=== PATIENT | female | born 2000 | race Caucasian/White ===

== ENCOUNTER 2022-08-25 11:21 | Outpatient (OUT) | payer BC, OTHER, SELFPAY ==
--- NOTE | 2022-08-25 11:28 | US_ITS ---
The [address] [address] Patient Name: MARVEL MICHELLE MRN: [id number] date: 2000 Sex: F Assigned Patient Location: US Current Patient Location: US Accession/Order Number: [id number] Exam Date: 08/25/2022 11:50 Report Date: 08/25/2022 15:31 At the request of: RICHARD TATUM Procedure: US OB incomplete anatomy EXAMINATION: US OB incomplete anatomy HISTORY: Screening, for anatomic survey Z36.89 COMPARISON: Ultrasound anatomy 07/17/2022 FINDINGS: Presentation: Breech Placenta: Anterior without previa Heart rate: 135 bpm Anatomy: Four-chamber heart, RVOT, LVOT, hard palate, kidneys. No appreciable abnormality. GA: 25 weeks 5 days YANICK: 12/03/2022 IMPRESSION: 1. Single live intrauterine . 2. No appreciable abnormality of the heart and outflow tracts, and kidneys. 3. Slightly limited evaluation of the hard palate due to adjacent structures, but no appreciable abnormality. Electronically authenticated by: EMA SAMUEL Date: 08/25/2022 15:31
== END 2022-08-25 11:22 ==
PROVIDERS: PCP Family Medicine; Visit Provider Obstetrics & Gynecology
DX: Z36.2 Encounter for other antenatal screening follow-up (principal)
CPT/HCPCS: 76815

== ENCOUNTER 2022-09-05 10:29 | Outpatient (OUT) | payer BC, OTHER, SELFPAY ==
[2022-09-05 11:51] LABS: Basophils Absolute Auto 0.1 10^3/uL (0.0-0.1); Basophils Percent Auto 0.5 % (0.2-2.0); Eosinophils Absolute Auto 0.1 10^3/uL (0.0-0.7); Eosinophils Percent Auto 0.6 % (0.9-7.0); Hematocrit 33.8 % (36.0-48.0); Hemoglobin 11.5 g/dL (12.0-16.0); Immature Granulocytes Abs Auto 0.06 10^3/uL (0.00-0.03); Immature Granulocytes Pct Auto 0.5 % (0.0-0.5); Lymphocytes Absolute Auto 1.8 10^3/uL (1.2-3.8); Lymphocytes Percent Auto 15.2 % (20.5-60.0); Mean Corpuscular Hemoglobin 29.4 pg (26.7-34.0); Mean Corpuscular Volume 86.4 fL (81.0-99.0); Mean Platelet Volume 10.3 fL (9.5-13.5); Monocytes Absolute Auto 0.7 10^3/uL (0.3-0.8); Monocytes Percent Auto 5.5 % (1.7-12.0); Neutrophils Absolute Auto 9.3 10^3/uL (1.4-6.5); Neutrophils Percent Auto 77.7 % (43.0-75.0); Platelet Count 283 10^3/uL (150-450); Red Blood Count 3.91 10^6/uL (4.20-5.40); Red Cell Distribution Width 12.6 % (11.0-15.0); White Blood Count 11.9 10^3/uL (4.0-11.0)
[2022-09-05 12:29] LABS: Estimated Average Glucose 88 mg/dL; Glycohemoglobin A1C 4.7 % (4.5-6.2)
[2022-09-05 13:20] LABS: Glucose 1 Hour 96 mg/dL
[2022-09-06 06:09] LABS: HBsAg Screen Negative (Negative); HCV Ab Non Reactive (Non Reactive); HIV Ab/p24 Ag Screen Non Reactive (Non Reactive); Rubella Antibodies, IgG <0.90 index (Immune >0.99)
[2022-09-06 10:08] LABS: Rapid Plasma Reagin, Quant Non Reactive (NonRea<1:1)
== END 2022-09-05 10:30 | disposition home or self-care (01) ==
PROVIDERS: PCP Family Medicine; Visit Provider Obstetrics & Gynecology
DX: Z34.92 Encounter for supervision of normal pregnancy, unspecified, second trimester (principal); N92.6 Irregular menstruation, unspecified
CPT/HCPCS: 36415; 82950; 83036; 84443; 85025; 86592; 86762; 86803; 86850; 86900; 86901; 87086; 87340; 87389

== ENCOUNTER 2022-09-23 09:33 | Outpatient (OUT) | payer BC, OTHER, SELFPAY | END 2022-09-23 09:34 | disposition home or self-care (01) | LOC: LAB 09:33 | PROVIDERS: PCP Family Medicine; Visit Provider Obstetrics & Gynecology | DX: O26.893 Other specified pregnancy related conditions, third trimester (principal); Z3A.28 28 weeks gestation of pregnancy | CPT/HCPCS: 36415; 86850; 86900; 86901 ==

== ENCOUNTER 2022-09-24 07:36 | Outpatient (OUT) | payer BC, OTHER, SELFPAY ==
[2022-09-24 09:39] VITALS: BP 124/76; PULSE 102; TEMP 36.5; O2SAT 98
--- NOTE | 2022-09-24 09:40 | PC.NURSE ---
0933: Pt. to [facility] amb. accompanied by significant other and child. Seated in recliner. Blood type confirmed. Pt. educated on purpose of Rhogam. Denies questions. VSS.
[2022-09-24] MEDS: RHO(D) IMMUNE GLOBULIN 1,500 UNIT SYRINGE 1500 UNIT IM (09:46)
--- NOTE | 2022-09-24 09:58 | PC.NURSE ---
0946: Medicated with Rhophylac 300mg IM to right dorsal gluteal. No bleeding from site. Bandaid placed prophylactically. Pt. tolerated with minimal c/o. Seated on recliner for brief observation. 1001: Pt. without s&s of adverse reaction. D/c'd amb. to home with family.
== END 2022-09-24 07:37 | disposition home or self-care (01) ==
LOC: INF 07:36
PROVIDERS: PCP Family Medicine; Visit Provider Obstetrics & Gynecology
DX: O36.0930 Maternal care for other rhesus isoimmunization, third trimester, not applicable or unspecified (principal); Z3A.00 Weeks of gestation of pregnancy not specified
CPT/HCPCS: 96372; J2790

== ENCOUNTER 2022-10-16 10:07 | Outpatient (OUT) | payer BC, OTHER, SELFPAY ==
--- NOTE | 2022-10-16 | US_ITS ---
The [address] [address] Patient Name: MARVEL MICHELLE MRN: [id number] date: 2000 Sex: F Assigned Patient Location: US Current Patient Location: US Accession/Order Number: [id number] Exam Date: 10/16/2022 10:10 Report Date: 10/16/2022 19:06 At the request of: FRANSISCO BARNEY Procedure: US OB incomplete anatomy EXAMINATION: US OB incomplete anatomy HISTORY: Follow-up ultrasound of anatomy Z36.2 COMPARISON: Ultrasound anatomy 07/17/2022, ultrasound OB incomplete anatomy 08/25/2022 FINDINGS: Presentation: Cephalic Heart rate: 153 bpm Anatomy: Hard palate, four-chamber heart, and outflow tracts seen without appreciable abnormality. GA: 23 weeks 1 day YANICK: 12/03/2022 US/US OB incomplete anatomy IMPRESSION: 1. Single live intrauterine . 2. Slightly limited evaluation due to position. No appreciable abnormality of the hard palate, four-chamber heart, and outflow tracts. Electronically authenticated by: EMA SAMUEL Date: 10/16/2022 19:06
== END 2022-10-16 10:08 | disposition home or self-care (01) ==
LOC: US 10:07
PROVIDERS: Visit Provider Obstetrics & Gynecology
DX: Z36.2 Encounter for other antenatal screening follow-up (principal)
CPT/HCPCS: 76815

== ENCOUNTER 2022-10-30 08:41 | Outpatient (OUT) | payer BC, OTHER, SELFPAY ==
--- NOTE | 2022-10-30 08:44 | US_ITS ---
[address] [address] Patient Name: MARVEL MICHELLE MRN: [id number] date: 2000 Sex: F Assigned Patient Location: US Current Patient Location: US Accession/Order Number: [id number] Exam Date: 10/30/2022 08:45 Report Date: 10/30/2022 15:07 At the request of: FRANSISCO BARNEY Procedure: US OB growth EXAMINATION: US OB growth HISTORY: SIZE INCONSISTENT WITH DATES COMPARISON: Ultrasound OB anatomy 07/17/2022 FINDINGS: Heart Rate: 134.0 bpm Number: 1.0 Position: Blank Amniotic Fluid Volume: 10.4 cm Maximum Vertical Pocket: 5.0 cm BIOMETRY: BPD: 9.2 cm cm; 37 weeks 1 days; 95% HC: 32.9 cmcm; 37 weeks 3 days; 74% AC: 31.4 cm cm; 35 weeks 2 days; 63% FL: 7.3 cm cm; 37 weeks 1 days; 89% EFW: 2886.2 grams; 78% FL/AC: 23.1 FL/BPD: 79.3 HC/AC: 1.1 GESTATIONAL AGE: Age by EDC: 35 weeks 1 days YANICK by EDC: 12/03/2022 Age by US: 36 weeks 5 days YANICK by US: 11/22/2022 US/US OB growth IMPRESSION: 1. Single live intrauterine with growth detailed above. Electronically authenticated by: EMA SAMUEL Date: 10/30/2022 15:07
== END 2022-10-30 08:42 | disposition home or self-care (01) ==
LOC: US 08:42
PROVIDERS: Visit Provider Obstetrics & Gynecology
DX: O26.843 Uterine size-date discrepancy, third trimester (principal); Z3A.35 35 weeks gestation of pregnancy
CPT/HCPCS: 76816

== ENCOUNTER 2022-11-07 09:06 | Outpatient (REF) | payer BC, SELFPAY | END 2022-11-07 09:07 | disposition home or self-care (01) | LOC: LAB 09:06 | PROVIDERS: Visit Provider Obstetrics & Gynecology | DX: Z34.93 Encounter for supervision of normal pregnancy, unspecified, third trimester (principal) | CPT/HCPCS: 87081 ==

== ENCOUNTER 2022-11-20 22:36 | Inpatient (IN) | payer BC, SELFPAY ==
[2022-11-20 22:00] VITALS: BP 120/68; PULSE 91; TEMP 35.4
[2022-11-20 22:18] LABS: Bilirubin Urine NEGATIVE (NEGATIVE); Blood Urine TRACE-I (NEGATIVE); Clarity Urine CLEAR (CLEAR); Color Urine YELLOW (YELLOW); Glucose Urine UA NEGATIVE (NEGATIVE); Ketones Urine NEGATIVE (NEGATIVE); Leukocyte Esterase Urine NEGATIVE (NEGATIVE); Nitrite Urine NEGATIVE (NEGATIVE); Protein Urine 30 mg/dL (NEG/TRACE); Specific Gravity Urine >=1.030 (1.005-1.025); Urobilinogen Urine 0.2 EU/dL (0.2-1.0)
[2022-11-20 22:22] LABS: Amnisure POSITIVE (NEGATIVE)
[2022-11-20 22:25] LABS: Urine Microscopic Indicated YES
[2022-11-20 22:27] LABS: Bacteria Urine SMALL #/HPF (NONE SEEN); Mucus Urine MODERATE (NONE SEEN); Squamous Epithelial Cell Urine FEW #/LPF (NONE/RARE)
[2022-11-20 22:28] LABS: Cast Seen? NONE SEEN #/LPF (NONE SEEN); Crystals Seen? None Seen #/HPF (None Seen); Urine Culture Indicated YES
[2022-11-20 23:18] VITALS: BP 122/76; PULSE 78
[2022-11-20 23:31] VITALS: RESP 18; TEMP 36.5
[2022-11-20 23:42] LABS: Hematocrit 31.9 % (36.0-48.0); Hemoglobin 10.9 g/dL (12.0-16.0); Mean Corpuscular HGB Conc 34.2 g/dL (29.9-35.2); Mean Corpuscular Hemoglobin 28.1 pg (26.7-34.0); Mean Corpuscular Volume 82.2 fL (81.0-99.0); Mean Platelet Volume 11.6 fL (9.5-13.5); Platelet Count 236 10^3/uL (150-450); Red Blood Count 3.88 10^6/uL (4.20-5.40); White Blood Count 14.8 10^3/uL (4.0-11.0)
[2022-11-20 23:48] VITALS: BP 127/92; PULSE 81
[2022-11-20 23:54] LABS: Amphetamine Screen Urine NEGATIVE (NEGATIVE); Barbiturates Screen Urine NEGATIVE (NEGATIVE); Benzodiazepines Screen Urine NEGATIVE (NEGATIVE); Buprenorphine Screen Urine NEGATIVE (NEGATIVE); Cannabinoid Screen Urine POSITIVE (NEGATIVE); Cocaine Screen Urine NEGATIVE (NEGATIVE); Methadone Screen Urine NEGATIVE (NEGATIVE); Methamphetamines Screen Urine NEGATIVE (NEGATIVE); Opiate Screen Urine NEGATIVE (NEGATIVE); Oxycodone Screen Urine NEGATIVE (NEGATIVE); Phencyclidine Screen Urine NEGATIVE (NEGATIVE); Tricyclic Antidepressant Urine NEGATIVE (NEGATIVE)
[2022-11-21] VITALS (58 sets, daily range): BP systolic 102–177; BP diastolic 56–127; PULSE 75–126; RESP 16–18; TEMP 36.7–37.2
[2022-11-21] MEDS: 0.9 % SODIUM CHLORIDE 1,000 ML 125 ML IV (00:17)
[2022-11-21] MEDS: ROPIVACAINE HCL/PF 400 MG/200 ML PREMIX 6 MG EPIDURAL (01:05)
[2022-11-21] MEDS: FENTANYL CITRATE/PF 100 MCG/2 ML VIAL EPIDURAL (01:05)
[2022-11-21] MEDS: OXYTOCIN 10 UNIT in 0.9 % SODIUM CHLORIDE 500 ML 6.012 UNIT IV (01:53)
[2022-11-21] MEDS: ONDANSETRON PF 4 MG/2 ML VIAL IV (01:54)
[2022-11-21] MEDS: 0.9 % SODIUM CHLORIDE 1,000 ML 1000 ML IV (03:17)
--- NOTE | 2022-11-21 05:32 | P.OBHP_ITS ---
OB - H&P: HPI History of Present Illness Chief complaint: water broke 38 weeks : 1 Para: 0 Gestational age based on last menstrual period: 38 2/7wks History of Present Dating criteria: LMP confirmed by 1st trimester US care: good care Ultrasounds: normal 1st trimester US Medical complications OB: none Labs Blood type: B (-) negative Rubella: nonimmune RPR/VDLR: nonreactive GBS status: negative HBsAG: negative Review of Systems ROS Status of ROS 10 or more systems reviewed and unremarkable except as noted in history and below Meds Home Medications and Allergies Home Medications Medication Instructions Recorded Confirmed Type ondansetron 4 mg disintegrating mg 11/20/22 History tablet Allergies Allergy/AdvReac Type Severity Reaction Status Date / Time No Known Drug Allergies Allergy Verified 11/20/22 22:02 Exam Constitutional Vital Signs, click to edit/add: Last Vital Signs Temp 98.3 F 11/21/22 04:16 Pulse 98 H 11/21/22 05:31 Resp 18 11/21/22 04:16 BP 169/99 H 11/21/22 05:31 Documenting provider has reviewed patient's vital signs: yes Common normals: no apparent distress Respiratory Common normals: normal respiratory effort and clear to auscultation bilaterally Cardio Common normals: regular rate and regular rhythm GI Common normals: Normal to inspection, nondistended, normoactive bowel sounds present Extremity Common normals: no clubbing, cyanosis or edema and no calf tenderness Results Labs Labs: Short CBC 11/20/22 Range/Units 23:00 WBC 14.8 H (4.0-11.0) 10^3/uL Hgb 10.9 L (12.0-16.0) g/dL Hct 31.9 L (36.0-48.0) % Plt Count 236 (150-450) 10^3/uL Urine 11/20/22 Range/Units 21:56 Urine Color Yellow (YELLOW) Urine Clarity Clear (CLEAR) Urine pH 6.0 (5.0-9.0) Ur Specific [place] >=1.030 A (1.005-1.025) Urine Protein 30 A (NEG/TRACE) mg/dL Urine Glucose (UA) Negative (NEGATIVE) mg/dL OB - A/P Assessment and Plan (1) SROM (spontaneous rupture of membranes): Plan iup at 38 2/7wks, srom-iv, routine labs, pit augmentation, cont efm
--- NOTE | 2022-11-21 06:07 | PM.OBPRCVD ---
Procedure Procedure: , srom Intrapartal events: None Induction method: none Delivery augmentation: pitocin Delivery monitor: external FHT and external uterine Route of delivery: Episiotomy Description: none Laceration description: perineal - 2nd degree Delivery repair: Vicryl Estimated blood loss (mL): 250 Anesthesia type: Epidural Disposition: floor Infant presentation: vertex
--- NOTE | 2022-11-21 07:17 | PC.NURSE ---
epidural catheter removed with tip intact.
[2022-11-21] MEDS: BENZOCAINE/MENTHOL 85 GRAM SPRAY BOTTLE 1 APPLIC TOPICAL (07:23)
[2022-11-21] MEDS: IBUPROFEN 600 MG TABLET PO ×3 (07:24→18:36)
[2022-11-21] MEDS: GLYCERIN/WITCH HAZEL PADS 1 PAD TOPICAL (07:24)
--- NOTE | 2022-11-21 07:49 | PC.NURSE ---
0710- Report given to Belem Zaman RN
--- NOTE | 2022-11-21 14:11 | SWNOTE1 ---
SW consulted due to positive drug screen for marijuana. SW spoke with nursing and no other concerns besides marijuana. SW met with pt, father of baby, and pt's sister in law in the room. This is pt's first baby. Father of baby does have a 5 year old daughter that he shares parenting with the mother. Pt and father of baby do have everything they need at home for baby. She is attempting to breast feed. Pt and father of baby have good support at home from both families. SW and pt did talk to pt about being positive for marijuana on admission. Pt does admit to smoking marijuana during . At the beginning she voiced she was nauseous and could not keep anything down, and she lost 20 pounds. Smoking marijuana helped. She then was able to gain weight and eat. She did attempt other meds for her nausuea. She voiced she also smoked marijuana due to her pain. SW did ask her if she was going to continue once home, and she stated if she needed to. SW did let pt and family know SW is mandated reported and a report will be called to CPS. They voiced understanding. ESTEBAN did go over post- depression with pt and father of baby and they voiced they have already spoke about this. ESTEBAN called report to [facility] CPS. HIPPA form filled out and sent to
--- NOTE | 2022-11-22 06:44 | PC.NURSE ---
[place]30[place] [place]
[2022-11-22 06:50] LABS: Basophils Absolute Auto 0.1 10^3/uL (0.0-0.1); Basophils Percent Auto 0.5 % (0.2-2.0); Eosinophils Absolute Auto 0.1 10^3/uL (0.0-0.7); Eosinophils Percent Auto 0.8 % (0.9-7.0); Hemoglobin 9.9 g/dL (12.0-16.0); Immature Granulocytes Pct Auto 0.7 % (0.0-0.5); Lymphocytes Absolute Auto 3.3 10^3/uL (1.2-3.8); Mean Corpuscular Volume 84.7 fL (81.0-99.0); Mean Platelet Volume 10.6 fL (9.5-13.5); Monocytes Absolute Auto 0.8 10^3/uL (0.3-0.8); Monocytes Percent Auto 5.8 % (1.7-12.0); Neutrophils Percent Auto 69.2 % (43.0-75.0); Platelet Count 229 10^3/uL (150-450); Red Blood Count 3.54 10^6/uL (4.20-5.40); Red Cell Distribution Width 14.4 % (11.0-15.0); White Blood Count 14.5 10^3/uL (4.0-11.0)
--- NOTE | 2022-11-22 07:09 | PC.NURSE ---
Report given to Eduardo Mauricio RN
[2022-11-22 08:05] VITALS: BP 124/72; PULSE 80; RESP 16
[2022-11-22] MEDS: DOCUSATE SODIUM 100 MG CAPSULE PO (08:51)
[2022-11-22] MEDS: IBUPROFEN 600 MG TABLET PO ×3 (08:51→23:21)
--- NOTE | 2022-11-22 09:12 | PM.OBPN ---
OB - PN: Subj Subjective Patient comments: no complaints, pain well controlled, tolerating diet and flatus present infant status: doing well feeding status: exclusively Exam Constitutional Vital Signs, click to edit/add: Last Vital Signs Temp 98.2 F 11/21/22 23:41 Pulse 80 11/22/22 08:05 Resp 16 11/22/22 08:05 BP 124/72 11/22/22 08:05 Documenting provider has reviewed patient's vital signs: yes Common normals: no apparent distress, oriented x3 and no limitations General appearance: cooperative and comfortable Orientation/consciousness: Yes awake, Yes oriented to person, Yes oriented to place and Yes oriented to time HENMT Common normals: normocephalic Lymph Lymphatic: no lymphadenopathy noted Chest Common normals: inspection of chest normal Respiratory Common normals: normal respiratory effort and clear to auscultation bilaterally Cardio Common normals: regular rate, regular rhythm and no murmurs Rate: regular rate Rhythm: regular rhythm GI Common normals: Normal to inspection, nondistended, normoactive bowel sounds present Auscultation: normoactive bowel sounds Palpation: soft Common normals: no CVA tenderness Back & Pelvis Common normals: no CVA tenderness Extremity Common normals: normal to inspection and full ROM General: normal exam except as noted Neuro Common normals: oriented x3 Sensorium/orientation: awake, alert, oriented to person, oriented to place and oriented to time Psych Psychiatry clinicians, please identify where your Mental Status Exam is documented: Mental Status Exam documented in the separate MSE Attitude: calm Activity/motor behavior: appropriate eye contact Thought process: normal thought process Results Labs Labs: Short CBC 11/22/22 Range/Units 06:38 WBC 14.5 H (4.0-11.0) 10^3/uL Hgb 9.9 L (12.0-16.0) g/dL Hct 30.0 L (36.0-48.0) % Plt Count 229 (150-450) 10^3/uL OB - PN: A/P Assessment and Plan (1) SROM (spontaneous rupture of membranes): Plan - Vaginal Delivery day: 1 Plan: routine care Time Spent with Patient Time: Total time spent is greater than 50% in coordination of care (as documented) at patient's floor/unit and/or counseling patient: Total time spent with greater than 50% in coordination of care (as documented) at patient's floor/unit and/or counseling patient: less than 15 minutes
[2022-11-22 17:20] VITALS: RESP 16
[2022-11-22 17:23] VITALS: BP 117/83; PULSE 88
--- NOTE | 2022-11-22 19:29 | W.PC.ACHO ---
Registration Status: ADM IN Primary Language: Grenadian Preferred Language: Grenadian Report given to Camron De La Rosa RN. Care relinquished. Active Medications Generic Name Dose Route Start Last Admin Trade Name Eze PRN Reason Stop Dose Admin Acetaminophen 650 mg 11/21/22 06:08 Acetaminophen 325 Mg Tablet PO Q6H PRN Mild Pain Al Hydroxide/Mg Hydroxide 2,400 mg 11/21/22 06:08 Magnesium Hydroxide 2,400 Mg/10 Ml Oral.Susp PO Q6H PRN Dyspepsia Benzocaine/Menthol 1 applic 11/21/22 06:08 11/21/22 07:23 Benzocaine/Menthol 85 Gram [place] Bottle TOPICAL 1 applic Q2H PRN Administration Pain Carboprost Tromethamine 250 mcg 11/21/22 01:49 Carboprost Tromethamine 250 Mcg/Ml 1 Ml Vial IM 11/23/22 01:49 Q15M PRN Bleeding Diphtheria/Pertussis/Tetanus Vacc 0.5 ml 11/23/22 09:00 Adacel Diph,Pertuss(Acell),Tet Vac/Pf 0.5 Ml Adult Syringe IM 11/23/22 09:01 .ONCE ONE Docusate Sodium 100 mg 11/22/22 09:00 11/22/22 08:51 Docusate Sodium 100 Mg Capsule PO 100 mg BID SLIME Administration Sodium Chloride 1,000 mls @ 125 mls/hr 11/20/22 22:45 11/21/22 00:17 Sodium Chloride 0.9% 1,000 Ml IV 125 mls/hr .Q8H SLIME Administration Ibuprofen 600 mg 11/21/22 06:08 11/22/22 16:15 Ibuprofen 600 Mg Tablet PO 600 mg Q6H PRN Administration Moderate Pain Measles/Mumps/Rubella Vaccine Live 0.5 ml 11/23/22 09:00 Measles,Mumps,Rubella Vacc/Pf 0.5 Ml Vial SQ 11/23/22 09:01 .ONCE ONE Methylergonovine Maleate 0.2 mg 11/20/22 22:38 Methylergonovine Maleate 0.2 Mg/Ml Ampule IM 11/22/22 22:38 ONCE PRN Uterine Contractility/Contract Methylergonovine Maleate 0.2 mg 11/20/22 22:38 Methylergonovine Maleate 0.2 Mg Tablet PO 11/22/22 22:38 Q4H PRN Uterine Contractility/Contract Misoprostol 600 mcg 11/20/22 22:38 Misoprostol 100 Mcg Tablet PO 11/22/22 22:38 ONCE PRN Uterine Bleeding Misoprostol 800 mcg 11/20/22 22:38 Misoprostol 100 Mcg Tablet SL 11/22/22 22:38 ONCE PRN Uterine Bleeding Misoprostol 1,000 mcg 11/20/22 22:38 Misoprostol 100 Mcg Tablet AR 11/22/22 22:38 ONCE PRN Uterine Bleeding Ondansetron HCl 4 mg 11/20/22 22:38 11/21/22 01:54 Ondansetron Pf 4 Mg/2 Ml Vial IV 4 mg Q6H PRN Administration Nausea And Vomiting Ondansetron HCl 4 mg 11/20/22 22:38 Ondansetron 4 Mg Rapdis Tablet SL Q6H PRN Nausea And Vomiting Senna 17.2 mg 11/21/22 20:00 Sennosides 8.6 Mg Tablet PO QHS PRN Constipation Simethicone 80 mg 11/21/22 06:08 Simethicone 80 Mg Tab.Chew PO QID PRN Abdominal Distention Temazepam 15 mg 11/21/22 06:08 Temazepam 15 Mg Capsule PO QHS PRN Sleep Witch Loyda/Glycerin 1 pad 11/21/22 06:08 11/21/22 07:24 Glycerin/Witch Loyda Pads TOPICAL 1 pad Q2H PRN Administration Pain Renal Bladder Pattern Continent Bladder Pattern Continent Bladder Pattern Continent Bladder Pattern Continent
[2022-11-22 23:20] VITALS: BP 119/75; PULSE 77; RESP 16; TEMP 36.6
[2022-11-23] MEDS: IBUPROFEN 600 MG TABLET PO (06:15)
--- NOTE | 2022-11-23 07:11 | W.PC.ACHO ---
Registration Status: ADM IN Primary Language: Polish Preferred Language: Polish Active Medications Generic Name Dose Route Start Last Admin Trade Name Freq PRN Reason Stop Dose Admin Acetaminophen 650 mg 11/21/22 06:08 Acetaminophen 325 Mg Tablet PO Q6H PRN Mild Pain Al Hydroxide/Mg Hydroxide 2,400 mg 11/21/22 06:08 Magnesium Hydroxide 2,400 Mg/10 Ml Oral.Susp PO Q6H PRN Dyspepsia Benzocaine/Menthol 1 applic 11/21/22 06:08 11/21/22 07:23 Benzocaine/Menthol 85 Gram [place] Bottle TOPICAL 1 applic Q2H PRN Administration Pain Diphtheria/Pertussis/Tetanus Vacc 0.5 ml 11/23/22 09:00 Adacel Diph,Pertuss(Acell),Tet Vac/Pf 0.5 Ml Adult Syringe IM 11/23/22 09:01 .ONCE ONE Docusate Sodium 100 mg 11/22/22 09:00 11/23/22 00:52 Docusate Sodium 100 Mg Capsule PO Not Given BID SLIME Sodium Chloride 1,000 mls @ 125 mls/hr 11/20/22 22:45 11/21/22 00:17 Sodium Chloride 0.9% 1,000 Ml IV 125 mls/hr .Q8H SLIME Administration Ibuprofen 600 mg 11/21/22 06:08 11/23/22 06:15 Ibuprofen 600 Mg Tablet PO 600 mg Q6H PRN Administration Moderate Pain Measles/Mumps/Rubella Vaccine Live 0.5 ml 11/23/22 09:00 Measles,Mumps,Rubella Vacc/Pf 0.5 Ml Vial SQ 11/23/22 09:01 .ONCE ONE Ondansetron HCl 4 mg 11/20/22 22:38 11/21/22 01:54 Ondansetron Pf 4 Mg/2 Ml Vial IV 4 mg Q6H PRN Administration Nausea And Vomiting Ondansetron HCl 4 mg 11/20/22 22:38 Ondansetron 4 Mg Rapdis Tablet SL Q6H PRN Nausea And Vomiting Senna 17.2 mg 11/21/22 20:00 Sennosides 8.6 Mg Tablet PO QHS PRN Constipation Simethicone 80 mg 11/21/22 06:08 Simethicone 80 Mg Tab.Chew PO QID PRN Abdominal Distention Temazepam 15 mg 11/21/22 06:08 Temazepam 15 Mg Capsule PO QHS PRN Sleep Witch Loyda/Glycerin 1 pad 11/21/22 06:08 11/21/22 07:24 Glycerin/Witch Loyda Pads TOPICAL 1 pad Q2H PRN Administration Pain Respiratory Oxygen Delivery Method Room Air Cardiology Heart Sounds Regular Bowels Date of Last Bowel Movement 11/22/22 Renal Bladder Pattern Continent Bladder Pattern Continent Bladder Pattern Continent
[2022-11-23 08:40] VITALS: BP 121/62; PULSE 75; RESP 16; TEMP 36.8
[2022-11-23] MEDS: DOCUSATE SODIUM 100 MG CAPSULE PO (08:44)
--- NOTE | 2022-11-23 12:09 | PM.OBPN ---
OB - PN: Subj Subjective Patient comments: no complaints and pain well controlled [place] status: doing well Exam Constitutional Vital Signs, click to edit/add: Last Vital Signs Temp 98.3 F 11/23/22 08:40 Pulse 75 11/23/22 08:40 Resp 16 11/23/22 08:40 BP 121/62 11/23/22 08:40 O2 Del Method Room Air 11/23/22 08:40 Documenting provider has reviewed patient's vital signs: yes Common normals: no apparent distress Respiratory Common normals: normal respiratory effort and clear to auscultation bilaterally Cardio Common normals: regular rate and regular rhythm GI Common normals: Normal to inspection, nondistended, normoactive bowel sounds present Extremity Common normals: no clubbing, cyanosis or edema and no calf tenderness OB - PN: A/P Assessment and Plan (1) SROM (spontaneous rupture of membranes): Plan - Vaginal Delivery day: 2 Plan: routine care, discharge home and follow up 6 weeks Time Spent with Patient Time: Total time spent is greater than 50% in coordination of care (as documented) at patient's floor/unit and/or counseling patient: Total time spent with greater than 50% in coordination of care (as documented) at patient's floor/unit and/or counseling patient: less than 15 minutes
[2022-11-23] MEDS: MEASLES,MUMPS,RUBELLA VACC/PF 0.5 ML VIAL SQ (14:31)
[2022-11-29 04:07] LABS: Cannabinoid Positive (.); Carboxy THC Conf, MS, UR 11 ng/mL (Cutoff=10)
== END 2022-11-23 14:50 | disposition home or self-care (01) | DRG 806 ==
PROVIDERS: Admitting Provider Obstetrics & Gynecology; Visit Provider Obstetrics & Gynecology
DX: O42.92 Full-term premature rupture of membranes, unspecified as to length of time between rupture and onset of labor (principal); O99.324 Drug use complicating childbirth; Z37.0 Single live birth; Z3A.38 38 weeks gestation of pregnancy; O70.1 Second degree perineal laceration during delivery; F12.90 Cannabis use, unspecified, uncomplicated
CPT/HCPCS: 36415; 51702; 59050; 59410; 80307; 80349; 81001; 84112; 85025; 85027; 86850; 86900; 86901; 87086; 90471; 90707; 96374; 96375; 96376

== ENCOUNTER 2022-11-26 08:38 | Outpatient (OUT) | payer BC, SELFPAY | END 2022-11-26 08:39 | disposition home or self-care (01) | LOC: FBCO 08:39 | PROVIDERS: Visit Provider Obstetrics & Gynecology | DX: Z39.2 Encounter for routine postpartum follow-up (principal) ==

== ENCOUNTER 2024-05-13 20:53 | Emergency (ER) | payer BC, SELFPAY ==
[2024-05-13 21:13] VITALS: BP 120/81; PULSE 104; TEMP 36.9; O2SAT 100; BMI 27.2
[2024-05-13 22:18] LABS: Basophils Absolute Auto 0.1 10^3/uL (0.0-0.1); Basophils Percent Auto 0.7 % (0.2-2.0); Eosinophils Absolute Auto 0.3 10^3/uL (0.0-0.7); Eosinophils Percent Auto 2.3 % (0.9-7.0); Hematocrit 41.3 % (36.0-48.0); Hemoglobin 13.9 g/dL (12.0-16.0); Immature Granulocytes Abs Auto 0.03 10^3/uL (0.00-0.03); Immature Granulocytes Pct Auto 0.2 % (0.0-0.5); Lymphocytes Absolute Auto 2.9 10^3/uL (1.2-3.8); Lymphocytes Percent Auto 23.4 % (20.5-60.0); Mean Corpuscular HGB Conc 33.7 g/dL (29.9-35.2); Mean Corpuscular Hemoglobin 28.8 pg (26.7-34.0); Mean Corpuscular Volume 85.5 fL (81.0-99.0); Mean Platelet Volume 10.9 fL (9.5-13.5); Monocytes Absolute Auto 0.9 10^3/uL (0.3-0.8); Monocytes Percent Auto 7.4 % (1.7-12.0); Neutrophils Absolute Auto 8.2 10^3/uL (1.4-6.5); Platelet Count 289 10^3/uL (150-450); Red Blood Count 4.83 10^6/uL (4.20-5.40); Red Cell Distribution Width 13.2 % (11.0-15.0); White Blood Count 12.5 10^3/uL (4.0-11.0)
[2024-05-13] MEDS: ONDANSETRON 4 MG RAPDIS TABLET SL (22:53)
[2024-05-13 23:00] LABS: HCG Quantitative 33925 mIU/mL
[2024-05-13 23:37] LABS: Alanine Aminotransferase 17 U/L (14-59); Albumin Globulin Ratio 1.1; Albumin Level 4.2 g/dL (3.4-5.0); Alkaline Phosphatase 67 U/L (46-116); Anion Gap 16.3; Aspartate Amino Transferase 9 U/L (15-37); BUN Creatinine Ratio 12.8; Bilirubin Total 0.3 mg/dL (0.2-1.0); Calcium 9.4 mg/dL (8.5-10.1); Carbon Dioxide 23.5 mmol/L (21.0-32.0); Chloride 102 mmol/L (98-107); Estimated GFR (African America >60 (>=60 mL/min/1.73m^2); Estimated GFR (Non-African Ame >60 (>=60 mL/min/1.73m^2); Globulin 3.7 g/dL; Glucose 107 mg/dL (74-106); Potassium 3.8 mmol/L (3.5-5.1); Sodium 138 mmol/L (136-145); Total Protein 7.9 g/dL (6.4-8.2)
--- NOTE | 2024-05-14 00:55 | ED_ITS ---
HPI - General Chief complaint: Vaginal Bleeding Stated complaint: , VAGINAL BLEEDING Time Seen by Provider: 05/13/24 21:15 Source: patient Mode of arrival: walk-in Limitations: no limitations History of Present Illness HPI Narrative: The patient think that she is 6 weeks presenting to the ER complaining of vaginal bleeding after she has been feeling nausea for the last few days, the patient mentioned that she had no follow-up with any OB doctor yet, this is the second time that she is 2 para 1 The patient denies any other complaint other than the nausea, and she saw some bright blood when she was wiping 3 hours ago Related Data Home Medications ?Medication ?Instructions ?Recorded ?Confirmed ondansetron 4 mg disintegrating 4 mg PO Q6H PRN nausea and vomiting 05/13/24 05/13/24 tablet Allergies Allergy/AdvReac Type Severity Reaction Status Date / Time No Known Drug Allergies Allergy Verified 05/13/24 21:12 Review of Systems ROS Status of ROS 10 or more systems reviewed and unremark able except as noted in history and below PFSH PFSH Social History Little interest or pleasure in doing things: not at all Feeling down, depressed, or hopeless: not at all Exam Narrative Exam Narrative: Nurses notes and vital signs reviewed and patient is not hypoxic. General: Well-appearing and in no apparent distress. Skin: Warm, dry, no pallor noted. No rash. Head: Normocephalic, atraumatic. Neck: Supple, non-tender. Cardiovascular: Regular Rate and Rhythm without murmur, gallop or rub. Respiratory: No accessory muscle use or respiratory distress. Lungs are clear to auscultation, no wheezing, rales or rhonchi Chest Wall: no tenderness Back: No midline thoracic or lumbar vertebral tenderness. No CVA tenderness Musculoskeletal: normal ROM, no calf or popliteal tenderness, no lower extremity edema/swelling GI: Abdomen is soft, non-distended. Normal bowel sounds. No masses appreciated. No tenderness to palpation. No rebound, guarding, or rigidity noted. Constitutional Vital Signs, click to edit/add: Last Vital Signs Temp 98.5 F 05/13/24 21:13 Pulse 104 H 05/13/24 21:13 Resp 14 05/13/24 21:13 BP 120/81 05/13/24 21:13 Pulse Ox 100 05/13/24 21:13 O2 Del Method Room Air 05/13/24 21:13 Course Vital Signs Vital signs: Vital Signs Temperature 98.5 F 05/13/24 21:13 Pulse Rate 104 H 05/13/24 21:13 Respiratory Rate 14 05/13/24 21:13 Blood Pressure 120/81 05/13/24 21:13 Pulse Oximetry 100 05/13/24 21:13 Oxygen Delivery Method Room Air 05/13/24 21:13 Temperature 98.5 F 05/13/24 21:13 Pulse Rate 104 H 05/13/24 21:13 Respiratory Rate 14 05/13/24 21:13 Blood Pressure 120/81 05/13/24 21:13 Pulse Oximetry 100 05/13/24 21:13 Oxygen Delivery Method Room Air 05/13/24 21:13 MDM - OB/Uterine Contractions MDM Narrative Medical decision making narrative: The patient CBC and chemistry showed no acute significant pathology The patient blood type and screen is B negative The patient was provided with a RhoGAM shot here in the ER The patient also had ultrasound that showed that she have a 6-week that is early to show any cardiac activity Patient to follow-up with her OB doctor as outpatient for further evaluation She is also to come back to us in case of any worsening of her symptoms or any new concerning The patient is to follow up with primary care physician in next 2-3 days or to return to the emergency department should any of the signs or symptoms worsen or new symptoms develop. The patient agrees with the following Diagnosis and Treatment plan and the patient will be discharged home. Lab Data Labs: Lab Results 05/13/24 Range/Units 22:06 WBC 12.5 H (4.0-11.0) 10^3/uL RBC 4.83 (4.20-5.40) 10^6/uL Hgb 13.9 (12.0-16.0) g/dL Hct 41.3 (36.0-48.0) % MCV 85.5 (81.0-99.0) fL MCH 28.8 (26.7-34.0) pg MCHC 33.7 (29.9-35.2) g/dL RDW 13.2 (11.0-15.0) % Plt Count 289 (150-450) 10^3/uL MPV 10.9 (9.5-13.5) fL Neut % (Auto) 66.0 (43.0-75.0) % Lymph % (Auto) 23.4 (20.5-60.0) % [place] % (Auto) 7.4 (1.7-12.0) % Eos % (Auto) 2.3 (0.9-7.0) % Baso % (Auto) 0.7 (0.2-2.0) % Neut # (Auto) 8.2 H (1.4-6.5) 10^3/uL Lymph # (Auto) 2.9 (1.2-3.8) 10^3/uL [place] # (Auto) 0.9 H (0.3-0.8) 10^3/uL Eos # (Auto) 0.3 (0.0-0.7) 10^3/uL Baso # (Auto) 0.1 (0.0-0.1) 10^3/uL Abs Immat Gran (auto) 0.03 (0.00-0.03) 10^3/uL Imm/Tot Granulo (auto) 0.2 (0.0-0.5) % Sodium 138 (136-145) mmol/L Potassium 3.8 (3.5-5.1) mmol/L Chloride 102 (98-107) mmol/L Carbon Dioxide 23.5 (21.0-32.0) mmol/L Anion Gap 16.3 BUN 11.0 (7.0-18.0) mg/dL Creatinine 0.86 (0.55-1.02) mg/dL Est GFR ( Amer) >60 (>=60 mL/min/1.73m^2) Est GFR (Non-Af Amer) >60 (>=60 mL/min/1.73m^2) BUN/Creatinine Ratio 12.8 Glucose 107 H (74-106) mg/dL Calcium 9.4 (8.5-10.1) mg/dL Total Bilirubin 0.3 (0.2-1.0) mg/dL AST 9 L (15-37) U/L ALT 17 (14-59) U/L Alkaline Phosphatase 67 (46-116) U/L Total Protein 7.9 (6.4-8.2) g/dL Albumin 4.2 (3.4-5.0) g/dL Globulin 3.7 g/dL Albumin/Globulin Ratio 1.1 HCG, Quant 96872 mIU/mL Blood Type B Negative Discharge Plan Discharge Chief Complaint: Vaginal Bleeding Clinical Impression: Threatened Patient Disposition: Home, Self-Care Time of Disposition Decision: 00:55 Condition: Good Mode of Transportation: Private Vehicle Prescriptions / Home Meds: No Action ondansetron 4 mg tablet,disintegrating 4 mg PO Q6H PRN (Reason: nausea and vomiting) Print Language: Vietnamese Instructions: Threatened Miscarriage (ED) Referrals: Stone Espinoza DO [Physician] - 1 week Physician,Non-Staff, [Primary Care Provider] - 1 week Discharge Date/Time: 05/14/24 01:20
[2024-05-14] MEDS: RHO(D) IMMUNE GLOBULIN 1,500 UNIT SYRINGE 1500 UNIT IM (01:15)
== END 2024-05-14 01:20 | disposition home or self-care (01) ==
PROVIDERS: Physician Assistant; Emergency Provider Emergency Medicine
DX: O20.0 Threatened abortion (principal); Z3A.01 Less than 8 weeks gestation of pregnancy; O26.891 Other specified pregnancy related conditions, first trimester; Z67.21 Type B blood, Rh negative
CPT/HCPCS: 36415; 76817; 80053; 84702; 84703; 85025; 86850; 86900; 86901; 96372; 99284; J2791; Q0162

== ENCOUNTER 2024-05-18 10:57 | Emergency (ER) | payer BC, SELFPAY ==
[2024-05-18 11:01] VITALS: BP 113/73; PULSE 87; TEMP 36.9; O2SAT 99; BMI 25.4
--- NOTE | 2024-05-18 11:16 | ED_ITS ---
HPI HPI - General Adult General Chief complaint: Nausea/Vomiting/Diarrhea Stated complaint: VOMITTING SENT BY RICHARD TATUM Time Seen by Provider: 05/18/24 11:00 History of Present Illness HPI narrative: Patient presents to ED complaining of nausea vomiting. Patient states she is 6 weeks and this is her second . She said her first she had same issues. She had some vaginal bleeding over the weekend, she was seen by OB today and then sent over to the office due to dehydration. Patient said her vaginal bleeding had stopped. They did give her RhoGAM over the weekend. She had an ultrasound that was normal at that time. Patient states that her previous she was better in the second trimester but the first trimester was similar to this. The OB office called and said they were sending her over they wanted fluids Zofran and a beta quant. They said they are working on getting her set up for Zofran pump at home. Patient said she had multiple hospital admissions last as well. Patient states she does have Zofran at home but it has not been working because she has not been able to keep it down. No acute abdominal pain or any other symptoms. No fevers. Related Data Home Medications ?Medication ?Instructions ?Recorded ?Confirmed ondansetron 4 mg disintegrating 4 mg PO Q6H PRN nausea and vomiting 05/13/24 05/13/24 tablet Allergies Allergy/AdvReac Type Severity Reaction Status Date / Time No Known Drug Allergies Allergy Verified 05/13/24 21:12 Opioid HPI Opioid Management Most Recent Opioid Data: Last Pain Scale 2 11/23/22 06:15 11/23/22 Urine Cannabinoids Positive (.) A 11/21/22 01:26 11/21/22 Ur Phencyclidine Scrn Negative (NEGATIVE) 11/20/22 23:00 0910/05 Review of Systems ROS Status of ROS 10 or more systems reviewed and unremark able except as noted in history and below PFSH PFSH Social History Little interest or pleasure in doing things: not at all Feeling down, depressed, or hopeless: not at all Exam Narrative Exam Narrative: General: alert, no acute distress Cardiovascular: regular rate and rhythm, normal peripheral perfusion. Respiratory: Lungs CTA, respirations non labored. Extremities: no deformity, no trauma. Neurological: oriented x 4, LOC appropriate for age. Abdomen soft nontender nondistended Constitutional Vital Signs, click to edit/add: Last Vital Signs Temp 98.5 F 05/18/24 11:01 Pulse 87 05/18/24 11:01 Resp 20 05/18/24 11:01 BP 125/72 05/18/24 12:41 Pulse Ox 99 05/18/24 11:01 O2 Del Method Room Air 05/18/24 11:01 Course Vital Signs Vital signs: Vital Signs Temperature 98.5 F 05/18/24 11:01 Pulse Rate 87 05/18/24 11:01 Respiratory Rate 20 05/18/24 11:01 Blood Pressure 113/73 05/18/24 11:01 Pulse Oximetry 99 05/18/24 11:01 Oxygen Delivery Method Room Air 05/18/24 11:01 Temperature 98.5 F 05/18/24 11:01 Pulse Rate 87 05/18/24 11:01 Respiratory Rate 20 05/18/24 11:01 Blood Pressure 125/72 05/18/24 12:41 Pulse Oximetry 99 05/18/24 11:01 Oxygen Delivery Method Room Air 05/18/24 11:01 Medical Decision Making MDM Narrative Medical decision making narrative: Patient's labs are negative for any acute findings. Beta quant is still increasing. Potassium normal. Patient was feeling better after IV fluids and Zofran. She was able to keep down apple juice and crackers and that made her feel even better. They are working on setting her up for a Zofran pump outpatient. Continue to follow with Dr. Espinoza's office. Return to ED if worsening symptoms. Patient comfortable with care plan for home Differential Diagnosis Differential Diagnosis: Vomiting dehydration electrolyte abnormality Medical Records Medical records reviewed: Yes I reviewed the patient's medical records Lab Data Lab results reviewed: Yes I reviewed the patient's lab results Labs: Lab Results 05/18/24 Range/Units 11:11 WBC 11.0 (4.0-11.0) 10^3/uL RBC 4.81 (4.20-5.40) 10^6/uL Hgb 13.9 (12.0-16.0) g/dL Hct 39.9 (36.0-48.0) % MCV 83.0 (81.0-99.0) fL MCH 28.9 (26.7-34.0) pg MCHC 34.8 (29.9-35.2) g/dL RDW 13.0 (11.0-15.0) % Plt Count 278 (150-450) 10^3/uL MPV 10.7 (9.5-13.5) fL Neut % (Auto) 77.5 H (43.0-75.0) % Lymph % (Auto) 15.4 L (20.5-60.0) % [place]more % (Auto) 6.1 (1.7-12.0) % Eos % (Auto) 0.1 L (0.9-7.0) % Baso % (Auto) 0.7 (0.2-2.0) % Neut # (Auto) 8.5 H (1.4-6.5) 10^3/uL Lymph # (Auto) 1.7 (1.2-3.8) 10^3/uL [place] # (Auto) 0.7 (0.3-0.8) 10^3/uL Eos # (Auto) 0.0 (0.0-0.7) 10^3/uL Baso # (Auto) 0.1 (0.0-0.1) 10^3/uL Abs Immat Gran (auto) 0.02 (0.00-0.03) 10^3/uL Imm/Tot Granulo (auto) 0.2 (0.0-0.5) % Sodium 138 (136-145) mmol/L Potassium 3.5 (3.5-5.1) mmol/L Chloride 102 (98-107) mmol/L Carbon Dioxide 20.7 L (21.0-32.0) mmol/L Anion Gap 18.8 BUN 10.0 (7.0-18.0) mg/dL Creatinine 0.75 (0.55-1.02) mg/dL Est GFR ( Amer) >60 (>=60 mL/min/1.73m^2) Est GFR (Non-Af Amer) >60 (>=60 mL/min/1.73m^2) BUN/Creatinine Ratio 13.3 Glucose 87 (74-106) mg/dL Calcium 9.6 (8.5-10.1) mg/dL Total Bilirubin 0.7 (0.2-1.0) mg/dL AST 13 L (15-37) U/L ALT 12 L (14-59) U/L Alkaline Phosphatase 67 (46-116) U/L Total Protein 7.7 (6.4-8.2) g/dL Albumin 4.3 (3.4-5.0) g/dL Globulin 3.4 g/dL Albumin/Globulin Ratio 1.3 HCG, Quant 32998 mIU/mL Discharge Plan Discharge Chief Complaint: Nausea/Vomiting/Diarrhea Clinical Impression: Vomiting during Patient Disposition: Home, Self-Care Time of Disposition Decision: 12:21 Condition: Good Mode of Transportation: Private Vehicle Prescriptions / Home Meds: No Action ondansetron 4 mg tablet,disintegrating 4 mg PO Q6H PRN (Reason: nausea and vomiting) Print Language: Citizen Of [place] Instructions: Hyperemesis Gravidarum (ED) Referrals: Stone Espinoza DO [Physician] - 1 week Franklin Yanez MD [Primary Care Provider] - 1 week Discharge Date/Time: 05/18/24 12:43
[2024-05-18 11:18] LABS: Basophils Absolute Auto 0.1 10^3/uL (0.0-0.1); Basophils Percent Auto 0.7 % (0.2-2.0); Eosinophils Percent Auto 0.1 % (0.9-7.0); Hematocrit 39.9 % (36.0-48.0); Hemoglobin 13.9 g/dL (12.0-16.0); Immature Granulocytes Abs Auto 0.02 10^3/uL (0.00-0.03); Immature Granulocytes Pct Auto 0.2 % (0.0-0.5); Lymphocytes Absolute Auto 1.7 10^3/uL (1.2-3.8); Lymphocytes Percent Auto 15.4 % (20.5-60.0); Mean Corpuscular HGB Conc 34.8 g/dL (29.9-35.2); Mean Corpuscular Hemoglobin 28.9 pg (26.7-34.0); Mean Platelet Volume 10.7 fL (9.5-13.5); Monocytes Absolute Auto 0.7 10^3/uL (0.3-0.8); Monocytes Percent Auto 6.1 % (1.7-12.0); Neutrophils Absolute Auto 8.5 10^3/uL (1.4-6.5); Neutrophils Percent Auto 77.5 % (43.0-75.0); Platelet Count 278 10^3/uL (150-450); Red Blood Count 4.81 10^6/uL (4.20-5.40)
[2024-05-18] MEDS: ONDANSETRON PF 4 MG/2 ML VIAL IV (11:20)
[2024-05-18] MEDS: 0.9 % SODIUM CHLORIDE 1,000 ML 1000 ML IV (11:20)
[2024-05-18 11:33] LABS: Alanine Aminotransferase 12 U/L (14-59); Albumin Globulin Ratio 1.3; Albumin Level 4.3 g/dL (3.4-5.0); Alkaline Phosphatase 67 U/L (46-116); Anion Gap 18.8; Aspartate Amino Transferase 13 U/L (15-37); BUN Creatinine Ratio 13.3; Bilirubin Total 0.7 mg/dL (0.2-1.0); Calcium 9.6 mg/dL (8.5-10.1); Carbon Dioxide 20.7 mmol/L (21.0-32.0); Chloride 102 mmol/L (98-107); Estimated GFR (African America >60 (>=60 mL/min/1.73m^2); Estimated GFR (Non-African Ame >60 (>=60 mL/min/1.73m^2); Globulin 3.4 g/dL; Glucose 87 mg/dL (74-106); Potassium 3.5 mmol/L (3.5-5.1); Sodium 138 mmol/L (136-145); Total Protein 7.7 g/dL (6.4-8.2)
[2024-05-18 11:57] LABS: HCG Quantitative 79403 mIU/mL
[2024-05-18 12:41] VITALS: BP 125/72
== END 2024-05-18 12:43 | disposition home or self-care (01) ==
PROVIDERS: Emergency Provider Emergency Medicine; PCP Family Medicine
DX: O21.9 Vomiting of pregnancy, unspecified (principal); Z3A.01 Less than 8 weeks gestation of pregnancy
CPT/HCPCS: 36415; 80053; 84702; 85025; 96361; 96374; 99284; J2405

== ENCOUNTER 2024-05-22 10:37 | Emergency (ER) | payer BC, SELFPAY ==
--- OUTSIDE RECORDS SUMMARY | 2024-05-22 10:43 | XMS_ITS | CCD ---
Author Organization [facility] Care Team Providers Care Cloud Operations Engineer Name Role Phone CLEMENTE ., DR YING Primary Care Unavailable DIAB ., GREGORIO Admitting Unavailable NATHALIE ., SHENG Consulting Unavailable DIAB ., GREGORIO Attending Unavailable DIAB ., GREGORIO Consulting Unavailable HOY ., DR YING Primary Care Unavailable DEEPTI ., MERA Attending Unavailable DEEPTI ., MERA Consulting Unavailable DEEPTI ., MERA Admitting Unavailable ECTOR ., DR MOODY Admitting Unavailable HOY ., DR YING Consulting Unavailable HOY ., DR YING Primary Care Unavailable ECTOR ., DR MOODY Attending Unavailable DEER PARK, DR ROXY Murphy Consulting Unavailable ECTOR ., DR MOODY Admitting Unavailable HOY ., DR YING Primary Care Unavailable ECTOR ., DR MOODY Attending Unavailable ECTOR ., DR MOODY Consulting Unavailable ZIEBER, DR EMA Yoon Consulting Unavailable HOY ., DR YING Primary Care Unavailable DEER PARK, DR ROXY Murphy Consulting Unavailable ECTOR ., DR MOODY Admitting Unavailable ECTOR ., DR MOODY Attending Unavailable ECTOR ., DR MOODY Consulting Unavailable REQUEST, DR LIZBET LISTED Consulting Unavaila cynthia YANEZ ., DR YING Primary Care Unavailable PAY ., DR BOLTON Attending Unavailable PAY ., DR BOLTON Consulting Unavailable PAY ., DR BOLTON Admitting Unavailable DEEPTI .MERA Consulting Unavailable Stepan Yanez MD Primary Care Provider [phone] MERA TATUM Attending Unavailable MERA TATUM Attending Unavailable MERA TATUM Attending Unavailable MERA TATUM Attending Unavailable Medications Current Medications Medication Drug Class(es) Dates Sig (Normalized) Sig (Original) meclizine hydrochloride 25 mg oral tablet (2 sources) Antiemetic Start: 05-19-19 25 End: 05-29-19 25 take 1 tablet by mouth three times daily as needed for dizziness meclizine (Antivert) 25 MG tablet Indications: Nausea and vomiting during Take 1 tablet (25 mg) by mouth 3 (three) times a day as needed for dizziness for up to 10 days 30 tablet 05/18/2024 05/28/2024 Active 1 ml medroxyPROGESTERone acetate 150 mg/ml prefilled syringe (3 sources) Progestin Start: 07-24-19 End: 05-19-19 medroxyPROGESTERone (Depo-Provera) 150 MG/ML suspension prefilled syringe injection syringe Indications: Encounter for management and injection of depo-Provera Inject 1 mL (150 mg) into the shoulder, thigh, or buttocks 1 (one) time for 1 dose 1 mL 07/24/2023 05/18/2024 Discontinued ondansetron 4 mg disintegrating oral tablet (3 sources) Serotonin-3 Receptor Antagonist Start: 05-12-19 End: 06-12-19 take 1 tablet by mouth every six hours for nausea ondansetron ODT (Zofran-ODT) 4 MG disintegrating tablet Indications: Nausea and vomiting in Take 1 tablet (4 mg) by mouth every 6 (six) hours if needed for nausea or vomiting 30 tablet 2 05/12/2024 06/11/2024 Active phentermine hydrochloride 37.5 mg oral tablet (6 sources) Sympathomimetic Amine Anorectic Start: 06-30-19 End: 05-19-19 take 1 tablet by mouth before mealtime phentermine (Adipex-P) 37.5 MG tablet Indications: Encounter for weight management Take 1 tablet (37.5 mg) by mouth in the morning. Take before meals. 90 tablet 07/28/2023 05/18/2024 Discontinued promethazine hydrochloride 25 mg rectal suppository (2 sources) Phenothiazine Start: 05-19-19 End: 08-17-19 promethazine (Phenergan) 25 MG suppository Indications: Nausea and vomiting during Insert 1 suppository (25 mg) into the rectum every 8 (eight) hours 90 suppository 1 05/18/2024 08/16/2024 Active Problems Active Problems Problem Classification Problem Date Documented Da te Episodic/Chronic Menstrual disorders (3 sources) Irregular menstruation, unspecified; Translations: [IRREGULAR MENSTRUATION UNSPECIFIED] Onset: 04-25-2022 Chronic Other complications of (2 sources) Vomiting of , unspecified; Translations: [Unspecified vomiting of , unspecified as to episode of care or not applicable] 05-18-2024 Episodic Other and delivery including normal (5 sources) Encounter for supervision of normal , unspecified, second trimester; Translations: [Encounter for supervision of normal , unspecified, first trimester] Onset: 05-07-2022 Episodic Other screening for suspected conditions (not mental disorders or infectious disease) (4 sources) Encounter for other specified screening; Translations: [ENC OT SPEC SCREENING] Onset: 07-17-2022 Episodic Past or Other Problems Problem Classification Problem Date Documented Da te Episodic/Chronic Fluid and electrolyte disorders (1 source) Dehydration; Translations: [DEHYDRATION] Onset: 05-01-2022 Episodic Nausea and vomiting (4 sources) Nausea with vomiting, unspecified; Translations: [NAUSEA WITH VOMITING UNSPECIFIED] Onset: 04-26-2022 Episodic Other complications of (4 sources) Mild hyperemesis gravidarum; Translations: [MILD HYPEREMESIS GRAVIDARUM] Onset: 05-16-2022 Episodic Other complications of (1 source) Other specified related conditions, first trimester; Translations: [OTH SPEC PREG RELATED COND 1ST TRI] Onset: 05-01-2022 Episodic Ovarian cyst (4 sources) Other ovarian cyst, unspecified side; Translations: [OTHER OVARIAN CYST UNSPECIFIED SIDE] Onset: 11-14-2021 Episodic Residual codes; unclassified (1 source) 12 weeks gestation of ; Translations: [12 WEEKS GESTATION OF ] Onset: 05-20-2022 Episodic Residual codes; unclassified (1 source) 8 weeks gestation of ; Translations: [8 WEEKS GESTATION OF ] Onset: 05-01-2022 Episodic Results Test Name Value Interpretation Reference Range Facil ity US PREG ANATOMY SINGLEon US PREG ANATOMY SINGLE EXAMINATION: US PREG ANATOMY SINGLE, US PREG CERVICAL LENGTH HISTORY: anatomy study COMPARISON: No relevant comparison available. TECHNIQUE: Transabdominal sonographic examination was performed for obstetrical and evaluation. FINDINGS: Number: 1 Heart Rate: 160.0 bpm H.B. /min Amniotic Fluid Volume: Subjectively normal position: Cephalic presentation Placental Location: ANTERIOR, grade 0. Placental edge 4.8 cm from the internal os Cervix Length: 4.4 cm, closed Normally visualized anatomy: Cerebellum, choroid plexus, cisterna magna, lateral cerebral ventricles, orbits, midline falx, four-chamber heart, stomach, bladder, umbilical cord insertion into the abdomen, three-vessel cord, cervical spine, thoracic spine, lumbar spine, sacral spine, right upper extremity, left upper extremity, right lower extremity, left lower extremity Suboptimally visualized anatomy: rvot, lvot, kidneys, nose lips BIOMETRY: BPD: 5.0 cm 21 weeks 1 days , 86% HC: 18.7 cm 21 weeks 0 days, 79% AC: 15.7 cm 20 weeks 6 days, 68% FL: 3.7 cm 21 weeks 4 days , 88% EFW:405.8 grams; 14 oz, 94% FL/AC: 23.3 FL/BPD: 73.1 HC/AC: 1.2 GESTATIONAL AGE: Age by EDC: 20 weeks 1 days YANICK by EDC: 12/03/22 Age by current US: 21 weeks 1 days YANICK by current US: 11/26/22 IMPRESSION: Suboptimal anatomy as described. Otherwise normal anatomy scan *Reference: [facility] Practice Guideline for the performance of Obstetric Ultrasound Examinations, December 14, 2006. Electronically authenticated by: ROXY CARRILLO Date: 2022-07-17 16:59 Normal [facility] CBC AUTO DIFFon 05-16-2022 BASO # 0.1 103/ul Normal 0.0-0.1 [facility] Comment on above: Performed By: #### C BC #### [facility] [address] [place] [address] Dr. Gabino Motta Basophils/100 WBC (Bld) 0.3 % Normal 0.2-2.0 [facility] Comment on above: Performed By: #### C BC #### [facility] [address] [address] [address] Gabino Motta EO # 0.0 103/ul Normal 0.0-0.7 [facility] Comment on above: Performed By: #### C BC #### [facility] [address] [address] [address] Gabino Motta Eosinophils/100 WBC (Bld) 0.0 % Critically low 0.9-7.0 [facility] Comment on above: Performed By: #### C BC #### [facility] [address] [place] [address] Dr. Gabino Motta Erythrocyte distribution width (RBC) [Ratio] 12.7 % Normal 11.0-15.0 [facility] Comment on above: Performed By: #### C BC #### [facility] [address] [place] [address] Dr. Gabino Motta Hematocrit (Bld) [Volume fraction] 39.1 % Normal 36.0-48.0 [facility] Comment on above: Performed By: #### C BC #### [facility] [address] [place] [address] Dr. Gabino Motta Hemoglobin (Bld) [Mass/Vol] 13.7 g/dL Normal 12.0-16.0 [facility] Comment on above: Performed By: #### C BC #### [facility] [address] [place] [address] Dr. Gabino Motta IG # 0.05 10e3/ul Critically high 0.00-0.03 [facility] Comment on above: Performed By: #### C BC #### [facility] [address] [place] [address] Dr. Gabino Motta IG % 0.3 % Normal 0.0-0.5 [facility] Comment on above: Performed By: #### C BC #### [facility] [address] [place] [address] Dr. Gabino Motta LYMPH # 1.1 103/ul Critically low 1.2-3.8 [facility] Comment on above: Performed By: #### C BC #### [facility] [address] [place] [address] Dr. Gabino Motta Lymphocytes/100 WBC (Bld) 7.0 % Critically low 20.5-60.0 [facility] Comment on above: Performed By: #### C BC #### [facility] [address] [place] [address] Dr. Gabino Motta MANUAL DIFF REQ NO Normal [facility] Comment on above: Performed By: #### C BC #### [facility] [address] [place] [address] Dr. Gabino Motta MCH (RBC) [Entitic mass] 28.5 pg Normal 26.7-34.0 [facility] Comment on above: Performed By: #### C BC #### [facility] [address] [place] [address] Dr. Gabino Motta MCHC (RBC) [Mass/Vol] 35.0 g/dL Normal 29.9-35.2 [facility] Comment on above: Performed By: #### C BC #### [facility] [address] [place] [address] Dr. Gabino Motta MCV (RBC) [Entitic vol] 81.3 fL Normal 81.0-99.0 [facility] Comment on above: Performed By: #### C BC #### [facility] [address] [place] [address] Dr. Gabino Motta MONO # 0.3 103/ul Normal 0.3-0.8 [facility] Comment on above: Performed By: #### C BC #### [facility] [address] [place] [address] Dr. Gabino Motta Monocytes/100 WBC (Bld) 2.1 % Normal 1.7-12.0 [facility] Comment on above: Performed By: #### C BC #### [facility] [address] [place] [address] Dr. Gabino Motta NEUT # 13.5 103/ul Critically high 1.4-6.5 [facility] Comment on above: Performed By: #### C BC #### [facility] [address] [place] [address] Dr. Gabino Motta Neutrophils/100 WBC (Bld) 90.3 % Critically high 43.0-75.0 [facility] Comment on above: Performed By: #### C BC #### [facility] [address] [place] [address] Dr. Gabino Motta Platelet mean volume (Bld) [Entitic vol] 11.1 fL Normal 9.5-13.5 [facility] Comment on above: Performed By: #### C BC #### [facility] [address] [address] [address] Gabino Motta PLT 282 103/ul Normal 150-450 [facility] Comment on above: Performed By: #### C BC #### [facility] [address] [address] [address] Gabino Motta RBC 4.81 106/ul Normal 4.20-5.40 [facility] Comment on above: Performed By: #### C BC #### [facility] [address] [place] [address] Dr. Gabino Motta WBC 14.9 103/ul Critically high 4.0-11.0 [facility] Comment on above: Performed By: #### C BC #### [facility] [address] [place] [address] Dr. Gabino Motta PROF 14(COMP METB)on 023 Albumin [Mass/Vol] 4.1 g/dL Normal 3.4-5.0 [facility] Comment on above: Performed By: #### C BC #### [facility] [address] [place] [address] Dr. Gabino Motta Albumin/Globulin [Mass ratio] 1.1 {ratio} Normal [facility] Comment on above: Performed By: #### C BC #### [facility] [address] [place] [address] Dr. Gabino Motta ALP [Catalytic activity/Vol] 72 U/L Normal 46-116 [facility] Comment on above: Performed By: #### C BC #### [facility] [address] [place] [address] Dr. Gabino Motta ALT [Catalytic activity/Vol] 42 U/L Normal 14-59 [facility] Comment on above: Performed By: #### C BC #### [facility] [address] [place] [address] Dr. Gabino Motta Anion gap [Moles/Vol] 18.4 mmol/L Normal [facility] Comment on above: Performed By: #### C BC #### [facility] [address] [address] [address] Gabino Motta AST [Catalytic activity/Vol] 18 U/L Normal 15-37 [facility] Comment on above: Performed By: #### C BC #### [facility] [address] [place] [address] Dr. Gabino Motta Bilirubin [Mass/Vol] 0.5 mg/dL Normal 0.2-1.0 [facility] Comment on above: Performed By: #### C BC #### [facility] [address] [place] [address] Dr. Gabino Motta Calcium [Mass/Vol] 9.6 mg/dL Normal 8.5-10.1 [facility] Comment on above: Performed By: #### C BC #### [facility] [address] [place] [address] Dr. Gabino Motta Chloride [Moles/Vol] 103 mmol/L Normal 98-107 [facility] Comment on above: Performed By: #### C BC #### [facility] [address] [place] [address] Dr. Gabino Motta CO2 [Moles/Vol] 20.1 mmol/L Critically low 21.0-32.0 [facility] Comment on above: Performed By: #### C BC #### [facility] [address] [place] [address] Dr. Gabino Motta Creatinine [Mass/Vol] 0.54 mg/dL Critically low 0.55-1.02 [facility] Comment on above: Performed By: #### C BC #### [facility] [address] [place] [address] Dr. Gabino Motta EGFR-AF KAZAKH >60 Normal >=60 [facility] Comment on above: Performed By: #### C BC #### [facility] [address] [place] [address] Dr. Gabino Motta EGFR-NON AF KAZAKH >60 Normal >=60 [facility] Comment on above: Performed By: #### C BC #### [facility] [address] [place] [address] Dr. Gabino Motta Globulin (S) [Mass/Vol] 3.8 g/dL Normal [facility] Comment on above: Performed By: #### C BC #### [facility] [address] [place] [address] Dr. Gabino Motta Glucose [Mass/Vol] 102 mg/dL Normal 74-106 [facility] Comment on above: Performed By: #### C BC #### [facility] [address] [place] [address] Dr. Gabino Motta Potassium [Moles/Vol] 3.5 mmol/L Normal 3.5-5.1 [facility] Comment on above: Performed By: #### C BC #### [facility] [address] [place] [address] Dr. Gabino Motta Protein [Mass/Vol] 7.9 g/dL Normal 6.4-8.2 [facility] Comment on above: Performed By: #### C BC #### [facility] [address] [place] [address] Dr. Gabino Motta Sodium [Moles/Vol] 138 mmol/L Normal 136-145 [facility] Comment on above: Performed By: #### C BC #### [facility] [address] [place] [address] Dr. Gabino Motta Urea nitrogen [Mass/Vol] 6.0 mg/dL Critically low 7.0-18.0 [facility] Comment on above: Performed By: #### C BC #### [facility] [address] [place] [address] Dr. Gabino Motta Urea nitrogen/Creatinine [Mass ratio] 11.1 mg/mg Normal [facility] Comment on above: Performed By: #### C BC #### [facility] [address] [place] [address] Dr. Gabino Motta CULTURE URINEon 04-29-2022 CULTURE URINE Isolate 1 Escherichia coli >100,000 cfu/mL of ORGANISM 1 Escherichia coli ANTIBIOTIC M.I.C RX STATUS Ampicillin 4 S F Ampicillin/Sulbactam <=2 S F Piperacillin/Tazobact am <=4 S F Cefazolin <=4 S F Ceftazidime <=1 S F Ceftriaxone <=1 S F Ertapenem <=0.5 S F Imipenem <=0.25 S F Amikacin <=2 S F Gentamicin <=1 S F Tobramycin <=1 S F Ciprofloxacin <=0.25 S F Levofloxacin <=0.12 S F Nitrofurantoin <=16 S F Trimethoprim/Sulfamet hoxazole <=20 S F Normal [facility] Comment on above: Performed By: #### U RCX #### [facility] [address] [place] [address] Dr. Gabino Motta CBC AUTO DIFFon 04-26-2022 BASO # 0.0 103/ul Normal 0.0-0.1 [facility] Comment on above: Performed By: #### C BC #### [facility] [address] [place] [address] Dr. Gabino Motta Basophils/100 WBC (Bld) 0.3 % Normal 0.2-2.0 [facility] Comment on above: Performed By: #### C BC #### [facility] [address] [place] [address] Dr. Gabino Motta EO # 0.0 103/ul Normal 0.0-0.7 [facility] Comment on above: Performed By: #### C BC #### [facility] [address] [place] [address] Dr. Gabino Motta Eosinophils/100 WBC (Bld) 0.2 % Critically low 0.9-7.0 [facility] Comment on above: Performed By: #### C BC #### [facility] [address] [place] [address] Dr. Gabino Motta Erythrocyte distribution width (RBC) [Ratio] 12.7 % Normal 11.0-15.0 [facility] Comment on above: Performed By: #### C BC #### [facility] [address] [place] [address] Dr. Gabino Motta Hematocrit (Bld) [Volume fraction] 39.7 % Normal 36.0-48.0 [facility] Comment on above: Performed By: #### C BC #### [facility] [address] [place] [address] Dr. Gabino Motta Hemoglobin (Bld) [Mass/Vol] 13.8 g/dL Normal 12.0-16.0 [facility] Comment on above: Performed By: #### C BC #### [facility] [address] [place] [address] Dr. Gabino Motta IG # 0.03 10e3/ul Normal 0.00-0.03 [facility] Comment on above: Performed By: #### C BC #### [facility] [address] [place] [address] Dr. Gabino Motta IG % 0.2 % Normal 0.0-0.5 [facility] Comment on above: Performed By: #### C BC #### [facility] [address] [place] [address] Dr. Gabino Motta LYMPH # 1.4 103/ul Normal 1.2-3.8 [facility] Comment on above: Performed By: #### C BC #### [facility] [address] [place] [address] Dr. Gabino Motta Lymphocytes/100 WBC (Bld) 11.4 % Critically low 20.5-60.0 [facility] Comment on above: Performed By: #### C BC #### [facility] [address] [place] [address] Dr. Gabino Motta MANUAL DIFF REQ NO Normal [facility] Comment on above: Performed By: #### C BC #### [facility] [address] [place] [address] Dr. Gabino Motta MCH (RBC) [Entitic mass] 28.4 pg Normal 26.7-34.0 [facility] Comment on above: Performed By: #### C BC #### [facility] [address] [place] [address] Dr. Gabino Motta MCHC (RBC) [Mass/Vol] 34.8 g/dL Normal 29.9-35.2 [facility] Comment on above: Performed By: #### C BC #### [facility] [address] [place] [address] Dr. Gabino Motta MCV (RBC) [Entitic vol] 81.7 fL Normal 81.0-99.0 [facility] Comment on above: Performed By: #### C BC #### [facility] [address] [place] [address] Dr. Gabino Motta MONO # 0.7 103/ul Normal 0.3-0.8 [facility] Comment on above: Performed By: #### C BC #### [facility] [address] [place] [address] Dr. Gabino Motta Monocytes/100 WBC (Bld) 5.6 % Normal 1.7-12.0 [facility] Comment on above: Performed By: #### C BC #### [facility] [address] [place] [address] Dr. Gabino Motta NEUT # 10.1 103/ul Critically high 1.4-6.5 [facility] Comment on above: Performed By: #### C BC #### [facility] [address] [place] [address] Dr. Gabino Motta Neutrophils/100 WBC (Bld) 82.3 % Critically high 43.0-75.0 [facility] Comment on above: Performed By: #### C BC #### [facility] [address] [place] [address] Dr. Gabino Motta Platelet mean volume (Bld) [Entitic vol] 10.8 fL Normal 9.5-13.5 [facility] Comment on above: Performed By: #### C BC #### [facility] [address] [place] [address] Dr. Gabino Motta PLT 274 103/ul Normal 150-450 [facility] Comment on above: Performed By: #### C BC #### [facility] [address] [place] [address] Dr. Gabino Motta RBC 4.86 106/ul Normal 4.20-5.40 [facility] Comment on above: Performed By: #### C BC #### [facility] [address] [place] [address] Dr. Gabino Motta WBC 12.3 103/ul Critically high 4.0-11.0 [facility] Comment on above: Performed By: #### C BC #### [facility] [address] [address] [address] Gabino Motta ER URINE PROFILEon 3 Bilirubin Ql (U) Negative Normal NEGATIVE [facility] Comment on above: Performed By: #### U MICRO, ERUR #### [facility] [address] [address] [address] Gabino Motta Clarity (U) SL CLOUDY Abnormal CLEAR [facility] Comment on above: Performed By: #### U MICRO, ERUR #### [facility] [address] [address] [address] Gabino Motta Color (U) YELLOW Normal YELLOW [facility] Comment on above: Performed By: #### U MICRO, ERUR #### [facility] [address] [place] [address] Dr. Gabino DOZIERAHD A micrscopic examination will be performed if indicated. Normal The [facility] Comment on above: Performed By: #### U MICRO, ERUR #### [facility] [address] [place] [address] Dr. Gabino Motta Glucose Ql (U) Negative Normal NEGATIVE The [facility] Comment on above: Performed By: #### U MICRO, ERUR #### [facility] [address] [place] [address] Dr. Gabino Motta Hemoglobin Ql (U) Negative Normal NEGATIVE The [facility] Comment on above: Performed By: #### U MICRO, ERUR #### [facility] [address] [address] [address] Gabino Motta Ketones Ql (U) >=80 Abnormal NEGATIVE The [facility] Comment on above: Performed By: #### U MICRO, ERUR #### [facility] [address] [address] [address] Gabino Motta LEUKOCYTES Negative Normal NEGATIVE [facility] Comment on above: Performed By: #### U MICRO, ERUR #### [facility] [address] [address] [address] Gabino Motta Nitrite Ql (U) Positive Abnormal NEGATIVE [facility] Comment on above: Performed By: #### U MICRO, ERUR #### [facility] [address] [place] [address] Dr. Gabino Motta pH (U) 6.0 [pH] Normal 5-9 [facility] Comment on above: Performed By: #### U MICRO, ERUR #### [facility] [address] [place] [address] Dr. Gabino Motta SPEC GRAVITY 1.030 Abnormal 1.005-<=1.025 [facility] Comment on above: Performed By: #### U MICRO, ERUR #### [facility] [address] [place] [address] Dr. Gabino Motta UA PROTEIN Negative Normal NEGATIVE/ TRACE [facility] Comment on above: Performed By: #### U MICRO, ERUR #### [facility] [address] [place] [address] Dr. Gabino Motta UR MICRO IND INDICATED Normal [facility] Comment on above: Performed By: #### U MICRO, ERUR #### [facility] [address] [place] [address] Dr. Gabino Motta Urobilinogen Qn (U) 0.2 {Landy'U}/dL Normal 0.2 - 1. 0 [facility] Comment on above: Performed By: #### U MICRO, ERUR #### [facility] [address] [place] [address] Dr. Gabino Motta PROF 14(COMP METB)on 023 Albumin [Mass/Vol] 3.9 g/dL Normal 3.4-5.0 [facility] Comment on above: Performed By: #### C MP #### [facility] [address] [place] [address] Dr. Gabino Motta Albumin/Globulin [Mass ratio] 1.1 {ratio} Normal [facility] Comment on above: Performed By: #### C MP #### [facility] [address] [place] [address] Dr. Gabino Motta ALP [Catalytic activity/Vol] 75 U/L Normal 46-116 [facility] Comment on above: Performed By: #### C MP #### [facility] [address] [address] [address] Gabino Motta ALT [Catalytic activity/Vol] 36 U/L Normal 14-59 [facility] Comment on above: Performed By: #### C MP #### [facility] [address] [address] [address] Gabino Motta Anion gap [Moles/Vol] 18.0 mmol/L Normal [facility] Comment on above: Performed By: #### C MP #### [facility] [address] [address] [address] Gabino Motta AST [Catalytic activity/Vol] 16 U/L Normal 15-37 [facility] Comment on above: Performed By: #### C MP #### [facility] [address] [address] [address] Gabino Motta Bilirubin [Mass/Vol] 0.4 mg/dL Normal 0.2-1.0 [facility] Comment on above: Performed By: #### C MP #### [facility] [address] [address] [address] Gabino Motta Calcium [Mass/Vol] 9.3 mg/dL Normal 8.5-10.1 [facility] Comment on above: Performed By: #### C MP #### [facility] [address] [address] [address] Gabino Motta Chloride [Moles/Vol] 101 mmol/L Normal 98-107 [facility] Comment on above: Performed By: #### C MP #### [facility] [address] [address] [address] Gabino Motta CO2 [Moles/Vol] 22.7 mmol/L Normal 21.0-32.0 [facility] Comment on above: Performed By: #### C MP #### [facility] [address] [address] [address] Gabino Motta Creatinine [Mass/Vol] 0.57 mg/dL Normal 0.55-1.02 [facility] Comment on above: Performed By: #### C MP #### [facility] [address] [address] [address] Gabino Motta EGFR-AF KAZAKH >60 Normal >=60 [facility] Comment on above: Performed By: #### C MP #### [facility] [address] [address] [address] Gabino Motta EGFR-NON AF KAZAKH >60 Normal >=60 [facility] Comment on above: Performed By: #### C MP #### [facility] [address] [address] [address] Gabino Motta Globulin (S) [Mass/Vol] 3.7 g/dL Normal [facility] Comment on above: Performed By: #### C MP #### [facility] [address] [place] [address] Dr. Gabino Motta Glucose [Mass/Vol] 94 mg/dL Normal 74-106 [facility] Comment on above: Performed By: #### C MP #### [facility] [address] [address] [address] Gabino Motta Potassium [Moles/Vol] 3.7 mmol/L Normal 3.5-5.1 [facility] Comment on above: Performed By: #### C MP #### [facility] [address] [place] [address] Dr. Gabino Motta Protein [Mass/Vol] 7.6 g/dL Normal 6.4-8.2 [facility] Comment on above: Performed By: #### C MP #### [facility] [address] [place] [address] Dr. Gabino Motta Sodium [Moles/Vol] 138 mmol/L Normal 136-145 [facility] Comment on above: Performed By: #### C MP #### [facility] [address] [address] [address] Gabino Motta Urea nitrogen [Mass/Vol] 8.0 mg/dL Normal 7.0-18.0 [facility] Comment on above: Performed By: #### C MP #### [facility] [address] [address] [address] Gabino Motta Urea nitrogen/Creatinine [Mass ratio] 14.0 mg/mg Normal [facility] Comment on above: Performed By: #### C MP #### [facility] [address] [address] [address] Gabino Motta URINE MICROSCOPIC ONLYon BACTERIA SMALL Abnormal NONE SEEN The [facility] Comment on above: Performed By: #### U MICRO, ERUR #### [facility] [address] [address] [address] Gabino Motta Bacteria identified Cx Nom (U) INDICATED Normal [facility] Comment on above: Performed By: #### U MICRO, ERUR #### [facility] [address] [place] [address] Dr. Gabino Motta CAST NONE SEEN Normal NONE SEEN [facility] Comment on above: Performed By: #### U MICRO, ERUR #### [facility] [address] [place] [address] Dr. Gabino Motta Crystals LM Nom (Urine sed) NONE SEEN Normal NONE SEEN [facility] Comment on above: Performed By: #### U MICRO, ERUR #### [facility] [address] [place] [address] Dr. Gabino Motta Epithelial cells LM Ql (Urine sed) FEW Abnormal NONE SEEN /RARE [facility] Comment on above: Performed By: #### U MICRO, ERUR #### [facility] [address] [place] [address] Dr. Gabino Motta MUCOUS SMALL Abnormal NONE SEEN The [facility] Comment on above: Performed By: #### U MICRO, ERUR #### [facility] [address] [place] [address] Dr. Gabino Motta RBC NONE SEEN Abnormal 0-2 [facility] Comment on above: Performed By: #### U MICRO, ERUR #### [facility] [address] [place] [address] Dr. Gabino Motta WBC 2-5 Abnormal NONE SEEN The [facility] Comment on above: Performed By: #### U MICRO, ERUR #### [facility] [address] [place] [address] Dr. Gabino Motta US PREG TVon 04-25-2022 US PREG TV EXAMINATION: US PREG TV HISTORY: Missed period COMPARISON: No relevant comparison available. FINDINGS: GESTATIONAL SAC: Present and normal appearing. YOLK SAC: Present and normal appearing. POLE: Present and normal appearing. CARDIAC: Present. UTERUS: Normal size and appearance. OVARIES: Right: Normal. Left: Normal. CERVIX: 3.4 cm cm in length and closed. CUL-DE-SAC: Normal. OTHER: None. AGE BY LMP: Unknown LMP YANICK BY LMP: AGE BY US CRL: 8 weeks 2 days YANICK BY US CRL: 12/03/2022 IMPRESSION: 1. Single live intrauterine 8 weeks 2 days by today's ultrasound. Electronically authenticated by: EMA SAMUEL Date: 2022-04-25 10:29 Normal [facility] US PELVISon 11-15-2021 US PELVIS EXAMINATION: US PELVIS HISTORY: Cyst of ovary COMPARISON: 03/20/2020 FINDINGS: Transabdominal only images The uterus is normal in size, contour and myometrial echotexture measuring 6.5 x 4.4 x 3.3 cm, anteverted. Endometrium measures 4 mm, normal. The right ovary is normal in appearance measuring 2.6 x 2.7 x 1.3 cm. Normal resistive index of 0.47. The left ovary is normal in appearance measuring 2.1 x 2.2 x 1.7 cm. Normal resistive index of 0.49 No free fluid IMPRESSION: Normal exam Electronically authenticated by: ROXY CARRILLO Date: 2021-11-15 17:11 Normal [facility] Encounters Encounter Date Encounter Type Care Provider Facility Start: 05-18-2024 End: 05-18-2024 Bamboo flowsheet Mera SEYMOUR Work Phone: [facility] Start: 05-18-2024 End: 05-18-2024 Bamboo flowsheet Mera SEYMOUR Work Phone: [facility] Start: 05-18-2024 End: 05-18-2024 ambulatory MERA TATUM Not Available Start: 05-18-2024 End: 05-18-2024 Office outpatient visit 15 minutes Mera SEYMOUR Work Phone: [facility] Comment on above: Nausea and vomiting during Start: 07-28-2023 End: 07-28-2023 ambulatory MERA TATUM Not Available Start: 07-24-2023 End: 07-24-2023 ambulatory MERA GARCÍAEY Not Available Start: 06-30-2023 End: 06-30-2023 ambulatory MERA TATUM Not Available Start: 06-02-2023 End: 06-02-2023 ambulatory MERA TATUM Not Available Start: 08-12-2022 End: 08-13-[address] STEPAN YANEZ . Facility:[facility] Start: 07-17-2022 End: 07-18-[address] STEPAN YANEZ . Facility:[facility] Start: 05-16-2022 End: 05-16-[address] STEPAN YANEZ . Facility:[facility] Start: 04-26-2022 End: 04-27-[address] STEPAN YANEZ . Facility:[facility] Start: 04-25-2022 End: 04-26-[address] FRANSISCO BARNEY . Facility:[facility] Start: 11-14-2021 End: 11-15-[address] FRANSISCO BARNEY . Facility: Plan of Treatment Date Care Activity Detail Author Start: 05-26-2024 End: 05-26-2024 ambulatory 05/26/2024 1:30 PM EDT Initial [facility] [address] [place] [address] [facility] Start: 05-26-2024 End: 05-26-2024 Professional / ancillary services management 05/26/2024 1:00 PM EDT Ancillary Procedure [facility] [address] [place] [address] [facility] Payers Date Payer Category Payer [facility] [id number] 2023 Unknown [id number] 2002 Unknown [id number] 2002 Unknown [id number] .593 2002 Unknown [id number] .593 2002 Unknown [id number] .593 2002 Unknown [id number] [id number] .593 2002 Unknown [id number] .593 2002 Unknown [id number] [id number] .1259 2002 Unknown [id number] [id number] .1259 2002 Unknown [id number] .1259 2002 Unknown [id number] .1259 2002 Unknown [id number] .1259 1959 Self-pay [id number] 1957 Unknown [id number] Social History Date Type Detail Facility [facility]: [facility] Start: 07-28-2023 Alcoholic beverage intake Life time non-drinker (finding) [facility] Start: 06-02-2023 History of Social function [facility] Start: 06-02-2023 Tobacco use panel [facility] Start: 2000 Sex assigned at Female [facility] Start: 09-08-2022 Gender identity Identifies as female gender (finding) [facility] Start: 09-08-2022 Sexual orientation Heterosexual (fin jasmina) [facility] History of Present illness Narrative 05-18-2024 DAWN Kirk - 05/18/2024 9:40 AM EST Note Date & Type Note Facility 05-18-2024 History of Presen t illness Narrative Reason for Appointment: Patient ID: Mei Puentes is a 24 y.o. female who presents for [facility] Follow Up Patient presents today for Acute Visit. MEDICATIONS Current Outpatient Medications Medication Instructions ondansetron ODT (ZOFRAN-ODT) 4 mg, Oral, Every 6 hours PRN ALLERGIES No Known Allergies PROBLEMS Active Ambulatory Problems Diagnosis Date Noted No Active Ambulatory Problems Resolved Ambulatory Problems Diagnosis Date Noted No Resolved Ambulatory Problems No Additional Past Medical History HISTORY PAST MEDICAL HISTORY SOCIAL HISTORY No past medical history on file. Social History Tobacco Use Smoking status: Never Smokeless tobacco: Not on file Substance Use Topics Alcohol use: Never Drug use: Never FAMILY HISTORY Family History Problem Relation Name Age of Onset Heart disease Father No Known Problems Brother SURGICAL HISTORY No past surgical history on file. REVIEW OF SYSTEMS Review of Systems: Review of Systems Constitutional: Positive for activity change, appetite change and fatigue. Gastrointestinal: Positive for nausea and vomiting. Neurological: Positive for dizziness and weakness. OBJECTIVE Objective: Physical Exam Constitutional: Appearance: Normal appearance. She is well-developed. Cardiovascular: Rate and Rhythm: Normal rate and regular rhythm. Pulmonary: Effort: Pulmonary effort is normal. Breath sounds: Normal breath sounds. Abdominal: General: Bowel sounds are normal. There is no distension. Palpations: Abdomen is soft. Tenderness: There is no abdominal tenderness. There is no guarding or rebound. Musculoskeletal: General: No swelling. Normal range of motion. Right lower leg: No edema. Left lower leg: No edema. Neurological: Mental Status: She is alert and oriented to person, place, and time. Skin: General: Skin is warm and dry. Psychiatric: Mood and Affect: Mood normal. Behavior: Behavior normal. Vitals and nursing note reviewed. Exam conducted with a neuropsychology division chief present. Vitals: Estimated body mass index is 30.03 kg/m as calculated from the following: Height as of 07/28/23: 5' 11 . Weight as of 07/28/23: 215 lb 4.8 oz. BP: No LMP recorded. ASSESSMENT & PLAN ICD-10-CM 1. Nausea and vomiting during O21.9 Approximately 6 weeks gestation with nausea and vomiting. Unable to keep any fluid or foods reports weight loss from 188 lbs to 182. She denies syncope was evaluated in Emergency Department and given zofran, but reports that this has not helped. Upon walking out of office, patient became dizzy and was assisted to chair to sit down. I again asked patient if she could have someone pick her up and take her to ER for IV fluids and rehadration. We will start process to get zofran pump ordered and started. Patient states she had hyperemesis with previous and states only thing that helped with nausea was marijuanna. She states she is not able to tolerate the smell of it at this time. is picking pt up and taking to ER. I spoke with DR Smith at er to notify her she was coming for iv hydration and check labs and quant. Patient has not had further vaginal bleeding, she is scheduled next week for intact. Documented by DAWN Kirk on behalf of: DAWN Kirk documented in this encounter [facility] Evaluation note Note Date & Type Note Facility Evaluation note Diagnosis Nausea and vomiting during documented in this encounter [facility] Summary Purpose Family History No Family History Records FoundNo Family History Records Found Advance Directives No Advanced Directives Records FoundNo Advanced Directives Records Found Additional Source Comments INFORMATION SOURCE (unrecogn ized section and content) DATE CREATED AUTHOR 08/22/2022 [facility] DATE CREATED AUTHOR AUTHOR'S ORGANIZ ATION 05/20/2024 [facility] [employer] Care Teams (unrecognized sec tion and content) Cloud Operations Engineer Relationship Specialty Start Date End Date Stepan Yanez MD [address] [place] [id number] PCP - General Family Medicine 08/12/22 [employer] Engineer Relationship Specialty Start Date End Date Stepan Yanez MD [address] [place] [id number] PCP - General Family Medicine 08/12/22 Reason for Visit (unrecogniz ed section and content) Reason Comments [facility] Follow Up FOR RECORDS PERTAINING TO PATIENTS WHO ARE OR HAVE BEEN ENROLLED IN A CHEMICAL DEPENDENCY/SUBSTANCEABUSE PROGRAM, SOME INFORMATION MAY BE OMITTED. This clinical summary was aggregated from multiple sources. Caution should be exercised in using it in the provision of clinical care. This summary normalizes information from multiple sources, and as a consequence, information in this document may materially change the coding, format and clinical context of patient data. In addition, data may be omitted in some cases. CLINICAL DECISIONS SHOULD BE BASED ON THE PRIMARY CLINICAL RECORDS. [facility] [employer]. provides no warranty or guarantee of the accuracy or completeness of information in this document.
[2024-05-22 10:53] VITALS: BP 119/80; PULSE 90; TEMP 36.7; O2SAT 99; BMI 24.4
--- NOTE | 2024-05-22 10:55 | ED_ITS ---
HPI HPI - General Adult General Chief complaint: Nausea/Vomiting/Diarrhea Stated complaint: NAUSEA Time Seen by Provider: 05/22/24 10:41 History of Present Illness HPI narrative: 24-year-old female presents to the emergency department for nausea and vomiting. She states she is 7 weeks and has been sick for 3 weeks. No vaginal bleeding. She has been using Zofran and Phenergan suppositories at home. She states I cannot do this anymore. No fever or diarrhea. She had some morning sickness with her first but not to this degree. Related Data Home Medications ?Medication ?Instructions ?Recorded ?Confirmed ondansetron 4 mg disintegrating 4 mg PO Q6H PRN nausea and vomiting 05/13/24 05/13/24 tablet meclizine 25 mg tablet 25 mg PO PRN 05/22/24 05/22/24 promethazine 25 mg rectal 25 mg [place] Q6H PRN nausea and 05/22/24 05/22/24 suppository vomiting Previous Rx's ?Medication ?Instructions ?Recorded ondansetron 4 mg disintegrating 4 mg PO Q6H PRN nausea and 05/22/24 tablet vomiting #30 tabs Allergies Allergy/AdvReac Type Severity Reaction Status Date / Time No Known Drug Allergies Allergy Verified 05/22/24 10:52 Opioid HPI Opioid Management Most Recent Opioid Data: Last Pain Scale 4 05/22/24 12:23 05/22/24 Last ED Pain Assessment 05/22/24 12:23 Urine Cannabinoids Positive (.) A 11/21/22 01:26 11/21/22 Ur Phencyclidine Scrn Negative (NEGATIVE) 11/20/22 23:00 0910/05 Review of Systems ROS Narrative A ten point review of systems is negative except as noted above. PFSH PFSH Social History Little interest or pleasure in doing things: not at all Feeling down, depressed, or hopeless: not at all Exam Narrative Exam Narrative: Nurses note and vital signs reviewed and patient is not hypoxic. General: The patient appears uncomfortable and somewhat pale. She is tearful Skin: Warm, dry, mild pallor noted. There is no rash noted. Head: Normocephalic, atraumatic Eye: Normal conjunctiva, no drainage Ears, Nose, Mouth, and Throat: oral mucosa is slightly dry. Nares patent. Cardiovascular: Regular Rate and Rhythm Respiratory: Patient is in no distress, no accessory muscle use, lungs are clear to auscultation, no wheezing, rales or rhonchi Back: non-tender GI: Soft and nondistended. Musculoskeletal: The patient has no evidence of calf tenderness, no pitting edema, symmetrical pulses noted bilaterally Neurological: A&O, normal speech Psychiatric: Cooperative Constitutional Vital Signs, click to edit/add: Last Vital Signs Temp 98.1 F 05/22/24 10:53 Pulse 78 05/22/24 12:20 Resp 16 05/22/24 12:20 BP 103/51 05/22/24 12:20 Pulse Ox 100 05/22/24 12:20 O2 Del Method Room Air 05/22/24 10:53 Course Vital Signs Vital signs: Vital Signs Temperature 98.1 F 05/22/24 10:53 Pulse Rate 90 05/22/24 10:53 Respiratory Rate 20 05/22/24 10:53 Blood Pressure 119/80 05/22/24 10:53 Pulse Oximetry 99 05/22/24 10:53 Oxygen Delivery Method Room Air 05/22/24 10:53 Temperature 98.1 F 05/22/24 10:53 Pulse Rate 78 05/22/24 12:20 Respiratory Rate 16 05/22/24 12:20 Blood Pressure 103/51 05/22/24 12:20 Pulse Oximetry 100 05/22/24 12:20 Oxygen Delivery Method Room Air 05/22/24 10:53 Medical Decision Making MDM Narrative Medical decision making narrative: Blood work is nonspecific. She is feeling improved after 2 L of IV fluids and 4 mg of Zofran IV. She is discharged home with a prescription for Zofran and is feeling improved and is tolerating p.o. liquids. Treatment diagnosis and follow-up were discussed with the patient. Differential Diagnosis Differential Diagnosis: Hyperemesis gravidarum, dehydration Lab Data Lab results reviewed: Yes I reviewed the patient's lab results Labs: Lab Results 05/22/24 Range/Units 11:04 WBC 11.0 (4.0-11.0) 10^3/uL RBC 5.07 (4.20-5.40) 10^6/uL Hgb 14.4 (12.0-16.0) g/dL Hct 41.8 (36.0-48.0) % MCV 82.4 (81.0-99.0) fL MCH 28.4 (26.7-34.0) pg MCHC 34.4 (29.9-35.2) g/dL RDW 13.0 (11.0-15.0) % Plt Count 270 (150-450) 10^3/uL MPV 11.2 (9.5-13.5) fL Neut % (Auto) 80.4 H (43.0-75.0) % Lymph % (Auto) 11.8 L (20.5-60.0) % [place] % (Auto) 6.8 (1.7-12.0) % Eos % (Auto) 0.1 L (0.9-7.0) % Baso % (Auto) 0.5 (0.2-2.0) % Neut # (Auto) 8.8 H (1.4-6.5) 10^3/uL Lymph # (Auto) 1.3 (1.2-3.8) 10^3/uL [place] # (Auto) 0.7 (0.3-0.8) 10^3/uL Eos # (Auto) 0.0 (0.0-0.7) 10^3/uL Baso # (Auto) 0.1 (0.0-0.1) 10^3/uL Abs Immat Gran (auto) 0.04 H (0.00-0.03) 10^3/uL Imm/Tot Granulo (auto) 0.4 (0.0-0.5) % Sodium 138 (136-145) mmol/L Potassium 3.3 L (3.5-5.1) mmol/L Chloride 101 (98-107) mmol/L Carbon Dioxide 19.4 L (21.0-32.0) mmol/L Anion Gap 20.9 BUN 12.0 (7.0-18.0) mg/dL Creatinine 0.65 (0.55-1.02) mg/dL Est GFR ( Amer) >60 (>=60 mL/min/1.73m^2) Est GFR (Non-Af Amer) >60 (>=60 mL/min/1.73m^2) BUN/Creatinine Ratio 18.5 Glucose 88 (74-106) mg/dL Calcium 9.8 (8.5-10.1) mg/dL Discharge Plan Discharge Chief Complaint: Nausea/Vomiting/Diarrhea Clinical Impression: Nausea and vomiting during Patient Disposition: Home, Self-Care Time of Disposition Decision: 12:54 Condition: Good Mode of Transportation: Private Vehicle Prescriptions / Home Meds: New ondansetron 4 mg tablet,disintegrating 4 mg PO Q6H PRN (Reason: nausea and vomiting) Qty: 30 0RF No Action promethazine 25 mg suppository 25 mg [place] Q6H PRN (Reason: nausea and vomiting) meclizine 25 mg tablet 25 mg PO PRN ondansetron 4 mg tablet,disintegrating 4 mg PO Q6H PRN (Reason: nausea and vomiting) Print Language: Romanian Instructions: Nausea and Vomiting in (ED) Referrals: Franklin Yanez MD [Primary Care Provider] - 1 week
[2024-05-22] MEDS: 0.9 % SODIUM CHLORIDE 1,000 ML 1000 ML IV ×2 (11:08→12:17)
[2024-05-22] MEDS: ONDANSETRON PF 4 MG/2 ML VIAL IV (11:09)
[2024-05-22 11:43] LABS: Basophils Absolute Auto 0.1 10^3/uL (0.0-0.1); Basophils Percent Auto 0.5 % (0.2-2.0); Eosinophils Percent Auto 0.1 % (0.9-7.0); Hematocrit 41.8 % (36.0-48.0); Hemoglobin 14.4 g/dL (12.0-16.0); Immature Granulocytes Abs Auto 0.04 10^3/uL (0.00-0.03); Immature Granulocytes Pct Auto 0.4 % (0.0-0.5); Lymphocytes Absolute Auto 1.3 10^3/uL (1.2-3.8); Lymphocytes Percent Auto 11.8 % (20.5-60.0); Mean Corpuscular HGB Conc 34.4 g/dL (29.9-35.2); Mean Corpuscular Hemoglobin 28.4 pg (26.7-34.0); Mean Corpuscular Volume 82.4 fL (81.0-99.0); Mean Platelet Volume 11.2 fL (9.5-13.5); Monocytes Absolute Auto 0.7 10^3/uL (0.3-0.8); Monocytes Percent Auto 6.8 % (1.7-12.0); Neutrophils Absolute Auto 8.8 10^3/uL (1.4-6.5); Neutrophils Percent Auto 80.4 % (43.0-75.0); Platelet Count 270 10^3/uL (150-450); Red Blood Count 5.07 10^6/uL (4.20-5.40)
[2024-05-22 11:58] LABS: Anion Gap 20.9; BUN Creatinine Ratio 18.5; Calcium 9.8 mg/dL (8.5-10.1); Carbon Dioxide 19.4 mmol/L (21.0-32.0); Chloride 101 mmol/L (98-107); Estimated GFR (African America >60 (>=60 mL/min/1.73m^2); Estimated GFR (Non-African Ame >60 (>=60 mL/min/1.73m^2); Glucose 88 mg/dL (74-106); Potassium 3.3 mmol/L (3.5-5.1); Sodium 138 mmol/L (136-145)
[2024-05-22 12:20] VITALS: BP 103/51; PULSE 78; O2SAT 100
== END 2024-05-22 13:09 | disposition home or self-care (01) ==
PROVIDERS: Emergency Provider Emergency Medicine; PCP Family Medicine
DX: O21.9 Vomiting of pregnancy, unspecified (principal); Z3A.01 Less than 8 weeks gestation of pregnancy
CPT/HCPCS: 36415; 80048; 81001; 85025; 96361; 96374; 99285; J2405

== ENCOUNTER 2024-05-27 12:27 | Emergency (ER) | payer BC, SELFPAY ==
--- OUTSIDE RECORDS SUMMARY | 2024-05-27 12:47 | XMS_ITS | CCD ---
Author Organization [facility] Care Team Providers Care Legislative Advocate Name Role Phone CLEMENTE ., DR YING [...] Unavailable ECTOR ., DR MOODY Attending Unavailable CAPE CANAVERAL, DR ROXY Murphy Consulting Unavailable ECTOR ., DR MOODY Admitting Unavailable HOY ., DR YING Primary Care Unavailable ECTOR ., DR MOODY Attending Unavailable ECTOR ., DR MOODY Consulting Unavailable ZIEBER, DR EMA Yoon Consulting Unavailable HOY ., DR YING Primary Care Unavailable CAPE CANAVERAL, DR ROXY Murphy Consulting Unavailable ECTOR ., [...] Unavailable Stepan Yanez MD Primary Care Provider [phone] MERA TATUM Attending Unavailable MERA TATUM Attending [...] ROXY CARRILLO Date: 2022-07-17 16:59 Normal [facility] CBC AUTO DIFFon 05-16-2022 BASO # 0.1 103/ul Normal 0.0-0.1 [facility] Comment on above: Performed By: #### C BC #### [facility] [address] [place] [address] Dr. Gabino Motta Basophils/100 WBC (Bld) 0.3 % Normal 0.2-2.0 [facility] Comment on above: Performed By: #### C BC #### [facility] [address] [address] [address] Gabino Motta EO # 0.0 103/ul Normal 0.0-0.7 [facility] Comment on above: Performed By: #### C BC #### [facility] [address] [address] [address] Gabino Motta Eosinophils/100 WBC (Bld) 0.0 % Critically low 0.9-7.0 [facility] Comment on above: Performed By: #### C BC #### [facility] [address] [place] [address] Dr. Gabino Motta Erythrocyte distribution width (RBC) [Ratio] 12.7 % Normal 11.0-15.0 [facility] Comment on above: Performed By: #### C BC #### [facility] [address] [place] [address] Dr. Gabino Motta Hematocrit (Bld) [Volume fraction] 39.1 % Normal 36.0-48.0 [facility] Comment on above: Performed By: #### C BC #### [facility] [address] [place] [address] Dr. Gabino Motta Hemoglobin (Bld) [Mass/Vol] 13.7 g/dL Normal 12.0-16.0 [facility] Comment on above: Performed By: #### C BC #### [facility] [address] [place] [address] Dr. Gabino Motta IG # 0.05 10e3/ul Critically high 0.00-0.03 [facility] Comment on above: Performed By: #### C BC #### [facility] [address] [place] [address] Dr. Gabino Motta IG % 0.3 % Normal 0.0-0.5 [facility] Comment on above: Performed By: #### C BC #### [facility] [address] [place] [address] Dr. Gabino Motta LYMPH # 1.1 103/ul Critically low 1.2-3.8 [facility] Comment on above: Performed By: #### C BC #### [facility] [address] [place] [address] Dr. Gabino Motta Lymphocytes/100 WBC (Bld) 7.0 % Critically low 20.5-60.0 [facility] Comment on above: Performed By: #### C BC #### [facility] [address] [place] [address] Dr. Gabino Motta MANUAL DIFF REQ NO Normal [facility] Comment on above: Performed By: #### C BC #### [facility] [address] [place] [address] Dr. Gabino Motta MCH (RBC) [Entitic mass] 28.5 pg Normal 26.7-34.0 [facility] Comment on above: Performed By: #### C BC #### [facility] [address] [place] [address] Dr. Gabino Motta MCHC (RBC) [Mass/Vol] 35.0 g/dL Normal 29.9-35.2 [facility] Comment on above: Performed By: #### C BC #### [facility] [address] [place] [address] Dr. Gabino Motta MCV (RBC) [Entitic vol] 81.3 fL Normal 81.0-99.0 [facility] Comment on above: Performed By: #### C BC #### [facility] [address] [place] [address] Dr. Gabino Motta MONO # 0.3 103/ul Normal 0.3-0.8 [facility] Comment on above: Performed By: #### C BC #### [facility] [address] [place] [address] Dr. Gabino Motta Monocytes/100 WBC (Bld) 2.1 % Normal 1.7-12.0 [facility] Comment on above: Performed By: #### C BC #### [facility] [address] [place] [address] Dr. Gabino Motta NEUT # 13.5 103/ul Critically high 1.4-6.5 [facility] Comment on above: Performed By: #### C BC #### [facility] [address] [place] [address] Dr. Gabino Motta Neutrophils/100 WBC (Bld) 90.3 % Critically high 43.0-75.0 [facility] Comment on above: Performed By: #### C BC #### [facility] [address] [place] [address] Dr. Gabino Motta Platelet mean volume (Bld) [Entitic vol] 11.1 fL Normal 9.5-13.5 [facility] Comment on above: Performed By: #### C BC #### [facility] [address] [address] [address] Gabino Motta PLT 282 103/ul Normal 150-450 [facility] Comment on above: Performed By: #### C BC #### [facility] [address] [address] [address] Gabino Motta RBC 4.81 106/ul Normal 4.20-5.40 [facility] Comment on above: Performed By: #### C BC #### [facility] [address] [place] [address] Dr. Gabino Motta WBC 14.9 103/ul Critically high 4.0-11.0 [facility] Comment on above: Performed By: #### C BC #### [facility] [address] [place] [address] Dr. Gabino Motta PROF 14(COMP METB)on 023 Albumin [Mass/Vol] 4.1 g/dL Normal 3.4-5.0 [facility] Comment on above: Performed By: #### C BC #### [facility] [address] [place] [address] Dr. Gabino Motta Albumin/Globulin [Mass ratio] 1.1 {ratio} Normal [facility] Comment on above: Performed By: #### C BC #### [facility] [address] [place] [address] Dr. Gabino Motta ALP [Catalytic activity/Vol] 72 U/L Normal 46-116 [facility] Comment on above: Performed By: #### C BC #### [facility] [address] [place] [address] Dr. Gabino Motta ALT [Catalytic activity/Vol] 42 U/L Normal 14-59 [facility] Comment on above: Performed By: #### C BC #### [facility] [address] [place] [address] Dr. Gabino Motta Anion gap [Moles/Vol] 18.4 mmol/L Normal [facility] Comment on above: Performed By: #### C BC #### [facility] [address] [address] [address] Gabino Motta AST [Catalytic activity/Vol] 18 U/L Normal 15-37 [facility] Comment on above: Performed By: #### C BC #### [facility] [address] [place] [address] Dr. Gabino Motta Bilirubin [Mass/Vol] 0.5 mg/dL Normal 0.2-1.0 [facility] Comment on above: Performed By: #### C BC #### [facility] [address] [place] [address] Dr. Gabino Motta Calcium [Mass/Vol] 9.6 mg/dL Normal 8.5-10.1 [facility] Comment on above: Performed By: #### C BC #### [facility] [address] [place] [address] Dr. Gabino Motta Chloride [Moles/Vol] 103 mmol/L Normal 98-107 [facility] Comment on above: Performed By: #### C BC #### [facility] [address] [place] [address] Dr. Gabino Motta CO2 [Moles/Vol] 20.1 mmol/L Critically low 21.0-32.0 [facility] Comment on above: Performed By: #### C BC #### [facility] [address] [place] [address] Dr. Gabino Motta Creatinine [Mass/Vol] 0.54 mg/dL Critically low 0.55-1.02 [facility] Comment on above: Performed By: #### C BC #### [facility] [address] [place] [address] Dr. Gabino Motta EGFR-AF VIETNAMESE >60 Normal >=60 [facility] Comment on above: Performed By: #### C BC #### [facility] [address] [place] [address] Dr. Gabino Motta EGFR-NON AF VIETNAMESE >60 Normal >=60 [facility] Comment on above: Performed By: #### C BC #### [facility] [address] [place] [address] Dr. Gabino Motta Globulin (S) [Mass/Vol] 3.8 g/dL Normal [facility] Comment on above: Performed By: #### C BC #### [facility] [address] [place] [address] Dr. Gabino Motta Glucose [Mass/Vol] 102 mg/dL Normal 74-106 [facility] Comment on above: Performed By: #### C BC #### [facility] [address] [place] [address] Dr. Gabino Motta Potassium [Moles/Vol] 3.5 mmol/L Normal 3.5-5.1 [facility] Comment on above: Performed By: #### C BC #### [facility] [address] [place] [address] Dr. Gabino Motta Protein [Mass/Vol] 7.9 g/dL Normal 6.4-8.2 [facility] Comment on above: Performed By: #### C BC #### [facility] [address] [place] [address] Dr. Gabino Motta Sodium [Moles/Vol] 138 mmol/L Normal 136-145 [facility] Comment on above: Performed By: #### C BC #### [facility] [address] [place] [address] Dr. Gabino Motta Urea nitrogen [Mass/Vol] 6.0 mg/dL Critically low 7.0-18.0 [facility] Comment on above: Performed By: #### C BC #### [facility] [address] [place] [address] Dr. Gabino Motta Urea nitrogen/Creatinine [Mass ratio] 11.1 mg/mg Normal [facility] Comment on above: Performed By: #### C BC #### [facility] [address] [place] [address] Dr. Gabino Motta CULTURE URINEon 04-29-2022 CULTURE [...] Trimethoprim/Sulfamet hoxazole <=20 S F Normal [facility] Comment on above: Performed By: #### U RCX #### [facility] [address] [place] [address] Dr. Gabino Motta CBC AUTO DIFFon 04-26-2022 BASO # 0.0 103/ul Normal 0.0-0.1 [facility] Comment on above: Performed By: #### C BC #### [facility] [address] [place] [address] Dr. Gabino Motta Basophils/100 WBC (Bld) 0.3 % Normal 0.2-2.0 [facility] Comment on above: Performed By: #### C BC #### [facility] [address] [place] [address] Dr. Gabino Motta EO # 0.0 103/ul Normal 0.0-0.7 [facility] Comment on above: Performed By: #### C BC #### [facility] [address] [place] [address] Dr. Gabino Motta Eosinophils/100 WBC (Bld) 0.2 % Critically low 0.9-7.0 [facility] Comment on above: Performed By: #### C BC #### [facility] [address] [place] [address] Dr. Gabino Motta Erythrocyte distribution width (RBC) [Ratio] 12.7 % Normal 11.0-15.0 [facility] Comment on above: Performed By: #### C BC #### [facility] [address] [place] [address] Dr. Gabino Motta Hematocrit (Bld) [Volume fraction] 39.7 % Normal 36.0-48.0 [facility] Comment on above: Performed By: #### C BC #### [facility] [address] [place] [address] Dr. Gabino Motta Hemoglobin (Bld) [Mass/Vol] 13.8 g/dL Normal 12.0-16.0 [facility] Comment on above: Performed By: #### C BC #### [facility] [address] [place] [address] Dr. Gabino Motta IG # 0.03 10e3/ul Normal 0.00-0.03 [facility] Comment on above: Performed By: #### C BC #### [facility] [address] [place] [address] Dr. Gabino Motta IG % 0.2 % Normal 0.0-0.5 [facility] Comment on above: Performed By: #### C BC #### [facility] [address] [place] [address] Dr. Gabino Motta LYMPH # 1.4 103/ul Normal 1.2-3.8 [facility] Comment on above: Performed By: #### C BC #### [facility] [address] [place] [address] Dr. Gabino Motta Lymphocytes/100 WBC (Bld) 11.4 % Critically low 20.5-60.0 [facility] Comment on above: Performed By: #### C BC #### [facility] [address] [place] [address] Dr. Gabino Motta MANUAL DIFF REQ NO Normal [facility] Comment on above: Performed By: #### C BC #### [facility] [address] [place] [address] Dr. Gabino Motta MCH (RBC) [Entitic mass] 28.4 pg Normal 26.7-34.0 [facility] Comment on above: Performed By: #### C BC #### [facility] [address] [place] [address] Dr. Gabino Motta MCHC (RBC) [Mass/Vol] 34.8 g/dL Normal 29.9-35.2 [facility] Comment on above: Performed By: #### C BC #### [facility] [address] [place] [address] Dr. Gaibno Motta MCV (RBC) [Entitic vol] 81.7 fL Normal 81.0-99.0 [facility] Comment on above: Performed By: #### C BC #### [facility] [address] [place] [address] Dr. Gabino Motta MONO # 0.7 103/ul Normal 0.3-0.8 [facility] Comment on above: Performed By: #### C BC #### [facility] [address] [place] [address] Dr. Gabino Motta Monocytes/100 WBC (Bld) 5.6 % Normal 1.7-12.0 [facility] Comment on above: Performed By: #### C BC #### [facility] [address] [place] [address] Dr. Gabino Motta NEUT # 10.1 103/ul Critically high 1.4-6.5 [facility] Comment on above: Performed By: #### C BC #### [facility] [address] [place] [address] Dr. Gabino Motta Neutrophils/100 WBC (Bld) 82.3 % Critically high 43.0-75.0 [facility] Comment on above: Performed By: #### C BC #### [facility] [address] [place] [address] Dr. Gabino Motta Platelet mean volume (Bld) [Entitic vol] 10.8 fL Normal 9.5-13.5 [facility] Comment on above: Performed By: #### C BC #### [facility] [address] [place] [address] Dr. Gabino Motta PLT 274 103/ul Normal 150-450 [facility] Comment on above: Performed By: #### C BC #### [facility] [address] [place] [address] Dr. Gabino Motta RBC 4.86 106/ul Normal 4.20-5.40 [facility] Comment on above: Performed By: #### C BC #### [facility] [address] [place] [address] Dr. Gabino Motta WBC 12.3 103/ul Critically high 4.0-11.0 [facility] Comment on above: Performed By: #### C BC #### [facility] [address] [address] [address] Gabino Motta ER URINE PROFILEon 3 Bilirubin Ql (U) Negative Normal NEGATIVE [facility] Comment on above: Performed By: #### U MICRO, ERUR #### [facility] [address] [address] [address] Gabino Motta Clarity (U) SL CLOUDY Abnormal CLEAR [facility] Comment on above: Performed By: #### U MICRO, ERUR #### [facility] [address] [address] [address] Gabino Motta Color (U) YELLOW Normal YELLOW [facility] Comment on above: Performed By: #### U MICRO, ERUR #### [facility] [address] [place] [address] Dr. Gabino DOZIERAHD A micrscopic examination will be performed if indicated. Normal [facility] Comment on above: Performed By: #### U MICRO, ERUR #### [facility] [address] [place] [address] Dr. Gabino Motta Glucose Ql (U) Negative Normal NEGATIVE [facility] Comment on above: Performed By: #### U MICRO, ERUR #### [facility] [address] [place] [address] Dr. Gabino Motta Hemoglobin Ql (U) Negative Normal NEGATIVE [facility] Comment on above: Performed By: #### U MICRO, ERUR #### [facility] [address] [address] [address] Gabino Motta Ketones Ql (U) >=80 Abnormal NEGATIVE [facility] Comment on above: Performed By: #### U MICRO, ERUR #### [facility] [address] [address] [address] Gabino Motta LEUKOCYTES Negative Normal NEGATIVE [facility] Comment on above: Performed By: #### U MICRO, ERUR #### [facility] [address] [address] [address] Gabino Motta Nitrite Ql (U) Positive Abnormal NEGATIVE [facility] Comment on above: Performed By: #### U MICRO, ERUR #### [facility] [address] [place] [address] Dr. Gabino Motta pH (U) 6.0 [pH] Normal 5-9 [facility] Comment on above: Performed By: #### U MICRO, ERUR #### [facility] [address] [place] [address] Dr. Gabino Motta SPEC GRAVITY 1.030 Abnormal 1.005-<=1.025 [facility] Comment on above: Performed By: #### U MICRO, ERUR #### [facility] [address] [place] [address] Dr. Gabino Motta UA PROTEIN Negative Normal NEGATIVE/ TRACE [facility] Comment on above: Performed By: #### U MICRO, ERUR #### [facility] [address] [place] [address] Dr. Gabino Motta UR MICRO IND INDICATED Normal [facility] Comment on above: Performed By: #### U MICRO, ERUR #### [facility] [address] [place] [address] Dr. Gabino Motta Urobilinogen Qn (U) 0.2 {Landy'U}/dL Normal 0.2 - 1. 0 [facility] Comment on above: Performed By: #### U MICRO, ERUR #### [facility] [address] [place] [address] Dr. Gabino Motta PROF 14(COMP METB)on 023 Albumin [Mass/Vol] 3.9 g/dL Normal 3.4-5.0 [facility] Comment on above: Performed By: #### C MP #### [facility] [address] [place] [address] Dr. Gabino Motta Albumin/Globulin [Mass ratio] 1.1 {ratio} Normal [facility] Comment on above: Performed By: #### C MP #### [facility] [address] [place] [address] Dr. Gabino Motta ALP [Catalytic activity/Vol] 75 U/L Normal 46-116 [facility] Comment on above: Performed By: #### C MP #### [facility] [address] [address] [address] Gabino Motta ALT [Catalytic activity/Vol] 36 U/L Normal 14-59 [facility] Comment on above: Performed By: #### C MP #### [facility] [address] [address] [address] Gabino Motta Anion gap [Moles/Vol] 18.0 mmol/L Normal [facility] Comment on above: Performed By: #### C MP #### [facility] [address] [address] [address] Gabino Motta AST [Catalytic activity/Vol] 16 U/L Normal 15-37 [facility] Comment on above: Performed By: #### C MP #### [facility] [address] [address] [address] aGbino Motta Bilirubin [Mass/Vol] 0.4 mg/dL Normal 0.2-1.0 [facility] Comment on above: Performed By: #### C MP #### [facility] [address] [address] [address] Gabino Motta Calcium [Mass/Vol] 9.3 mg/dL Normal 8.5-10.1 [facility] Comment on above: Performed By: #### C MP #### [facility] [address] [address] [address] Gabino Motta Chloride [Moles/Vol] 101 mmol/L Normal 98-107 [facility] Comment on above: Performed By: #### C MP #### [facility] [address] [address] [address] Gabino Motta CO2 [Moles/Vol] 22.7 mmol/L Normal 21.0-32.0 [facility] Comment on above: Performed By: #### C MP #### [facility] [address] [address] [address] Gabino Motta Creatinine [Mass/Vol] 0.57 mg/dL Normal 0.55-1.02 [facility] Comment on above: Performed By: #### C MP #### [facility] [address] [address] [address] Gabino Motta EGFR-AF VIETNAMESE >60 Normal >=60 [facility] Comment on above: Performed By: #### C MP #### [facility] [address] [address] [address] Gabino Motta EGFR-NON AF VIETNAMESE >60 Normal >=60 [facility] Comment on above: Performed By: #### C MP #### [facility] [address] [address] [address] Gabino Motta Globulin (S) [Mass/Vol] 3.7 g/dL Normal [facility] Comment on above: Performed By: #### C MP #### [facility] [address] [place] [address] Dr. Gabino Motta Glucose [Mass/Vol] 94 mg/dL Normal 74-106 [facility] Comment on above: Performed By: #### C MP #### [facility] [address] [address] [address] Gabino Motta Potassium [Moles/Vol] 3.7 mmol/L Normal 3.5-5.1 [facility] Comment on above: Performed By: #### C MP #### [facility] [address] [place] [address] Dr. Gabino Motta Protein [Mass/Vol] 7.6 g/dL Normal 6.4-8.2 [facility] Comment on above: Performed By: #### C MP #### [facility] [address] [place] [address] Dr. Gabino Motta Sodium [Moles/Vol] 138 mmol/L Normal 136-145 [facility] Comment on above: Performed By: #### C MP #### [facility] [address] [address] [address] Gabino Motta Urea nitrogen [Mass/Vol] 8.0 mg/dL Normal 7.0-18.0 [facility] Comment on above: Performed By: #### C MP #### [facility] [address] [address] [address] Gabino Motta Urea nitrogen/Creatinine [Mass ratio] 14.0 mg/mg Normal [facility] Comment on above: Performed By: #### C MP #### [facility] [address] [address] [address] Gabino Motta URINE MICROSCOPIC ONLYon BACTERIA SMALL Abnormal NONE SEEN [facility] Comment on above: Performed By: #### U MICRO, ERUR #### [facility] [address] [address] [address] Gabino Motta Bacteria identified Cx Nom (U) INDICATED Normal [facility] Comment on above: Performed By: #### U MICRO, ERUR #### [facility] [address] [place] [address] Dr. Gabino Motta CAST NONE SEEN Normal NONE SEEN [facility] Comment on above: Performed By: #### U MICRO, ERUR #### [facility] [address] [place] [address] Dr. Gabino Motta Crystals LM Nom (Urine sed) NONE SEEN Normal NONE SEEN [facility] Comment on above: Performed By: #### U MICRO, ERUR #### [facility] [address] [place] [address] Dr. Gabino Motta Epithelial cells LM Ql (Urine sed) FEW Abnormal NONE SEEN /RARE [facility] Comment on above: Performed By: #### U MICRO, ERUR #### [facility] [address] [place] [address] Dr. Gabino Motta MUCOUS SMALL Abnormal NONE SEEN [facility] Comment on above: Performed By: #### U MICRO, ERUR #### [facility] [address] [place] [address] Dr. Gabino Motta RBC NONE SEEN Abnormal 0-2 [facility] Comment on above: Performed By: #### U MICRO, ERUR #### [facility] [address] [place] [address] Dr. Gabino Motta WBC 2-5 Abnormal NONE SEEN [facility] Comment on above: Performed By: #### U MICRO, ERUR #### [facility] [address] [place] [address] Dr. Gabino Mtota US PREG TVon 04-25-2022 US PREG TV [...] by: EMA SAMUEL Date: 2022-04-25 10:29 Normal [facility] US PELVISon 11-15-2021 US PELVIS EXAMINATION: US [...] by: ROXY CARRILLO Date: 2021-11-15 17:11 Normal [facility] Encounters Encounter Date Encounter Type Care Provider [...] PM EDT Initial [facility] [address] [place] [address] [facility] Start: 05-26-2024 End: 05-26-2024 Professional / ancillary services management 05/26/2024 1:00 PM EDT Ancillary Procedure [facility] [address] [place] [address] [facility] Payers Date Payer Category Payer [facility] [id number] 2023 Unknown [id number] 2000 Unknown [id number] .593 2002 Unknown [id number] 2.16.840.1.117846.3.579.2 .593 2002 Unknown [id number] 2.16.840.1.146710.3.579.2 .593 2002 Unknown [id number] 2.16.840.1.207608.3.579.2 .593 2002 Unknown [id number] 2.16.840.1.713710.3.579.2 .593 2002 Unknown [id number] 2.16.840.1.772749.3.579.2 .593 2002 Unknown [id number] 2.16.840.1.649839.3.579.2 .1259 2002 Unknown [id number] 2.16.840.1.328951.3.579.2 .1259 2002 Unknown [id number] 2.16.840.1.168271.3.579.2 .1259 2002 Unknown [id number] 2.16.840.1.233412.3.579.2 .1259 2002 Unknown [id number] 2.16.840.1.277639.3.579.2 .1259 1959 Self-pay [id number] 1957 Unknown [id number] Social History Date Type Detail Facility [facility]: [facility]22 [facility] Start: 07-28-2023 Alcoholic beverage intake Life time non-drinker (finding) [facility] Start: 06-02-2023 History of Social function [facility] Start: 06-02-2023 Tobacco use panel [facility] Start: 2000 Sex assigned at Female [facility] Start: 09-08-2022 Gender identity Identifies as female gender (finding) [facility] Start: 09-08-2022 Sexual orientation Heterosexual (fin jasmina) [facility] History of Present illness Narrative 05-18-2024 DAWN Kirk - 05/18/2024 9:40 AM EST Note Date & Type Note Facility 05-18-2024 History of Presen t illness Narrative Reason for Appointment: Patient ID: Mei Puentes is a 24 y.o. female who presents for [facility] Follow Up Patient presents today for [...] nursing note reviewed. Exam conducted with a barge pilot present. Vitals: Estimated body mass index is [...] DATE CREATED AUTHOR AUTHOR'S ORGANIZ ATION 05/20/2024 [facility] [employer] Care Teams (unrecognized sec tion and content) Legislative Advocate Relationship Specialty Start Date End Date Stepan Yanez MD [address] [place] [id number] PCP - General Family Medicine 08/12/22 Legislative Advocate Relationship Specialty Start Date End Date Stepan Yanez MD [address] [place] [id number] PCP - General Family Medicine 08/12/22 Reason [...] BE BASED ON THE PRIMARY CLINICAL RECORDS. [facility] [employer] [facility]. provides no warranty or guarantee of the accuracy or completeness of information in this document.
[2024-05-27 12:53] VITALS: BP 127/76; PULSE 87; TEMP 36.9; O2SAT 99; BMI 24.4
--- NOTE | 2024-05-27 14:05 | ED.GENADUL1 ---
HPI HPI - General Adult General Chief complaint: Nausea/Vomiting/Diarrhea Stated complaint: VOMITTING DIZZINESS Time Seen by Provider: 05/27/24 13:45 Source: patient Mode of arrival: walk-in Limitations: no limitations History of Present Illness HPI narrative: Patient is a 24-year-old female who presents to the emergency department at 7 weeks of for persistent vomiting and dizziness. Patient has had issues with hyperemesis throughout this , she has been on multiple different medications for hyperemesis. Last dose of Zofran ODT was this morning at 530. Patient arrives to an exam room with a tumbler of water and a bottle of apple juice. She states she has been dry heaving all night but has not thrown up anything today. She states she feels very dizzy and weak. She has not had any urinary symptoms. She denies vaginal bleeding or fluid leakage. She was seen in this emergency department previously for vaginal bleeding 2 weeks ago. She had an ultrasound at that time showing an IUP. Related Data Home Medications ?Medication ?Instructions ?Recorded ?Confirmed ondansetron 4 mg disintegrating 4 mg PO Q6H PRN nausea and vomiting 05/13/24 05/27/24 tablet meclizine 25 mg tablet 25 mg PO PRN 05/22/24 05/27/24 promethazine 25 mg rectal 25 mg RI Q6H PRN nausea and 05/22/24 05/27/24 suppository vomiting Previous Rx's ?Medication ?Instructions ?Recorded ondansetron 4 mg disintegrating 4 mg PO Q6H PRN nausea and 05/22/24 tablet vomiting #30 tabs cephalexin 500 mg capsule 500 mg PO BID 7 days #14 caps 05/27/24 metoclopramide HCl 10 mg tablet 10 mg PO Q6H PRN nausea and 05/27/24 (Reglan) vomiting #12 tabs Allergies Allergy/AdvReac Type Severity Reaction Status Date / Time No Known Drug Allergies Allergy Verified 05/27/24 12:52 Opioid HPI Opioid Management Most Recent Opioid Data: Last Pain Scale 4 05/22/24 12:23 05/22/24 Last ED Pain Assessment 05/22/24 12:23 Urine Cannabinoids Positive (.) A 11/21/22 01:26 11/21/22 Ur Phencyclidine Scrn Negative (NEGATIVE) 11/20/22 23:00 11/20/22 Review of Systems ROS Constitutional Denies: fever or chills Ears, nose, mouth, and throat Denies: throat pain or nasal congestion Cardiovascular Denies: chest pain Respiratory Denies: shortness of breath or cough Gastrointestinal Reports: nausea and vomiting; Denies: abdominal pain Musculoskeletal Denies: back pain Integumentary/Breast Denies: rash Neurological Reports: dizziness; Denies: numbness in extremities or weakness in extremities Hematologic/Lymphatic Denies: easy bruising or easy bleeding PFSH PFS Social History Little interest or pleasure in doing things: not at all Feeling down, depressed, or hopeless: not at all Exam Narrative Exam Narrative: Gen.: Awake, alert, in no distress Head: Normocephalic, atraumatic ENT: Moist mucous membranes Respiratory: No respiratory distress, lungs clear bilaterally Cardio: Regular rate and rhythm Gastrointestinal: Abdomen is soft, nondistended and nontender to palpation Extremities: Moves extremities equally Psych: Normal mood and affect Neuro: No focal neuro deficit Skin: Warm, dry, intact Constitutional Vital Signs, click to edit/add: Last Vital Signs Temp 98.5 F 05/27/24 12:53 Pulse 87 05/27/24 12:53 Resp 18 05/27/24 12:53 BP 127/76 05/27/24 12:53 Pulse Ox 99 05/27/24 12:53 O2 Del Method Room Air 05/27/24 12:53 Course Vital Signs Vital signs: Vital Signs Temperature 98.5 F 05/27/24 12:53 Pulse Rate 87 05/27/24 12:53 Respiratory Rate 18 05/27/24 12:53 Blood Pressure 127/76 05/27/24 12:53 Pulse Oximetry 99 05/27/24 12:53 Oxygen Delivery Method Room Air 05/27/24 12:53 Temperature 98.5 F 05/27/24 12:53 Pulse Rate 87 05/27/24 12:53 Respiratory Rate 18 05/27/24 12:53 Blood Pressure 127/76 05/27/24 12:53 Pulse Oximetry 99 05/27/24 12:53 Oxygen Delivery Method Room Air 05/27/24 12:53 Medical Decision Making MDM Narrative Medical decision making narrative: Labs are stable, minimal hypokalemia. Patient tolerated oral potassium pills in the ER with no difficulty. She states she feels much better after liter of fluid and IV Reglan. She had no episodes of emesis in the ER. She has noted to have a mild UTI. She is placed on Keflex and Reglan for home. Follow-up with [facility] for further management. Return to the ER if symptoms change or worsen SUPERVISED APC VISIT, PHYSICIAN ATTESTATION: Based on the medical record the care appears appropriate. ? Medical Records Medical records reviewed: Yes I reviewed the patient's medical records Lab Data Lab results reviewed: Yes I reviewed the patient's lab results Labs: Lab Results 05/27/24 05/27/24 Range/Units 13:57 15:22 WBC 12.8 H (4.0-11.0) 10^3/uL RBC 4.99 (4.20-5.40) 10^6/uL Hgb 14.3 (12.0-16.0) g/dL Hct 41.1 (36.0-48.0) % MCV 82.4 (81.0-99.0) fL MCH 28.7 (26.7-34.0) pg MCHC 34.8 (29.9-35.2) g/dL RDW 12.9 (11.0-15.0) % Plt Count 229 (150-450) 10^3/uL MPV 11.5 (9.5-13.5) fL Neut % (Auto) 77.2 H (43.0-75.0) % Lymph % (Auto) 16.0 L (20.5-60.0) % [place] % (Auto) 5.8 (1.7-12.0) % Eos % (Auto) 0.2 L (0.9-7.0) % Baso % (Auto) 0.4 (0.2-2.0) % Neut # (Auto) 9.9 H (1.4-6.5) 10^3/uL Lymph # (Auto) 2.1 (1.2-3.8) 10^3/uL [place] # (Auto) 0.7 (0.3-0.8) 10^3/uL Eos # (Auto) 0.0 (0.0-0.7) 10^3/uL Baso # (Auto) 0.1 (0.0-0.1) 10^3/uL Abs Immat Gran (auto) 0.05 H (0.00-0.03) 10^3/uL Imm/Tot Granulo (auto) 0.4 (0.0-0.5) % Sodium 136 (136-145) mmol/L Potassium 3.3 L (3.5-5.1) mmol/L Chloride 97 L (98-107) mmol/L Carbon Dioxide 24.2 (21.0-32.0) mmol/L Anion Gap 18.1 BUN 8.0 (7.0-18.0) mg/dL Creatinine 0.65 (0.55-1.02) mg/dL Est GFR ( Amer) >60 (>=60 mL/min/1.73m^2) Est GFR (Non-Af Amer) >60 (>=60 mL/min/1.73m^2) BUN/Creatinine Ratio 12.3 Glucose 116 H (74-106) mg/dL Lactate 1.1 (0.4-2.0) mmol/L Calcium 9.7 (8.5-10.1) mg/dL Total Bilirubin 0.8 (0.2-1.0) mg/dL AST 26 (15-37) U/L ALT 39 (14-59) U/L Alkaline Phosphatase 68 (46-116) U/L Total Protein 7.9 (6.4-8.2) g/dL Albumin 4.1 (3.4-5.0) g/dL Globulin 3.8 g/dL Albumin/Globulin Ratio 1.1 Urine Color Yellow (YELLOW) Urine Clarity Sl cloudy (CLEAR) Urine pH 6.0 (5.0-9.0) Ur Specific [place] >=1.030 A (1.005-1.025) Urine Protein 100 A (NEG/TRACE) mg/dL Urine Glucose (UA) Negative (NEGATIVE) mg/dL Urine Ketones >=80 A (NEGATIVE) mg/dL Urine Occult Blood Negative (NEGATIVE) Urine Nitrite Negative (NEGATIVE) Urine Bilirubin Moderate A (NEGATIVE) Urine Urobilinogen 2.0 A (0.2-1.0) EU/dL Ur Leukocyte Esterase Trace A (NEGATIVE) Urine RBC 0-2 (0-2) #/HPF Urine WBC 5-10 A (NONE SEEN) #/HPF Ur Squamous Epith Cells Few A (NONE/RARE) #/LPF Ur Transition Epith Cell Rare A (NONE SEEN) #/LPF Urine Crystals None seen (None Seen) #/HPF Urine Bacteria Moderate A (NONE SEEN) #/HPF Urine Casts None seen (NONE SEEN) #/LPF Urine Mucus Moderate A (NONE SEEN) Ur [place] [place] Discharge Chief Complaint: Nausea/Vomiting/Diarrhea Clinical Impression: Hyperemesis gravidarum, UTI (urinary tract infection) Patient Disposition: Home, Self-Care Time of Disposition Decision: 15:51 Condition: Good Prescriptions / Home Meds: New cephalexin 500 mg capsule 500 mg PO BID 7 Days Qty: 14 0RF metoclopramide HCl [Reglan] 10 mg tablet 10 mg PO Q6H PRN (Reason: nausea and vomiting) Qty: 12 0RF No Action promethazine 25 mg suppository 25 mg RI Q6H PRN (Reason: nausea and vomiting) meclizine 25 mg tablet 25 mg PO PRN ondansetron 4 mg tablet,disintegrating 4 mg PO Q6H PRN (Reason: nausea and vomiting) Qty: 30 0RF ondansetron 4 mg tablet,disintegrating 4 mg PO Q6H PRN (Reason: nausea and vomiting) Print Language: Latvian Instructions: Hyperemesis Gravidarum (ED), Urinary Tract Infection in (ED) Referrals: Stone Espinoza DO [Physician] - 1 week Franklin Yanez MD [Primary Care Provider] - 1 week Discharge Date/Time: 05/27/24 16:03
[2024-05-27] MEDS: METOCLOPRAMIDE HCL 10 MG/2 ML VIAL IVP (14:14)
[2024-05-27] MEDS: 0.9 % SODIUM CHLORIDE 1,000 ML 999 ML IV (14:15)
[2024-05-27 14:21] LABS: Basophils Absolute Auto 0.1 10^3/uL (0.0-0.1); Basophils Percent Auto 0.4 % (0.2-2.0); Eosinophils Percent Auto 0.2 % (0.9-7.0); Hematocrit 41.1 % (36.0-48.0); Hemoglobin 14.3 g/dL (12.0-16.0); Immature Granulocytes Abs Auto 0.05 10^3/uL (0.00-0.03); Immature Granulocytes Pct Auto 0.4 % (0.0-0.5); Lymphocytes Absolute Auto 2.1 10^3/uL (1.2-3.8); Mean Corpuscular HGB Conc 34.8 g/dL (29.9-35.2); Mean Corpuscular Hemoglobin 28.7 pg (26.7-34.0); Mean Corpuscular Volume 82.4 fL (81.0-99.0); Mean Platelet Volume 11.5 fL (9.5-13.5); Monocytes Absolute Auto 0.7 10^3/uL (0.3-0.8); Monocytes Percent Auto 5.8 % (1.7-12.0); Neutrophils Absolute Auto 9.9 10^3/uL (1.4-6.5); Neutrophils Percent Auto 77.2 % (43.0-75.0); Platelet Count 229 10^3/uL (150-450); Red Blood Count 4.99 10^6/uL (4.20-5.40); Red Cell Distribution Width 12.9 % (11.0-15.0); White Blood Count 12.8 10^3/uL (4.0-11.0)
[2024-05-27 14:41] LABS: Lactate/Lactic Acid 1.1 mmol/L (0.4-2.0)
[2024-05-27 14:48] LABS: Alanine Aminotransferase 39 U/L (14-59); Albumin Globulin Ratio 1.1; Albumin Level 4.1 g/dL (3.4-5.0); Alkaline Phosphatase 68 U/L (46-116); Anion Gap 18.1; Aspartate Amino Transferase 26 U/L (15-37); BUN Creatinine Ratio 12.3; Bilirubin Total 0.8 mg/dL (0.2-1.0); Calcium 9.7 mg/dL (8.5-10.1); Carbon Dioxide 24.2 mmol/L (21.0-32.0); Chloride 97 mmol/L (98-107); Estimated GFR (African America >60 (>=60 mL/min/1.73m^2); Estimated GFR (Non-African Ame >60 (>=60 mL/min/1.73m^2); Globulin 3.8 g/dL; Glucose 116 mg/dL (74-106); Potassium 3.3 mmol/L (3.5-5.1); Sodium 136 mmol/L (136-145); Total Protein 7.9 g/dL (6.4-8.2)
[2024-05-27] MEDS: POTASSIUM CHLORIDE 10 MEQ ER TABLET 20 MEQ PO (15:10)
[2024-05-27 15:29] LABS: Bilirubin Urine MODERATE (NEGATIVE); Blood Urine NEGATIVE (NEGATIVE); Clarity Urine SL CLOUDY (CLEAR); Color Urine YELLOW (YELLOW); Glucose Urine UA NEGATIVE (NEGATIVE); Ketones Urine >=80 mg/dL (NEGATIVE); Leukocyte Esterase Urine TRACE (NEGATIVE); Nitrite Urine NEGATIVE (NEGATIVE); Protein Urine 100 mg/dL (NEG/TRACE); Specific Gravity Urine >=1.030 (1.005-1.025)
[2024-05-27 15:38] LABS: Bacteria Urine MODERATE #/HPF (NONE SEEN); RBC Urine 0-2 #/HPF (0-2)
[2024-05-27 15:39] LABS: Cast Seen? NONE SEEN #/LPF (NONE SEEN); Crystals Seen? None Seen #/HPF (None Seen); Mucus Urine MODERATE (NONE SEEN); Squamous Epithelial Cell Urine FEW #/LPF (NONE/RARE); Transitional Epi Cells Urine RARE #/LPF (NONE SEEN); Urine Culture Indicated YES-FRMC
== END 2024-05-27 16:03 | disposition home or self-care (01) ==
PROVIDERS: Physician Assistant; Emergency Provider Emergency Medicine; PCP Family Medicine
DX: O21.0 Mild hyperemesis gravidarum (principal); Z3A.01 Less than 8 weeks gestation of pregnancy; O23.41 Unspecified infection of urinary tract in pregnancy, first trimester; N39.0 Urinary tract infection, site not specified
CPT/HCPCS: 36415; 80053; 81001; 83605; 85025; 87086; 96361; 96374; 99285; J2765

== ENCOUNTER 2024-06-13 09:39 | Emergency (ER) | payer BC, SELFPAY ==
[2024-06-13 09:46] VITALS: BP 131/81; PULSE 88; TEMP 36.7; O2SAT 98; BMI 24.0
--- NOTE | 2024-06-13 09:55 | US_ITS ---
[facility] [place] [id number] Patient Name: MARVEL MICHELLE MRN: [id number] date: 2000 Sex: F Assigned Patient Location: ER Current Patient Location: ER Accession/Order Number: [id number] Exam Date: 06/13/2024 11:03 Report Date: 06/13/2024 11:07 At the request of: CHARLY LANG MD Procedure: US OB transvaginal ULTRASOUND OB TRANSVAGINAL CLINICAL DATA: 10 week with vaginal bleeding and cramping. COMPARISON: 05/05/2024 Ultrasound evaluation the pelvis was performed utilizing a transvaginal approach. There is a gestational sac within the uterus. A yolk sac and pole are seen. The crown-rump length measurement of 3.4 cm correlates with an ultrasound age of 10 weeks 2 days. This correlates with the comparison ultrasound. There is cardiac activity with heart rate of 172 bpm. The cervix is closed and estimated at 3.9 cm in length. Both ovaries are seen. The right measures 2.3 x 1.2 x 1.5 cm. The left ovary measures 3.4 x 2.5 x 2.4 cm. There is a small 16 mm cystic area within the left ovary that may be the corpus luteum. No free fluid is seen. US/US OB transvaginal IMPRESSION: SINGLE LIVE INTRAUTERINE GESTATION WITH ULTRASOUND AGE OF 10 WEEKS 2 DAYS Impression dictated by: Pauline Bhatt M.D.06/13/2024 11:07 AM Dictation Location: [place] [address] Electronically authenticated by: [id number] Y Date: 06/13/2024 11:07
[2024-06-13 10:14] LABS: Basophils Percent Auto 0.4 % (0.2-2.0); Eosinophils Percent Auto 0.3 % (0.9-7.0); Hematocrit 34.8 % (36.0-48.0); Hemoglobin 12.1 g/dL (12.0-16.0); Immature Granulocytes Abs Auto 0.04 10^3/uL (0.00-0.03); Immature Granulocytes Pct Auto 0.4 % (0.0-0.5); Lymphocytes Absolute Auto 1.7 10^3/uL (1.2-3.8); Lymphocytes Percent Auto 16.4 % (20.5-60.0); Mean Corpuscular HGB Conc 34.8 g/dL (29.9-35.2); Mean Corpuscular Volume 83.5 fL (81.0-99.0); Mean Platelet Volume 10.4 fL (9.5-13.5); Monocytes Absolute Auto 0.4 10^3/uL (0.3-0.8); Monocytes Percent Auto 3.6 % (1.7-12.0); Neutrophils Absolute Auto 8.3 10^3/uL (1.4-6.5); Neutrophils Percent Auto 78.9 % (43.0-75.0); Platelet Count 246 10^3/uL (150-450); Red Blood Count 4.17 10^6/uL (4.20-5.40); Red Cell Distribution Width 13.1 % (11.0-15.0); White Blood Count 10.5 10^3/uL (4.0-11.0)
--- NOTE | 2024-06-13 10:18 | ED_ITS ---
HPI HPI - General Adult General Chief complaint: Urogenital-Female Stated complaint: 10 WEEKS BLEEDING Time Seen by Provider: 06/13/24 09:49 Source: patient Mode of arrival: walk-in Limitations: no limitations History of Present Illness HPI narrative: 24-year-old female who is approximately 10 weeks presents for vaginal bleeding. This time it started last night and she states it was like when her period starts. No trauma. 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 She also had her RhoGAM shot at 6 weeks. She is not complaining of any abdominal pain. Related Data Home Medications ?Medication ?Instructions ?Recorded ?Confirmed ondansetron 4 mg disintegrating 4 mg PO Q6H PRN nausea and vomiting 05/13/24 05/27/24 tablet meclizine 25 mg tablet 25 mg PO PRN 05/22/24 05/27/24 promethazine 25 mg rectal 25 mg [place] Q6H PRN nausea and 05/22/24 05/27/24 suppository vomiting Previous Rx's ?Medication ?Instructions ?Recorded ondansetron 4 mg disintegrating 4 mg PO Q6H PRN nausea and 05/22/24 tablet vomiting #30 tabs cephalexin 500 mg capsule 500 mg PO BID 7 days #14 caps 05/27/24 metoclopramide HCl 10 mg tablet 10 mg PO Q6H PRN nausea and 05/27/24 (Reglan) vomiting #12 tabs Allergies Allergy/AdvReac Type Severity Reaction Status Date / Time No Known Drug Allergies Allergy Verified 05/27/24 12:52 Opioid HPI Opioid Management Most Recent Opioid Data: Last Pain Scale 4 06/13/24 10:30 06/13/24 Last ED Pain Assessment 06/13/24 10:05 Urine Cannabinoids Positive (.) A 11/21/22 01:26 11/21/22 Ur Phencyclidine Scrn Negative (NEGATIVE) 11/20/22 23:00 10/05 Review of Systems ROS Narrative A ten point review of systems is negative except as noted above. PFSH PFSH Social History Little interest or pleasure in doing things: not at all Feeling down, depressed, or hopeless: not at all Exam Narrative Exam Narrative: Nurses note and vital signs reviewed and patient is not hypoxic. General: The patient appears well and in no apparent distress. Patient is resting comfortably on cart. Skin: Warm, dry, no pallor noted. There is no rash noted. Head: Normocephalic, atraumatic Eye: Normal conjunctiva, no drainage Ears, Nose, Mouth, and Throat: oral mucosa is moist. Nares patent. Cardiovascular: Regular Rate and Rhythm Respiratory: Patient is in no distress, no accessory muscle use, lungs are clear to auscultation, no wheezing, rales or rhonchi Back: non-tender GI: Soft and nontender Musculoskeletal: No joint swelling Neurological: A&O, normal speech Psychiatric: Cooperative Constitutional Vital Signs, click to edit/add: Last Vital Signs Temp 98.1 F 06/13/24 09:46 Pulse 85 06/13/24 10:59 Resp 18 06/13/24 10:59 BP 127/74 06/13/24 10:59 Pulse Ox 99 06/13/24 10:59 O2 Del Method Room Air 06/13/24 09:46 Course Vital Signs Vital signs: Vital Signs Temperature 98.1 F 06/13/24 09:46 Pulse Rate 88 06/13/24 09:46 Respiratory Rate 18 06/13/24 09:46 Blood Pressure 131/81 06/13/24 09:46 Pulse Oximetry 98 06/13/24 09:46 Oxygen Delivery Method Room Air 06/13/24 09:46 Temperature 98.1 F 06/13/24 09:46 Pulse Rate 85 06/13/24 10:59 Respiratory Rate 18 06/13/24 10:59 Blood Pressure 127/74 06/13/24 10:59 Pulse Oximetry 99 06/13/24 10:59 Oxygen Delivery Method Room Air 06/13/24 09:46 Medical Decision Making MDM Narrative Medical decision making narrative: Ultrasound shows live IUP. I communicated with Dr. Espinoza and RhoGAM is not necessary, she had a dose a few weeks ago. She will be discharged home and was given instructions. Follow-up with Dr. Espinoza. Treatment diagnosis and follow- up were discussed with the patient. Differential Diagnosis Differential Diagnosis: Miscarriage, threatened miscarriage Lab Data Lab results reviewed: Yes I reviewed the patient's lab results Labs: Lab Results 06/13/24 Range/Units 10:05 WBC 10.5 (4.0-11.0) 10^3/uL RBC 4.17 L (4.20-5.40) 10^6/uL Hgb 12.1 (12.0-16.0) g/dL Hct 34.8 L (36.0-48.0) % MCV 83.5 (81.0-99.0) fL MCH 29.0 (26.7-34.0) pg MCHC 34.8 (29.9-35.2) g/dL RDW 13.1 (11.0-15.0) % Plt Count 246 (150-450) 10^3/uL MPV 10.4 (9.5-13.5) fL Neut % (Auto) 78.9 H (43.0-75.0) % Lymph % (Auto) 16.4 L (20.5-60.0) % [place] % (Auto) 3.6 (1.7-12.0) % Eos % (Auto) 0.3 L (0.9-7.0) % Baso % (Auto) 0.4 (0.2-2.0) % Neut # (Auto) 8.3 H (1.4-6.5) 10^3/uL Lymph # (Auto) 1.7 (1.2-3.8) 10^3/uL [place] # (Auto) 0.4 (0.3-0.8) 10^3/uL Eos # (Auto) 0.0 (0.0-0.7) 10^3/uL Baso # (Auto) 0.0 (0.0-0.1) 10^3/uL Abs Immat Gran (auto) 0.04 H (0.00-0.03) 10^3/uL Imm/Tot Granulo (auto) 0.4 (0.0-0.5) % Sodium 137 (136-145) mmol/L Potassium 3.6 (3.5-5.1) mmol/L Chloride 103 (98-107) mmol/L Carbon Dioxide 24.2 (21.0-32.0) mmol/L Anion Gap 13.4 BUN 8.0 (7.0-18.0) mg/dL Creatinine 0.52 L (0.55-1.02) mg/dL Est GFR ( Amer) >60 (>=60 mL/min/1.73m^2) Est GFR (Non-Af Amer) >60 (>=60 mL/min/1.73m^2) BUN/Creatinine Ratio 15.4 Glucose 90 (74-106) mg/dL Calcium 8.8 (8.5-10.1) mg/dL HCG, Quant [id number] mIU/mL Imaging Data Pelvic ultrasound: Radiologist's impression: ITS Impressions Transvaginal US 06/13/24 09:55 IMPRESSION: SINGLE LIVE INTRAUTERINE GESTATION WITH ULTRASOUND AGE OF 10 WEEKS 2 DAYS Impression dictated by: Pauline Bhatt M.D.06/13/2024 11:07 AM Dictation Location: [place] [id number] Electronically authenticated by: [id number] Y Date: 06/13/2024 11:07 Discharge Plan Discharge Chief Complaint: Urogenital-Female Clinical Impression: Threatened Patient Disposition: Home, Self-Care Time of Disposition Decision: 12:00 Condition: Good Mode of Transportation: Private Vehicle Prescriptions / Home Meds: No Action promethazine 25 mg suppository 25 mg [place] Q6H PRN (Reason: nausea and vomiting) meclizine 25 mg tablet 25 mg PO PRN ondansetron 4 mg tablet,disintegrating 4 mg PO Q6H PRN (Reason: nausea and vomiting) Qty: 30 0RF cephalexin 500 mg capsule 500 mg PO BID 7 Days Qty: 14 0RF metoclopramide HCl [Reglan] 10 mg tablet 10 mg PO Q6H PRN (Reason: nausea and vomiting) Qty: 12 0RF ondansetron 4 mg tablet,disintegrating 4 mg PO Q6H PRN (Reason: nausea and vomiting) Print Language: Croatian Instructions: Threatened Miscarriage (ED) Referrals: Franklin Yanez MD [Primary Care Provider] - 1 week
[2024-06-13 10:49] LABS: Anion Gap 13.4; BUN Creatinine Ratio 15.4; Calcium 8.8 mg/dL (8.5-10.1); Carbon Dioxide 24.2 mmol/L (21.0-32.0); Chloride 103 mmol/L (98-107); Estimated GFR (African America >60 (>=60 mL/min/1.73m^2); Estimated GFR (Non-African Ame >60 (>=60 mL/min/1.73m^2); Glucose 90 mg/dL (74-106); Potassium 3.6 mmol/L (3.5-5.1); Sodium 137 mmol/L (136-145)
[2024-06-13 10:59] VITALS: BP 127/74; PULSE 85; O2SAT 99
== END 2024-06-13 12:28 | disposition home or self-care (01) ==
PROVIDERS: Emergency Provider Emergency Medicine; PCP Family Medicine
DX: O20.0 Threatened abortion (principal); Z3A.10 10 weeks gestation of pregnancy
CPT/HCPCS: 36415; 76817; 80048; 84702; 85025; 99284

== ENCOUNTER 2024-08-10 12:05 | Outpatient (REF) | payer BC, SELFPAY ==
--- OUTSIDE RECORDS SUMMARY | 2024-08-10 10:30 | XMS_ITS | Encounter Summary ---
Author Organization [facility] Healthcare Address [address] [place] [address] Care Team Providers Care Data Integrity Consultant Name Role Phone Franklin Yanez MD Primary Care Provider [phone] Reason for Visit * Reason Comments Routine Visit Encounter Details Date Type Department Care Team (Latest Contact Info) Description 08/10/2024 10:30 AM EDT Routine [facility] OB [address] [facility] [place] [address] Mera Guzman PA [address] [facility] [address] [place], [facility]11 Screening, , for anatomic survey; Second trimester ; 18 weeks gestation of ; STD exposure; Well woman exam with routine gynecological exam Social History Tobacco Use Types Packs/Day Years Used Date Smoking Tobacco: Never Alcohol Use Standard Drinks/Week Comments Never 0 (1 standard drink = 0.6 oz pur e alcohol) Estimated Date of Delivery Comme nts Yes 01/07/2025 Based on Ultraso und Sex and Gender Information Value Date Recorded Sex Assigned at Female 09/08/2022 12:20 PM EDT Legal Sex Female 7:07 PM EDT Gender Identity Female 09/08/2022 12:20 PM EDT Sexual Orientation Straight 09/08/2022 12 :20 PM EDT documented as of this encounter Last Filed Vital Signs Vital Sign Reading Time Taken Comments Blood Pressure 96/42 08/10/2024 10:28 AM EDT Pulse - - Temperature - - Respiratory Rate - - Oxygen Saturation - - Inhaled Oxygen Concentration - - Weight 86.1 kg (189 lb 12 oz) 08/10/2024 10:28 A M EDT Height - - Body Mass Index 26.46 07/28/2023 9:45 AM EDT documented in this encounter Progress Notes * DAWN Kirk - 08/10/2024 10:30 AM EDT Reason for Appointment: Patient ID: Mei King is a 24 y.o. female who presents for Routine Visit Patient presents today for Annual Exam. and Return OB appointment. MEDICATIONS Current Outpatient Medications Medication Instructions promethazine (PHENERGAN) 25 mg, Rectal, Every 8 hours promethazine (PHENERGAN) 12.5 mg, Oral, Every 6 hours PRN, Take 1 tablet by mouth every 6 hours as needed for nausea. ALLERGIES No Known Allergies PROBLEMS Active Ambulatory [...] Review of Systems: Review of Systems Constitutional: Negative. HENT: Negative. Eyes: Negative. Respiratory: Negative. Cardiovascular: Negative. Gastrointestinal: Negative. Genitourinary: Negative. Musculoskeletal: Negative. Skin: Negative. Neurological: Negative. All other systems reviewed and are negative. Hematological: Negative. Endocrine: Negative. Allergic/Immunologic: Negative. OBJECTIVE Objective: Physical Exam Constitutional: Appearance: Normal appearance. She is normal weight. HENT: Head: Normocephalic. Cardiovascular: Rate and Rhythm: Normal rate. Pulses: Normal pulses. Pulmonary: Effort: Pulmonary effort is normal. Breath sounds: Normal breath sounds. Abdominal: Palpations: Abdomen is soft. Musculoskeletal: General: Normal range of motion. Neurological: General: No focal deficit present. Mental Status: She is alert and oriented to person, place, and time. Psychiatric: Mood and Affect: Mood normal. Behavior: Behavior normal. Thought Content: Thought content normal. Judgment: Judgment normal. Vitals and nursing note reviewed. Vitals: Estimated body mass index is 26.46 kg/m?? as calculated from the following: Height as of 07/28/23: 5' 11 . Weight as of this encounter: 189 lb 12 oz. BP: (!) 96/42 Patient's last menstrual period was 03/20/2024. ASSESSMENT & PLAN ICD-10-CM 1. Screening, , for anatomic survey Z36.89 US OB 14+ weeks anatomy scan US OB 14+ weeks anatomy scan 2. Second trimester Z34.92 POCT urinalysis dipstick manually resulted Alpha fetoprotein, maternal Alpha fetoprotein, maternal 3. 18 weeks gestation of Z3A.18 Alpha fetoprotein, maternal Alpha fetoprotein, maternal 4. STD exposure Z20.2 SURESWAB(R) ADVANCED VAGINITIS PLUS, TMA CHLAMYDIA TRACHOMATIS (GENITO/STI) Neisseria gonorrhea DNA probe, direct 5. Well woman exam with routine gynecological exam Z01.419 Pap Smear Return OB/Annual Exam: Patient presents today for an annual exam/routine obstetrics appointment. Patient is currently 18w4d . Patient is doing well and states she has no complaints. Pap/cultures was obtained without difficulty and patient was given [facility] order to have obtained. Orders Placed This Encounter Procedures US OB 14+ weeks anatomy scan CHLAMYDIA TRACHOMATIS (GENITO/STI) Neisseria gonorrhea DNA probe, direct Alpha fetoprotein, maternal POCT urinalysis dipstick manually resulted Follow Up: Patient is to return to our office in 4 weeks for routine OB appointment Documented by DAWN Kirk on behalf of: DAWN Kirk documented in this encounter Plan of Treatment Upcoming Encounters Date Type Department Care Team (Late st Contact Info) Description 08/22/2024 11:00 AM EDT Ancillary Procedure [facility] BCP OB [address] [place] [id number] 09/12/2024 9:50 AM EDT Routine [facility] BCP OB [address] [place] [address] Stone Espinoza, DO [address] [place] [address] Scheduled Orders Name Type Priority Associated Diagnoses Orde r Schedule SURESWAB(R) ADVANCED VAGINITIS PLUS, TMA Pathology and Cytology Routine STD exposure Ordered: 08/10/2024 CHLAMYDIA TRACHOMATIS (GENITO/STI) Lab Routine STD exposure Ordered: 08/10/2024 Neisseria gonorrhea DNA probe, direct Lab Routine STD exposure Ordered: 08/10/2024 Pap Smear Pathology and Cytology Routine Well woman exam with routine gynecological exam Ordered: 08/10/2024 US OB 14+ weeks anatomy scan Imaging Routine Screening, , for anatomic survey Expected: 08/10/2024, Expires: 11/10/2024 Alpha fetoprotein, maternal Lab Routine Second trimester 18 weeks gestation of Expected: 08/10/2024 (Approximate), Expires: 10/10/2024 documented as of this encounter Procedures Procedure Name Priority Date/Time Associated Diagnosis Comments POCT URINALYSIS DIPSTICK Routine 08/10/2024 10:36 AM EDT Second trimester documented in this encounter Results * (ABNORMAL) POCT urinalysis dipstick manually resulted (08/10/2024 10:36 AM EDT) Color, UA Yellow Clarity, UA Clear Glucose, UA Negative Negative - 2000(110) ++++ mg/dL Bilirubin, UA Negative Negative - 4(70) +++ mg/dL Ketones, UA Negative Negative - 160(16) ++++ mg/dL Spec Grav, UA 1.020 1 - 1.03 Blood, UA Negative Negative - 50 Daniele/mcL pH, UA 7.0 5 - 9 Protein, UA Trace Negative - 2000(20) ++++ mg/dL Urobilinogen, UA 0.2 0.2 - 12 mg/dL Leukocytes, UA Positive Negative - 500+++ Kiara/mcL Comment:Moderate Nitrite, UA Negative Negative - Positive Urine 08/10/2024 10:3 6 AM EDT Mera SEYMOUR POINT OF CARE TEST ENTER/EDIT OR DERABLES Final Result documented in this encounter Visit Diagnoses Diagnosis Screening, , for anatomic survey Encounter for anatomic survey Second trimester state, incidental 18 weeks gestation of STD exposure Well woman exam with routine gynecological exam Routine gynecological examination documented in this encounter Care Teams Data Integrity Consultant Relationship Specialty Start Date End Date Franklin Yanez MD [address] [place] [address] PCP - General Family Medicine 08/12/22 documented as of this encounter
--- OUTSIDE RECORDS SUMMARY | 2024-08-10 12:08 | XMS_ITS | Encounter Summary ---
Author Organization [facility] Address [address] [facility] [place] [address] Care Team Providers Care Quality Assurance Tester Name Role Phone Franklin Yanez MD Primary Care Provider [phone] Encounter Details Date Type Department Care Team (Late Contact Info) Description 09/05/2022 Abstract [facility] BCP OB [address] [place] [address] Stone Espinoza DO [facility] [place], [place] [id number] Social History Tobacco Use Types Packs/Day Years Used Date Smoking Tobacco: Never Assessed Comments Yes Sex and Gender Information Value Date Recorded Sex Assigned at Female 09/08/2022 12:20 PM EDT Legal Sex Female 7:07 PM EDT Gender Identity Female 09/08/2022 12:20 PM EDT Sexual Orientation Straight 09/08/2022 12 :20 PM EDT documented as of this encounter Plan of Treatment Upcoming Encounters Date Type Department Care Team (Late Contact Info) Description 08/22/2024 11:00 AM EDT Ancillary Procedure [facility] BCP OB [address] [place] [address] 09/12/2024 9:50 AM EDT Routine [facility] BCP OB [address] [place] [address] Stone Espinoza DO [address] [place], [place] [id number] documented as of this encounter Visit Diagnoses Not on filedocumented in this encounter Care Teams Quality Assurance Tester Relationship Specialty Start Date End Date Franklin Yanez MD [address] [place] [address] PCP - General Family Medicine 08/12/22 documented as of this encounter
--- OUTSIDE RECORDS SUMMARY | 2024-08-10 12:08 | XMS_ITS | Encounter Summary ---
Author Organization [facility] Address [address] [facility] [place] [address] Care Team Providers Care Legal Archivist Name Role Phone Franklin Yanez MD Primary Care Provider [phone] Encounter Details Date Type Department Care Team (Late st Contact Info) Description 08/10/2024 Bamboo flowsheet [facility] OB [address] [place] [address] Mera Guzman PA [address] [place] [address] [address] [place], [place] [id number] Social History Tobacco Use Types Packs/Day Years [...] 08/22/2024 11:00 AM EDT Ancillary Procedure [facility] OB [address] [place] [address] 09/12/2024 9:50 AM EDT Routine [facility] [address] [facility] [place] [address] Stone Espinoza DO [address] [place] [address] documented as of this encounter Visit Diagnoses Not on filedocumented in this encounter Care Teams Legal Archivist Relationship Specialty Start Date End Date Franklin Yanez MD [address] [facility] [place] [address] PCP - General Family Medicine 08/12/22 documented as of this encounter
--- OUTSIDE RECORDS SUMMARY | 2024-08-10 12:08 | XMS_ITS | Encounter Summary ---
Author Organization [facility] Address [address] [place] [address] Care Team Providers Care Ribbon Inker Name Role Phone Franklin Yanez MD Primary Care Provider [phone] Encounter Details Date Type Department Care Team (Late Contact Info) Description 11/06/2022 Abstract [facility] BCP OB [address] [place] [address] Stone Espinoza, [facility] [place], [facility]11 Social History Tobacco Use Types Packs/Day Years Used Date Smoking Tobacco: Never Alcohol Use Standard Drinks/Week Comments Never 0 (1 standard drink = 0.6 oz pur e alcohol) Comments Yes Sex and Gender Information Value [...] Procedure [facility] BCP OB [address] [place] [address] 09/12/2024 9:50 AM EDT Routine [facility] BCP OB [address] [place] [address] Stone Espinoza DO [facility] [place] [address] documented as of this encounter Visit Diagnoses Not on filedocumented in this encounter Care Teams Ribbon Inker Relationship Specialty Start Date End Date Franklin Yanez MD [address] [place] [address] PCP - General Family Medicine 08/12/22 documented as of this encounter
--- OUTSIDE RECORDS SUMMARY | 2024-08-10 12:08 | XMS_ITS | Encounter Summary ---
Author Organization [facility] Address [address] [place] [address] Care Team Providers Care Greeting Card Writer Name Role Phone Franklin Yanez MD Primary Care Provider [phone] Encounter Details Date Type Department Care Team (Late st Contact Info) Description 11/11/2022 Abstract [facility] [address] [place] [address] Sydni Lopez LPN [address] [place] [place] [id number] Social History Tobacco Use Types Packs/Day Years [...] EDT Ancillary Procedure [facility] BCP OB [address] [place] [address] 09/12/2024 9:50 AM EDT Routine [facility] OB [address] [facility] [address] Stone Espinoza, DO [address] [facility] [place] [address] documented as of this encounter Visit Diagnoses Not on filedocumented in this encounter Care Teams Greeting Card Writer Relationship Specialty Start Date End Date Franklin Yanez MD [address] [place] [address] PCP - General Family Medicine 08/12/22 documented as of this encounter
--- OUTSIDE RECORDS SUMMARY | 2024-08-10 12:08 | XMS_ITS | Encounter Summary ---
Author Organization [facility] Address [address] [place] [address] Care Team Providers Care Director Of Estate Name Role Phone Franklin Yanez MD Primary Care Provider [phone] Encounter Details Date Type Department Care Team (Late st Contact Info) Description 09/24/2022 Abstract [facility] OB [address] [facility] [place] [address] Mera Guzman PA [address] [place] [address] Dr [place], [facility]11 Social History Tobacco Use Types Packs/Day Years [...] EDT Ancillary Procedure [facility] OB [address] [facility] [place] [address] 09/12/2024 9:50 AM EDT Routine [facility] BCP OB [address] [place], [place] [address] [address] Stone Espinoza, DO [address] [place], [place] [id number] documented as of this encounter Visit Diagnoses Not on filedocumented in this encounter Care Teams Director Of Estate Relationship Specialty Start Date End Date Franklin Yanez MD [address] [place] [address] PCP - General Family Medicine 08/12/22 documented as of this encounter
--- OUTSIDE RECORDS SUMMARY | 2024-08-10 12:08 | XMS_ITS | Clinical Summary ---
Author Organization [facility] Healthcare Address [address] [place] [address] Care Team Providers Care Boiler Control Technician Name Role Phone Franklin Yanez MD Primary Care Provider [phone] Allergies No known active allergies Medications promethazine (Phenergan) 25 MG suppositoryIndica tions:Nausea and vomiting during Insert 1 suppository (25 mg) into the rectum every 8 (eight) hours 90 suppository 1 05/19/19 25 025 Active promethazine (Phenergan) 12.5 MG tabletIndications :Nausea and vomiting in Take 1 tablet (12.5 mg) by mouth every 6 (six) hours if needed for nausea or vomiting for up to 30 doses Take 1 tablet by mouth every 6 hours as needed for nausea. 30 tablet 2 07/12/19 25 Active ondansetron ODT (Zofran-ODT) 4 MG disintegrating tabletIndications :Nausea and vomiting in Take 1 tablet (4 mg) by mouth every 6 (six) hours if needed for nausea or vomiting 30 tablet 3 07/01/19 25 025 Encounters Date Type Department Care Team Description 08/10/2024 10:30 AM EDT Routine [facility] BCP OB [address] [facility] [place] [address] Mera Guzman PA Screening, , for anatomic survey; Second trimester ; 18 weeks gestation of ; STD exposure; Well woman exam with routine gynecological exam 08/10/2024 Bamboo flowsheet [facility] BCP OB [address] [facility] [place] [address] Mera Guzman PA 07/11/2024 1:20 PM EDT Routine [facility] OB [address] [facility] [place] [address] Stone Espinoza DO 14 weeks gestation of ; Second trimester ; Nausea and vomiting in 07/11/2024 Bamboo flowsheet [facility] OB [address] [place] [address] [place] [address] Stone Epsinoza DO 06/30/2024 Telephone [facility] OB [address] [facility] [place] [address] Stone Espinoza DO 06/08/2024 Refill [facility] OB [address] [facility] [place] [address] Sydni Lopez LPN Nausea and vomiting in 06/03/2024 11:00 AM EDT Initial [facility] OB [address] [place] [address] [place] [address] GA: 8w6d 06/03/2024 10:30 AM EDT Ancillary Procedure [facility] OB [address] [place] [address] [place] [address] Missed menses 05/23/2024 Abstract [facility] OB [address] [place] [address] [place] [address] Stone Espinoza DO 05/18/2024 9:40 AM EST Office Visit [facility] OB [address] [facility] [place] [address] Mera Guzman PA Nausea and vomiting during 05/18/2024 Bamboo flowsheet [facility] OB [address] [place] [address] [place] [address] Mera Guzman PA 05/14/2024 Abstract [facility] OB [address] [facility] [place] [address] Stone Espinoza DO from Last 3 Months Family History Medical History Relation Name Comments No Known Problems Brother Heart disease Father Relation Name Status Comments Brother Alive Father Alive Mother Alive Social History Tobacco Use Types Packs/Day Years Used Date Smoking Tobacco: Never Tobacco Cessation:Counseling Given: Not Answered Alcohol Use Standard Drinks/Week Comments Never 0 [...] Orientation Straight 09/08/2022 12 :20 PM EDT Last Filed Vital Signs Vital Sign Reading Time Taken Comments Blood Pressure 96/42 08/10/2024 10:28 AM EDT Pulse - - Temperature - - Respiratory Rate - - Oxygen Saturation - - Inhaled Oxygen Concentration - - Weight 86.1 kg (189 lb 12 oz) 08/10/2024 10:28 A M EDT Height 180.3 cm (5' 11 ) 07/28/2023 9:45 AM EDT Body Mass Index 26.46 07/28/2023 9:45 AM EDT Plan of Treatment Upcoming Encounters Date Type Department Care Team (Late st Contact Info) Description 08/22/2024 11:00 AM EDT Ancillary Procedure [facility] B[facility] OB [address] [place] [address] [place] [address] 09/12/2024 9:50 AM EDT Routine [facility] BCP OB [address] [place], [place] [address] [address] Stone Espinoza, [place] [address] Procedures Procedure Name Priority Date/Time Associated Diagnosis Comments POCT URINALYSIS DIPSTICK Routine 08/10/2024 10:36 AM EDT Second trimester POCT URINALYSIS DIPSTICK Routine 07/11/2024 1:31 PM EDT 14 weeks gestation of Second trimester POCT , URINE Routine 06/03/2024 11:13 AM EDT Missed menses POCT URINALYSIS DIPSTICK Routine 06/03/2024 11:12 AM EDT Missed menses US OB TRANSVAGINAL Routine 06/03/2024 10 :46 AM EDT Missed menses from Last 3 Months Results * (ABNORMAL) POCT urinalysis dipstick manually resulted (08/10/2024 10:36 AM EDT) Only the most recent of3 resultswithin the time period is included. Color, UA Yellow Clarity, UA Clear Glucose, [...] CARE TEST ENTER/EDIT OR DERABLES Final Result * (ABNORMAL) POCT , urine manually resulted (06/03/2024 11:13 AM EDT) Preg Test, Ur Positive Negative Urine 06/03/2024 11:1 3 AM EDT Stone Espinoza DO POINT OF CARE TEST ENTER/EDIT OR DERABLES Final Result * US OB transvaginal (06/03/2024 10:46 AM EDT) Anatomical Region Laterality Modality Body Ultrasound 06/03/2024 8:38 PM EDT Narrative 06/03/2024 8:38 PM EDT EXAM: US OB TRANSVAGINAL HISTORY: Dating. COMPARISON: None available. TECHNIQUE: Two-dimensional transvaginal grayscale ultrasound imaging of the pelvis was performed. Color Doppler evaluation of the ovaries was also performed. FINDINGS: The uterus demonstrates a normal homogeneous echotexture. The cervix measures 4.6 cm in length and the cervical os is closed. The right ovary measures 2.9 x 1.6 x 2.3 cm and demonstrates a normal echotexture. There is normal color Doppler flow. The left ovary measures 3.4 x 2.0 x 2.8 cm and demonstrates a normal echotexture. There is normal color Doppler flow. No fluid is present within the cul-de-sac. There is a single, live intrauterine gestation identified with a heart rate of 175 beats per minute and a crown-rump length measurement of 2.2 cm, correlating to a gestational age of 8 weeks 6 days (+/- 6 days). There is a 2.1 cm subchorionic hemorrhage visualized. A yolk sac is visualized. IMPRESSION: 1. Single, live intrauterine gestation 10 weeks, 5 days by LMP. Today's ultrasound measurements correlate with a gestational age of 8 weeks 6 days (+/- 6 days). YANICK by today's ultrasound is 01/07/2025. 2. Subchorionic hemorrhage. A short-term follow-up ultrasound is recommended to monitor for resolution. 3. Normal color Doppler evaluation of the bilateral ovaries. Electronically Signed:Electronically signed by JOSEPH LAW II, MD, PHD at 03-Jun-2024 08:37:27 PM [facility] Procedure Note Joseph Law MD - 06/03/2024 EXAM: US OB TRANSVAGINAL HISTORY: Dating. COMPARISON: None available. TECHNIQUE: Two-dimensional transvaginal grayscale ultrasound imaging ofthe pelvis was performed. Color Doppler evaluation of the ovaries was alsoperformed. FINDINGS: The uterus demonstrates a normal homogeneous echotexture. The cervixmeasures 4.6 cm in length and the cervical os is closed. The right ovary measures 2.9 x 1.6 x 2.3 cm and demonstrates a normalechotexture. There is normal color Doppler flow. The left ovary measures 3.4 x 2.0 x 2.8 cm and demonstrates a normalechotexture. There is normal color Doppler flow. No fluid is present within the cul-de-sac. There is a single, live intrauterine gestation identified with a fetalheart rate of 175 beats per minute and a crown-rump length measurement of2.2 cm, correlating to a gestational age of 8 weeks 6 days (+/- 6 days).There is a 2.1 cm subchorionic hemorrhage visualized. A yolk sac isvisualized. IMPRESSION: 1. Single, live intrauterine gestation 10 weeks, 5 days by LMP. Today'sultrasound measurements correlate with a gestational age of 8 weeks 6days (+/- 6 days). YANICK by today's ultrasound is 01/07/2025. 2. Subchorionic hemorrhage. A short-term follow-up ultrasound isrecommended to monitor for resolution. 3. Normal color Doppler evaluation of the bilateral ovaries. Electronically Signed:Electronically signed by JOSEPH LAW II, MD, PHDat 03-Jun-2024 08:37:27 PM [facility] us Stone Olga DO IMG OB US PROCEDURES Final Resul t from Last 3 Months Insurance [facility] Care Teams Boiler Control Technician Relationship Specialty Start Date End Date Franklin Yanez MD [address] [place] [address] PCP - General Family Medicine 08/12/22
--- OUTSIDE RECORDS SUMMARY | 2024-08-10 12:08 | XMS_ITS | Encounter Summary ---
Author Organization [facility] Address [address] [place] [address] Care Team Providers Care Commercial Tire Service Technician Name Role Phone Franklin Yanez MD Primary Care Provider [phone] Encounter Details Date Type Department Care Team (Late st Contact Info) Description 05/14/2024 Abstract [facility] BCP OB [address] [place] [address] Stone Espinoza, [facility] [place], [facility]11 Social History Tobacco Use Types Packs/Day Years Used Date Smoking Tobacco: Never Alcohol Use Standard Drinks/Week Comments Never 0 (1 standard drink = 0.6 oz pur e alcohol) Comments No Sex and Gender Information Value Date Recorded [...] Procedure [facility] BCP OB [address] [place] [address] 09/12/2024 9:50 AM EDT Routine [facility] BCP OB [address] [place] [address] Stone Espinoza DO [facility] [place] [address] documented as of this encounter Visit Diagnoses Not on filedocumented in this encounter Care Teams Commercial Tire Service Technician Relationship Specialty Start Date End Date Franklin Yanez MD [address] [place] [address] PCP - General Family Medicine 08/12/22 documented as of this encounter
--- OUTSIDE RECORDS SUMMARY | 2024-08-10 12:08 | XMS_ITS | Encounter Summary ---
Author Organization [facility] Address [address] [place] [address] Care Team Providers Care Bacon Skin Lifter Name Role Phone Franklin Yanez MD Primary Care Provider [phone] Encounter Details Date Type Department Care Team (Late st Contact Info) Description 12/29/2022 Abstract [facility] [address] [place] [address] Mera Guzman PA [address] [place] [address] Dr Choud[place]ary, [facility] Social History Tobacco Use Types [...] EDT Ancillary Procedure [facility] [address] [facility] [place] [address] 09/12/2024 9:50 AM EDT Routine [facility] [address] [place], [place] [address] [address] Stone Espinoza, DO [address] [place], [place] [id number] documented as of this encounter Visit Diagnoses Not on filedocumented in this encounter Care Teams Bacon Skin Lifter Relationship Specialty Start Date End Date Franklin Yanez MD [address] [place] [address] PCP - General Family Medicine 08/12/22 documented as of this encounter
--- OUTSIDE RECORDS SUMMARY | 2024-08-10 12:26 | XMS_ITS | CCD ---
Author Organization [facility] Care Team Providers Care Electric Welder Name Role Phone CLEMENTE ., DR YING Primary Care Unavailable DIAB ., GREGORIO Admitting Unavailable NATHALIE ., SHENG Consulting Unavailable DIAB ., GREGORIO Attending Unavailable DIAB ., GREGORIO Consulting Unavailable HOY ., DR YING Primary Care Unavailable DEEPTI ., MERA Attending Unavailable DEEPTI ., MERA Consulting Unavailable DEEPTI ., MERA Admitting Unavailable OLGA ., DR MOODY Admitting Unavailable HOY ., DR YING Consulting Unavailable HOY ., DR YING Primary Care Unavailable OLGA ., DR MOODY Attending Unavailable WEST, DR ROXY Murphy Consulting Unavailable OLGA ., DR MOODY Admitting Unavailable HOY ., DR YING Primary Care Unavailable OLGA ., DR MOODY Attending Unavailable LOGA ., DR MOODY Consulting Unavailable ZIEBER, DR EMA Yoon Consulting Unavailable HOY ., DR YING Primary Care Unavailable WEST, DR ROXY Murphy Consulting Unavailable OLGA ., DR MOODY Admitting Unavailable OLGA ., DR MOODY Attending Unavailable OLGA ., DR MOODY Consulting Unavailable REQUEST, DR LIZBET LISTED Consulting Unavaila ble CLEMENTE ., DR YING Primary Care Unavailable PAY ., DR BOLTON Attending Unavailable PAY ., DR BOLTON Consulting Unavailable PAY ., DR BOLTON Admitting Unavailable DEEPTI ., MERA Consulting Unavailable Stepan Yanez MD Primary Care Provider [phone] Tracie Seo PA-C Attending Provider Tracie Seo Attending Unavailable Tracie Seo Admitting Unavailable OLGAFRANSISCO Attending Unavailable MERA TATUM Attending Unavailable OLGAFRANSISCO Referring Unavailable MERA TATUM Attending Unavailable Stepan Yanez MD Primary Care Provider [phone] Medications Current Medications Medication Drug Class(es) Dates Sig (Normalized) Sig (Original) cephalexin 500 mg oral capsule (1 source) Cephalosporin Antibacterial Start: 03-05-20 take 1 capsule by mouth twice daily Cephalexin (Keflex) 500 mg capsule Active 500 MG PO Twice daily 26 09March 05, 2020 1:00am meclizine hydrochloride 25 mg oral tablet (2 sources) Antiemetic Start: 05-19-19 End: 05-29-19 take 1 tablet by mouth three times [...] Discontinued ondansetron 4 mg disintegrating oral tablet (6 sources) Serotonin-3 Receptor Antagonist Start: 07-01-19 End: 07-31-19 take 1 tablet by mouth every six hours for nausea ondansetron ODT (Zofran-ODT) 4 MG disintegrating tablet Indications: Nausea and vomiting in Take 1 tablet (4 mg) by mouth every 6 (six) hours if needed for nausea or vomiting 30 tablet 3 06/30/2024 07/30/2024 Active Start: 05-12-2024 End: 06-11-2024 take 1 tablet by mouth every six hours for nausea ondansetron ODT (Zofran-ODT) 4 MG disintegrating tablet Indications: Nausea and vomiting in Take 1 tablet (4 mg) by mouth every 6 (six) hours if needed for nausea or vomiting 30 tablet 2 05/12/2024 06/11/2024 Active phentermine hydrochloride 37.5 mg oral tablet (6 sources) Sympathomimetic Amine Anorectic Start: 06-30-2023 End: 05-18-2024 take 1 tablet by mouth before mealtime phentermine (Adipex-P) 37.5 MG tablet Indications: Encounter for weight management Take 1 tablet (37.5 mg) by mouth in the morning. Take before meals. 90 tablet 07/28/2023 05/18/2024 Discontinued promethazine hydrochloride 12.5 mg oral tablet (13 sources) Phenothiazine Start: 07-11-2024 take 1 tablet by mouth every six hours as needed for nausea and nausea, then take 1 tablet by mouth every six hours as needed for nausea and nausea promethazine (Phenergan) 12.5 MG tablet Indications: Nausea and vomiting in Take 1 tablet (12.5 mg) by mouth every 6 (six) hours if needed for nausea or vomiting for up to 30 doses Take 1 tablet by mouth every 6 hours as needed for nausea. 30 tablet 2 07/11/2024 Active Start: 05-18-2024 End: 08-16-2024 promethazine (Phenergan) 25 MG suppository Indications: Nausea and vomiting during Insert 1 suppository (25 mg) into the rectum every 8 (eight) hours 90 suppository 1 05/18/2024 08/16/2024 Active Problems Active Problems Problem Classification Problem Date Documented Date Episodic/Chronic Abdominal pain (1 source) Abdominal pain; Translations: [Unspecified abdominal pain] 02-25-2023 Episodic Comment on above: Problem List clean-u p per request of Phys. EHR Cmte Immunizations and screening for infectious disease (2 sources) Exposure to sexually transmissible disorder; Translations: [Contact with and (suspected) exposure to infections with a predominantly sexual mode of transmission] 08-10-2024 Episodic Menstrual disorders (3 sources) Irregular menstruation, unspecified; Translations: [IRREGULAR MENSTRUATION UNSPECIFIED] Onset: 04-25-2022 Chronic Other complications of (4 sources) Vomiting of , unspecified; Translations: [Unspecified vomiting of , unspecified as to episode of care or not applicable] 05-18-2024 Episodic Other and delivery including normal (9 sources) Encounter for supervision of normal , unspecified, second trimester; Translations: [Encounter for supervision of normal , unspecified, first trimester] Onset: 05-07-2022 Episodic Other screening for suspected conditions (not mental disorders or infectious disease) (6 sources) Encounter for other specified screening; Translations: [Patient encounter status] Onset: 07-17-2022 Episodic Residual codes; unclassified (2 sources) Gestation period, 14 weeks; Translations: [14 weeks gestation of ] 07-11-2024 Episodic Residual codes; unclassified (2 sources) Gestation period, 18 weeks; Translations: [18 weeks gestation of ] 08-10-2024 Episodic Urinary tract infections (1 source) Acute urinary tract infection; Translations: [Urinary tract infection, site not specified] 02-25-2023 Episodic Comment on above: Problem List clean-u p per request of Phys. EHR Cmte Past or Other Problems Problem Classification Problem [...] Results Test Name Value Interpretation Reference Range Facility Urinalysis macro (dipstick) panel (U)on 08-10-2024 Bilirubin, UA Negative Negative - 4(70) +++ mg/dL [facility] Blood, UA Negative Negative - 50 Daniele/mcL [facility] Clarity, UA Clear [facility] Color, UA [facility] Glucose, UA Negative Negative - 2000(110) ++++ mg/dL [facility] Interpretation and review of laboratory results Abnormal [facility] Ketones, UA Negative Negative - 160(16) ++++ mg/dL [facility] Leukocytes, UA Positive Negative - 500+++ Kiara/mcL [facility] Comment on above: Moderate Nitrite, UA Negative Negative - Positive [facility] pH, UA 7 5 - 9 [facility] Protein, UA Trace Negative - 1999(20) ++++ mg/dL [facility] Spec Grav, UA 1.02 1 - 1.03 [facility] Urobilinogen, UA 0.2 0.2 - 12 mg/dL [facility] Urinalysis macro (dipstick) panel (U)on 07-11-2024 Bilirubin, UA Negative Negative - 4(70) +++ mg/dL [facility] Blood, UA Negative Negative - 50 Daniele/mcL [facility] Clarity, UA Clear [facility] re Color, UA Yellow [facility] e Glucose, UA Negative Negative - 1999(110) ++++ mg/dL [facility] Interpretation and review of laboratory results Abnormal [facility] Ketones, UA Negative Negative - 160(16) ++++ mg/dL [facility] Leukocytes, UA Trace Negative - 500+++ Kiara/mcL [facility] Nitrite, UA Negative Negative - Positive [facility] pH, UA 5.5 5 - 9 [facility] Protein, UA Negative Negative - 1999(20) ++++ mg/dL [facility] Spec Grav, UA 1.03 1 - 1.03 [facility] Urobilinogen, UA 0.2 0.2 - 12 mg/dL [facility] US OB TRANSVAGINALon 025 US OB TRANSVAGINAL EXAM: US OB TRANSVAGINAL HISTORY: Dating. COMPARISON: [...] Doppler evaluation of the bilateral ovaries. Electronically Signed:Imer y signed by JOSEPH LAW II, MD, PHD at 03-Jun-2024 08:37:27 PM [facility] Normal Not Available Comment on above: Order Comment: US OB TRANSVAGINAL No LMP recorded. Urine Cultureon 05-27-2024 Bacteria identified Cx Nom (U) 50,000 colonies/ml mixed bacterial skin contaminants 2 Days PERFORMED BY: [place] [address] PATHOLOGIST LABOR OPERATOR CASA BLACKMON M.D. Normal [facility] Comment on above: Performed By: #### C UU #### [address] US PREG ANATOMY SINGLEon US PREG ANATOMY [...] ROXY CARRILLO Date: 2022-07-17 16:59 Normal [facility] CBC AUTO DIFFon 05-16-2022 BASO # 0.1 103/ul Normal 0.0-0.1 [facility] Comment on above: Performed By: #### C BC #### [facility] [address] [place] [address] Dr. Gabino Motta Basophils/100 WBC (Bld) 0.3 % Normal 0.2-2.0 [facility] Comment on above: Performed By: #### C BC #### [facility] [address] [place] [address] Dr. Gabino Motta EO # 0.0 103/ul Normal 0.0-0.7 [facility] Comment on above: Performed By: #### C BC #### [facility] [address] [place] [address] Dr. Gabino Motta Eosinophils/100 WBC (Bld) 0.0 % Critically low 0.9-7.0 [facility] Comment on above: Performed By: #### C BC #### [facility] [address] [place] [address] Dr. Gabino Motta Erythrocyte distribution width (RBC) [Ratio] 12.7 % Normal 11.0-15.0 [facility] Comment on above: Performed By: #### C BC #### [facility] [address] [place] [address] Dr. Gabino Motta Hematocrit (Bld) [Volume fraction] 39.1 % Normal 36.0-48.0 [facility] Comment on above: Performed By: #### C BC #### [facility] [address] [place] [address] Dr. Gabino Motta Hemoglobin (Bld) [Mass/Vol] 13.7 g/dL Normal 12.0-16.0 [facility] Comment on above: Performed By: #### C BC #### [facility] [address] [place] [address] Dr. Gabino Motta IG # 0.05 10e3/ul Critically high 0.00-0.03 [facility] Comment on above: Performed By: #### C BC #### [facility] [address] [place] [address] Dr. Gabino Motta IG % 0.3 % Normal 0.0-0.5 [facility] Comment on above: Performed By: #### C BC #### [facility] [address] [place] [address] Dr. Gabino Motta LYMPH # 1.1 103/ul Critically low 1.2-3.8 [facility] Comment on above: Performed By: #### C BC #### [facility] [address] [place] [address] Dr. Gabino Motta Lymphocytes/100 WBC (Bld) 7.0 % Critically low 20.5-60.0 [facility] Comment on above: Performed By: #### C BC #### [facility] [address] [place] [address] Dr. Gabino Motta MANUAL DIFF REQ NO Normal [facility] Comment on above: Performed By: #### C BC #### [facility] [address] [place] [address] Dr. Gabino Motta MCH (RBC) [Entitic mass] 28.5 pg Normal 26.7-34.0 [facility] Comment on above: Performed By: #### C BC #### [facility] [address] [address] [address] Gabino Motta MCHC (RBC) [Mass/Vol] 35.0 g/dL Normal 29.9-35.2 [facility] Comment on above: Performed By: #### C BC #### [facility] [address] [address] [address] Gabino Motta MCV (RBC) [Entitic vol] 81.3 fL Normal 81.0-99.0 [facility] Comment on above: Performed By: #### C BC #### [facility] [address] [place] [address] Dr. Gabino Motta MONO # 0.3 103/ul Normal 0.3-0.8 [facility] Comment on above: Performed By: #### C BC #### [facility] [address] [place] [address] Dr. Gabino Motta Monocytes/100 WBC (Bld) 2.1 % Normal 1.7-12.0 [facility] Comment on above: Performed By: #### C BC #### [facility] [address] [place] [address] Dr. Gabino Motta NEUT # 13.5 103/ul Critically high 1.4-6.5 [facility] Comment on above: Performed By: #### C BC #### [facility] [address] [place] [address] Dr. Gabino Motta Neutrophils/100 WBC (Bld) 90.3 % Critically high 43.0-75.0 [facility] Comment on above: Performed By: #### C BC #### [facility] [address] [place] [address] Dr. Gabino Motta Platelet mean volume (Bld) [Entitic vol] 11.1 fL Normal 9.5-13.5 [facility] Comment on above: Performed By: #### C BC #### [facility] [address] [place] [address] Dr. Gabino Motta PLT 282 103/ul Normal 150-450 [facility] Comment on above: Performed By: #### C BC #### [facility] [address] [place] [address] Dr. Gabino Motta RBC 4.81 106/ul Normal 4.20-5.40 [facility] Comment on above: Performed By: #### C BC #### [facility] [address] [place] [address] Dr. Gabino Motta WBC 14.9 103/ul Critically high 4.0-11.0 [facility] Comment on above: Performed By: #### C BC #### [facility] [address] [place] [address] Dr. Gabino Motta PROF 14(COMP METB)on 023 Albumin [Mass/Vol] 4.1 g/dL Normal 3.4-5.0 [facility] Comment on above: Performed By: #### C BC #### [facility] [address] [place] [address] Dr. Gabino Motta Albumin/Globulin [Mass ratio] 1.1 {ratio} Normal [facility] Comment on above: Performed By: #### C BC #### [facility] [address] [place] [address] Dr. Gabino Motta ALP [Catalytic activity/Vol] 72 U/L Normal 46-116 [facility] Comment on above: Performed By: #### C BC #### [facility] [address] [place] [address] Dr. Gabino Motta ALT [Catalytic activity/Vol] 42 U/L Normal 14-59 [facility] Comment on above: Performed By: #### C BC #### [facility] [address] [place] [address] Dr. Gabino Motta Anion gap [Moles/Vol] 18.4 mmol/L Normal [facility] Comment on above: Performed By: #### C BC #### [facility] [address] [place] [address] Dr. Gabino Motta AST [Catalytic activity/Vol] 18 U/L Normal 15-37 [facility] Comment on above: Performed By: #### C BC #### [facility] [address] [address] [address] Gabino Motta Bilirubin [Mass/Vol] 0.5 mg/dL Normal 0.2-1.0 [facility] Comment on above: Performed By: #### C BC #### [facility] [address] [address] [address] Gabino Motta Calcium [Mass/Vol] 9.6 mg/dL Normal 8.5-10.1 [facility] Comment on above: Performed By: #### C BC #### [facility] [address] [address] [address] Gabino Motta Chloride [Moles/Vol] 103 mmol/L Normal 98-107 [facility] Comment on above: Performed By: #### C BC #### [facility] [address] [place] [address] Dr. Gabino Motta CO2 [Moles/Vol] 20.1 mmol/L Critically low 21.0-32.0 [facility] Comment on above: Performed By: #### C BC #### [facility] [address] [place] [address] Dr. Gabino Motta Creatinine [Mass/Vol] 0.54 mg/dL Critically low 0.55-1.02 [facility] Comment on above: Performed By: #### C BC #### [facility] [address] [place] [address] Dr. Gabino Motta EGFR-AF DOMINICAN >60 Normal >=60 [facility] Comment on above: Performed By: #### C BC #### [facility] [address] [place] [address] Dr. Gabino Motta EGFR-NON AF DOMINICAN >60 Normal >=60 [facility] Comment on above: Performed By: #### C BC #### [facility] [address] [place] [address] Dr. Gabino Motta Globulin (S) [Mass/Vol] 3.8 g/dL Normal [facility] Comment on above: Performed By: #### C BC #### [facility] [address] [place] [address] Dr. Gabino Motta Glucose [Mass/Vol] 102 mg/dL Normal 74-[address] [facility] Comment on above: Performed By: #### C BC #### [facility] [address] [address] [address] Gabino Motta Potassium [Moles/Vol] 3.5 mmol/L Normal 3.5-5.1 [facility] Comment on above: Performed By: #### C BC #### [facility] [address] [address] [address] Gabino Motta Protein [Mass/Vol] 7.9 g/dL Normal 6.4-8.2 [facility] Comment on above: Performed By: #### C BC #### [facility] [address] [address] [address] Gabino Motta Sodium [Moles/Vol] 138 mmol/L Normal 136-145 [facility] Comment on above: Performed By: #### C BC #### [facility] [address] [address] [address] Gabino Motta Urea nitrogen [Mass/Vol] 6.0 mg/dL Critically low 7.0-18.0 [facility] Comment on above: Performed By: #### C BC #### [facility] [address] [place] [address] Dr. Gabino Motta Urea nitrogen/Creatinine [Mass ratio] 11.1 mg/mg Normal [facility] Comment on above: Performed By: #### C BC #### [facility] [address] [place] [address] Dr. Gabino Motta CULTURE URINEon 04-29-2022 CULTURE URINE Isolate 1 Escherichia coli >100,000 cfu/mL of ORGANISM 1 Escherichia coli ANTIBIOTIC M.I.C RX STATUS Ampicillin 4 S F Ampicillin/Sulbactam <=2 S F Piperacillin/Tazobac cordoba <=4 S F Cefazolin <=4 S F Ceftazidime <=1 S F Ceftriaxone <=1 S F Ertapenem <=0.5 S F Imipenem <=0.25 S F Amikacin <=2 S F Gentamicin <=1 S F Tobramycin <=1 S F Ciprofloxacin <=0.25 S F Levofloxacin <=0.12 S F Nitrofurantoin <=16 S F Trimethoprim/Sulfame thoxazole <=20 S F Normal [facility] Comment on above: Performed By: #### U RCX #### [facility] [address] [place] [address] Dr. Gabino Motta CBC AUTO DIFFon 04-26-2022 BASO # 0.0 103/ul Normal 0.0-0.1 [facility] Comment on above: Performed By: #### C BC #### [facility] [address] [place] [address] Dr. Gabino Motta Basophils/100 WBC (Bld) 0.3 % Normal 0.2-2.0 [facility] Comment on above: Performed By: #### C BC #### [facility] [address] [place] [address] Dr. Gabino Motta EO # 0.0 103/ul Normal 0.0-0.7 [facility] Comment on above: Performed By: #### C BC #### [facility] [address] [place] [address] Dr. Gabino Motta Eosinophils/100 WBC (Bld) 0.2 % Critically low 0.9-7.0 [facility] Comment on above: Performed By: #### C BC #### [facility] [address] [place] [address] Dr. Gabino Motta Erythrocyte distribution width (RBC) [Ratio] 12.7 % Normal 11.0-15.0 [facility] Comment on above: Performed By: #### C BC #### [facility] [address] [place] [address] Dr. Gabino Motta Hematocrit (Bld) [Volume fraction] 39.7 % Normal 36.0-48.0 [facility] Comment on above: Performed By: #### C BC #### [facility] [address] [place] [address] Dr. Gabino Motta Hemoglobin (Bld) [Mass/Vol] 13.8 g/dL Normal 12.0-16.0 [facility] Comment on above: Performed By: #### C BC #### [facility] [address] [address] [address] Gabino Motta IG # 0.03 10e3/ul Normal 0.00-0.03 [facility] Comment on above: Performed By: #### C BC #### [facility] [address] [address] [address] Gabino Motta IG % 0.2 % Normal 0.0-0.5 [facility] Comment on above: Performed By: #### C BC #### [facility] [address] [place] [address] Dr. Gabino Motta LYMPH # 1.4 103/ul Normal 1.2-3.8 [facility] Comment on above: Performed By: #### C BC #### [facility] [address] [place] [address] Dr. Gabino Motta Lymphocytes/100 WBC (Bld) 11.4 % Critically low 20.5-60.0 [facility] Comment on above: Performed By: #### C BC #### [facility] [address] [place] [address] Dr. Gabino Motta MANUAL DIFF REQ NO Normal [facility] Comment on above: Performed By: #### C BC #### [facility] [address] [place] [address] Dr. Gaibno Motta MCH (RBC) [Entitic mass] 28.4 pg Normal 26.7-34.0 [facility] Comment on above: Performed By: #### C BC #### [facility] [address] [place] [address] Dr. Gabino Motta MCHC (RBC) [Mass/Vol] 34.8 g/dL Normal 29.9-35.2 [facility] Comment on above: Performed By: #### C BC #### [facility] [address] [place] [address] Dr. Gabino Motta MCV (RBC) [Entitic vol] 81.7 fL Normal 81.0-99.0 [facility] Comment on above: Performed By: #### C BC #### [facility] [address] [place] [address] Dr. Gabino Motta MONO # 0.7 103/ul Normal 0.3-0.8 [facility] Comment on above: Performed By: #### C BC #### [facility] [address] [place] [address] Dr. Gabino Motta Monocytes/100 WBC (Bld) 5.6 % Normal 1.7-12.0 [facility] Comment on above: Performed By: #### C BC #### [facility] [address] [place] [address] Dr. Gabino Motta NEUT # 10.1 103/ul Critically high 1.4-6.5 [facility] Comment on above: Performed By: #### C BC #### [facility] [address] [place] [address] Dr. Gabino Motta Neutrophils/100 WBC (Bld) 82.3 % Critically high 43.0-75.0 [facility] Comment on above: Performed By: #### C BC #### [facility] [address] [place] [address] Dr. Gabino Motta Platelet mean volume (Bld) [Entitic vol] 10.8 fL Normal 9.5-13.5 [facility] Comment on above: Performed By: #### C BC #### [facility] [address] [place] [address] Dr. Gabino Motta PLT 274 103/ul Normal 150-450 [facility] Comment on above: Performed By: #### C BC #### [facility] [address] [place] [address] Dr. Gabino Motta RBC 4.86 106/ul Normal 4.20-5.40 [facility] Comment on above: Performed By: #### C BC #### [facility] [address] [place] [address] Dr. Gabino Mtota WBC 12.3 103/ul Critically high 4.0-11.0 [facility] Comment on above: Performed By: #### C BC #### [facility] [address] [place] [address] Dr. Gabino Motta ER URINE PROFILEon 3 Bilirubin Ql (U) Negative Normal NEGATIVE [facility] Comment on above: Performed By: #### U MICRO, ERUR #### [facility] [address] [address] [address] Gabino Motta Clarity (U) SL CLOUDY Abnormal CLEAR [facility] Comment on above: Performed By: #### U MICRO, ERUR #### [facility] [address] [address] [address] Gabino Motta Color (U) YELLOW Normal YELLOW [facility] Comment on above: Performed By: #### U MICRO, ERUR #### [facility] [address] [address] [address] Gabino TELLESD A micrscopic examination will be performed if indicated. Normal [facility] Comment on above: Performed By: #### U MICRO, ERUR #### [facility] [address] [place] [address] Dr. Gabino Motta Glucose Ql (U) Negative Normal NEGATIVE [facility] Comment on above: Performed By: #### U MICRO, ERUR #### [facility] [address] [address] [address] Gabino Motta Hemoglobin Ql (U) Negative Normal NEGATIVE [facility] Comment on above: Performed By: #### U MICRO, ERUR #### [facility] [address] [place] [address] Dr. Gabino Motta Ketones Ql (U) >=80 Abnormal NEGATIVE [facility] Comment on above: Performed By: #### U MICRO, ERUR #### [facility] [address] [address] [address] Gabino Motta LEUKOCYTES Negative Normal NEGATIVE [facility] Comment on above: Performed By: #### U MICRO, ERUR #### [facility] [address] [address] [address] Gabino Motta Nitrite Ql (U) Positive Abnormal NEGATIVE [facility] Comment on above: Performed By: #### U MICRO, ERUR #### [facility] [address] [address] [address] Gabino Motta pH (U) 6.0 [pH] Normal 5-9 [facility] Comment on above: Performed By: #### U MICRO, ERUR #### [facility] [address] [place] [address] Dr. Gabino Motta SPEC GRAVITY 1.030 Abnormal 1.005-<=1.025 [facility] Comment on above: Performed By: #### U MICRO, ERUR #### [facility] [address] [place] [address] Dr. Gabino Motta UA PROTEIN Negative Normal NEGATIVE/ TRACE [facility] Comment on above: Performed By: #### U MICRO, ERUR #### [facility] [address] [place] [address] Dr. Gabino Motta UR MICRO IND INDICATED Normal [facility] Comment on above: Performed By: #### U MICRO, ERUR #### [facility] [address] [place] [address] Dr. Gabino Motta Urobilinogen Qn (U) 0.2 {Landy'U}/dL Normal 0.2 - 1. 0 [facility] Comment on above: Performed By: #### U MICRO, ERUR #### [facility] [address] [place] [address] Dr. Gabino Motta PROF 14(COMP METB)on 023 Albumin [Mass/Vol] 3.9 g/dL Normal 3.4-5.0 [facility] Comment on above: Performed By: #### C MP #### [facility] [address] [place] [address] Dr. Gabino Motta Albumin/Globulin [Mass ratio] 1.1 {ratio} Normal [facility] Comment on above: Performed By: #### C MP #### [facility] [address] [place] [address] Dr. Gabino Motta ALP [Catalytic activity/Vol] 75 U/L Normal 46-116 [facility] Comment on above: Performed By: #### C MP #### [facility] [address] [place] [address] Dr. Gabino Motta ALT [Catalytic activity/Vol] 36 U/L Normal 14-59 [facility] Comment on above: Performed By: #### C MP #### [facility] [address] [place] [address] Dr. Gabino Motta Anion gap [Moles/Vol] 18.0 mmol/L Normal [facility] Comment on above: Performed By: #### C MP #### [facility] [address] [address] [address] Gabino Motta AST [Catalytic activity/Vol] 16 U/L Normal 15-37 [facility] Comment on above: Performed By: #### C MP #### [facility] [address] [address] [address] Gabino Motta Bilirubin [Mass/Vol] 0.4 mg/dL Normal 0.2-1.0 [facility] Comment on above: Performed By: #### C MP #### [facility] [address] [address] [address] Gabino Motta Calcium [Mass/Vol] 9.3 mg/dL Normal 8.5-10.1 [facility] Comment on above: Performed By: #### C MP #### [facility] [address] [place] [address] Dr. Gabino Motta Chloride [Moles/Vol] 101 mmol/L Normal 98-107 [facility] Comment on above: Performed By: #### C MP #### [facility] [address] [address] [address] Gabino Motta CO2 [Moles/Vol] 22.7 mmol/L Normal 21.0-32.0 [facility] Comment on above: Performed By: #### C MP #### [facility] [address] [address] [address] Gabino Motta Creatinine [Mass/Vol] 0.57 mg/dL Normal 0.55-1.02 [facility] Comment on above: Performed By: #### C MP #### [facility] [address] [address] [address] Gabino Motta EGFR-AF DOMINICAN >60 Normal >=60 [facility] Comment on above: Performed By: #### C MP #### [facility] [address] [address] [address] Gabino Motta EGFR-NON AF DOMINICAN >60 Normal >=60 [facility] Comment on above: Performed By: #### C MP #### [facility] [address] [address] [address] Gabino Motta Globulin (S) [Mass/Vol] 3.7 g/dL Normal [facility] Comment on above: Performed By: #### C MP #### [facility] [address] [address] [address] Gabino Motta Glucose [Mass/Vol] 94 mg/dL Normal 74-[address] [facility] Comment on above: Performed By: #### C MP #### [facility] [address] [address] [address] Gabino Motta Potassium [Moles/Vol] 3.7 mmol/L Normal 3.5-5.1 [facility] Comment on above: Performed By: #### C MP #### [facility] [address] [address] [address] Gabino Motta Protein [Mass/Vol] 7.6 g/dL Normal 6.4-8.[address] [facility] Comment on above: Performed By: #### C MP #### [facility] [address] [address] [address] Gabino Motta Sodium [Moles/Vol] 138 mmol/L Normal 136-[address] [facility] Comment on above: Performed By: #### C MP #### [facility] [address] [address] [address] Gabino Motta Urea nitrogen [Mass/Vol] 8.0 mg/dL Normal 7.0-18.0 [facility] Comment on above: Performed By: #### C MP #### [facility] [address] [address] [address] Gabino Motta Urea nitrogen/Creatinine [Mass ratio] 14.0 mg/mg Normal [facility] Comment on above: Performed By: #### C MP #### [facility] [address] [address] [address] Gabino Motta URINE MICROSCOPIC ONLYon BACTERIA SMALL Abnormal NONE SEEN [facility] Comment on above: Performed By: #### U MICRO, ERUR #### [facility] [address] [place] [address] Dr. Gabino Motta Bacteria identified Cx Nom (U) INDICATED Normal [facility] Comment on above: Performed By: #### U MICRO, ERUR #### [facility] [address] [place] [address] Dr. Gabino Motta CAST NONE SEEN Normal NONE SEEN [facility] Comment on above: Performed By: #### U MICRO, ERUR #### [facility] [address] [place] [address] Dr. Gabino Motta Crystals LM Nom (Urine sed) NONE SEEN Normal NONE SEEN [facility] Comment on above: Performed By: #### U MICRO, ERUR #### [facility] [address] [place] [address] Dr. Gabino Motta Epithelial cells LM Ql (Urine sed) FEW Abnormal NONE SEEN /RARE [facility] Comment on above: Performed By: #### U MICRO, ERUR #### [facility] [address] [place] [address] Dr. Gabino Motta MUCOUS SMALL Abnormal NONE SEEN [facility] Comment on above: Performed By: #### U MICRO, ERUR #### [facility] [address] [place] [address] Dr. Gabino Motta RBC NONE SEEN Abnormal 0-2 [facility] Comment on above: Performed By: #### U MICRO, ERUR #### [facility] [address] [place] [address] Dr. Gabino Motta WBC 2-5 Abnormal NONE SEEN [facility] Comment on above: Performed By: #### U MICRO, ERUR #### [facility] [address] [place] [address] Dr. Gabino Motta US PREG TVon 04-25-2022 [...] by: EMA SAMUEL Date: 2022-04-25 10:29 Normal [facility] US PELVISon 11-15-2021 US PELVIS EXAMINATION: [...] by: ROXY CARRILLO Date: 2021-11-15 17:11 Normal [facility] Vital Signs Date Time Vital Sign Value Performing Clinician Faci lity 08-10-2024 10:28-0400 Body mass index (BMI) [Ratio] 26.46 kg/m2 Mera SEYMOUR Work Phone: [facility] 08-10-2024 10:28-040 Body weight 86.07 kg Mera SEYMOUR Work Phone: [facility] 08-10-2024 10:28-040 Diastolic blood pressure 42 mm[Hg] Mera SEYMOUR Work Phone: [facility] 08-10-2024 10:28-040 Systolic blood pressure 96 mm[Hg] Mera SEYMOUR Work Phone: [facility] 07-11-2024 13:26-0400 Body mass index (BMI) [Ratio] 24.7 kg/m2 Fransisco Espinoza DO Work Phone: [facility] 07-11-2024 13:26-0400 Body weight 80.34 kg Fransisco Olga DO Work Phone: [facility] 07-11-2024 13:26-0400 Diastolic blood pressure 74 mm[Hg] Fransisco Olga DO Work Phone: [facility] 07-11-2024 13:26-0400 Systolic blood pressure 120 mm[Hg] Fransisco Olga DO Work Phone: [facility] Encounters Encounter Date Encounter Type Care Provider Facility Start: 08-10-2024 End: 08-10-2024 Bamboo flowsheet Mera SEYMOUR Work Phone: [facility] Start: 08-10-2024 End: 08-10-2024 Bamboo flowsheet Mera SEYMOUR Work Phone: [facility] Start: 08-10-2024 End: 08-10-2024 Patient encounter procedure Mera SEYMOUR Work Phone: [facility] Start: 08-10-2024 End: 08-10-2024 Periodic preventive med est patient 18-39 yrs Mera SEYMOUR Work Phone: [facility] Comment on above: Screening, , for anatomic survey; Second trimester ; 18 weeks gestation of ; STD exposure; Well woman exam with routine gynecological exam Start: 07-11-2024 End: 07-11-2024 Bamboo flowsheet Fransisco Olga DO Work Phone: [facility] Start: 07-11-2024 End: 07-11-2024 Bamboo flowsheet Fransisco Olga DO Work Phone: [facility] Start: 07-11-2024 End: 07-11-2024 flow sheet Fransisco Olga DO Work Phone: [facility] Comment on above: 14 weeks gestation o f ; Second trimester ; Nausea and vomiting in Start: 07-11-2024 End: 07-11-2024 ambulatory FRANSISCO OLGA Not Available Start: 06-03-2024 End: 06-03-2024 ambulatory FRANSISCO OLGA Not Available Start: 05-27-2024 End: 05-27-2024 ambulatory Tracie Seo [facility] Work Phone: Start: 05-27-2024 End: 05-27-2024 Departed Referred Tracie Seo PA-C Work Phone: [facility] Start: 05-18-2024 End: 05-18-2024 Bamboo flowsheet Mera [...] Not Available Start: 07-24-2023 End: 07-24-2023 ambulatory FRANSISCO OLGA Not Available Start: 08-12-2022 End: 08-13-[address] STEPAN YANEZ . Facility:[facility] Start: 07-17-2022 End: 07-18-[address] STEPAN YANEZ . Facility:[facility] Start: 05-16-2022 End: 05-16-[address] STEPAN YANEZ . Facility:[facility] Start: 04-26-2022 End: 04-27-[address] STEPAN YANEZ . Facility:[facility] Start: 04-25-2022 End: 04-26-[address] FRANSISCO ESPINOZA . Facility:[facility] Start: 11-14-2021 End: 11-15-[address] FRANSISCO ESPINOZA . Facility: Procedures Date Procedure Procedure Detail Performing Clinician Start: 08-10-2024 Urnls dip stick/tabl et rgnt non-auto w/o micrscp Mera SEYMOUR Work Phone: Start: 07-11-2024 Urnls dip stick/tabl et rgnt non-auto w/o micrscp Fransisco Olgaammon LITTLE Work Phone: Plan of Treatment Date Care Activity Detail Author Start: 09-12-2024 End: 09-12-2024 Patient encounter procedure 09/12/2024 9:50 AM EDT Routine [facility] [address] [place] [id number] Fransisco Espinoza, DO [address] [place], [place] [id number] [facility] Start: 08-22-2024 End: 08-22-2024 Professional / ancillary services management 08/22/2024 11:00 AM EDT Ancillary Procedure [facility] [address] [place] [id number] [facility] Start: 08-10-2024 End: 10-10-2024 Alpha fetoprotein, maternal Alpha fetoprotein, maternal Lab Routine Second trimester 18 weeks gestation of Expected: 08/10/2024 (Approximate), Expires: 10/10/2024 [facility] Comment on above: Expected: 08/10/2024 (Approximate), Expires: 10/10/2024 Start: 08-10-2024 End: 11-10-2024 US for US OB 14+ weeks anatomy scan Imaging Routine Screening, , for anatomic survey Expected: 08/10/2024, Expires: 11/10/2024 [facility] Comment on above: Expected: 08/10/2024 , Expires: 11/10/2024 Start: 08-10-2024 End: 08-10-2024 Patient encounter procedure [facility] Comment on above: Arrived Start: 07-11-2024 End: 07-11-2024 Patient encounter procedure 07/11/2024 1:20 PM EDT Routine [facility] [address] [place] [id number] Fransisco Espinoza, DO [address] [facility] [address] [place], [place] [id number] Arrived [facility] Comment on above: Arrived Start: 05-27-2024 Urine culture [facility] Start: 05-27-2024 Bacteria identified in Urine by Culture Urine Culture [facility] Start: 05-26-2024 End: 05-26-2024 ambulatory 05/26/2024 1:30 PM EDT Initial [facility] [address] [facility] [address] [facility] Start: 05-26-2024 End: 05-26-2024 Professional / ancillary services management 05/26/2024 1:00 PM EDT Ancillary Procedure [facility] [address] [facility] [address] [facility] CHLAMYDIA TRACHOMATI S (GENITO/STI) CHLAMYDIA TRACHOMATIS (GENITO/STI) Lab Routine STD exposure Ordered: 08/10/2024 [facility] Comment on above: Ordered: 08/10/2024 Cytology Cervical or vaginal smear or scraping study Pap Smear Pathology and Cytology Routine Well woman exam with routine gynecological exam Ordered: 08/10/2024 [facility] Comment on above: Ordered: 08/10/2024 Neisseria gonorrhoea e DNA [Presence] in Unspecified specimen by BRIGIDO with probe detection Neisseria gonorrhea DNA probe, direct Lab Routine STD exposure Ordered: 08/10/2024 [facility] Comment on above: Ordered: 08/10/2024 SURESWAB(R) ADVANCED VAGINITIS PLUS, TMA SURESWAB(R) ADVANCED VAGINITIS PLUS, TMA Pathology and Cytology Routine STD exposure Ordered: 08/10/2024 [facility] Work Phone: Comment on above: Ordered: 08/10/2024 Payers Date Payer Category Payer Self-pay 2023 [employer] [id number] 2023 Unknown [id number] 2002 Unknown [id number] 2.16.84 [id number] 2002 Unknown [id number] 2.16.84 [id number] 2002 Unknown [id number] 2.16.84 [id number] 2002 Unknown [id number] 2.16.84 [id number] 2002 Unknown [id number] 2.16.84 [id number] 2002 Unknown [id number] 2.16.84 [id number] 2002 Unknown [id number] 2.16.84 0.1.221930.3.579.2.1259 2002 Unknown [id number] 2.16.84 [id number] 2002 Unknown [id number] 2.16.84 [id number] 2002 Unknown [id number] 2.16.84 0.1.325572.3.579.2.1259 2002 Unknown [id number] 2.16.84 [id number] 2002 Unknown [id number] 2.16.84 [id number] 1959 Self-pay [id number] 1959 Unknown [id number] Unknown David BC/BS [id number] Unknown [id number] 2.16.8 [id number] Social History Date Type Detail Facility Start: 03-05-2020 End: 09-08-2022 Tobacco smoking status MAIS Never smoked tobacco [facility] Start: 07-28-2023 End: 07-11-2024 Alcoholic beverage intake Lifetime non-drinker (finding) [facility] Start: 06-02-2023 End: 07-24-2023 History of Social function [facility] Start: 06-02-2023 End: 07-24-2023 Tobacco use panel [facility] Start: 2002 Sex assigned at Female [facility] Start: 09-08-2022 Gender identity Identifies as female gender (finding) [facility] Start: 09-08-2022 Sexual orientation Heterosexual (finding) [facility] Start: 05-29-2024 Sex Female (finding) [facility] Start: 04-16-2024 [facility] History of Present illness Narrative 08-10-2024 DAWN Kirk - 08/10/2024 10:30 AM EDT Note Date & Type Note Facility 08-10-2024 History of Presen t illness Narrative Reason for Appointment: Patient ID: Mei King [...] Vitals: Estimated body mass index is 26.46 kg/m as calculated from the following: Height as of 24: 5' 11 . Weight as of this [...] obtained without difficulty [facility]. Orders Placed This Encounter Procedures US OB 14+ weeks anatomy scan CHLAMYDIA TRACHOMATIS (GENITO/STI) Neisseria gonorrhea DNA probe, direct Alpha fetoprotein, maternal POCT urinalysis dipstick manually resulted Follow Up: Patient is to return to our office in 4 weeks for routine OB appointment Documented by DAWN Kirk on behalf of: DAWN Kirk documented in this encounter [facility] History of Present illness Narrative 07-11-2024 Alessandra Almaraz LPN - 07/11/2024 1:20 PM EDT Note Date & Type Note Facility 07-11-2024 History of Presen t illness Narrative Reason for Appointment: Patient ID: Mei King is a 24 y.o. female who presents for Routine Visit Patient presents today for Return OB appointment. MEDICATIONS Current Outpatient Medications Medication Instructions ondansetron ODT (ZOFRAN-ODT) 4 mg, Oral, Every 6 hours PRN promethazine (PHENERGAN) 25 mg, Rectal, Every 8 [...] History HISTORY PAST MEDICAL HISTORY SOCIAL HISTORY History reviewed. No pertinent past medical history. Social History Tobacco Use Smoking status: Never Smokeless tobacco: Not on file Substance Use Topics Alcohol use: Never Drug use: Never FAMILY HISTORY Family History Problem Relation Name Age of Onset Heart disease Father No Known Problems Brother SURGICAL HISTORY History reviewed. No pertinent surgical history. REVIEW OF SYSTEMS Review of Systems: Review [...] nursing note reviewed. Exam conducted with a director digital strategy present. Vitals: Estimated body mass index is 24.7 kg/m as calculated from the following: Height as of 24: 5' 11 . Weight as of this encounter: 177 lb 1.9 oz. BP: 120/74 Patient's last menstrual period was 03/20/2024. ASSESSMENT & PLAN ICD-10-CM 1. 14 weeks gestation of Z3A.14 POCT urinalysis dipstick manually resulted 2. Second trimester Z34.92 POCT urinalysis dipstick manually resulted 3. Nausea and vomiting in O21.9 promethazine (Phenergan) 12.5 MG tablet New OB: Patient presents today for 1st time obstetrics appointment with provider. Patient is currently 14w2d . Patients history has been reviewed in great detail including any potential risks. Patient stated she currently has no complaints. Expectations throughout regarding labs, ultrasounds, and appointments have been discussed with the patient in detail. It was reiterated that the patient is to drink 6-8 glasses of water a day, eat 6 small meals a day, do not consume raw or undercooked meat, and stay away from [facility]. Patient has been consulted regarding any further do's and don'ts of . Patient voiced understanding and all questions and concerns were answered. --Discussed epidural with patient and talked through patients concerns. Gave other options that are available to patient at the time of delivery. Orders Placed This Encounter Procedures POCT urinalysis dipstick manually resulted Follow Up: Patient is to return in 4 weeks for routine OB appointment. Documented by Alessandra Almaraz LPN on behalf of: Fransisco Espinoza DO documented in this encounter [facility] History of Present illness Narrative 05-18-2024 DAWN Kirk - 05/18/2024 9:40 AM EST Note Date & Type Note Facility 05-18-2024 History of Presen t illness Narrative Reason for Appointment: Patient ID: Mei Puentes is a 24 y.o. female who presents for [facility] Follow Up Patient presents today for Acute [...] nursing note reviewed. Exam conducted with a director digital strategy present. Vitals: Estimated body mass index is [...] and vomiting during documented in this encounter [facility] Evaluation note Note Date & Type Note Facility Evaluation note No assessment information availa [facility] Work Phone: Evaluation note Note Date & Type Note Facility Evaluation note Diagnosis 14 weeks gestation of Second trimester state, incidental Nausea and vomiting in Unspecified vomiting of , unspecified as to episode of care documented in this encounter [facility] Evaluation note Note Date & Type Note Facility Evaluation note Diagnosis Screening, , for anatomic survey Encounter for anatomic survey Second trimester state, incidental 18 weeks gestation of STD exposure Well woman exam with routine gynecological exam Routine gynecological examination documented in this encounter [facility] Summary Purpose Family History No Family History Records FoundNo Family History Records FoundNo Family History Records Found Advance Directives Advance Directive Response Recorded Date/ Time Advance Directives No February 11:17am Additional Source Comments INFORMATION SOURCE (unrecogn ized section and content) DATE CREATED AUTHOR 08/22/[address] [facility] DATE CREATED AUTHOR AUTHOR'S ORGANIZ ATION 05/31/2024 [facility] DATE CREATED AUTHOR AUTHOR'S ORGANIZ ATION 07/12/2024 [facility] EP[employer] Care Teams (unrecognized sec tion and content) Electric Welder Relationship Specialty Start Date End Date Stepan Yanez MD [address] [place] [address] PCP - General Family Medicine 08/12/22 Electric Welder Relationship Specialty Start Date End Date Stepan Yanez MD [address] [place] [facility] [place] [address] PCP - General Family Medicine 08/12/22 Team Status: Inactive Member Role Status Dates Tracie Seo PA-C Attending Provider Active Start: May 27, 2024 End: May 27, 2024 Electric Welder Relationship Specialty Start Date End Date Stepan Yanez MD [address] [place] [address] PCP - General Family Medicine 08/12/22 Electric Welder Relationship Specialty Start Date End Date Stepan Yanez MD [address] [place] [facility] [place] [address] PCP - General Family Medicine 08/12/22 Electric Welder Relationship Specialty Start Date End Date Stepan Yanez MD [address] [place] [facility] [address] PCP - General Family Medicine 08/12/22 Reason for Visit (unrecogniz ed section and content) Reason Comments [facility] Follow Up Reason Comments Routine Visit Goals (unrecognized section and content) Goals may be documented in a n alternate section FOR RECORDS PERTAINING TO PATIENTS WHO ARE [...] BE BASED ON THE PRIMARY CLINICAL RECORDS. [facility] [employer] provides no warranty or guarantee of the accuracy or completeness of information in this document.
[2024-08-12 15:08] LABS: Age Gdln ACOG Testing Note (.); IGP, rfx Aptima HPV ASCU Note (.)
== END 2024-08-10 12:06 | disposition home or self-care (01) ==
LOC: LAB 12:05
PROVIDERS: PCP Family Medicine; Visit Provider Physician Assistant
DX: Z01.419 Encounter for gynecological examination (general) (routine) without abnormal findings (principal)
CPT/HCPCS: 88175

== ENCOUNTER 2024-09-09 10:57 | Outpatient (OUT) | payer BC, SELFPAY ==
--- OUTSIDE RECORDS SUMMARY | 2024-09-09 11:05 | XMS_ITS | CCD ---
Author Organization [facility] Care Team Providers Care Rag Grader Name Role Phone CLEMENTE ., DR YING [...] Unavailable OLGA ., DR MOODY Consulting Unavailable ZIEBER, DR EMA Yoon Consulting Unavailable HOY ., DR YING Primary Care Unavailable GERARDO, DR ROXY Murphy Consulting Unavailable OLGA ., [...] Unavailable Stepan Yanez MD Primary Care Provider [phone] Tracie Seo PA-C Attending Provider Tracie Seo Attending Unavailable Tracie Seo Admitting Unavailable Stepan Yanez MD Primary Care Provider [phone] MERA TATUM Attending Unavailable FRANSISCO ESPINOZA Referring Unavailable OLGAFRANSISCO Attending Unavailable DEEPTI, MERA Attending Unavailable MERA TATUM Referring Unavailable Medications Current Medications Medication Drug Class(es) [...] Discontinued promethazine hydrochloride 12.5 mg oral tablet (17 sources) Phenothiazine Start: 07-11-2024 take 1 tablet [...] Test Name Value Interpretation Reference Range Facility IGP,APTIMA HPV,AGE GDLNon AGE GDLN ACOG TESTING Note . [facility] Comment on above: TESTS RESULT FLAG UN ITS REF RANGE LAB Clinician Provided Cytology Information Source.............Endocervix Other.............. No. of containers..01 ThinPrep Vial Age Camilo RO Belle... FLAG LEGEND: L-Low Normal,H-High Normal,LL-Alert Low,HH-Alert High <-Panic Low,>-Panic High,A-Abnormal,AA-Critical Abnormal Performed at: 01 [facility] [address] [place] [address] Laurie Moreno MD, IGP, RFX APTIMA HPV ASCU Note . [facility] Comment on above: TESTS RESULT FLAG UN ITS REF RANGE LAB DIAGNOSIS: 02 NEGATIVE FOR INTRAEPITHELIAL LESION OR MALIGNANCY. FUNGAL ORGANISMS MORPHOLOGICALLY CONSISTENT WITH ROSETTE SPECIES ARE PRESENT. Specimen adequacy: 02 Satisfactory for evaluation. No endocervical component is identified. An endocervical component is not commonly seen in the patient. Performed by: Lizett Mathews Plating Tank Operator Apprentice ([facility]) . 02 Note: Note 02 The Pap smear is a screening test designed to aid in the detection of premalignant and malignant conditions of the uterine cervix. It is not a diagnostic procedure and should not be used as the sole means of detecting cervical cancer. Both false-positive and false-negative reports do occur. Test Methodology: Note 02 This liquid based ThinPrep(R) pap test was screened with the use of an image guided system. . 02 The HPV DNA reflex criteria were not met with this specimen result therefore, no HPV testing was performed. FLAG LEGEND: L-Low Normal,H-High Normal,LL-Alert Low,HH-Alert High <-Panic Low,>-Panic High,A-Abnormal,AA-Critical Abnormal Performed at: [address] [address] Laurie Moreno MD, Performed at: = - [address] [id number] Early Childhood Educator Aide: Laurie Moreno MD, Phone: [phone] Performed at: [address] [id number] Early Childhood Educator Aide: Laurie Moreno MD, Phone: [phone] [facility] Healthcar e RECURRENT VAGINITIS (HTRX)on 08-11-2024 ATOPOBIUM VAGINAE 0 [facility] ATOPOBIUM VAGINAE Not detected [facility] BVAB 2,3 (BACTERIAL VAGINOSIS ASSOCIATED BACTERIA 2, 3); MOBILUNCUS SPP 0 [facility] BVAB 2,3 (BACTERIAL VAGINOSIS ASSOCIATED BACTERIA 2, 3); MOBILUNCUS SPP Not detected [facility] ROSETTE ALBICANS, PARAPSILOSIS, TROPICALIS 27.16 Abnormal [facility] ROSETTE ALBICANS, PARAPSILOSIS, TROPICALIS Detected Abnormal [facility] ROSETTE GLABRATA 0 [facility] lthcare ROSETTE GLABRATA Not detected [facility] ealtare ROSETTE KRUSEI 0 [facility] ROSETTE KRUSEI Not detected [facility] CHLAMYDIA TRACHOMATIS 0 [facility] CHLAMYDIA TRACHOMATIS Not detected [facility] GARDNERELLA VAGINALIS 29.925 Abnormal [facility] GARDNERELLA VAGINALIS Detected Abnormal [facility] Healthcare Interpretation and review of laboratory results Abnormal [facility] MEGASPHAERA (TYPES 1, 2) 0 [facility] MEGASPHAERA (TYPES 1, 2) Not detected [facility] MYCOPLASMA GENITALIUM 0 [facility] MYCOPLASMA GENITALIUM Not detected [facility] NEISSERIA GONORRHOEAE 0 [facility] NEISSERIA GONORRHOEAE Not detected [facility] TRICHOMONAS VAGINALIS 0 [facility] TRICHOMONAS VAGINALIS Not detected [facility] US OB 14+ WEEKS ANATOMY SCAN on 08-10-2024 US OB 14+ WEEKS ANATOMY SCAN EXAM: US OB 14+ WEEKS ANATOMY SCAN HISTORY: anatomy. COMPARISON: Ob ultrasound 06/03/2024. TECHNIQUE: Two-dimensional transabdominal grayscale ultrasound imaging of the pelvis was performed. FINDINGS: Gestation: Single Presentation: Cephalic Cardiac Activity: 140 beats per minute Placental Location: Posterior with no sonographic abnormalities identified. Distance from Placental Tip to Cervix: 4.3 cm Cervical Length: 4.5 cm Amniotic Fluid: Appears adequate MEASUREMENTS: BPD: 4.9 cm EGA: 20 weeks 5 days HC: 17.5 cm EGA: 20 weeks 0 days AC: 15.7 cm EGA: 20 weeks 6 days FL: 3.4 cm EGA: 20 weeks 5 days HC/AC Ratio: 1.12 The gestational age by today's ultrasound is 20 weeks 4 days (+/- 10 days gestation). Estimated Weight: 370 grams, +/- 56 grams ( 0 lb 13 oz). Weight Percentile for gestational age: 68 % ANATOMY C-Spine: Unremarkable T-Spine: Unremarkable L-Spine: Unremarkable Sacrum: Unremarkable Four Chamber Heart: Unremarkable LVOT: Unremarkable RVOT: Unremarkable Stomach: Unremarkable Kidneys: Unremarkable Bladder: Unremarkable Diaphragm: Unremarkable Cord insertion: Unremarkable Cord vessels: Three Lateral Ventricles: Unremarkable Cerebellum: Unremarkable Cisterna Magna: Unremarkable Posterior Fossa: Unremarkable Right Femur: Unremarkable Left Femur: Unremarkable Right Tib/Fib: Unremarkable Left Tib/Fib: Unremarkable Right Rad/Ulnar: Unremarkable Left Rad/Ulnar: Unremarkable Right Humerus: Unremarkable Left Humerus: Unremarkable Nose/Lips: Unremarkable Profile: Unremarkable Orbits: Unremarkable IMPRESSION: 1. Single, live intrauterine gestation 20 weeks, 2 days by LMP. Today's ultrasound measurements correlate with a gestational age of 20 weeks 4 days. Estimated weight is 370 grams, +/- 56 grams ( 0 lb 13 oz) which correlates to 68 %. YANICK is 01/05/2025. 2. Unremarkable ultrasound of the anatomy. Interpreted by: Electronically signed by JOSEPH LAW II, MD, PHD at 24-Aug-2024 08:22:54 AM [facility] Normal Not Available Comment on above: Order Comment: US OB ANATOMY SINGLE W US OB CERVICAL LENGTH Estimated Date of Delivery: 01/07/25 Gestational Age as of 08/10/2024: 18w4d Urinalysis macro (dipstick) panel (U)on 08-10-2024 Bilirubin, UA Negative Negative - 4(70) +++ mg/dL [facility] Blood, UA Negative Negative - 50 Daniele/mcL [facility] Clarity, UA Clear [facility] Color, UA Yellow [facility] Healthcar e Glucose, UA Negative Negative - 1999(110) ++++ mg/dL [facility] Interpretation and review of laboratory results Abnormal [facility] Ketones, UA Negative Negative - 160(16) ++++ mg/dL [facility] Leukocytes, UA Positive Negative - 500+++ Kiara/mcL [facility] Comment on above: Moderate Nitrite, UA Negative Negative - Positive [facility] pH, UA 7 5 - [facility], [facility] Trace Negative - 1999(20) ++++ mg/dL [facility] Spec Grav, UA 1.02 1 - 1.03 [facility] Urobilinogen, UA 0.2 0.2 - 12 mg/dL [facility] Urinalysis macro (dipstick) panel (U)on 07-11-2024 Bilirubin, UA Negative Negative - 4(70) +++ mg/dL [facility] Blood, UA Negative Negative - 50 Daniele/mcL [facility] Clarity, UA Clear [facility] Color, UA Yellow [facility] Healthcar e Glucose, UA Negative Negative - 1999(110) ++++ mg/dL [facility] Interpretation and review of laboratory results Abnormal [facility] Ketones, UA Negative Negative - 160(16) ++++ mg/dL [facility] Leukocytes, UA Trace Negative - 500+++ Kiara/mcL [facility] Nitrite, UA Negative Negative - Positive [facility] pH, UA 5.5 5 - 9 [facility] e Protein, UA Negative Negative - 1999(20) ++++ mg/dL [facility] Spec Grav, UA 1.03 1 - 1.03 [facility] Urobilinogen, UA 0.2 0.2 - 12 mg/dL [facility] US OB TRANSVAGINALon 025 US [...] II, MD, PHD at 03-Jun-2024 08:37:27 PM [facility] Normal Not Available Comment on above: Order Comment: US OB TRANSVAGINAL No LMP recorded. Urine Cultureon 05-27-2024 Bacteria identified Cx Nom (U) 50,000 colonies/ml mixed bacterial skin contaminants 2 Days PERFORMED BY: [place] [address] PATHOLOGIST CVICU RN CASA BLACKMON M.D. Normal [facility] Comment on above: Performed By: #### C UU #### [place] [id number] [facility] US PREG ANATOMY SINGLEon US PREG ANATOMY [...] by: ROXY CARRILLO Date: 2022-07-17 16:59 Normal [facility] CBC AUTO DIFFon 05-16-2022 BASO # 0.1 103/ul Normal 0.0-0.1 [facility] Comment on above: Performed By: #### C BC #### [facility] [address] [place] [address] Dr. Gabino Motta Basophils/100 WBC (Bld) 0.3 % Normal 0.2-2.0 [facility] Comment on above: Performed By: #### C BC #### [facility] [address] [place] [address] Dr. Gabino Motta EO # 0.0 103/ul Normal 0.0-0.7 [facility] Comment on above: Performed By: #### C BC #### [facility] [address] [place] [address] Dr. Gabino Motta Eosinophils/100 WBC (Bld) 0.0 % Critically low 0.9-7.0 [facility] Comment on above: Performed By: #### C BC #### [facility] [address] [place] [address] Dr. Gabino Motta Erythrocyte distribution width (RBC) [Ratio] 12.7 % Normal 11.0-15.0 [facility] Comment on above: Performed By: #### C BC #### [facility] [address] [place] [address] Dr. Gabino Motta Hematocrit (Bld) [Volume fraction] 39.1 % Normal 36.0-48.0 [facility] Comment on above: Performed By: #### C BC #### [facility] [address] [place] [address] Dr. Gabino Motta Hemoglobin (Bld) [Mass/Vol] 13.7 g/dL Normal 12.0-16.0 [facility] Comment on above: Performed By: #### C BC #### [facility] [address] [place] [address] Dr. Gabino Motta IG # 0.05 10e3/ul Critically high 0.00-0.03 [facility] Comment on above: Performed By: #### C BC #### [facility] [address] [place] [address] Dr. Gabino Motta IG % 0.3 % Normal 0.0-0.5 [facility] Comment on above: Performed By: #### C BC #### [facility] [address] [place] [address] Dr. Gabino Motta LYMPH # 1.1 103/ul Critically low 1.2-3.8 [facility] Comment on above: Performed By: #### C BC #### [facility] [address] [place] [address] Dr. Gabino Motta Lymphocytes/100 WBC (Bld) 7.0 % Critically low 20.5-60.0 [facility] Comment on above: Performed By: #### C BC #### [facility] [address] [place] [address] Dr. Gabino Motta MANUAL DIFF REQ NO Normal [facility] Comment on above: Performed By: #### C BC #### [facility] [address] [place] [address] Dr. Gabino Motta MCH (RBC) [Entitic mass] 28.5 pg Normal 26.7-34.0 [facility] Comment on above: Performed By: #### C BC #### [facility] [address] [place] [address] Dr. Gabino Motta MCHC (RBC) [Mass/Vol] 35.0 g/dL Normal 29.9-35.2 [facility] Comment on above: Performed By: #### C BC #### [facility] [address] [place] [address] Dr. Gabnio Motta MCV (RBC) [Entitic vol] 81.3 fL Normal 81.0-99.0 [facility] Comment on above: Performed By: #### C BC #### [facility] [address] [place] [address] Dr. Gabino Motta MONO # 0.3 103/ul Normal 0.3-0.8 [facility] Comment on above: Performed By: #### C BC #### [facility] [address] [place] [address] Dr. Gabino Motta Monocytes/100 WBC (Bld) 2.1 % Normal 1.7-12.0 [facility] Comment on above: Performed By: #### C BC #### [facility] [address] [place] [address] Dr. Gabino Motta NEUT # 13.5 103/ul Critically high 1.4-6.5 [facility] Comment on above: Performed By: #### C BC #### [facility] [address] [place] [address] Dr. Gabino Motta Neutrophils/100 WBC (Bld) 90.3 % Critically high 43.0-75.0 [facility] Comment on above: Performed By: #### C BC #### [facility] [address] [place] [address] Dr. Gabino Motta Platelet mean volume (Bld) [Entitic vol] 11.1 fL Normal 9.5-13.5 [facility] Comment on above: Performed By: #### C BC #### [facility] [address] [place] [address] Dr. Gabino Motta PLT 282 103/ul Normal 150-450 [facility] Comment on above: Performed By: #### C BC #### [facility] [address] [place] [address] Dr. Gabino Motta RBC 4.81 106/ul Normal 4.20-5.40 [facility] Comment on above: Performed By: #### C BC #### [facility] [address] [place] [address] Dr. Gabino Motta WBC 14.9 103/ul Critically high 4.0-11.0 [facility] Comment on above: Performed By: #### C BC #### [facility] [address] [place] [address] Dr. Gabino Motta PROF 14(COMP METB)on 023 Albumin [Mass/Vol] 4.1 g/dL Normal 3.4-5.0 [facility] Comment on above: Performed By: #### C BC #### [facility] [address] [place] [address] Dr. Gabino Motta Albumin/Globulin [Mass ratio] 1.1 {ratio} Normal [facility] Comment on above: Performed By: #### C BC #### [facility] [address] [place] [address] Dr. Gabino Motta ALP [Catalytic activity/Vol] 72 U/L Normal 46-116 [facility] Comment on above: Performed By: #### C BC #### [facility] [address] [place] [address] Dr. Gabino Motta ALT [Catalytic activity/Vol] 42 U/L Normal 14-59 [facility] Comment on above: Performed By: #### C BC #### [facility] [address] [place] [address] Dr. Gabino Motta Anion gap [Moles/Vol] 18.4 mmol/L Normal [facility] Comment on above: Performed By: #### C BC #### [facility] [address] [place] [address] Dr. Gabino Motta AST [Catalytic activity/Vol] 18 U/L Normal 15-37 [facility] Comment on above: Performed By: #### C BC #### [facility] [address] [place] [address] Dr. Gabino Motta Bilirubin [Mass/Vol] 0.5 mg/dL Normal 0.2-1.0 [facility] Comment on above: Performed By: #### C BC #### [facility] [address] [place] [address] Dr. Gabino Motta Calcium [Mass/Vol] 9.6 mg/dL Normal 8.5-10.1 [facility] Comment on above: Performed By: #### C BC #### [facility] [address] [place] [address] Dr. Gabino Motta Chloride [Moles/Vol] 103 mmol/L Normal 98-107 [facility] Comment on above: Performed By: #### C BC #### [facility] [address] [place] [address] Dr. Gabino Motta CO2 [Moles/Vol] 20.1 mmol/L Critically low 21.0-32.0 [facility] Comment on above: Performed By: #### C BC #### [facility] [address] [address] [address] Gabino Motta Creatinine [Mass/Vol] 0.54 mg/dL Critically low 0.55-1.02 [facility] Comment on above: Performed By: #### C BC #### [facility] [address] [address] [address] Gabnio Motta EGFR-AF [place]IZ[place] >60 Normal >=60 [facility] Comment on above: Performed By: #### C BC #### [facility] [address] [address] [address] Gabino Motta EGFR-NON AF CITIZ[place] >60 Normal >=60 [facility] Comment on above: Performed By: #### C BC #### [facility] [address] [place] [address] Dr. Gabino Motta Globulin (S) [Mass/Vol] 3.8 g/dL Normal [facility] Comment on above: Performed By: #### C BC #### [facility] [address] [place] [address] Dr. Gabino Motta Glucose [Mass/Vol] 102 mg/dL Normal 74-106 [facility] Comment on above: Performed By: #### C BC #### [facility] [address] [place] [address] Dr. Gabino Motta Potassium [Moles/Vol] 3.5 mmol/L Normal 3.5-5.1 [facility] Comment on above: Performed By: #### C BC #### [facility] [address] [place] [address] Dr. Gabino Motta Protein [Mass/Vol] 7.9 g/dL Normal 6.4-8.2 [facility] Comment on above: Performed By: #### C BC #### [facility] [address] [place] [address] Dr. Gabino Motta Sodium [Moles/Vol] 138 mmol/L Normal 136-145 [facility] Comment on above: Performed By: #### C BC #### [facility] [address] [place] [address] Dr. Gabino Motta Urea nitrogen [Mass/Vol] 6.0 mg/dL Critically low 7.0-18.0 [facility] Comment on above: Performed By: #### C BC #### [facility] [address] [place] [address] Dr. Gabino Motta Urea nitrogen/Creatinine [Mass ratio] 11.1 mg/mg Normal [facility] Comment on above: Performed By: #### C BC #### [facility] [address] [place] [address] Dr. Gabino Motta CULTURE URINEon 04-29-2022 CULTURE [...] F Trimethoprim/Sulfame thoxazole <=20 S F Normal [facility] Comment on above: Performed By: #### U RCX #### [facility] [address] [place] [address] Dr. Gabino Motta CBC AUTO DIFFon 04-26-2022 BASO # 0.0 103/ul Normal 0.0-0.1 [facility] Comment on above: Performed By: #### C BC #### [facility] [address] [place] [address] Dr. Gabino Motta Basophils/100 WBC (Bld) 0.3 % Normal 0.2-2.0 [facility] Comment on above: Performed By: #### C BC #### [facility] [address] [place] [address] Dr. Gabino Motta EO # 0.0 103/ul Normal 0.0-0.7 [facility] Comment on above: Performed By: #### C BC #### [facility] [address] [place] [address] Dr. Gabino Motta Eosinophils/100 WBC (Bld) 0.2 % Critically low 0.9-7.0 [facility] Comment on above: Performed By: #### C BC #### [facility] [address] [place] [address] Dr. Gabino Motta Erythrocyte distribution width (RBC) [Ratio] 12.7 % Normal 11.0-15.0 [facility] Comment on above: Performed By: #### C BC #### [facility] [address] [place] [address] Dr. Gabino Motta Hematocrit (Bld) [Volume fraction] 39.7 % Normal 36.0-48.0 [facility] Comment on above: Performed By: #### C BC #### [facility] [address] [place] [address] Dr. Gabino Motta Hemoglobin (Bld) [Mass/Vol] 13.8 g/dL Normal 12.0-16.0 [facility] Comment on above: Performed By: #### C BC #### [facility] [address] [place] [address] Dr. Gabino Motta IG # 0.03 10e3/ul Normal 0.00-0.03 [facility] Comment on above: Performed By: #### C BC #### [facility] [address] [place] [address] Dr. Gabino Motta IG % 0.2 % Normal 0.0-0.5 [facility] Comment on above: Performed By: #### C BC #### [facility] [address] [place] [address] Dr. Gabino Motta LYMPH # 1.4 103/ul Normal 1.2-3.8 [facility] Comment on above: Performed By: #### C BC #### [facility] [address] [place] [address] Dr. Gabino Motta Lymphocytes/100 WBC (Bld) 11.4 % Critically low 20.5-60.0 [facility] Comment on above: Performed By: #### C BC #### [facility] [address] [place] [address] Dr. Gabino Motta MANUAL DIFF REQ NO Normal [facility] Comment on above: Performed By: #### C BC #### [facility] [address] [place] [address] Dr. Gabino Motta MCH (RBC) [Entitic mass] 28.4 pg Normal 26.7-34.0 [facility] Comment on above: Performed By: #### C BC #### [facility] [address] [place] [address] Dr. Gabino Motta MCHC (RBC) [Mass/Vol] 34.8 g/dL Normal 29.9-35.2 [facility] Comment on above: Performed By: #### C BC #### [facility] [address] [place] [address] Dr. Gabino Motta MCV (RBC) [Entitic vol] 81.7 fL Normal 81.0-99.0 [facility] Comment on above: Performed By: #### C BC #### [facility] [address] [place] [address] Dr. Gabino Motta MONO # 0.7 103/ul Normal 0.3-0.8 [facility] Comment on above: Performed By: #### C BC #### [facility] [address] [place] [address] Dr. Gabino Motta Monocytes/100 WBC (Bld) 5.6 % Normal 1.7-12.0 [facility] Comment on above: Performed By: #### C BC #### [facility] [address] [place] [address] Dr. Gabino Motta NEUT # 10.1 103/ul Critically high 1.4-6.5 [facility] Comment on above: Performed By: #### C BC #### [facility] [address] [place] [address] Dr. Gabino Motta Neutrophils/100 WBC (Bld) 82.3 % Critically high 43.0-75.0 [facility] Comment on above: Performed By: #### C BC #### [facility] [address] [place] [address] Dr. Gabino Motta Platelet mean volume (Bld) [Entitic vol] 10.8 fL Normal 9.5-13.5 [facility] Comment on above: Performed By: #### C BC #### [facility] [address] [place] [address] Dr. Gabino Motta PLT 274 103/ul Normal 150-450 [facility] Comment on above: Performed By: #### C BC #### [facility] [address] [address] [address] Gabino Motta RBC 4.86 106/ul Normal 4.20-5.40 [facility] Comment on above: Performed By: #### C BC #### [facility] [address] [place] [address] Dr. Gabino Motta WBC 12.3 103/ul Critically high 4.0-11.0 [facility] Comment on above: Performed By: #### C BC #### [facility] [address] [place] [address] Dr. Gabino Motta ER URINE PROFILEon 3 Bilirubin Ql (U) Negative Normal NEGATIVE [facility] Comment on above: Performed By: #### U MICRO, ERUR #### [facility] [address] [place] [address] Dr. Gabino Motta Clarity (U) SL CLOUDY Abnormal CLEAR [facility] Comment on above: Performed By: #### U MICRO, ERUR #### [facility] [address] [place] [address] Dr. Gabino Motta Color (U) YELLOW Normal YELLOW [facility] Comment on above: Performed By: #### U MICRO, ERUR #### [facility] [address] [place] [address] Dr. Gabino WILLIS A micrscopic examination will be performed if indicated. Normal The [facility] Comment on above: Performed By: #### U MICRO, ERUR #### [facility] [address] [place] [address] Dr. Gabino Motta Glucose Ql (U) Negative Normal NEGATIVE [facility] Comment on above: Performed By: #### U MICRO, ERUR #### [facility] [address] [address] [address] Gabino Motta Hemoglobin Ql (U) Negative Normal NEGATIVE [facility] Comment on above: Performed By: #### U MICRO, ERUR #### [facility] [address] [place] [address] Dr. Gabino Motta Ketones Ql (U) >=80 Abnormal NEGATIVE [facility] Comment on above: Performed By: #### U MICRO, ERUR #### [facility] [address] [address] [address] Gabino Motta LEUKOCYTES Negative Normal NEGATIVE [facility] Comment on above: Performed By: #### U MICRO, ERUR #### [facility] [address] [place] [address] Dr. Gabino Motta Nitrite Ql (U) Positive Abnormal NEGATIVE [facility] Comment on above: Performed By: #### U MICRO, ERUR #### [facility] [address] [place] [address] Dr. Gabino Motta pH (U) 6.0 [pH] Normal 5-9 [facility] Comment on above: Performed By: #### U MICRO, ERUR #### [facility] [address] [place] [address] Dr. Gabino Motta SPEC GRAVITY 1.030 Abnormal 1.005-<=1.025 [facility] Comment on above: Performed By: #### U MICRO, ERUR #### [facility] [address] [address] [address] Gabino Motta UA PROTEIN Negative Normal NEGATIVE/ TRACE [facility] Comment on above: Performed By: #### U MICRO, ERUR #### [facility] [address] [address] [address] Gabino Motta UR MICRO IND INDICATED Normal [facility] Comment on above: Performed By: #### U MICRO, ERUR #### [facility] [address] [place] [address] Dr. Gabino Motta Urobilinogen Qn (U) 0.2 {Landy'U}/dL Normal 0.2 - 1. 0 [facility] Comment on above: Performed By: #### U MICRO, ERUR #### [facility] [address] [place] [address] Dr. Gabino Motta PROF 14(COMP METB)on 023 Albumin [Mass/Vol] 3.9 g/dL Normal 3.4-5.0 [facility] Comment on above: Performed By: #### C MP #### [facility] [address] [place] [address] Dr. Gabino Motta Albumin/Globulin [Mass ratio] 1.1 {ratio} Normal [facility] Comment on above: Performed By: #### C MP #### [facility] [address] [place] [address] Dr. Gabino Motta ALP [Catalytic activity/Vol] 75 U/L Normal 46-116 [facility] Comment on above: Performed By: #### C MP #### [facility] [address] [place] [address] Dr. Gabino Motta ALT [Catalytic activity/Vol] 36 U/L Normal 14-59 [facility] Comment on above: Performed By: #### C MP #### [facility] [address] [place] [address] Dr. Gabino Motta Anion gap [Moles/Vol] 18.0 mmol/L Normal [facility] Comment on above: Performed By: #### C MP #### [facility] [address] [place] [address] Dr. Gabino Motta AST [Catalytic activity/Vol] 16 U/L Normal 15-37 [facility] Comment on above: Performed By: #### C MP #### [facility] [address] [place] [address] Dr. Gabino Motta Bilirubin [Mass/Vol] 0.4 mg/dL Normal 0.2-1.0 [facility] Comment on above: Performed By: #### C MP #### [facility] [address] [place] [address] Dr. Gabino Motta Calcium [Mass/Vol] 9.3 mg/dL Normal 8.5-10.1 [facility] Comment on above: Performed By: #### C MP #### [facility] [address] [address] [address] Gabino Motta Chloride [Moles/Vol] 101 mmol/L Normal 98-107 [facility] Comment on above: Performed By: #### C MP #### [facility] [address] [address] [address] Gabino Motta CO2 [Moles/Vol] 22.7 mmol/L Normal 21.0-32.0 [facility] Comment on above: Performed By: #### C MP #### [facility] [address] [address] [address] Gabino Motta Creatinine [Mass/Vol] 0.57 mg/dL Normal 0.55-1.02 [facility] Comment on above: Performed By: #### C MP #### [facility] [address] [place] [address] Dr. Gabino Motta EGFR-AF [place]IZ[place] >60 Normal >=60 [facility] Comment on above: Performed By: #### C MP #### [facility] [address] [address] [address] Gabino Motta EGFR-NON AF CITIZEN OF [place] >60 Normal >=60 [facility] Comment on above: Performed By: #### C MP #### [facility] [address] [place] [address] Dr. Gabino Motta Globulin (S) [Mass/Vol] 3.7 g/dL Normal [facility] Comment on above: Performed By: #### C MP #### [facility] [address] [address] [address] Gabion Motta Glucose [Mass/Vol] 94 mg/dL Normal 74-106 [facility] Comment on above: Performed By: #### C MP #### [facility] [address] [place] [address] Dr. Gabino Motta Potassium [Moles/Vol] 3.7 mmol/L Normal 3.5-5.1 [facility] Comment on above: Performed By: #### C MP #### [facility] [address] [address] [address] Gabino Motta Protein [Mass/Vol] 7.6 g/dL Normal 6.4-8.2 [facility] Comment on above: Performed By: #### C MP #### [facility] [address] [address] [address] Gabino Motta Sodium [Moles/Vol] 138 mmol/L Normal 136-145 [facility] Comment on above: Performed By: #### C MP #### [facility] [address] [address] [address] Gabino Motta Urea nitrogen [Mass/Vol] 8.0 mg/dL Normal 7.0-18.0 [facility] Comment on above: Performed By: #### C MP #### [facility] [address] [place] [address] Dr. Gabino Motta Urea nitrogen/Creatinine [Mass ratio] 14.0 mg/mg Normal [facility] Comment on above: Performed By: #### C MP #### [facility] [address] [place] [address] Dr. Gabino Motta URINE MICROSCOPIC ONLYon BACTERIA SMALL Abnormal NONE SEEN [facility] Comment on above: Performed By: #### U MICRO, ERUR #### [facility] [address] [place] [address] Dr. Gabino Motta Bacteria identified Cx Nom (U) INDICATED Normal [facility] Comment on above: Performed By: #### U MICRO, ERUR #### [facility] [address] [place] [address] Dr. Gabino Motta CAST NONE SEEN Normal NONE SEEN [facility] Comment on above: Performed By: #### U MICRO, ERUR #### [facility] [address] [place] [address] Dr. Gabino Motta Crystals LM Nom (Urine sed) NONE SEEN Normal NONE SEEN [facility] Comment on above: Performed By: #### U MICRO, ERUR #### [facility] [address] [place] [address] Dr. Gabino Motta Epithelial cells LM Ql (Urine sed) FEW Abnormal NONE SEEN /RARE [facility] Comment on above: Performed By: #### U MICRO, ERUR #### [facility] [address] [address] [address] Gabino Motta MUCOUS SMALL Abnormal NONE SEEN [facility] Comment on above: Performed By: #### U MICRO, ERUR #### [facility] [address] [address] [address] Gabino Motta RBC NONE SEEN Abnormal 0-2 [facility] Comment on above: Performed By: #### U MICRO, ERUR #### [facility] [address] [address] [address] Gabino Motta WBC 2-5 Abnormal NONE SEEN [facility] Comment on above: Performed By: #### U MICRO, ERUR #### [facility] [address] [address] [address] Gabino Motta US PREG TVon 04-25-2022 [...] by: EMA SAMUEL Date: 2022-04-25 10:29 Normal [facility] US PELVISon 11-15-2021 US PELVIS EXAMINATION: [...] by: ROXY CARRILLO Date: 2021-11-15 17:11 Normal [facility] Vital Signs Date Time Vital Sign Value Performing Clinician Zoya pollard 08-10-2024 10:28-0400 Body mass index (BMI) [Ratio] 26.46 kg/m2 Mera SEYMOUR Work Phone: [facility] 08-10-2024 10:28-040 Body weight 86.07 kg Mera SEYMOUR Work Phone: [facility] 08-10-2024 10:28-040 Diastolic blood pressure 42 mm[Hg] Mera SEYMOUR Work Phone: [facility] 08-10-2024 10:28-0400 Systolic blood pressure 96 mm[Hg] Mera SEYMOUR Work Phone: [facility] 07-11-2024 13:26-0400 Body mass index (BMI) [Ratio] 24.7 kg/m2 Fransisco Olga DO Work Phone: [facility] 07-11-2024 13:26-0400 Body weight 80.34 kg Fransisco Olga DO Work Phone: [facility] 07-11-2024 13:26-0400 Diastolic blood pressure 74 mm[Hg] Fransisco Olga DO Work Phone: [facility] 07-11-2024 13:26-0400 Systolic blood pressure 120 mm[Hg] Fransisco Olga DO Work Phone: [facility] Healthcare Encounters Encounter Date Encounter Type Care Provider Facility Start: 08-22-2024 End: 08-22-2024 ambulatory MERA TATUM Not Available Start: 08-10-2024 End: 08-10-2024 Bamboo flowsheet Mera SEYMOUR Work Phone: [facility] Start: 08-10-2024 End: 08-12-2024 Bamboo flowsheet Mera SEYMOUR Work Phone: [facility] Start: 08-10-2024 End: 08-12-2024 Clinisync Result Encounter Mera SEYMOUR Work Phone: [facility] External Department Unsolicited Start: 08-10-2024 End: 08-11-2024 External Result Encounter Mera SEYMOUR Work Phone: [facility] External Department Unsolicited Start: 08-10-2024 End: 08-10-2024 Patient encounter procedure Mera SEYMOUR Work Phone: [facility] Start: 08-10-2024 End: 08-10-2024 Periodic preventive med est patient 18-39 yrs Mera SEYMOUR Work Phone: [facility] Comment on above: Screening, , for anatomic survey; Second trimester ; 18 weeks gestation of ; STD exposure; Well woman exam with routine gynecological exam Start: 08-10-2024 End: 08-10-2024 ambulatory MERA TATUM Not Available Start: 07-11-2024 End: 07-11-2024 Bamboo flowsheet Fransisco Olga DO Work Phone: [facility] Start: 07-11-2024 End: 07-11-2024 Bamboo flowsheet Fransisco Olga DO Work Phone: [facility] Start: 07-11-2024 End: 07-11-2024 flow sheet Fransisco Olga DO Work Phone: [facility] Comment on above: 14 weeks gestation o f ; Second trimester ; Nausea and vomiting in Start: 07-11-2024 End: 07-11-2024 ambulatory FRANSISCO OLGA Not Available Start: 06-03-2024 End: 06-03-2024 ambulatory FRANSISCO OLGA Not Available Start: 05-27-2024 End: 05-27-2024 ambulatory Tracie Seo [facility] Work Phone: Start: 05-27-2024 End: 05-27-2024 Departed Referred Tracie SEYMOUR-C Work Phone: [facility] Start: 05-18-2024 End: 05-18-2024 Bamboo flowsheet Mera SEYMOUR Work Phone: [facility] Start: 05-18-2024 End: 05-18-2024 Bamboo flowsheet Mera SEYMOUR Work Phone: [facility] Start: 05-18-2024 End: 05-18-2024 ambulatory MERA TATUM Not Available Start: 05-18-2024 End: 05-18-2024 Office outpatient visit 15 minutes Mera SEYMOUR Work Phone: [facility] Comment on above: Nausea and vomiting during Start: 08-12-2022 End: 08-13-[address] STEPAN YANEZ . Facility: Start: 07-17-2022 End: 07-18-[address] STEPAN YANEZ . Facility:[facility] Start: 05-16-2022 End: 05-16-[address] STEPAN YANEZ . Facility:[facility] Start: 04-26-2022 End: 04-27-[address] STEPAN YANEZ . Facility:[facility] Start: 04-25-2022 End: 04-26-[address] FRANSISCO ESPINOZA . Facility:[facility] Start: 11-14-2021 End: 11-15-[address] FRANSISCO ESPINOZA . Facility: Procedures Date Procedure Procedure Detail Performing Clinician Start: 08-10-2024 RECURRENT VAGINITIS (HTRX) Mera SEYMOUR Work Phone: Start: 08-10-2024 Urnls dip stick/tabl et rgnt non-auto w/o micrscp Mera SEYMOUR Work Phone: Start: 08-10-2024 IGP,APTIMA HPV,AGE GDLN Mera SEYMOUR Work Phone: Start: 07-11-2024 Urnls dip stick/tabl et rgnt non-auto w/o micrscp Fransisco Espinoza DO Work Phone: Plan of Treatment Date Care Activity Detail Author Start: 09-12-2024 End: 09-12-2024 Patient encounter procedure 09/12/2024 9:50 AM EDT Routine [facility] [address] [facility] [place] [address] Fransisco Espinoza, DO [address] [place] [address] [facility] Start: 08-22-2024 End: 08-22-2024 Professional / ancillary services management 08/22/2024 11:00 AM EDT Ancillary Procedure [facility] [address] [place] [address] [facility] Start: 08-10-2024 End: 10-10-2024 Alpha fetoprotein, maternal Alpha fetoprotein, maternal Lab Routine Second trimester 18 weeks gestation of Expected: 08/10/2024 (Approximate), Expires: 10/10/2024 [facility] Comment on above: Expected: 08/10/2024 (Approximate), [...] PM EDT Routine [facility] [address] [facility] [place] [address] Fransisco Espinoza, DO [address] [place] [address] Arrived [facility] Comment on above: Arrived Start: 05-27-2024 Urine culture [facility] Start: 05-27-2024 Bacteria identified in Urine by Culture Urine Culture [facility] Start: 05-26-2024 End: 05-26-2024 ambulatory 05/26/2024 1:30 PM EDT Initial [facility] [address] [place] [address] [facility] Start: 05-26-2024 End: 05-26-2024 Professional / ancillary services management 05/26/2024 1:00 PM EDT Ancillary Procedure [facility] [address] [place] [address] [facility] CHLAMYDIA TRACHOMATI S (GENITO/STI) CHLAMYDIA TRACHOMATIS (GENITO/STI) Lab Routine STD exposure Ordered: 08/10/2024 [facility] Comment on above: Ordered: 08/10/2024 Cytology Cervical or vaginal smear or scraping study Pap Smear Pathology and Cytology Routine Well woman exam with routine gynecological exam Ordered: 08/10/2024 [facility] Comment on above: Ordered: 08/10/2024 Neisseria gonorrhoea e DNA [Presence] in Unspecified specimen by BRIGIDO with probe detection Neisseria gonorrhea DNA probe, direct Lab Routine STD exposure Ordered: 08/10/2024 [facility] Comment on above: Ordered: 08/10/2024 SURESWAB(R) ADVANCED VAGINITIS PLUS, TMA SURESWAB(R) ADVANCED VAGINITIS PLUS, TMA Pathology and Cytology Routine STD exposure Ordered: 08/10/2024 [facility] Work Phone: Comment on above: Ordered: 08/10/2024 Payers Date Payer Category Payer Self-pay 2023 [facility] [id number] 2023 Unknown [id number] 2002 Unknown [id number] 2.16.84 [id number] 2002 Unknown [id number] 2.16.84 [id number] 2002 Unknown [id number] 2.16.84 [id number] 2002 Unknown [id number] 2.16.84 [id number] 2002 Unknown [id number] 2.16.84 [id number] 2002 Unknown [id number] 2.16.84 [id number] 2002 Unknown [id number] [id number] 2002 Unknown [id number] 2.16.84 [id number] 2002 Unknown [id number] 2.16.84 0.1.901312.3.579.2.1259 2002 Unknown [id number] 2.16.84 [id number] 2002 Unknown [id number] 2.16.84 [id number] 2002 Unknown [id number] 2.16.84 [id number] 1959 Self-pay [id number] 1959 Unknown [id number] Unknown David BC/BS [id number] Unknown [id number] 2.16.8 [id number] Social History Date Type Detail Facility Start: 03-05-2020 End: 09-08-2022 Tobacco smoking status NHIS Never smoked tobacco [facility] Start: 07-28-2023 End: 07-11-2024 Alcoholic beverage intake Lifetime non-drinker (finding) [facility] Start: 06-02-2023 End: 07-24-2023 History of Social function [facility] Start: 06-02-2023 End: 07-24-2023 Tobacco use panel [facility] Start: 2002 Sex assigned at Female [facility] Start: 09-08-2022 Gender identity Identifies as female gender (finding) [facility] Start: 09-08-2022 Sexual orientation Heterosexual (finding) [facility] Start: 05-29-2024 Sex Female (finding) [facility] Start: 04-16-2024 [facility] History of Present illness Narrative 08-10-2024 DAWN [...] obtained without difficulty and patient was given [facility] order to have obtained. Orders Placed This [...] nursing note reviewed. Exam conducted with a machinist first class present. Vitals: Estimated body mass index is [...] or undercooked meat, and stay away from [facility]. Patient has been consulted regarding any further [...] a 24 y.o. female who presents for [facility] Follow Up Patient presents today for [...] nursing note reviewed. Exam conducted with a machinist first class present. Vitals: Estimated body mass index is [...] next week for intact. Documented by DAWN Kikr on behalf of: DAWN Kirk documented in this encounter [facility] Evaluation note Note Date & Type Note Facility Evaluation note Diagnosis Nausea and vomiting during documented in this encounter [facility] Evaluation note Note Date & Type Note Facility Evaluation note No assessment information availa [facility] Work Phone: Evaluation note Note Date & [...] Routine gynecological examination documented in this encounter [facility] Summary Purpose Family History No Family History Records FoundNo Family History Records FoundNo Family History Records Found Advance Directives No Advanced Directives Records Found Advance Directive Response Recorded Date/ Time Advance Directives No February 11:17am Additional Source Comments INFORMATION SOURCE (unrecogn ized section and content) DATE CREATED AUTHOR 08/22/2022 [facility] DATE CREATED AUTHOR AUTHOR'S ORGANIZ ATION 05/31/2024 [facility] DATE CREATED AUTHOR AUTHOR'S ORGANIZ ATION 08/26/2024 [facility] EPIC Care Teams (unrecognized sec tion and content) Rag Grader Relationship Specialty Start Date End Date Stepan Yanez MD [address] [place] [address] PCP - General Family Medicine 08/12/22 Rag Grader Relationship Specialty Start Date End Date Stepan Yanez MD [address] [place] [address] PCP - General Family Medicine 08/12/22 Team Status: Inactive Member Role Status Dates Tracie Seo PA-C Attending Provider Active Start: May 27, 2024 End: May 27, 2024 Rag Grader Relationship Specialty Start Date End Date Stepan Yanez MD [address] [place] [facility] [address] PCP - General Family Medicine 08/12/22 Rag Grader Relationship Specialty Start Date End Date Stepan Yanez MD [address] [place] [facility] [address] PCP - General Family Medicine 08/12/22 Rag Grader Relationship Specialty Start Date End Date Stepan Yanez MD [address] [place] [facility] [address] PCP - General Family Medicine 08/12/22 Rag Grader Relationship Specialty Start Date End Date Stepan Yanez MD [address] [place] [facility] [address] PCP - General Family Medicine 08/12/22 Reason [...] BE BASED ON THE PRIMARY CLINICAL RECORDS. [facility] [employer] provides no warranty or guarantee of the accuracy or completeness of information in this document.
[2024-09-11 00:08] LABS: AFP Value 72.5 ng/mL (.); Gest. Age on Collection Date 22.9 weeks (.); Gestat. Age Based On Ultrasound (.); Insulin Dep Diabetes No (.); Maternal Age At EDD 22.9 yr (.); OSBR Risk 1 IN 10000 (.); Results Report (.)
== END 2024-09-09 10:58 | disposition home or self-care (01) ==
LOC: LAB 10:59
PROVIDERS: PCP Family Medicine; Visit Provider Physician Assistant
DX: Z34.92 Encounter for supervision of normal pregnancy, unspecified, second trimester (principal)
CPT/HCPCS: 36415; 82105

== ENCOUNTER 2024-10-13 13:42 | Outpatient (OUT) | payer BC, SELFPAY ==
--- OUTSIDE RECORDS SUMMARY | 2024-10-04 10:20 | XMS_ITS | Encounter Summary ---
Author Organization [facility] Address [address] [place] [address] Care Team Providers Care Verification Specialist Name Role Phone Franklin Yanez MD Primary Care Provider [phone] Reason for Visit * Reason Comments Routine Visit Encounter Details Date Type Department Care Team (Late Contact Info) Description 10/04/2024 10:20 AM EDT Routine [facility] [address] [place] [address] Mera Guzman PA [address] [address] Second trimester ([facility]); 26 weeks gestation of ([facility]); BV (bacterial vaginosis) Social History Tobacco Use Types Packs/Day Years [...] Sign Reading Time Taken Comments Blood Pressure 114/62 10/04/2024 10:14 AM EDT Pulse - - Temperature - - Respiratory Rate - - Oxygen Saturation - - Inhaled Oxygen Concentration - - Weight 92.1 kg (203 lb) 10/04/2024 10:14 AM EDT Height - - Body Mass Index 28.31 07/28/2023 9:45 AM EDT documented in this encounter Progress Notes * DAWN Kirk - 10/04/2024 10:20 AM EDT Reason for Appointment: Patient ID: Mei King is a 24 y.o. female who presents for Routine Visit Patient presents today for Return OB appointment. MEDICATIONS Current Outpatient Medications Medication Instructions metroNIDAZOLE (Metrogel) 0.75 % vaginal gel Vaginal, Daily promethazine (PHENERGAN) 12.5 mg, Oral, Every 6 [...] reviewed. Vitals: Estimated body mass index is 28.31 kg/m?? as calculated from the following: Height as of 07/28/23: 5' 11 . Weight as of this encounter: 203 lb. BP: 114/62 Patient's last menstrual period was 03/20/2024. ASSESSMENT & PLAN ICD-10-CM 1. Second trimester ([facility]) Z34.92 2. 26 weeks gestation of ([facility]) Z3A.26 3. BV (bacterial vaginosis) N76.0 metroNIDAZOLE (Metrogel) 0.75 % vaginal gel B96.89 Return OB: Patient presents today for a routine obstetrics appointment. Patient is currently 26w3d . Patient states she is doing well but has complaints of being tired due to current . Patient has verbalizes frequent movement. labor precautions was discussed/given and patient was instructed to perform kick counts three times a day. No orders of the defined types were placed in this encounter. Patient states she continues to have BV symptoms, we will send in teraconazole. IF not improved we will re culture next visit Follow Up: Patient is to return to office in 2 week for routine OB appointment. Documented by DAWN Kirk on behalf of: DAWN Kirk documented in this encounter Plan of Treatment Upcoming Encounters Date Type Department Care Team (Late st Contact Info) Description 10/19/2024 11:30 AM EDT Routine [facility] [address] [place] [address] Stone Espinoza DO [address] [place] [address] documented as of this encounter Visit Diagnoses Diagnosis Second trimester ([facility]) state, incidental 26 weeks gestation of ([facility]) BV (bacterial vaginosis) Unspecified vaginitis and vulvovaginitis documented in this encounter Care Teams Verification Specialist Relationship Specialty Start Date End Date Franklin Yanez MD [address] [facility] [place] [address] PCP - General Family Medicine 08/12/22 documented as of this encounter
--- OUTSIDE RECORDS SUMMARY | 2024-10-13 13:46 | XMS_ITS | Encounter Summary ---
Author Organization [facility] Address [address] [address] Care Team Providers Care Title Curator Name Role Phone Franklin Yanez MD Primary Care Provider [phone] Encounter Details Date Type Department Care Team (Late Contact Info) Description 09/05/2022 Abstract NOMWalter CANDELARIA [address] [place] [address] Stone Espinoza DO [address], [place] [address] Social History Tobacco Use Types Packs/Day Years [...] Info) Description 10/19/2024 11:30 AM EDT Routine JELENA CANDELARIA [address] [place] [address] Stone Espinoza DO [address], [place] [id number] documented as of this encounter Visit Diagnoses Not on filedocumented in this encounter Care Teams Title Curator Relationship Specialty Start Date End Date Franklin Yanez MD [address] [place] [address] PCP - General Family Medicine 08/12/22 documented as of this encounter
--- OUTSIDE RECORDS SUMMARY | 2024-10-13 13:46 | XMS_ITS | Encounter Summary ---
Author Organization [facility] Address [address] [place] [address] Care Team Providers Care Special Education Curriculum Specialist Name Role Phone Franklin Yanez MD Primary Care Provider [phone] Encounter Details Date Type Department Care Team (Late Contact Info) Description 09/24/2022 Abstract JELENA CANDELARIA [address] [place] [address] Mera Guzman PA [address] [place], [id number] Social History Tobacco Use Types Packs/Day Years [...] 11:30 AM EDT Routine JELENA CANDELARIA [address] [place] [address] Stone Espinoza DO [address] [place], [id number] documented as of this encounter Visit Diagnoses Not on filedocumented in this encounter Care Teams Special Education Curriculum Specialist Relationship Specialty Start Date End Date Franklin Yanez MD [address] [place] [phone] PCP - General Family Medicine 08/12/22 documented as of this encounter
--- OUTSIDE RECORDS SUMMARY | 2024-10-13 13:46 | XMS_ITS | Encounter Summary ---
Author Organization [facility] Address [address] [place] [address] Care Team Providers Care Postulant Name Role Phone Franklin Yanez MD Primary Care Provider [phone] Encounter Details Date Type Department Care Team (Late Contact Info) Description 11/06/2022 Abstract JELENA CANDELARIA [address] [facility] [place] [address] Stone Espinoza DO [facility] [address], [facility]11 Social History Tobacco Use Types Packs/Day Years [...] Department Care Team (Late Contact Info) Description 10/19/2024 11:30 AM EDT Routine JELENA CANDELARIA [address] [place] [address] Stone Espinoza DO [address], [place] [id number] documented as of this encounter Visit Diagnoses Not on filedocumented in this encounter Care Teams Postulant Relationship Specialty Start Date End Date Franklin Yanez MD [address] [place] [phone] PCP - General Family Medicine 08/12/22 documented as of this encounter
--- OUTSIDE RECORDS SUMMARY | 2024-10-13 13:46 | XMS_ITS | Encounter Summary ---
Author Organization [facility] Address [address] [place] [address] Care Team Providers Care Monotype Machinist Name Role Phone Franklin Yanez MD Primary Care Provider [phone] Encounter Details Date Type Department Care Team (Late Contact Info) Description 12/29/2022 Abstract JELENA CANDELARIA [address] [place] [address] Mera Guzman PA [address] [place], [facility]11 Social History Tobacco Use Types Packs/Day [...] 11:30 AM EDT Routine JELENA CANDELARIA [address] [place] [address] Stone Espinoza DO [address] [facility] [address] [place], [facility]11 documented as of this encounter Visit Diagnoses Not on filedocumented in this encounter Care Teams Monotype Machinist Relationship Specialty Start Date End Date Franklin Yanez MD [address] [place] [address] PCP - General Family Medicine 08/12/22 documented as of this encounter
--- OUTSIDE RECORDS SUMMARY | 2024-10-13 13:46 | XMS_ITS | Encounter Summary ---
Author Organization [facility] Address [address] [place] [address] Care Team Providers Care Plate Molder Name Role Phone Franklin Yanez MD Primary Care Provider [phone] Encounter Details Date Type Department Care Team (Late Contact Info) Description 05/14/2024 Abstract JELENA CANDELARIA [address] [facility] [place] [address] Stone Espinoza DO [facility] [address], [facility]11 Social History Tobacco Use Types [...] EDT Routine JELENA CANDELARIA [address] [place] [address] Stone Espinoza DO [address], [place] [id number] documented as of this encounter Visit Diagnoses Not on filedocumented in this encounter Care Teams Plate Molder Relationship Specialty Start Date End Date Franklin Yanez MD [address] [place] [phone] PCP - General Family Medicine 08/12/22 documented as of this encounter
--- OUTSIDE RECORDS SUMMARY | 2024-10-13 13:46 | XMS_ITS | Clinical Summary ---
Author Organization [facility] Healthcare Address [address] [place] [address] Care Team Providers Care Hot Box Operator Name Role Phone Franklin Yanez MD Primary Care Provider [phone] Allergies No known active allergies Medications promethazine (Phenergan) 12.5 MG tabletIndicatio ns:Nausea and vomiting in ([facility]) Take 1 tablet (12.5 mg) by mouth every 6 (six) hours if needed for nausea or vomiting for up to 30 doses Take 1 tablet by mouth every 6 hours as needed for nausea. 30 tablet 2 5 Active metroNIDAZOLE (Metrogel) 0.75 % vaginal gelIndications: BV (bacterial vaginosis) Insert into the vagina Daily for 5 days 70 g 5 10/10/19 25 Encounters Date Type Department Care Team Description 10/04/2024 10:20 AM EDT Routine JELENA [facility] [place] [address] Mera Guzman PA Second trimester ([facility]); 26 weeks gestation of ([facility]); BV (bacterial vaginosis) 10/04/2024 Bamboo flowsheet JELENA Montilla [facility] [place] [address] Mera Guzman PA 09/12/2024 9:50 AM EDT Routine JELENA Montilla [facility] [place] [address] Olga, Stone, DO Second trimester ([facility]); 24 weeks gestation of ([facility]); Diabetes mellitus screening 09/12/2024 Bamboo flowsheet [facility] [address] [facility] [place] [place] [phone] Stone Espinoza DO 09/09/2024 Clinisync Result Encounter NOMS External Department Unsolicited Mera Guzman PA 08/29/2024 Orders Only [facility] RUIZGY[facility] [address] [place] [phone] Juju Reynaga MA 08/22/2024 11:00 AM EDT Ancillary Procedure [facility] CANDELARIA [address] [place] [phone] 08/11/2024 Telephone [facility] CANDELAR[facility] [address] [place] [address] Asya Dozier MA 08/10/2024 10:30 AM EDT Routine [facility] [address] [place] [address] Mera Guzman PA Screening, , for anatomic survey ([facility]); Second trimester ([facility]); 18 weeks gestation of ([facility]); STD exposure; Well woman exam with routine gynecological exam 08/10/2024 Clinisync Result Encounter NOMS External Department Unsolicited Mera Guzman PA 08/10/2024 External Result Encounter NOMS External Department Unsolicited Mera Guzman PA 08/10/2024 Bamboo flowsheet [facility] [address] [facility] [place] [address] Mera Guzman PA from Last 3 Months Family History Medical [...] (203 lb) 10/04/2024 10:14 AM EDT Height 180.3 cm (5' 11 ) 07/28/2023 9:45 AM EDT Body Mass Index 28.31 07/28/2023 9:45 AM EDT Plan of Treatment Upcoming Encounters Date Type Department Care Team (Late st Contact Info) Description 10/19/2024 11:30 AM EDT Routine [facility] [address] [place] [address] Stone Espinoza DO [address] [place], [place] [phone] Procedures Procedure Name Priority Date/Time Associated Diagnosis Comments POCT URINALYSIS DIPSTICK Routine 09/12/2024 10:01 AM EDT Second trimester ([facility]) AFP, SERUM, OPEN SPINA BIFIDA Routine 09/09/2024 11:12 AM EDT US OB 14+ WEEKS ANATOMY SCAN Routine 08/22/2024 12:04 PM EDT Screening, , for anatomic survey ([facility]) RECURRENT VAGINITIS (HTRX) Routine 08/10/2024 11:05 AM EDT POCT URINALYSIS DIPSTICK Routine 08/10/2024 10:36 AM EDT Second trimester ([facility]) IGP,APTIMA HPV,AGE GDLN Routine 08/10/2024 10:13 AM EDT PAP SMEAR Routine 08/10/2024 12:00 AM EDT from Last 3 Months Results * (ABNORMAL) POCT urinalysis dipstick manually resulted (09/12/2024 10:01 AM EDT) Only the most recent of2 resultswithin the time period is included. Color, UA Yellow Clarity, UA Clear Glucose, UA Negative Negative - 1999(110) ++++ mg/dL Bilirubin, UA Negative Negative - 4(70) +++ mg/dL Ketones, UA Negative Negative - 160(16) ++++ mg/dL Spec Grav, UA 1.015 1 - 1.03 Blood, UA Negative Negative - 50 Daniele/mcL pH, UA 8.5 5 - 9 Protein, UA Negative Negative - 2000(20) ++++ mg/dL Urobilinogen, UA 0.2 0.2 - 12 mg/dL Leukocytes, UA Positive Negative - 500+++ Kiara/mcL Comment:small Nitrite, UA Negative Negative - Positive Urine 09/12/2024 10:0 1 AM EDT [facility] POINT OF CARE TEST ENTER/EDIT OR DERABLES Final Result * AFP, SERUM, OPEN SPINA BIFIDA (09/09/2024 11:12 AM EDT) Pathologist [facility] RESULTS Report . [facility] TEST RESULTS: *Screen Negative* . [facility] GEST. AGE ON COLLECTION DATE 22.9 . weeks [facility] GESTAT. AGE BASED ON Ultrasound . [facility] Comment: 18.6 on 08/10/2024 Recalculations are not recommended when gestational dating by LMP and ultrasound are within 10 days. [age]ICK [age] . [age] [facility] RACE . [facility] WEIGHT 189 . lbs [facility] INSULIN DEP DIABETES No . TB MULTIPLE GESTATION No . [facility] AFP VALUE 72.5 . ng/mL [facility] AFP MOM 1.00 . [facility] [place] [address] . [facility] INTERPRETATION Comment . [facility] Comment: Interpretation: Screen Negative This result is screen negative for OSB. The AFP MoM calculated is based on the gestational age provided. MS-AFP can identify up to 80% of open neural tube defects. Closed neural tube defects and some open defects may not be detected by this test. This test does not screen for Down Syndrome or Trisomy 18. If screening for Down Syndrome or Trisomy 18 is desired, contact [employer] [facility] to discuss available options. The [employer] recommends amniocentesis be offered to women age 35 and older. COMMENT: Comment . [facility] Comment: Jo Granados, Ph.D., [facility] Director References: Available Upon Request. Multiples Of Median Cutoffs For AFP Elevations Hirsch 2.5 Black 2.8 IDD 2.0 Twins 4.5 Abbreviation Definitions IDD - Insulin Dep Diabetes OSBR - Open Spina Bifida Risk For further inquiries contact [employer] [facility] at [phone]. This test was developed and its performance characteristics determined by [employer]. It has not been cleared or approved by the Food and Drug Administration. Performed at: [facility] [employer] [address], [place] [id number] Commercial Real Estate Attorney: Tesfaye Salas [facility], Phone: [phone] 09/09/2024 11:1 2 AM EDT 09/09/2024 11:13 AM EDT Narrative ISELA - 09/11/2024 12:08 AM EDT N ULTRASOUND [id number] 4 18 N 1 Y 189 N N N N N White/ us [facility] BLOOD ORDERABLES Final Resul t [facility] * US OB 14+ weeks anatomy scan (08/22/2024 12:04 PM EDT) Anatomical Region Laterality Modality Body Ultrasound 08/24/2024 8:24 AM EDT Narrative 08/24/2024 8:35 AM EDT EXAM: US OB 14+ WEEKS ANATOMY SCAN [...] anatomy. Interpreted by: Electronically signed by JOSEPH CAMPOS II, MD, PHD at 24-Aug-2024 08:22:54 AM [facility] Procedure Note Joseph Campos MD - 08/24/2024 EXAM: US OB 14+ WEEKS ANATOMY SCAN HISTORY: anatomy. COMPARISON: Ob ultrasound 06/03/2024. TECHNIQUE: Two-dimensional transabdominal grayscale ultrasound imaging ofthe pelvis was performed. FINDINGS: Gestation: Single Presentation: Cephalic Cardiac Activity: 140 beats per minute Placental Location: Posterior with no sonographic abnormalitiesidentified. Distance from Placental Tip to Cervix: 4.3 [...] is 20 weeks 4 days (+/- 10 daysgestation). Estimated Weight: 370 grams, +/- 56 grams [...] gestation 20 weeks, 2 days by LMP. Today'sultrasound measurements correlate with a gestational age of 20 weeks 4days. Estimated weight is 370 grams, +/- 56 grams ( 0 lb 13 oz)which correlates to 68 %. YANICK is 01/05/2025. 2. Unremarkable ultrasound of the anatomy. Interpreted by: Electronically signed by JOSEPH CAMPOS II, MD, PHD 08:22:54 AM [facility] us Mera [facility] IMKlarissa OB US PROCEDURES Final Resul t * (ABNORMAL) RECURRENT VAGINITIS (HTRX) (08/10/2024 11:05 AM EDT) Pathologist [facility] ATOPOBIUM VAGINAE 0.000 19.961 - 24.689 ppm 08/11/2024 7:42 AM EDT [facility] ATOPOBIUM VAGINAE Not Detected 19.961 - 24.689 ppm 08/11/2024 7:42 AM EDT [facility] BVAB 2,3 (BACTERIAL VAGINOSIS ASSOCIATED BACTERIA 2, 3); MOBILUNCUS SPP 0.000 19.961 - 24.689 ppm 08/11/2024 7:42 AM EDT [facility] BVAB 2,3 (BACTERIAL VAGINOSIS ASSOCIATED BACTERIA 2, 3); MOBILUNCUS SPP Not Detected 19.961 - 24.689 ppm 08/11/2024 7:42 AM EDT [facility] ROSETTE ALBICANS, PARAPSILOSIS, TROPICALIS 27.160(A) 19.961 - 30.770 ppm 08/11/2024 7:42 AM EDT [facility] ROSETTE ALBICANS, PARAPSILOSIS, TROPICALIS Detected(A) 19.961 - 30.770 ppm 08/11/2024 7:42 AM EDT [facility] ROSETTE GLABRATA 0.000 23.000 - 32.138 ppm 08/11/2024 7:42 AM EDT [facility] ROSETTE GLABRATA Not Detected 23.000 - 32.138 ppm 08/11/2024 7:42 AM EDT [facility] ROSETTE KRUSEI 0.000 23.000 - 32.271 ppm 08/11/2024 7:42 AM EDT [facility] ROSETTE KRUSEI Not Detected 23.000 - 32.271 ppm 08/11/2024 7:42 AM EDT [facility] CHLAMYDIA TRACHOMATIS 0.000 23.000 - 31.467 ppm 08/11/2024 7:42 AM EDT [facility] CHLAMYDIA TRACHOMATIS Not Detected 23.000 - 31.467 ppm 08/11/2024 7:42 AM EDT [facility] GARDNERELLA VAGINALIS 29.925(A) 19.961 - 24.689 ppm 08/11/2024 7:42 AM EDT [facility] GARDNERELLA VAGINALIS Detected(A) 19.961 - 24.689 ppm 08/11/2024 7:42 AM EDT [facility] MEGASPHAERA (TYPES 1, 2) 0.000 19.961 - 24.689 ppm 08/11/2024 7:42 AM EDT [facility] MEGASPHAERA (TYPES 1, 2) Not Detected 19.961 - 24.689 ppm 08/11/2024 7:42 AM EDT [facility] NEISSERIA GONORRHOEAE 0.000 23.000 - 32.117 ppm 08/11/2024 7:42 AM EDT [facility] NEISSERIA GONORRHOEAE Not Detected 23.000 - 32.117 ppm 08/11/2024 7:42 AM EDT [facility] TRICHOMONAS VAGINALIS 0.000 23.000 - 32.119 ppm 08/11/2024 7:42 AM EDT [facility] TRICHOMONAS VAGINALIS Not Detected 23.000 - 32.119 ppm 08/11/2024 7:42 AM EDT [facility] MYCOPLASMA GENITALIUM 0.000 19.961 - 24.689 ppm 08/11/2024 7:42 AM EDT [facility] MYCOPLASMA GENITALIUM Not Detected 19.961 - 24.689 ppm 08/11/2024 7:42 AM EDT [facility] Tissue 08/10/2024 11:0 5 AM EDT 08/11/2024 1:53 AM EDT us [facility] BLOOD ORDERABLES Final Resul t [facility] [address] [place] [place] [address] * IGP,APTIMA HPV,AGE GDLN (08/10/2024 10:13 AM EDT) AGE GDLN ACOG TESTING Note . [facility] Comment: TESTS RESULT FLAG UNITS REF RANGE LAB Clinician Provided Cytology Information Source.............[employer] Other.............. No. of containers..01 ThinPrep Vial Age Camilo RO Belle... FLAG LEGEND: L-Low Normal,H-High Normal,LL-Alert Low,HH-Alert High <-Panic Low,>-Panic High,A-Abnormal,AA-Critical Abnormal Performed at: 01 =[facility] [address] Laurie Moreno MD, IGP, RFX APTIMA HPV ASCU Note . [facility] Comment: TESTS RESULT FLAG UNITS REF RANGE LAB DIAGNOSIS: 02 NEGATIVE FOR INTRAEPITHELIAL LESION OR MALIGNANCY. FUNGAL ORGANISMS MORPHOLOGICALLY CONSISTENT WITH ROSETTE SPECIES ARE PRESENT. Specimen adequacy: 02 Satisfactory for evaluation. No endocervical component is identified. An endocervical component is not commonly seen in the patient. Performed by: 02 [facility] [employer] ([facility]) . 02 Note: Note 02 The Pap [...] <-Panic Low,>-Panic High,A-Abnormal,AA-Critical Abnormal Performed at: [address] [address] Laurie Moreno MD, Performed at: = - [facility] [id number] Commercial Real Estate Attorney: Laurie Moreno MD, Phone: [phone] Performed at: [address] [id number] Commercial Real Estate Attorney: Laurie Moreno MD, Phone: [phone] 08/10/2024 10:1 3 AM EDT 08/10/2024 12:07 PM EDT Narrative [facility] - 08/12/2024 3:08 PM EDT SPATULA-ALONE ENDOCERVIX [facility] BLOOD ORDERABLES Final Resul t [facility] TB * Pap Smear (08/10/2024 12:00 AM EDT) Swab Cervical swab / Unknown [facility] CYTOLOGY ORDERABLES Final Re sult Performing Organization Address City/[facility]/ZIP Co de Phone Number EXTERNAL LAB from Last 3 Months Insurance BCBS Care Teams Hot Box Operator Relationship Specialty Start Date End Date Franklin Yanez MD [address] [place] [address] PCP - General Family Medicine 08/12/22
--- OUTSIDE RECORDS SUMMARY | 2024-10-13 13:46 | XMS_ITS | Encounter Summary ---
Author Organization [facility] Address [address] [place] [address] Care Team Providers Care Speech And Language Tutor Name Role Phone Franklin Yanez MD Primary Care Provider [phone] Encounter Details Date Type Department Care Team (Late Contact Info) Description 10/04/2024 Bamboo flowsheet N[facility] [address] [place] [address] Mera Guzman PA [address] [facility] [place], [facility]11 Social History Tobacco Use Types [...] Info) Description 10/19/2024 11:30 AM EDT Routine NOMWalter CANDELARIA [address] [place] [address] Stone Espinoza DO [address] [facility] [place] [place], [facility]11 documented as of this encounter Visit Diagnoses Not on filedocumented in this encounter Care Teams Speech And Language Tutor Relationship Specialty Start Date End Date Franklin Yanez MD [address] [place] [address] PCP - General Family Medicine 08/12/22 documented as of this encounter
--- OUTSIDE RECORDS SUMMARY | 2024-10-13 13:46 | XMS_ITS | Encounter Summary ---
Author Organization [facility] Address [address] [place] [address] Care Team Providers Care Terra Cotta Roofer Helper Name Role Phone Franklin Yanez MD Primary Care Provider [phone] Encounter Details Date Type Department Care Team (Late st Contact Info) Description 08/29/2024 Orders Only NOM[facility]ter CANDEL[facility]IA [address] [place] [address] Juju Reynaga MA Social History Tobacco Use Types Packs/Day Years [...] 10/19/2024 11:30 AM EDT Routine [facility] Юлия CANDELARIA [address] [place] [address] Stone Espinoza DO [address] [place], [place] [id number] documented as of this encounter Procedures Procedure Name Priority Date/Time Associated Diagnosis Comments PAP SMEAR Routine 08/10/2024 12:00 AM EDT documented in this encounter Results * Pap Smear (08/10/2024 12:00 AM EDT) Swab Cervical swab / Unknown us [facility] CYTOLOGY ORDERABLES Final Re sult EXTERNAL LAB documented in this encounter Visit Diagnoses Not on filedocumented in this encounter Care Teams Terra Cotta Roofer Helper Relationship Specialty Start Date End Date Franklin Yanez MD [address] [place] [address] PCP - General Family Medicine 08/12/22 documented as of this encounter
--- OUTSIDE RECORDS SUMMARY | 2024-10-13 13:46 | XMS_ITS | Encounter Summary ---
Author Organization [facility] Address [address] [place] [address] Care Team Providers Care Trial Mgr Name Role Phone Franklin Yanez MD Primary Care Provider [phone] Encounter Details Date Type Department Care Team (Late Contact Info) Description 11/11/2022 Abstract [facility] [address] [facility] [place] [address] Sydni Lopez LPN [address] [place] [address] Social History Tobacco Use Types Packs/Day Years [...] 11:30 AM EDT Routine JELENA CANDELARIA [address] [facility] [place] [address] Stone Espinoza DO [address] [facility] [address] [place] [id number] documented as of this encounter Visit Diagnoses Not on filedocumented in this encounter Care Teams Trial Mgr Relationship Specialty Start Date End Date Franklin Yanez MD [address] [place] [phone] PCP - General Family Medicine 08/12/22 documented as of this encounter
[2024-10-13 14:11] LABS: Hematocrit 32.5 % (36.0-48.0); Hemoglobin 11.1 g/dL (12.0-16.0); Immature Granulocytes Abs Auto 0.07 10^3/uL (0.00-0.03); Immature Granulocytes Pct Auto 0.6 % (0.0-0.5); Lymphocytes Absolute Auto 1.9 10^3/uL (1.2-3.8); Mean Corpuscular HGB Conc 34.2 g/dL (29.9-35.2); Mean Corpuscular Hemoglobin 29.6 pg (26.7-34.0); Mean Corpuscular Volume 86.7 fL (81.0-99.0); Platelet Count 282 10^3/uL (150-450); Red Blood Count 3.75 10^6/uL (4.20-5.40); White Blood Count 11.9 10^3/uL (4.0-11.0)
[2024-10-13 14:56] LABS: Cannabinoid Screen Urine POSITIVE (NEGATIVE); Methamphetamines Screen Urine NEGATIVE (NEGATIVE); Tricyclic Antidepressant Urine NEGATIVE (NEGATIVE)
[2024-10-14 06:08] LABS: Rubella Antibodies, IgG 1.60 index (Immune >0.99)
[2024-10-14 12:08] LABS: Rapid Plasma Reagin, Quant Non Reactive titer (NonRea<1:1)
[2024-10-17 22:08] LABS: Carboxy THC Conf, MS, UR 175 ng/mL (Cutoff=10)
== END 2024-10-13 13:43 | disposition home or self-care (01) ==
LOC: LAB 13:43
PROVIDERS: PCP Family Medicine; Visit Provider Obstetrics & Gynecology
DX: Z34.01 Encounter for supervision of normal first pregnancy, first trimester (principal); N92.6 Irregular menstruation, unspecified
CPT/HCPCS: 36415; 80307; 80349; 83036; 85025; 86592; 86762; 86803; 86850; 86900; 86901; 87086; 87340; 87389

== ENCOUNTER 2024-11-08 09:45 | Outpatient (RCR) | payer BC, SELFPAY | END 2024-11-13 23:59 | disposition home or self-care (01) | LOC: INF 09:45 | PROVIDERS: PCP Family Medicine; Visit Provider Obstetrics & Gynecology | DX: O26.893 Other specified pregnancy related conditions, third trimester (principal); Z67.91 Unspecified blood type, Rh negative; Z3A.00 Weeks of gestation of pregnancy not specified | CPT/HCPCS: 36415; 86850; 86900; 86901 ==

== ENCOUNTER 2024-11-24 09:34 | Outpatient (RCR) | payer BC, SELFPAY ==
[2024-11-24 09:41] VITALS: BP 121/80; PULSE 94; TEMP 36.6; O2SAT 99
[2024-11-24] MEDS: RHO(D) IMMUNE GLOBULIN 1,500 UNIT SYRINGE 1500 UNIT IM (09:45)
== END 2024-12-14 08:08 | disposition home or self-care (01) ==
LOC: LAB 09:34
PROVIDERS: PCP Family Medicine; Visit Provider Obstetrics & Gynecology
DX: Z51.81 Encounter for therapeutic drug level monitoring (principal); Z67.91 Unspecified blood type, Rh negative
CPT/HCPCS: 36415; 86850; 86900; 86901; J2791

== ENCOUNTER 2024-12-15 20:20 | Outpatient (REF) | payer BC, SELFPAY ==
--- OUTSIDE RECORDS SUMMARY | 2024-12-15 20:26 | XMS_ITS | CCD ---
Author Organization [facility] Care Team Providers Care Wheel Molder Name Role Phone CLEMENTE ., DR YING [...] Unavailable Stepan Yanez MD Primary Care Provider [phone] Tracie Seo PA-C Attending Provider Tracie Seo Attending Unavailable Tracie Seo Admitting Unavailable Stepan Yanez MD Primary Care Provider [phone] MERA TATUM Attending Unavailable OLGAMARTINAY Referring Unavailable OLGA, FRANSISCO Attending Unavailable DEEPTI, MERA Attending Unavailable DEEPTI, MERA Referring Unavailable OLGA, FRANSISCO Attending Unavailable DEEPTI, MERA Attending Unavailable FRANSISCO ESPINOZA Attending Unavailable FRANSISCO ESPINOZA Referring Unavailable MERA TATUM Attending Unavailable FRANSISCO ESPINOZA Attending Unavailable MAJO SHEA Attending Unavailable Medications Current Medications Medication Drug [...] 1 dose 1 mL 07/24/2023 05/18/2024 Discontinued metroNIDAZOLE 0.0075 mg/mg vaginal gel (2 sources) Nitroimidazole Antimicrobial Start: 10-05-19 End: 10-10-19 metroNIDAZOLE (Metrogel) 0.75 % vaginal gel Indications: BV (bacterial vaginosis) Insert into the vagina Daily for 5 days 70 g 10/04/2024 10/09/2024 Active ondansetron 4 mg disintegrating oral tablet (6 [...] Discontinued promethazine hydrochloride 12.5 mg oral tablet (20 sources) Phenothiazine Start: 07-11-2024 take 1 tablet by mouth every six hours as needed for nausea and nausea, then take 1 tablet by mouth every six hours as needed for nausea and nausea promethazine (Phenergan) 12.5 MG tablet Indications: Nausea and vomiting in ([facility]) Take 1 tablet (12.5 mg) by mouth [...] predominantly sexual mode of transmission] 08-10-2024 Episodic Inflammatory diseases of female pelvic organs (2 sources) Bacterial vaginosis; Translations: [Acute vaginitis] 10-04-2024 Episodic Menstrual disorders (3 sources) Irregular menstruation, unspecified; Translations: [IRREGULAR MENSTRUATION UNSPECIFIED] Onset: 04-25-2022 Chronic Other complications of (4 sources) Vomiting of , unspecified; Translations: [Unspecified vomiting of , unspecified as to episode of care or not applicable] 05-18-2024 Episodic Other complications of (2 sources) size does not accord with dates; Translations: [Uterine size-date discrepancy, unspecified trimester] 10-19-2024 Episodic Other and delivery including normal (20 sources) Encounter for supervision of normal , unspecified, second trimester; Translations: [Encounter for supervision of normal , unspecified, first trimester] Onset: 05-07-2022 Episodic Other screening for suspected conditions (not mental disorders or infectious disease) (8 sources) Encounter for other specified screening; Translations: [Patient encounter status] Onset: 07-17-2022 Episodic Residual codes; unclassified (2 sources) Gestation period, 14 weeks; Translations: [14 weeks gestation of ] 07-11-2024 Episodic Residual codes; unclassified (2 sources) Gestation period, 18 weeks; Translations: [18 weeks gestation of ] 08-10-2024 Episodic Residual codes; unclassified (2 sources) Gestation period, 24 weeks; Translations: [24 weeks gestation of ] 09-12-2024 Episodic Residual codes; unclassified (2 sources) Gestation period, 26 weeks; Translations: [26 weeks gestation of ] 10-04-2024 Episodic Residual codes; unclassified (2 sources) Gestation period, 28 weeks; Translations: [28 weeks gestation of ] 10-19-2024 Episodic Residual codes; unclassified (2 sources) Gestation period, 30 weeks; Translations: [30 weeks gestation of ] 11-02-2024 Episodic Residual codes; unclassified (2 sources) Gestation period, 32 weeks; Translations: [32 weeks gestation of ] 11-16-2024 Episodic Residual codes; unclassified (2 sources) Gestation period, 34 weeks; Translations: [34 weeks gestation of ] 11-30-2024 Episodic Urinary tract infections (1 source) Acute [...] Range Facility Urinalysis macro (dipstick) panel (U)on 11-30-2024 Bilirubin, UA Negative Negative - 4(70) +++ mg/dL [facility] Blood, UA Negative Negative - 50 Daniele/mcL [facility] Clarity, UA Clear [facility] re Color, UA Yellow [facility] Glucose, UA Negative Negative - 1999(110) ++++ mg/dL [facility] Interpretation and review of laboratory results Abnormal [facility] Ketones, UA Negative Negative - 160(16) ++++ mg/dL [facility] Leukocytes, UA Positive Negative - 500+++ Kiara/mcL [facility] Comment on above: 2+ Nitrite, UA Negative Negative - Positive [facility] pH, UA 8 5 - 9 [facility] Protein, UA Negative Negative - 1999(20) ++++ mg/dL [facility] Spec Grav, UA 1.01 1 - 1.03 [facility] Urobilinogen, UA 0.2 0.2 - 12 mg/dL [facility] Urinalysis macro (dipstick) panel (U)on 11-16-2024 Bilirubin, UA Negative Negative - 4(70) +++ mg/dL [facility] Blood, UA Negative Negative - 50 Daniele/mcL [facility] Clarity, UA Clear [facility] re Color, UA Yellow [facility] Glucose, UA Negative Negative - 1999(110) ++++ mg/dL [facility] Interpretation and review of laboratory results Abnormal [facility] Ketones, UA Negative Negative - 160(16) ++++ mg/dL [facility] Leukocytes, UA Positive Negative - 500+++ Kiara/mcL [facility] Comment on above: 3+ Nitrite, UA Negative Negative - Positive [facility] pH, UA 6.5 5 - 9 [facility] e Protein, UA Positive Negative - 1999(20) ++++ mg/dL [facility] Spec Grav, UA 1.015 1 - 1.03 [facility] Urobilinogen, UA 1.0 0.2 - 12 mg/dL [facility] US OB FOLLOW UP TRANSABDOMIN AL APPROACHon 11-02-2024 US OB FOLLOW UP TRANSABDOMINAL APPROACH EXAM: US OB FOLLOW UP TRANSABDOMINAL APPROACH HISTORY: Inconsistent size. COMPARISON: Ob ultrasound 08/22/2024. TECHNIQUE: Two-dimensional transabdominal grayscale ultrasound imaging of the pelvis was performed. FINDINGS: Gestation: Single Presentation: Cephalic Cardiac Activity: 156 beats per minute Amniotic Fluid Index: 12.3 cm MEASUREMENTS: BPD: 8.0 cm EGA: 31 weeks 6 days HC: 29.4 cm EGA: 32 weeks 3 days AC: 26.2 cm EGA: 30 weeks 2 days FL: 6.0 cm EGA: 31 weeks 2 days HC/AC Ratio: 1.12 The gestational age by today's ultrasound is 31 weeks 3 days (+/- 15 days gestation). Estimated Weight: 1675 grams, +/- 251 grams ( 3 lb 11 oz). Weight Percentile for gestational age: 51 % IMPRESSION: 1. Single, live intrauterine gestation 30 weeks, 4 days by LMP. Today's ultrasound measurements correlate with a gestational age of 31 weeks 3 days. Estimated weight is 1675 grams, +/- 251 grams ( 3 lb 11 oz) which correlates to 51 %. YANICK by today's ultrasound is 01/01/2025. Interpreted by: Electronically signed by JOSEPH LAW II, MD, PHD at 03-Nov-2024 08:06:49 AM [facility] Normal Not Available Comment on above: Order Comment: US OB SCAN FOR GROWTH Estimated Date of Delivery: 01/07/25 Gestational Age as of 10/19/2024: 28w4d Urinalysis macro (dipstick) panel (U)on 11-02-2024 Bilirubin, UA Negative Negative - 4(70) +++ mg/dL [facility] Blood, UA Negative Negative - 50 Daniele/mcL [facility] Clarity, UA Clear [facility] Color, UA Yellow [facility] Glucose, UA Negative Negative - 1999(110) ++++ mg/dL [facility] Interpretation and review of laboratory results Abnormal [facility] Healthcare Ketones, UA Negative Negative - 160(16) ++++ mg/dL [facility] Leukocytes, UA Positive Negative - 500+++ Kiara/mcL [facility] Nitrite, UA Negative Negative - Positive [facility] Healthcare pH, UA 6 5 - 9 [facility] Protein, UA Negative Negative - 1999(20) ++++ mg/dL [facility] Spec Grav, UA 1.02 1 - 1.03 [facility] Urobilinogen, UA 1.0 0.2 - 12 mg/dL [facility] Urinalysis macro (dipstick) panel (U)on 10-19-2024 Bilirubin, UA Negative Negative - 4(70) +++ mg/dL [facility] Blood, UA Negative Negative - 50 Daniele/mcL [facility] Clarity, UA Clear [facility] Color, UA Yellow [facility] Glucose, UA Negative Negative - 1999(110) ++++ mg/dL [facility] Interpretation and review of laboratory results Abnormal [facility] Ketones, UA Negative Negative - 160(16) ++++ mg/dL [facility] Leukocytes, UA Positive Negative - 500+++ Kiraa/mcL [facility] Nitrite, UA Negative Negative - Positive [facility] pH, UA 6.5 5 - 9 [facility] Protein, UA Negative Negative - 1999(20) ++++ mg/dL [facility] Spec Grav, UA 1.015 1 - 1.03 [facility] Urobilinogen, UA 1.0 0.2 - 12 mg/dL [facility] ALL CBC WITH AUTO DIFFon BASOPHILS ABSOLUTE AUTO 0.1 [facility] Basophils/100 WBC (Bld) 0.4 % 0.2 - 2.0 % [facility] Eosinophils/100 WBC (Bld) 1.1 % 0.9 - 7.0 % [facility] Erythrocyte distribution width (RBC) [Ratio] 12.2 % 11.0 - 15.0 % [facility] Hematocrit (Bld) [Volume fraction] 32.5 % Low 36.0 - 48.0 % [facility] e Hemoglobin (Bld) [Mass/Vol] 11.1 g/dL Low 12.0 - 16.0 g/dL [facility] IMMATURE GRANULOCYTES ABS AUTO 0.07 High [facility] Immature granulocytes/100 WBC (Bld) 0.6 % High 0.0 - 0.5 % [facility] Interpretation and review of laboratory results Abnormal [facility] LYMPHOCYTES ABSOLUTE AUTO 1.9 [facility] Lymphocytes/100 WBC (Bld) 15.8 % Low 20.5 - 60.0 % [facility] MCH (RBC) [Entitic mass] 29.6 pg 26.7 - 34.0 pg [facility] MCHC (RBC) [Mass/Vol] 34.2 g/dL 29.9 - 35.2 g/dL [facility] MCV (RBC) [Entitic vol] 86.7 fL 81.0 - 99.0 fL [facility] MONOCYTES ABSOLUTE AUTO 0.8 [facility] Monocytes/100 WBC (Bld) 7 % 1.7 - 12.0 % [facility] NEUTROPHILS ABSOLUTE AUTO 8.9 High [facility] Neutrophils/100 WBC (Bld) 75.1 % High 43.0 - 75.0 % [facility] Platelet mean volume (Bld) [Entitic vol] 9.8 fL 9.5 - 13.5 fL [facility] EO # 0.1 [facility] PLT 282 [facility] TB RBC 3.75 Low [facility] TB WBC 11.9 High [facility] e Urinalysis macro (dipstick) panel (U)on 09-12-2024 Bilirubin, UA Negative Negative - 4(70) +++ mg/dL [facility] Blood, UA Negative Negative - 50 Daniele/mcL [facility] Clarity, UA Clear [facility] re Color, UA Yellow [facility] Glucose, UA Negative Negative - 1999(110) ++++ mg/dL [facility] Interpretation and review of laboratory results Abnormal [facility] Ketones, UA Negative Negative - 160(16) ++++ mg/dL [facility] Leukocytes, UA Positive Negative - 500+++ Kiara/mcL [facility] Comment on above: small Nitrite, UA Negative Negative - Positive [facility] pH, UA 8.5 5 - 9 [facility] Protein, UA Negative Negative - 1999(20) ++++ mg/dL [facility] Spec Grav, UA 1.015 1 - 1.03 [facility] Urobilinogen, UA 0.2 0.2 - 12 mg/dL [facility] AFP, SERUM, OPEN SPINA BIFID Aon 09-11-2024 AFP MOM 1.00 . [facility] AFP VALUE 72.5 ng/mL . [facility] COMMENT: Comment . [facility] Comment on above: Jo Granados , Ph.D., [facility] Director References: Available Upon Request. Multiples Of Median Cutoffs For AFP Elevations Hirsch 2.5 Black 2.8 IDD 2.0 Twins 4.5 Abbreviation Definitions IDD - Insulin Dep Diabetes OSBR - Open Spina Bifida Risk For further inquiries contact [employer] [facility] at [phone]. This test was developed and its performance characteristics determined by [facility] [employer]. It has not been cleared or approved by the Food and Drug Administration. Performed at: [facility] [employer] [address] [place], [place] [id number] Counseling Director: Tesfaye Salas [facility], Phone: [phone] GEST. AGE ON COLLECTION DATE 22.9 . weeks [facility] GESTAT. AGE BASED ON Ultrasound . [facility] Comment on above: 18.6 on 08/10/2024 Recalculations are not recommended when gestational dating by LMP and ultrasound are within 10 days. INSULIN DEP DIABETES No . [facility] INTERPRETATION Comment . [facility] Donovan david Comment on above: Interpretation: Scre en Negative This result is screen negative for [...] Customer Services to discuss available options. The [employer] recommends amniocentesis be offered to women age 35 and older. [age]ICK [age] [facility] MULTIPLE GESTATION No . [facility] [address] [place] [phone] . [facility] Donovan david RACE . [facility] [employer] RESULTS Report . [facility] [employer] TEST RESULTS: Negative . [facility] WEIGHT 189 . lbs [facility] [employer] N ULTRASOUND [id number] 4 18 N 1 Y 189 N N N N N White/ [facility] [employer] IGP,APTIMA HPV,AGE GDLNon AGE GDLN ACOG TESTING Note . [facility] Comment on above: TESTS RESULT FLAG UN ITS REF RANGE LAB Clinician Provided Cytology Information Source.............[employer] Other.............. No. of containers..01 ThinPrep Vial Age Algo ACOG Belle... -13 04 FLAG LEGEND: L-Low Normal,H-High Normal,LL-Alert Low,HH-Alert High <-Panic Low,>-Panic High,A-Abnormal,AA-Critical Abnormal Performed at: 01 =G [facility] [place] [address] Laurie Moreno MD, IGP, RFX APTIMA HPV ASCU Note . [facility] Comment on above: TESTS RESULT FLAG UN ITS REF RANGE LAB DIAGNOSIS: 02 NEGATIVE FOR INTRAEPITHELIAL LESION OR MALIGNANCY. FUNGAL ORGANISMS MORPHOLOGICALLY CONSISTENT WITH ROSETTE SPECIES ARE PRESENT. Specimen adequacy: 02 Satisfactory for evaluation. No endocervical component is identified. An endocervical component is not commonly seen in the patient. Performed by: 02 Tere Mathews, Certified Public Accountant ([facility]) . 02 Note: Note 02 The Pap [...] <-Panic Low,>-Panic High,A-Abnormal,AA-Critical Abnormal Performed at: [address] [address] Laurie Moreno MD, Performed at: = - [facility] [id number] Counseling Director: Laurie Moreno MD, Phone: [phone] Performed at: [facility] [id number] Counseling Director: Laurie Moreno MD, Phone: [phone] SPATULA-ALONE [facility]OCERVIX [facility] RECURRENT VAGINITIS (HTRX)on 08-11-2024 ATOPOBIUM VAGINAE 0 [facility] ATOPOBIUM VAGINAE Not detected [facility] BVAB 2,3 (BACTERIAL VAGINOSIS ASSOCIATED BACTERIA 2, 3); MOBILUNCUS SPP 0 [facility] BVAB 2,3 (BACTERIAL VAGINOSIS ASSOCIATED BACTERIA 2, 3); MOBILUNCUS SPP Not detected [facility] ROSETTE ALBICANS, PARAPSILOSIS, TROPICALIS 27.16 Abnormal [facility] ROSETTE ALBICANS, PARAPSILOSIS, TROPICALIS Detected Abnormal [facility] ROSETTE GLABRATA 0 [facility] ROSETTE GLABRATA Not detected [facility] ROSETTE KRUSEI 0 [facility] ROSETTE KRUSEI Not detected [facility] CHLAMYDIA TRACHOMATIS 0 [facility] CHLAMYDIA TRACHOMATIS Not detected [facility] GARDNERELLA VAGINALIS 29.925 Abnormal [facility] GARDNERELLA VAGINALIS Detected Abnormal [facility] Interpretation and review of laboratory results [...] II, MD, PHD at 24-Aug-2024 08:22:54 AM [facility] Normal Not Available Comment on above: Order Comment: US OB ANATOMY SINGLE W US OB CERVICAL LENGTH Estimated Date of Delivery: 01/07/25 Gestational Age as of 08/10/2024: 18w4d Urinalysis macro (dipstick) panel (U)on 08-10-2024 Bilirubin, UA Negative Negative - 4(70) +++ mg/dL [facility] Blood, UA Negative Negative - 50 Daniele/mcL [facility] Healthcare Clarity, UA Clear [facility] Color, UA Yellow [facility] Glucose, UA Negative Negative - 1999(110) ++++ mg/dL [facility] Interpretation and review of laboratory results Abnormal [facility] Ketones, UA Negative Negative - 160(16) ++++ mg/dL [facility] Leukocytes, UA Positive Negative - 500+++ Kiara/mcL [facility] Comment on above: Moderate Nitrite, UA Negative Negative - Positive [facility] pH, UA 7 5 - 9 [facility] Health[facility] Protein, UA Trace Negative - 1999(20) ++++ mg/dL [facility] Spec Grav, UA 1.02 1 - 1.03 [facility] Urobilinogen, UA 0.2 0.2 - 12 mg/dL [facility] Urinalysis macro (dipstick) panel (U)on 07-11-2024 Bilirubin, UA Negative Negative - 4(70) +++ mg/dL [facility] Blood, UA Negative Negative - 50 Daniele/mcL [facility] Healthcare Clarity, UA Clear [facility] Color, UA Yellow [facility] Health[facility] Glucose, UA Negative Negative - 1999(110) ++++ mg/dL [facility] Interpretation and review of laboratory results Abnormal [facility] Ketones, UA Negative Negative - 160(16) ++++ mg/dL [facility] Leukocytes, UA Trace Negative - 500+++ Kiara/mcL [facility] Nitrite, UA Negative Negative - Positive [facility] pH, UA 5.5 5 - 9 [facility] Protein, UA Negative Negative - 1999(20) ++++ mg/dL [facility] Spec Grav, UA 1.03 1 - 1.03 [facility] Urobilinogen, UA 0.2 0.2 - 12 mg/dL [facility] US OB TRANSVAGINALon 025 US [...] Doppler evaluation of the bilateral ovaries. Electronically Signed:Electronicall y signed by JOSEPH LAW II, MD, PHD at 03-Jun-2024 08:37:[address] [facility] Normal Not Available Comment on above: Order Comment: US OB TRANSVAGINAL No LMP recorded. Urine Cultureon 05-27-2024 Bacteria identified Cx Nom (U) 50,000 colonies/ml mixed bacterial skin contaminants 2 Days PERFORMED BY: [place] [address] PATHOLOGIST ESL PROFESSOR CASA BLACKMON M.D. Normal [facility] Comment on above: Performed By: #### C UU #### [address] US PREG ANATOMY SINGLEon US PREG [...] ROXY CARRILLO Date: 2022-07-17 16:59 Normal [facility] CBC AUTO DIFFon 05-16-2022 BASO # 0.1 103/ul Normal 0.0-0.1 [facility] Comment on above: Performed By: #### C BC #### [facility] [address] [place] [address] Dr. Gabino Motta Basophils/100 WBC (Bld) 0.3 % Normal 0.2-2.0 [facility] Comment on above: Performed By: #### C BC #### [facility] [address] [place] [address] Dr. Gabino Motta EO # 0.0 103/ul Normal 0.0-0.7 [facility] Comment on above: Performed By: #### C BC #### [facility] [address] [place] [address] Dr. Gabino Motta Eosinophils/100 WBC (Bld) 0.0 % Critically low 0.9-7.0 [facility] Comment on above: Performed By: #### C BC #### [facility] [address] [place] [address] Dr. Gabino Motta Erythrocyte distribution width (RBC) [Ratio] 12.7 % Normal 11.0-15.0 [facility] Comment on above: Performed By: #### C BC #### [facility] [address] [place] [address] Dr. Gabino Motta Hematocrit (Bld) [Volume fraction] 39.1 % Normal 36.0-48.0 [facility] Comment on above: Performed By: #### C BC #### [facility] [address] [place] [address] Dr. Gabino Motta Hemoglobin (Bld) [Mass/Vol] 13.7 g/dL Normal 12.0-16.0 [facility] Comment on above: Performed By: #### C BC #### [facility] [address] [place] [address] Dr. Gabino Motta IG # 0.05 10e3/ul Critically high 0.00-0.03 [facility] Comment on above: Performed By: #### C BC #### [facility] [address] [place] [address] Dr. Gabino Motta IG % 0.3 % Normal 0.0-0.5 [facility] Comment on above: Performed By: #### C BC #### [facility] [address] [place] [address] Dr. Gabino Motta LYMPH # 1.1 103/ul Critically low 1.2-3.8 [facility] Comment on above: Performed By: #### C BC #### [facility] [address] [place] [address] Dr. Gabino Motta Lymphocytes/100 WBC (Bld) 7.0 % Critically low 20.5-60.0 [facility] Comment on above: Performed By: #### C BC #### [facility] [address] [place] [address] Dr. Gabino Motta MANUAL DIFF REQ NO Normal [facility] Comment on above: Performed By: #### C BC #### [facility] [address] [place] [address] Dr. Gabino Motta MCH (RBC) [Entitic mass] 28.5 pg Normal 26.7-34.0 [facility] Comment on above: Performed By: #### C BC #### [facility] [address] [place] [address] Dr. Gabino Motta MCHC (RBC) [Mass/Vol] 35.0 g/dL Normal 29.9-35.2 [facility] Comment on above: Performed By: #### C BC #### [facility] [address] [place] [address] Dr. Gabino Motta MCV (RBC) [Entitic vol] 81.3 fL Normal 81.0-99.0 [facility] Comment on above: Performed By: #### C BC #### [facility] [address] [place] [address] Dr. Gabino Motta MONO # 0.3 103/ul Normal 0.3-0.8 [facility] Comment on above: Performed By: #### C BC #### [facility] [address] [place] [address] Dr. Gabino Motta Monocytes/100 WBC (Bld) 2.1 % Normal 1.7-12.0 [facility] Comment on above: Performed By: #### C BC #### [facility] [address] [place] [address] Dr. Gabino Motta NEUT # 13.5 103/ul Critically high 1.4-6.5 [facility] Comment on above: Performed By: #### C BC #### [facility] [address] [place] [address] Dr. Gabino Motta Neutrophils/100 WBC (Bld) 90.3 % Critically high 43.0-75.0 [facility] Comment on above: Performed By: #### C BC #### [facility] [address] [place] [address] Dr. Gabino Motta Platelet mean volume (Bld) [Entitic vol] 11.1 fL Normal 9.5-13.5 [facility] Comment on above: Performed By: #### C BC #### [facility] [address] [place] [address] Dr. Gabino Motta PLT 282 103/ul Normal 150-450 [facility] Comment on above: Performed By: #### C BC #### [facility] [address] [place] [address] Dr. Gabino Motta RBC 4.81 106/ul Normal 4.20-5.40 [facility] Comment on above: Performed By: #### C BC #### [facility] [address] [place] [address] Dr. Gabino Motta WBC 14.9 103/ul Critically high 4.0-11.0 [facility] Comment on above: Performed By: #### C BC #### [facility] [address] [place] [address] Dr. Gabino Motta PROF 14(COMP METB)on 023 Albumin [Mass/Vol] 4.1 g/dL Normal 3.4-5.0 [facility] Comment on above: Performed By: #### C BC #### [facility] [address] [place] [address] Dr. Gabino Motta Albumin/Globulin [Mass ratio] 1.1 {ratio} Normal [facility] Comment on above: Performed By: #### C BC #### [facility] [address] [place] [address] Dr. Gabino Motta ALP [Catalytic activity/Vol] 72 U/L Normal 46-116 [facility] Comment on above: Performed By: #### C BC #### [facility] [address] [place] [address] Dr. Gabino Motta ALT [Catalytic activity/Vol] 42 U/L Normal 14-59 [facility] Comment on above: Performed By: #### C BC #### [facility] [address] [place] [address] Dr. Gabino Motta Anion gap [Moles/Vol] 18.4 mmol/L Normal [facility] Comment on above: Performed By: #### C BC #### [facility] [address] [address] [address] Gbaino Motta AST [Catalytic activity/Vol] 18 U/L Normal 15-37 [facility] Comment on above: Performed By: #### C BC #### [facility] [address] [address] [address] Gabino Motta Bilirubin [Mass/Vol] 0.5 mg/dL Normal 0.2-1.0 [facility] Comment on above: Performed By: #### C BC #### [facility] [address] [address] [address] Gabino Motta Calcium [Mass/Vol] 9.6 mg/dL Normal 8.5-10.1 [facility] Comment on above: Performed By: #### C BC #### [facility] [address] [address] [address] Gabino Motta Chloride [Moles/Vol] 103 mmol/L Normal 98-107 [facility] Comment on above: Performed By: #### C BC #### [facility] [address] [address] [address] Gabino Motta CO2 [Moles/Vol] 20.1 mmol/L Critically low 21.0-32.0 [facility] Comment on above: Performed By: #### C BC #### [facility] [address] [address] [address] Gabino Motta Creatinine [Mass/Vol] 0.54 mg/dL Critically low 0.55-1.02 [facility] Comment on above: Performed By: #### C BC #### [facility] [address] [address] [address] Gabino Motta EGFR-AF ANGOLAN >60 Normal >=60 [facility] Comment on above: Performed By: #### C BC #### [facility] [address] [address] [address] Gabino Motta EGFR-NON AF ANGOLAN >60 Normal >=60 [facility] Comment on above: Performed By: #### C BC #### [facility] [address] [address] [address] Gabino Motta Globulin (S) [Mass/Vol] 3.8 g/dL Normal [facility] Comment on above: Performed By: #### C BC #### [facility] [address] [place] [address] Dr. Gabino Motta Glucose [Mass/Vol] 102 mg/dL Normal 74-106 [facility] Comment on above: Performed By: #### C BC #### [facility] [address] [address] [address] Gabino Motta Potassium [Moles/Vol] 3.5 mmol/L Normal 3.5-5.1 [facility] Comment on above: Performed By: #### C BC #### [facility] [address] [place] [address] Dr. Gabino Motta Protein [Mass/Vol] 7.9 g/dL Normal 6.4-8.2 [facility] Comment on above: Performed By: #### C BC #### [facility] [address] [place] [address] Dr. Gabino Motta Sodium [Moles/Vol] 138 mmol/L Normal 136-145 [facility] Comment on above: Performed By: #### C BC #### [facility] [address] [place] [address] Dr. Gabino Motta Urea nitrogen [Mass/Vol] 6.0 mg/dL Critically low 7.0-18.0 [facility] Comment on above: Performed By: #### C BC #### [facility] [address] [place] [address] Dr. Gabino Motta Urea nitrogen/Creatinine [Mass ratio] 11.1 mg/mg Normal [facility] Comment on above: Performed By: #### C BC #### [facility] [address] [place] [address] Dr. Gabino Motta CULTURE URINEon 04-29-2022 CULTURE [...] Trimethoprim/Sulfame thoxazole <=20 S F Normal [facility] Comment on above: Performed By: #### U RCX #### [facility] [address] [place] [address] Dr. Gabino Motta CBC AUTO DIFFon 04-26-2022 BASO # 0.0 103/ul Normal 0.0-0.1 [facility] Comment on above: Performed By: #### C BC #### [facility] [address] [place] [address] Dr. Gabino Motta Basophils/100 WBC (Bld) 0.3 % Normal 0.2-2.0 [facility] Comment on above: Performed By: #### C BC #### [facility] [address] [place] [address] Dr. Gabino Motta EO # 0.0 103/ul Normal 0.0-0.7 [facility] Comment on above: Performed By: #### C BC #### [facility] [address] [place] [address] Dr. Gabino Motta Eosinophils/100 WBC (Bld) 0.2 % Critically low 0.9-7.0 [facility] Comment on above: Performed By: #### C BC #### [facility] [address] [place] [address] Dr. Gabino Motta Erythrocyte distribution width (RBC) [Ratio] 12.7 % Normal 11.0-15.0 [facility] Comment on above: Performed By: #### C BC #### [facility] [address] [place] [address] Dr. Gabino Motta Hematocrit (Bld) [Volume fraction] 39.7 % Normal 36.0-48.0 [facility] Comment on above: Performed By: #### C BC #### [facility] [address] [place] [address] Dr. Gabino Motta Hemoglobin (Bld) [Mass/Vol] 13.8 g/dL Normal 12.0-16.0 [facility] Comment on above: Performed By: #### C BC #### [facility] [address] [place] [address] Dr. Gabino Motta IG # 0.03 10e3/ul Normal 0.00-0.03 [facility] Comment on above: Performed By: #### C BC #### [facility] [address] [place] [address] Dr. Gabino Motta IG % 0.2 % Normal 0.0-0.5 [facility] Comment on above: Performed By: #### C BC #### [facility] [address] [place] [address] Dr. Gabino Motta LYMPH # 1.4 103/ul Normal 1.2-3.8 [facility] Comment on above: Performed By: #### C BC #### [facility] [address] [place] [address] Dr. Gabino Motta Lymphocytes/100 WBC (Bld) 11.4 % Critically low 20.5-60.0 [facility] Comment on above: Performed By: #### C BC #### [facility] [address] [place] [address] Dr. Gabino Motta MANUAL DIFF REQ NO Normal [facility] Comment on above: Performed By: #### C BC #### [facility] [address] [place] [address] Dr. Gabino Motta MCH (RBC) [Entitic mass] 28.4 pg Normal 26.7-34.0 [facility] Comment on above: Performed By: #### C BC #### [facility] [address] [place] [address] Dr. Gabino Motta MCHC (RBC) [Mass/Vol] 34.8 g/dL Normal 29.9-35.2 [facility] Comment on above: Performed By: #### C BC #### [facility] [id number] Gabino Motta MCV (RBC) [Entitic vol] 81.7 fL Normal 81.0-99.0 [facility] Comment on above: Performed By: #### C BC #### [facility] [address] [address] [address] Gabino Motta MONO # 0.7 103/ul Normal 0.3-0.8 [facility] Comment on above: Performed By: #### C BC #### [facility] [address] [place] [address] Dr. Gabino Motta Monocytes/100 WBC (Bld) 5.6 % Normal 1.7-12.0 [facility] Comment on above: Performed By: #### C BC #### [facility] [address] [place] [address] Dr. Gabino Motta NEUT # 10.1 103/ul Critically high 1.4-6.5 [facility] Comment on above: Performed By: #### C BC #### [facility] [address] [place] [address] Dr. Gabino Motta Neutrophils/100 WBC (Bld) 82.3 % Critically high 43.0-75.0 [facility] Comment on above: Performed By: #### C BC #### [facility] [address] [place] [address] Dr. Gabino Motta Platelet mean volume (Bld) [Entitic vol] 10.8 fL Normal 9.5-13.5 [facility] Comment on above: Performed By: #### C BC #### [facility] [address] [place] [address] Dr. Gabino Motta PLT 274 103/ul Normal 150-450 [facility] Comment on above: Performed By: #### C BC #### [facility] [address] [place] [address] Dr. Gabino Motta RBC 4.86 106/ul Normal 4.20-5.40 [facility] Comment on above: Performed By: #### C BC #### [facility] [address] [place] [address] Dr. Gabino Motta WBC 12.3 103/ul Critically high 4.0-11.0 [facility] Comment on above: Performed By: #### C BC #### [facility] [address] [address] [address] Gabino Motta ER URINE PROFILEon 3 Bilirubin Ql (U) Negative Normal NEGATIVE [facility] Comment on above: Performed By: #### U MICRO, ERUR #### [facility] [address] [address] [address] Gabino Motta Clarity (U) SL CLOUDY Abnormal CLEAR [facility] Comment on above: Performed By: #### U MICRO, ERUR #### [facility] [address] [place] [address] Dr. Gabino Motta Color (U) YELLOW Normal YELLOW [facility] Comment on above: Performed By: #### U MICRO, ERUR #### [facility] [address] [place] [address] Dr. Gabino Motta ERUAHD A micrscopic examination will be performed if indicated. Normal [facility] Comment on above: Performed By: #### U MICRO, ERUR #### [facility] [address] [place] [address] Dr. Gabino Motta Glucose Ql (U) Negative Normal NEGATIVE [facility] Comment on above: Performed By: #### U MICRO, ERUR #### [facility] [address] [place] [address] Dr. Gabino Motta Hemoglobin Ql (U) Negative Normal NEGATIVE [facility] Comment on above: Performed By: #### U MICRO, ERUR #### [facility] [address] [address] [address] Gabino Motta Ketones Ql (U) >=80 Abnormal NEGATIVE [facility] Comment on above: Performed By: #### U MICRO, ERUR #### [facility] [address] [place] [address] Dr. Gabino Motta LEUKOCYTES Negative Normal NEGATIVE [facility] Comment on above: Performed By: #### U MICRO, ERUR #### [facility] [address] [place] [address] Dr. Gabino Motta Nitrite Ql (U) Positive Abnormal NEGATIVE [facility] Comment on above: Performed By: #### U MICRO, ERUR #### [facility] [address] [place] [address] Dr. Gabino Motta pH (U) 6.0 [pH] Normal 5-9 [facility] Comment on above: Performed By: #### U MICRO, ERUR #### [facility] [address] [place] [address] Dr. Gabino Motta SPEC GRAVITY 1.030 Abnormal 1.005-<=1.025 [facility] Comment on above: Performed By: #### U MICRO, ERUR #### [facility] [address] [place] [address] Dr. Gabino Motta UA PROTEIN Negative Normal NEGATIVE/ TRACE [facility] Comment on above: Performed By: #### U MICRO, ERUR #### [facility] [address] [place] [address] Dr. Gabino Motta UR MICRO IND INDICATED Normal [facility] Comment on above: Performed By: #### U MICRO, ERUR #### [facility] [address] [place] [address] Dr. Gabino Motta Urobilinogen Qn (U) 0.2 {Landy'U}/dL Normal 0.2 - 1. 0 [facility] Comment on above: Performed By: #### U MICRO, ERUR #### [facility] [address] [place] [address] Dr. Gabino Motta PROF 14(COMP METB)on 023 Albumin [Mass/Vol] 3.9 g/dL Normal 3.4-5.0 [facility] Comment on above: Performed By: #### C MP #### [facility] [address] [place] [address] Dr. Gabino Motta Albumin/Globulin [Mass ratio] 1.1 {ratio} Normal [facility] Comment on above: Performed By: #### C MP #### [facility] [address] [place] [address] Dr. Gabino Motta ALP [Catalytic activity/Vol] 75 U/L Normal 46-116 [facility] Comment on above: Performed By: #### C MP #### [facility] [address] [place] [address] Dr. Gabino Motta ALT [Catalytic activity/Vol] 36 U/L Normal 14-59 [facility] Comment on above: Performed By: #### C MP #### [facility] [address] [place] [address] Dr. Gabino Motta Anion gap [Moles/Vol] 18.0 mmol/L Normal [facility] Comment on above: Performed By: #### C MP #### [facility] [address] [place] [address] Dr. Gabino Motta AST [Catalytic activity/Vol] 16 U/L Normal 15-37 [facility] Comment on above: Performed By: #### C MP #### [facility] [address] [place] [address] Dr. Gabino Motta Bilirubin [Mass/Vol] 0.4 mg/dL Normal 0.2-1.0 [facility] Comment on above: Performed By: #### C MP #### [facility] [address] [place] [address] Dr. Gabino Motta Calcium [Mass/Vol] 9.3 mg/dL Normal 8.5-10.1 [facility] Comment on above: Performed By: #### C MP #### [facility] [address] [place] [address] Dr. Gabino Motta Chloride [Moles/Vol] 101 mmol/L Normal 98-107 [facility] Comment on above: Performed By: #### C MP #### [facility] [address] [place] [address] Dr. Gabino Motta CO2 [Moles/Vol] 22.7 mmol/L Normal 21.0-32.0 [facility] Comment on above: Performed By: #### C MP #### [facility] [address] [place] [address] Dr. Gabino Motta Creatinine [Mass/Vol] 0.57 mg/dL Normal 0.55-1.02 [facility] Comment on above: Performed By: #### C MP #### [facility] [address] [address] [address] Gabino Motta EGFR-AF ANGOLAN >60 Normal >=60 [facility] Comment on above: Performed By: #### C MP #### [facility] [address] [address] [address] Gabino Motta EGFR-NON AF ANGOLAN >60 Normal >=60 [facility] Comment on above: Performed By: #### C MP #### [facility] [address] [address] [address] Gabino Motta Globulin (S) [Mass/Vol] 3.7 g/dL Normal [facility] Comment on above: Performed By: #### C MP #### [facility] [address] [place] [address] Dr. Gabino Motta Glucose [Mass/Vol] 94 mg/dL Normal 74-106 [facility] Comment on above: Performed By: #### C MP #### [facility] [address] [address] [address] Gabino Motta Potassium [Moles/Vol] 3.7 mmol/L Normal 3.5-5.1 [facility] Comment on above: Performed By: #### C MP #### [facility] [address] [place] [address] Dr. Gabino Motta Protein [Mass/Vol] 7.6 g/dL Normal 6.4-8.2 [facility] Comment on above: Performed By: #### C MP #### [facility] [address] [address] [address] Gabino Motta Sodium [Moles/Vol] 138 mmol/L Normal 136-145 [facility] Comment on above: Performed By: #### C MP #### [facility] [address] [address] [address] Gabino Motta Urea nitrogen [Mass/Vol] 8.0 mg/dL Normal 7.0-18.0 [facility] Comment on above: Performed By: #### C MP #### [facility] [address] [address] [address] Gabino Motta Urea nitrogen/Creatinine [Mass ratio] 14.0 mg/mg Normal [facility] Comment on above: Performed By: #### C MP #### [facility] [address] [address] [address] Gabino Motta URINE MICROSCOPIC ONLYon BACTERIA SMALL Abnormal NONE SEEN [facility] Comment on above: Performed By: #### U MICRO, ERUR #### [facility] [address] [place] [address] Dr. Gabino Motta Bacteria identified Cx Nom (U) INDICATED Normal [facility] Comment on above: Performed By: #### U MICRO, ERUR #### [facility] [address] [place] [address] Dr. Gabino Motta CAST NONE SEEN Normal NONE SEEN [facility] Comment on above: Performed By: #### U MICRO, ERUR #### [facility] [address] [address] [address] Gabino Motta Crystals LM Nom (Urine sed) NONE SEEN Normal NONE SEEN [facility] Comment on above: Performed By: #### U MICRO, ERUR #### [facility] [address] [place] [address] Dr. Gabino Motta Epithelial cells LM Ql (Urine sed) FEW Abnormal NONE SEEN /RARE [facility] Comment on above: Performed By: #### U MICRO, ERUR #### [facility] [address] [place] [address] Dr. Gabino Motta MUCOUS SMALL Abnormal NONE SEEN [facility] Comment on above: Performed By: #### U MICRO, ERUR #### [facility] [address] [address] [address] Gabino Motta RBC NONE SEEN Abnormal 0-2 [facility] Comment on above: Performed By: #### U MICRO, ERUR #### [facility] [address] [place] [address] Dr. Gabino Motta WBC 2-5 Abnormal NONE SEEN [facility] Comment on above: Performed By: #### U MICRO, ERUR #### [facility] [address] [address] [address] Gabino Motta US PREG TVon 04-25-2022 [...] by: EMA SAMUEL Date: 2022-04-25 10:29 Normal [facility] US PELVISon 11-15-2021 US PELVIS EXAMINATION: US [...] by: ROXY CARRILLO Date: 2021-11-15 17:11 Normal [facility] Vital Signs Date Time Vital Sign Value Performing Clinician Faci lity 11-30-2024 09:50-0400 Body mass index (BMI) [Ratio] 31.07 kg/m2 Majo Shea NP Work Phone: [facility] 11-30-2024 09:50-0400 Body weight 101.04 kg Majo Shea NP Work Phone: [facility] 11-30-2024 09:50-0400 Diastolic blood pressure 60 mm[Hg] Majo Shea NP Work Phone: [facility] 11-30-2024 09:50-0400 Systolic blood pressure 110 mm[Hg] Majo Monse LIM Work Phone: [facility] 11-16-2024 14:03-0400 Body mass index (BMI) [Ratio] 30.7 kg/m2 Fransisco Olga DO Work Phone: [facility] 11-16-2024 14:03-0400 Body weight 99.85 kg Fransisco Olga DO Work Phone: [facility] 11-16-2024 14:03-0400 Diastolic blood pressure 70 mm[Hg] Fransisco Olga DO Work Phone: [facility] 11-16-2024 14:03-0400 Systolic blood pressure 120 mm[Hg] Fransisco Olga DO Work Phone: [facility] 11-02-2024 14:10-0400 Body mass index (BMI) [Ratio] 30.4 kg/m2 Mera SEYMOUR Work Phone: [facility] 11-02-2024 14:10-0400 Body weight 98.88 kg Mera SEYMOUR Work Phone: [facility] 11-02-2024 14:10-0400 Diastolic blood pressure 74 mm[Hg] Mera SEYMOUR Work Phone: [facility] 11-02-2024 14:10-0400 Systolic blood pressure 114 mm[Hg] Mera SEYMOUR Work Phone: [facility] 10-19-2024 11:37-0400 Body mass index (BMI) [Ratio] 29.4 kg/m2 Fransisco Olga DO Work Phone: [facility] 10-19-2024 11:37-0400 Body weight 95.62 kg Fransisco Olga DO Work Phone: [facility] 10-19-2024 11:37-0400 Diastolic blood pressure 68 mm[Hg] Fransisco Olga DO Work Phone: [facility] 10-19-2024 11:37-0400 Systolic blood pressure 116 mm[Hg] Fransisco Olga DO Work Phone: [facility] 10-04-2024 10:14-0400 Body mass index (BMI) [Ratio] 28.31 kg/m2 Mera Gunnison PA Work Phone: [facility] 10-04-2024 10:14-0400 Body weight 92.08 kg Mera Gunnison PA Work Phone: [facility] 10-04-2024 10:14-0400 Diastolic blood pressure 62 mm[Hg] Mera Deepti PA Work Phone: [facility] 10-04-2024 10:14-0400 Systolic blood pressure 114 mm[Hg] Mera Deepti PA Work Phone: [facility] 09-12-2024 09:58-0400 Body mass index (BMI) [Ratio] 27.75 kg/m2 Fransisco Olga DO Work Phone: [facility] 09-12-2024 09:58-0400 Body weight 90.27 kg Fransisco Olga DO Work Phone: [facility] 09-12-2024 09:58-0400 Diastolic blood pressure 62 mm[Hg] Fransisco Olga DO Work Phone: [facility] 09-12-2024 09:58-0400 Systolic blood pressure 110 mm[Hg] Fransisco Olga DO Work Phone: [facility] 08-10-2024 10:28-0400 Body mass index (BMI) [Ratio] 26.46 kg/m2 Mera Deepti PA Work Phone: [facility] 08-10-2024 10:28-0400 Body weight 86.07 kg Mera Deepti PA Work Phone: [facility] 08-10-2024 10:28-0400 Diastolic blood pressure 42 mm[Hg] Mera Deepti PA Work Phone: [facility] 08-10-2024 10:28-0400 Systolic blood pressure 96 mm[Hg] Mera Deepti PA Work Phone: [facility] 07-11-2024 13:26-0400 Body mass index (BMI) [Ratio] 24.7 kg/m2 Fransisco Olga DO Work Phone: [facility] 07-11-2024 13:26-0400 Body weight 80.34 kg Fransisco Olga DO Work Phone: [facility] 07-11-2024 13:26-0400 Diastolic blood pressure 74 mm[Hg] Fransisco Olga DO Work Phone: [facility] 07-11-2024 13:26-0400 Systolic blood pressure 120 mm[Hg] Fransisco Olga DO Work Phone: [facility] Healthcare Encounters Encounter Date Encounter Type Care Provider Facility Start: 11-30-2024 End: 11-30-2024 Bamboo flowsheet Majo Shea WEATH[employer]IZATION FIELD TECHNICIAN Work Phone: [facility] Start: 11-30-2024 End: 11-30-2024 Bamboo flowsheet Majo Shea WEATHERIZATION FIELD TECHNICIAN Work Phone: [facility] Start: 11-30-2024 End: 11-30-2024 ambulatory MAJO SHEA Not Available Start: 11-30-2024 End: 11-30-2024 flow sheet Majo Shea WEATHERIZATION FIELD TECHNICIAN Work Phone: [facility] Comment on above: Third trimester preg jael ([facility]); 34 weeks gestation of ([facility]) Start: 11-16-2024 End: 11-16-2024 Bamboo flowsheet Fransisco Olga DO Work Phone: [facility] Start: 11-16-2024 End: 11-16-2024 Bamboo flowsheet Fransisco Olga DO Work Phone: [facility] Start: 11-16-2024 End: 11-16-2024 flow sheet Fransisco Olga DO Work Phone: [facility] Comment on above: 32 weeks gestation o f ([facility]); Third trimester ([facility]) Start: 11-16-2024 End: 11-16-2024 ambulatory FRANSISCO OLGA Not Available Start: 11-02-2024 End: 11-02-2024 flow sheet Mera SEYMOUR Work Phone: [facility] Comment on above: Third trimester preg jael ([facility]); 30 weeks gestation of ([facility]) Start: 11-02-2024 End: 11-02-2024 ambulatory MERA TATUM Not Available Start: 10-19-2024 End: 10-19-2024 Bamboo flowsheet Fransisco Olga DO Work Phone: [facility] Start: 10-19-2024 End: 10-19-2024 Bamboo flowsheet Fransisco Olga DO Work Phone: [facility] Start: 10-19-2024 End: 10-19-2024 flow sheet Fransisco Olga DO Work Phone: [facility] Comment on above: Third trimester preg jael ([facility]); 28 weeks gestation of ([facility]); size inconsistent with dates ([facility]) Start: 10-19-2024 End: 10-19-2024 ambulatory FRANSISCO OLGA Not Available Start: 10-13-2024 End: 10-13-2024 Clinisync Result Encounter Fransisco Olga DO Work Phone: [facility] Unsolicited Start: 10-13-2024 End: 10-13-2024 Clinisync Result Encounter Fransisco Olga DO Work Phone: [facility] Unsolicited Start: 10-04-2024 End: 10-04-2024 Bamboo flowsheet Mera SEYMOUR Work Phone: [facility] Start: 10-04-2024 End: 10-04-2024 Bamboo flowsheet Mera SEYMOUR Work Phone: [facility] Start: 10-04-2024 End: 10-04-2024 flow sheet Mera SEYMOUR Work Phone: [facility] Comment on above: Second trimester pre gnancy ([facility]); 26 weeks gestation of ([facility]); BV (bacterial vaginosis) Start: 10-04-2024 End: 10-04-2024 ambulatory MERA TATUM Not Available Start: 09-12-2024 End: 09-12-2024 Bamboo flowsheet Fransisco Olga DO Work Phone: [facility] Start: 09-12-2024 End: 09-12-2024 Bamboo flowsheet Fransisco Olga DO Work Phone: [facility] Start: 09-12-2024 End: 09-12-2024 flow sheet Fransisco Olga DO Work Phone: [facility] Comment on above: Second trimester pre gnancy ([facility]); 24 weeks gestation of ([facility]); Diabetes mellitus screening Start: 09-12-2024 End: 09-12-2024 ambulatory FRANSISCO OLGA Not Available Start: 09-09-2024 End: 09-11-2024 Clinisync Result Encounter Mera SEYMOUR Work Phone: [facility] External Department Unsolicited Start: 09-09-2024 End: 09-11-2024 Clinisync Result Encounter Mera SEYMOUR Work Phone: [facility] External Department Unsolicited Start: 08-22-2024 End: 08-22-2024 ambulatory MERA TATUM Not Available Start: 08-10-2024 End: 08-10-2024 Bamboo flowsheet Mera SEYMOUR Work Phone: [facility] Start: 08-10-2024 End: 08-12-2024 Bamboo flowsheet Mera SEYMOUR Work Phone: [facility] Start: 08-10-2024 End: 08-12-2024 Clinisync Result Encounter Mera SEYMOUR Work Phone: [facility] Unsolicited Start: 08-10-2024 End: 08-11-2024 External Result Encounter Mera SEYMOUR Work Phone: [facility] Unsolicited Start: 08-10-2024 End: 08-10-2024 Patient encounter procedure Mera SEYMOUR Work Phone: [facility] Start: 08-10-2024 End: 08-10-2024 Periodic preventive med est patient 18-39 yrs Mera SEYMOUR Work Phone: [facility] Comment on above: Screening, , for anatomic survey; Second trimester ; 18 weeks gestation of ; STD exposure; Well woman exam with routine gynecological exam Start: 08-10-2024 End: 08-10-2024 ambulatory MERA TATUM Not Available Start: 07-11-2024 End: 07-11-2024 Bamboo flowsheet Fransisco Olga DO Work Phone: [facility] Start: 07-11-2024 End: 07-11-2024 Bamboo flowsheet Fransisco Olga DO Work Phone: [facility] Start: 07-11-2024 End: 07-11-2024 flow sheet Fransisco Olga DO Work Phone: [facility] Comment on above: 14 weeks gestation o f ; Second trimester ; Nausea and vomiting in Start: 07-11-2024 End: 07-11-2024 ambulatory FRANSISCO OLGA Not Available Start: 06-03-2024 End: 06-03-2024 ambulatory FRANSISCO OLGA Not Available Start: 05-27-2024 End: 05-27-2024 ambulatory Tracie Seo [facility] Work Phone: Start: 05-27-2024 End: 05-27-2024 Departed Referred Tracie Seo PA-C Work Phone: [facility] Path [facility] Start: 05-18-2024 [...] End: 05-16-[address] STEPAN YANEZ . Facility: Start: 04-26-2022 End: 04-27-[address] STEPAN YANEZ . Facility:[facility] Start: 04-25-2022 End: 04-26-[address] FRANSISCO ESPINOZA . Facility:[facility] Start: 11-14-2021 End: 11-15-[address] FRANSISCO ESPINOZA . Facility: Procedures Date Procedure Procedure Detail Performing Clinician Start: 11-30-2024 Urnls dip stick/tabl et rgnt non-auto w/o micrscp Majo Shea NP Work Phone: Start: 11-16-2024 Urnls dip stick/tabl et rgnt non-auto w/o micrscp Fransisco Olga DO Work Phone: Start: 11-02-2024 Urnls dip stick/tabl et rgnt non-auto w/o micrscp Mera SEYMOUR Work Phone: Start: 10-19-2024 Urnls dip stick/tabl et rgnt non-auto w/o micrscp Fransisco Olga DO Work Phone: Start: 10-13-2024 ALL CBC WITH AUTO DIFF Fransisco Olga DO Work Phone: Start: 09-12-2024 Urnls dip stick/tabl et rgnt non-auto w/o micrscp Fransisco Olga DO Work Phone: Start: 09-09-2024 AFP, SERUM, OPEN SPI NA BIFIDA Mera SEYMOUR Work Phone: Start: 08-10-2024 RECURRENT VAGINITIS (HTRX) Mera SEYMOUR Work Phone: Start: 08-10-2024 Urnls dip stick/tabl et rgnt non-auto w/o micrscp Mera SEYMOUR Work Phone: Start: 08-10-2024 IGP,APTIMA HPV,AGE GDLN Mera SEYMOUR Work Phone: Start: 07-11-2024 Urnls dip stick/tabl et rgnt non-auto w/o micrscp Fransisco Olga DO Work Phone: Plan of Treatment Date Care Activity Detail Author Start: 11-30-2024 End: 11-30-2024 Patient encounter procedure 11/30/2024 9:00 AM EDT Routine [facility] [address] [place] [phone] Majo Shea, WEATH[employer]ATION FIELD TECHNICIAN [address] [place] [phone] [facility] Start: 11-16-2024 End: 11-16-2024 Patient encounter procedure [facility] Comment on above: Arrived Start: 11-02-2024 End: 11-02-2024 Patient encounter procedure 11/02/2024 2:30 PM EDT Routine [facility] [address] [phone] Mera Tatum PA [address] [place], [place] [id number] [facility] Start: 11-02-2024 End: 11-02-2024 Professional / ancillary services management 11/02/2024 1:30 PM EDT Ancillary Procedure [facility] [address] [place] [phone] [facility] Start: 10-19-2024 End: 02-18-2025 US for US OB follow up transabdominal approach Imaging Routine size inconsistent with dates ([facility]) Expected: 10/19/2024, Expires: 02/18/2025 [facility] Work Phone: Comment on above: Expected: 10/19/2024 , Expires: 02/18/2025 Start: 10-19-2024 End: 10-19-2024 Patient encounter procedure [facility] Comment on above: Arrived Start: 10-04-2024 End: 10-04-2024 Patient encounter procedure [facility] Comment on above: Arrived Start: 09-12-2024 End: 09-12-2025 CBC panel - Blood by Automated count CBC Lab Routine Diabetes mellitus screening Expected: 09/12/2024 (Approximate), Expires: 09/12/2025 [facility] Work Phone: Comment on above: Expected: 09/12/2024 (Approximate), Expires: 09/12/2025 Start: 09-12-2024 End: 09-12-2025 Measurement of glucose 1 hour after glucose challenge for glucose tolerance test Glucose tolerance, 1 hour Lab Routine Diabetes mellitus screening Expected: 09/12/2024 (Approximate), Expires: 09/12/2025 [facility] Comment on above: Expected: 09/12/2024 (Approximate), Expires: 09/12/2025 Start: 09-12-2024 End: 09-12-2024 Patient encounter procedure [facility] Comment on above: Arrived Start: 08-22-2024 End: 08-22-2024 Professional / ancillary services management 08/22/2024 11:00 AM EDT Ancillary Procedure [facility] [address] [place] [phone] [facility] Start: 08-10-2024 End: 10-10-2024 [...] PM EDT Routine [facility] [address] [phone] Fransisco Espinoza, DO [address] [place] [address] Arrived [facility] Comment on above: Arrived Start: 05-27-2024 Urine culture [facility] Start: 05-27-2024 Bacteria identified in Urine by Culture Urine Culture [facility] Start: 05-26-2024 End: 05-26-2024 ambulatory 05/26/2024 1:30 PM EDT Initial [facility] [address] [place] [phone] [facility] Start: 05-26-2024 End: 05-26-2024 Professional / ancillary services management 05/26/2024 1:00 PM EDT Ancillary Procedure [facility] [address] [place] [phone] [facility] CHLAMYDIA TRACHOMATI S (GENITO/STI) CHLAMYDIA TRACHOMATIS (GENITO/STI) Lab Routine STD exposure Ordered: 08/10/2024 [facility] Comment on above: Ordered: 08/10/2024 Cytology Cervical or vaginal smear or scraping study Pap Smear Pathology and Cytology Routine Well woman exam with routine gynecological exam Ordered: 08/10/2024 [facility] Comment on above: Ordered: 08/10/2024 Hemoglobin A1c/Hemoglobin.total in Blood Hemoglobin A1c Lab Routine 32 weeks gestation of ([facility]) Third trimester ([facility]) Ordered: 11/16/2024 [facility] Work Phone: Comment on above: Ordered: 11/16/2024 Neisseria gonorrhoea e DNA [Presence] in Unspecified specimen by BRIGIDO with probe detection Neisseria gonorrhea DNA probe, direct Lab Routine STD exposure Ordered: 08/10/2024 [facility] Comment on above: Ordered: 08/10/2024 SURESWAB(R) ADVANCED VAGINITIS PLUS, TMA SURESWAB(R) ADVANCED VAGINITIS PLUS, TMA Pathology and Cytology Routine STD exposure Ordered: 08/10/2024 [facility] Work Phone: Comment on above: Ordered: 08/10/2024 Payers Date Payer Category Payer Self-pay 2023 [facility] [id number] [id number] 2023 Unknown [id number] 2002 Unknown [id number] 2.16.84 0.1.654656.3.579.2.593 2002 Unknown [id number] 2.16.84 0.1.977518.3.579.2.593 2002 Unknown [id number] 2.16.84 0.1.591483.3.579.2.593 2002 Unknown [id number] 2.16.84 0.1.816758.3.579.2.593 2002 Unknown [id number] 2.16.84 0.1.386879.3.579.2.593 2002 Unknown [id number] 2.16.84 0.1.200657.3.579.2.593 2002 Unknown [id number] 2.16.840.1.725108.3.579.2.1259 2002 Unknown [id number] 2.16.840.1.181584.3.579.2.1259 2002 Unknown [id number] 2.16.840.1.535830.3.579.2.1259 2002 Unknown [id number] 2.16.840.1.841350.3.579.2.1259 2002 Unknown [id number] 2.16.840.1.139134.3.579.2.1259 2002 Unknown [id number] 2.16.840.1.101588.3.579.2.1259 2002 Unknown [id number] 2.16.840.1.630424.3.579.2.1259 2002 Unknown [id number] 2.16.840.1.355823.3.579.2.1259 2002 Unknown [id number] 2.16.84 0.1.776008.3.579.2.1259 2002 Unknown [id number] 2.16.84 0.1.636062.3.579.2.9 2002 Unknown [id number] 2.16.84 0.1.461493.3.579.2.1259 2002 Unknown [id number] 2.16.84 0.1.367534.3.579.2.1259 2002 Unknown [id number] 2.16.84 0.1.961601.3.579.2.1259 1959 Self-pay [id number] 1959 Unknown [id number] Unknown [place] BC/BS [id number] Unknown [id number] 2.16.8 [id number] Social History Date Type Detail Facility Start: 03-05-2020 End: 09-08-2022 Tobacco smoking status NHIS Never smoked tobacco [facility] Start: 07-28-2023 End: 11-16-2024 Alcoholic beverage intake Lifetime non-drinker (finding) [facility] Start: 06-02-2023 End: 06-03-2024 History of Social function [facility] Start: 06-02-2023 End: 06-03-2024 Tobacco use panel [facility] Start: 2002 Sex assigned at Female [facility] Start: 09-08-2022 Gender identity Identifies as female gender (finding) [facility] Start: 09-08-2022 Sexual orientation Heterosexual (finding) [facility] Start: 05-29-2024 Sex Female (finding) [facility] Start: 04-16-2024 [facility] Clinical Notes 05-18-2024 to 11-30-2024 Majo Shea NP - 11/30/2024 9:40 AM Karlie Wright LPN - 11/16/2024 2:00 PM DAWN Solitario - 11/02/2024 2:30 PM Karlie Wright LPN - 10/19/2024 11:30 AM EDT Note Date & Type Note Facility 11-30-2024 History of Presen t illness Narrative Reason [...] nursing note reviewed. Exam conducted with a equal opportunity officer present. Vitals: Estimated body mass index is 31.07 kg/m as calculated from the following: Height as of 24: 5' 11 . Weight as of this encounter: 222 lb 12 oz. BP: 110/60 Patient's last menstrual period was 03/20/2024. ASSESSMENT & PLAN ICD-10-CM 1. Third trimester ([facility]) Z34.93 POCT urinalysis dipstick manually resulted 2. 34 weeks gestation of ([facility]) Z3A.34 Return OB: Patient presents today for a routine obstetrics appointment. Patient is currently 34w4d . Patient states she is doing well but has complaints of being tired due to current . Patient has verbalizes frequent movement. labor precautions was discussed/given and patient was instructed to perform kick counts three times a day. Orders Placed This Encounter Procedures POCT urinalysis dipstick manually resulted Follow Up: Patient is to return to office in 2 week for routine OB appointment. Patient given labs for HbA1C and CBC today. Documented by Majo Shea NP on behalf of: Majo Shea NP documented in this encounter [facility] 11-16-2024 History of Presen t illness Narrative Reason [...] nursing note reviewed. Exam conducted with a equal opportunity officer present. Vitals: Estimated body mass index is 30.7 kg/m as calculated from the following: Height as of 07/28/23: 5' 11 . Weight as of this encounter: 220 lb 1.9 oz. BP: 120/70 Patient's last menstrual period was 03/20/2024. ASSESSMENT & PLAN ICD-10-CM 1. 32 weeks gestation of ([facility]) Z3A.32 POCT urinalysis dipstick manually resulted 2. Third trimester ([facility]) Z34.93 POCT urinalysis dipstick manually resulted Return OB: Patient presents today for a routine obstetrics appointment. Patient is currently 32w4d . Patient states she is doing well but has complaints of being tired due to current . Patient has verbalizes frequent movement. labor precautions was discussed/given and patient was instructed to perform kick counts three times a day. Orders Placed This Encounter Procedures POCT urinalysis dipstick manually resulted Follow Up: Patient is to return to office in 2 week for routine OB appointment. Documented by Pauline Wright LPN on behalf of: Fransisco Espinoza DO documented in this encounter [facility] 11-02-2024 History of Presen t illness Narrative Reason [...] reviewed. Vitals: Estimated body mass index is 30.4 kg/m as calculated from the following: Height as of 07/28/23: 5' 11 . Weight as of this encounter: 218 lb. BP: 114/74 Patient's last menstrual period was 03/20/2024. ASSESSMENT & PLAN ICD-10-CM 1. Third trimester ([facility]) Z34.93 POCT urinalysis dipstick manually resulted 2. 30 weeks gestation of ([facility]) Z3A.30 POCT urinalysis dipstick manually resulted Return OB: Patient presents today for a routine obstetrics appointment. Patient is currently 30w4d . Patient states she is doing well but has complaints of being tired due to current . Patient has verbalizes frequent movement. labor precautions was discussed/given and patient was instructed to perform kick counts three times a day. Orders Placed This Encounter Procedures POCT urinalysis dipstick manually resulted Follow Up: Patient is to return to office in 2 week for routine OB appointment. Documented by DAWN Kirk on behalf of: DAWN Kirk documented in this encounter [facility] 10-19-2024 History of Presen t illness Narrative Reason [...] nursing note reviewed. Exam conducted with a equal opportunity officer present. Vitals: Estimated body mass index is 29.4 kg/m as calculated from the following: Height as of 07/28/23: 5' 11 . Weight as of this encounter: 210 lb 12.8 oz. BP: 116/68 Patient's last menstrual period was 03/20/2024. ASSESSMENT & PLAN ICD-10-CM 1. Third trimester ([facility]) Z34.93 POCT urinalysis dipstick manually resulted 2. 28 weeks gestation of ([facility]) Z3A.28 POCT urinalysis dipstick manually resulted Return OB: Patient presents today for a routine obstetrics appointment. Patient is currently 28w4d . Patient states she is doing well but has complaints of being tired due to current . Patient has verbalizes frequent movement. labor precautions was discussed/given and patient was instructed to perform kick counts three times a day. Discussed hormones progesterone and affects on body during . Orders Placed This Encounter Procedures POCT urinalysis dipstick manually resulted Follow Up: Patient is to return to office in 2 week for routine OB appointment. Documented by Pauline Wright LPN on behalf of: Fransisco Espinoza DO documented in this encounter [facility] 10-04-2024 History of Presen t illness Narrative Reason [...] Vitals: Estimated body mass index is 28.31 kg/m as calculated from the following: Height as of 24: 5' 11 . Weight as of this encounter: 203 lb. BP: 114/62 Patient's last menstrual period was 03/20/2024. ASSESSMENT & PLAN ICD-10-CM 1. Second trimester ([facility]) Z34.92 2. 26 weeks gestation of ([facility]) Z3A.26 3. BV (bacterial vaginosis) N76.0 metroNIDAZOLE [...] of: DAWN Kirk documented in this encounter [facility] 09-12-2024 History of Presen t illness Narrative Reason [...] nursing note reviewed. Exam conducted with a equal opportunity officer present. Vitals: Estimated body mass index is 27.75 kg/m as calculated from the following: Height as of 07/28/23: 5' 11 . Weight as of this encounter: 199 lb. BP: 110/62 Patient's last menstrual period was 03/20/2024. ASSESSMENT & PLAN ICD-10-CM 1. Second trimester ([facility]) Z34.92 POCT urinalysis dipstick manually resulted 2. 24 weeks gestation of ([facility]) Z3A.24 3. Diabetes mellitus screening Z13.1 CBC Glucose tolerance, 1 hour CBC Glucose tolerance, 1 hour Return OB: Patient presents today for a routine obstetrics appointment. Patient is currently 23w2d . Patient states she is doing well but has complaints of being tired due to current . Patient has verbalizes frequent movement. labor precautions was discussed/given and patient was instructed to perform kick counts three times a day. Orders Placed This Encounter Procedures CBC Glucose tolerance, 1 hour POCT urinalysis dipstick manually resulted Follow Up: Patient is to return to office in 3 weeks for routine OB appointment. Patient has not yet completed her routine labs. These were reprinted and handed to the patient today. Documented by Majo Shea NP on behalf of: Fransisco Espinoza DO documented in this encounter [facility] 08-10-2024 History of Presen t illness Narrative [...] obtained without difficulty and patient was given [facility] order to have obtained. Orders Placed This Encounter Procedures US OB 14+ weeks anatomy scan CHLAMYDIA TRACHOMATIS (GENITO/STI) Neisseria gonorrhea DNA probe, direct Alpha fetoprotein, maternal POCT urinalysis dipstick manually resulted Follow Up: Patient is to return to our office in 4 weeks for routine OB appointment Documented by DAWN Kirk on behalf of: DAWN Kirk documented in this encounter [facility] 07-11-2024 History of Presen t illness Narrative [...] nursing note reviewed. Exam conducted with a equal opportunity officer present. Vitals: Estimated body mass index is [...] or undercooked meat, and [facility]. Patient has been consulted regarding any further [...] by Alessandra Almaraz LPN on behalf of: rFansisco Espinoza DO documented in this encounter [facility] 05-18-2024 History of Presen t illness Narrative [...] nursing note reviewed. Exam conducted with a equal opportunity officer present. Vitals: Estimated body mass index is [...] in this encounter [facility] Evaluation note Diagnosis Nausea and vomiting during documented [facility] noteNo assessment information [facility] Work Phone: Evaluation note* Diagnosis 14 weeks gestation of Second trimester state, incidental Nausea and vomiting in Unspecified vomiting of , unspecified as to episode of care [facility]* Diagnosis Screening, , for anatomic survey Encounter for anatomic survey Second trimester state, incidental 18 weeks gestation of STD exposure Well woman exam with routine gynecological exam Routine gynecological examination documented [facility]* Diagnosis Second trimester ([facility]) state, incidental 24 weeks gestation of ([facility]) Diabetes mellitus screening Screening for diabetes mellitus documented [facility]* Diagnosis Second trimester ([facility]) state, incidental 26 weeks gestation of ([facility]) BV (bacterial vaginosis) Unspecified vaginitis and vulvovaginitis documented [facility]* Diagnosis Third trimester ([facility]) state, incidental 28 weeks gestation of ([facility]) size inconsistent with dates ([facility]) [facility]* Diagnosis Third trimester ([facility]) state, incidental 30 weeks gestation of ([facility]) [facility]* Diagnosis 32 weeks gestation of ([facility]) Third trimester ([facility]) state, incidental [facility] Diagnosis Third trimester ([facility]) state, incidental 34 weeks gestation of ([facility]) documented in this encounter [facility] Summary [...] CREATED AUTHOR AUTHOR'S ORGANIZ ATION 05/31/2024 [facility] DATE CREATED AUTHOR AUTHOR'S ORGANIZ ATION 12/01/2024 [facility] Care Teams (unrecognized sec tion and content) Wheel Molder Relationship Specialty Start Date End Date Stepan Yanez MD [address] [place] [phone] PCP - General Family Medicine 08/12/22 Wheel Molder Relationship Specialty Start Date End Date Stepan Yanez MD [address] [place] [address] PCP - General Family Medicine 08/12/22 Team Status: Inactive Member Role Status Dates Tracie Seo PA-C Attending Provider Active Start: May 27, 2024 End: May 27, 2024 Wheel Molder Relationship Specialty Start Date End Date Stepan Yanez MD [address] [place] [facility] [address] PCP - General Family Medicine 08/12/22 Wheel Molder Relationship Specialty Start Date End Date Stepan Yanez MD [address] [place] [facility] [address] PCP - General Family Medicine 08/12/22 Wheel Molder Relationship Specialty Start Date End Date Stepan Yanez MD [address] [place] [address] PCP - General Family Medicine 08/12/22 Wheel Molder Relationship Specialty Start Date End Date Stepan Yanez MD [address] [place] [address] PCP - General Family Medicine 08/12/22 Wheel Molder Relationship Specialty Start Date End Date Stepan Yanez MD [address] [place] [address] PCP - General Family Medicine 08/12/22 Wheel Molder Relationship Specialty Start Date End Date Stepan Yanez MD [address] [place] [address] PCP - General Family Medicine 08/12/22 Wheel Molder Relationship Specialty Start Date End Date Stepan Yanez MD [address] [place] [facility] [address] PCP - General Family Medicine 08/12/22 Wheel Molder Relationship Specialty Start Date End Date Stepan Yanez MD [address] [place] [facility] [address] PCP - General Family Medicine 08/12/22 Wheel Molder Relationship Specialty Start Date End Date Stepan Yanez MD [address] [place] [facility] [address] PCP - General Family Medicine 08/12/22 Wheel Molder Relationship Specialty Start Date End Date Stepan Yanez MD [address] [place] [facility] [address] PCP - General Family Medicine 08/12/22 Reason [...] BE BASED ON THE PRIMARY CLINICAL RECORDS. [employer] [facility]. provides no warranty or guarantee of the accuracy or completeness of information in this document.
== END 2024-12-15 20:21 | disposition home or self-care (01) ==
LOC: LAB 20:20
PROVIDERS: PCP Family Medicine; Visit Provider Nurse Practitioner Family
DX: Z01.419 Encounter for gynecological examination (general) (routine) without abnormal findings (principal)
CPT/HCPCS: 87081

== ENCOUNTER 2024-12-27 19:47 | Inpatient (IN) | payer BC, SELFPAY ==
--- OUTSIDE RECORDS SUMMARY | 2024-12-15 10:50 | XMS_ITS | Encounter Summary ---
Author Organization [facility] Address [address] [place] [address] Care Team Providers Care Leather Repairer Name Role Phone Franklin Yanez MD Primary Care Provider [phone] Reason for Visit * Reason Comments Routine Visit Encounter Details Date Type Department Care Team (Late st Contact Info) Description 12/15/2024 10:50 AM EDT Routine [facility] [address] [address] Majo Shea, APPLICATION SECURITY ARCHITECT [address] [place] [address] Third trimester ([facility]); 36 weeks gestation of ([facility]) Social History Tobacco Use Types Packs/Day Years [...] Sign Reading Time Taken Comments Blood Pressure 118/68 12/15/2024 11:00 AM EDT Pulse - - Temperature - - Respiratory Rate - - Oxygen Saturation - - Inhaled Oxygen Concentration - - Weight 104 kg (229 lb 6.4 oz) 12/15/2024 11:00 A M EDT Height - - Body Mass Index 31.99 07/28/2023 9:45 AM EDT documented in this encounter Progress Notes * Majo Shea NP - 12/15/2024 10:50 AM EDT Reason for Appointment: Patient ID: Mei King is a 24 y.o. female who presents for Routine Visit Patient presents today for Return OB appointment. MEDICATIONS Current Outpatient Medications Medication Instructions promethazine (PHENERGAN) 12.5 mg, Oral, Every 6 [...] nursing note reviewed. Exam conducted with a generator switchboard operator present. Vitals: Estimated body mass index is 31.99 kg/m?? as calculated from the following: Height as of 5/14/24: 5' 11 . Weight as of this encounter: 229 lb 6.4 oz. BP: 118/68 Patient's last menstrual period was 03/20/2024. ASSESSMENT & PLAN ICD-10-CM 1. Third trimester ([facility]) Z34.93 2. 36 weeks gestation of ([facility]) Z3A.36 POCT urinalysis dipstick manually resulted GBS swab Return OB: Patient presents today for a routine obstetrics appointment. Patient is currently 36w5d . Patient states she is doing well but has complaints of being tired due to current . Patient has verbalizes frequent movement. labor precautions was discussed/given and patient was instructed to perform kick counts three times a day. Orders Placed This Encounter Procedures GBS swab POCT urinalysis dipstick manually resulted Follow Up: Patient is to return to office in 1 week for routine OB appointment. Documented by Majo Shea NP on behalf of: Majo Shea NP documented in this encounter Plan of Treatment Scheduled Orders Name Type Priority Associated Diagnoses Orde r Schedule GBS swab Lab Routine 36 weeks gestation of ([facility]) Ordered: 12/15/2024 documented as of this encounter Procedures Procedure Name Priority Date/Time Associated Diagnosis Comments POCT URINALYSIS DIPSTICK Routine 12/15/2024 11:10 AM EDT 36 weeks gestation of ([facility]) documented in this encounter Results * (ABNORMAL) POCT urinalysis dipstick manually resulted (12/15/2024 11:10 AM EDT) Color, UA Yellow Clarity, UA Clear Glucose, UA Negative Negative - 2000(110) ++++ mg/dL Bilirubin, UA 1+ Negative - 4(70) +++ mg/dL Ketones, UA Negative Negative - 160(16) ++++ mg/dL Spec Grav, UA 1.020 1 - 1.03 Blood, UA Negative Negative - 50 Daniele/mcL pH, UA 6.0 5 - 9 Protein, UA Trace Negative - 1999(20) ++++ mg/dL Urobilinogen, UA 2.0 0.2 - 12 mg/dL Leukocytes, UA 3+ Negative - 500+++ Kiara/mcL Nitrite, UA Negative Negative - Positive Urine 12/15/2024 11:1 0 AM EDT Majo Shea NP POINT OF CARE TEST ENTER/EDIT ORDERABLES Final Result documented in this encounter Visit Diagnoses Diagnosis Third trimester ([facility]) state, incidental 36 weeks gestation of ([facility]) documented in this encounter Care Teams Leather Repairer Relationship Specialty Start Date End Date Franklin Yanez MD [address] [place] [id number] PCP - General Family Medicine 08/12/22 documented as of this encounter
--- OUTSIDE RECORDS SUMMARY | 2024-12-22 11:20 | XMS_ITS | Encounter Summary ---
Author Organization [facility] Address [address] [place] [address] Care Team Providers Care Inpatient Services Rn Name Role Phone Franklin Yanez MD Primary Care Provider [phone] Reason for Visit * Reason Comments Routine Visit Encounter Details Date Type Department Care Team (Late st Contact Info) Description 12/22/2024 11:20 AM EDT Routine [facility] [address] [place] [address] Majo Shea, DOCK HAND [address] [place] [address] Third trimester ([facility]); 37 weeks gestation of ([facility]) Social History Tobacco Use Types Packs/Day Years [...] Sign Reading Time Taken Comments Blood Pressure 116/70 12/22/2024 11:26 AM EDT Pulse - - Temperature - - Respiratory Rate - - Oxygen Saturation - - Inhaled Oxygen Concentration - - Weight 104 kg (229 lb 8 oz) 12/22/2024 11:26 AM EDT Height - - Body Mass Index 32.01 07/28/2023 9:45 AM EDT documented in this encounter Progress Notes * Majo Shea NP - 12/22/2024 11:20 AM EDT Reason for Appointment: Patient ID: [...] nursing note reviewed. Exam conducted with a narcotics and vice detective present. Vitals: Estimated body mass index is 32.01 kg/m?? as calculated from the following: Height as of 5/14/24: 5' 11 . Weight as of this encounter: 229 lb 8 oz. BP: 116/70 Patient's last menstrual period was 03/20/2024. ASSESSMENT & PLAN ICD-10-CM 1. Third trimester ([facility]) Z34.93 POCT urinalysis dipstick manually resulted CANCELED: POCT , urine manually resulted 2. 37 weeks gestation of ([facility]) Z3A.37 Return OB: Patient presents today for a routine obstetrics appointment. Patient is currently 37w5d . Patient states she is doing well [...] documented in this encounter Plan of Treatment Not on file documented as of this encounter Procedures Procedure Name Priority Date/Time Associated Diagnosis Comments POCT URINALYSIS DIPSTICK Routine 12/22/2024 11:33 AM EDT Third trimester ([facility]) documented in this encounter Results * (ABNORMAL) POCT urinalysis dipstick manually resulted (12/22/2024 11:33 AM EDT) Color, UA Yellow Clarity, UA Clear Glucose, UA Negative Negative - 2000(110) ++++ mg/dL Bilirubin, UA Negative Negative - 4(70) +++ mg/dL Ketones, UA Negative Negative - 160(16) ++++ mg/dL Spec Grav, UA 1.025 1 - 1.03 Blood, UA Negative Negative - 50 Daniele/mcL pH, UA 6.0 5 - 9 Protein, UA Positive Negative - 2000(20) ++++ mg/dL Comment:Trace Urobilinogen, UA 0.2 0.2 - 12 mg/dL Leukocytes, UA Positive Negative - 500+++ Kiara/mcL Comment:3+ Nitrite, UA Negative Negative - Positive Urine 12/22/2024 11:3 3 AM EDT Majo Shea DOCK HAND POINT OF CARE TEST ENTER/EDIT ORDERABLES Final Result documented in this encounter Visit Diagnoses Diagnosis Third trimester ([facility]) state, incidental 37 weeks gestation of ([facility]) documented in this encounter Care Teams Inpatient Services Rn Relationship Specialty Start Date End Date Franklin Yanez MD [address] [place] [address] PCP - General Family Medicine 08/12/22 documented as of this encounter
--- OUTSIDE RECORDS SUMMARY | 2024-12-27 14:10 | XMS_ITS | Encounter Summary ---
Author Organization [facility] Address [address] [place] [address] Care Team Providers Care Spindle Frame Carver Name Role Phone Franklin Yanez MD Primary Care Provider [phone] Reason for Visit * Reason Comments Routine Visit Encounter Details Date Type Department Care Team (Late Contact Info) Description 12/27/2024 2:10 PM EDT Routine [facility] [address] [place] [address] Mera Guzman PA [address] [place] [address] Third trimester ([facility]); 38 weeks gestation of ([facility]) Social History Tobacco Use Types Packs/Day Years [...] Sign Reading Time Taken Comments Blood Pressure 116/68 12/27/2024 2:10 PM EDT Pulse - - Temperature - - Respiratory Rate - - Oxygen Saturation - - Inhaled Oxygen Concentration - - Weight 106 kg (233 lb 3.2 oz) 12/27/2024 2:10 PM EDT Height - - Body Mass Index 32.52 07/28/2023 9:45 AM EDT documented in this encounter Progress Notes * DAWN Kirk - 12/27/2024 2:10 PM EDT Reason for Appointment: Patient ID: Mei King is a 24 y.o. female who presents for Routine Visit Patient presents today for Return OB appointment. MEDICATIONS Current Outpatient Medications Medication Instructions promethazine (PHENERGAN) 12.5 mg, Oral, Every 6 hours PRN, Take 1 tablet by mouth every 6 hours as needed for nausea. ALLERGIES Allergies[1] PROBLEMS Active Ambulatory Problems Diagnosis Date Noted No Active Ambulatory Problems Resolved Ambulatory Problems Diagnosis Date Noted No Resolved Ambulatory Problems No Additional Past Medical History HISTORY PAST MEDICAL HISTORY SOCIAL HISTORY Medical History[2] Social History Tobacco Use Smoking status: Never Smokeless tobacco: Not on file Substance Use Topics Alcohol use: Never Drug use: Never FAMILY HISTORY Family History[3] SURGICAL HISTORY Surgical History[4] REVIEW OF SYSTEMS Review of Systems: Review [...] reviewed. Vitals: Estimated body mass index is 32.52 kg/m?? as calculated from the following: Height as of 07/28/23: 5' 11 . Weight as of this encounter: 233 lb 3.2 oz. BP: 116/68 Patient's last menstrual period was 03/20/2024. ASSESSMENT & PLAN ICD-10-CM 1. Third trimester ([facility]) Z34.93 2. 38 weeks gestation of ([facility]) Z3A.38 POCT urinalysis dipstick manually resulted Return OB: Patient presents today for a routine obstetrics appointment. Patient is currently 38w3d . Patient states she is doing well [...] DAWN Kirk on behalf of: DAWN Kirk [1] No Known Allergies [2] No past medical history on file. [3] Family History Problem Relation Name Age of Onset Heart disease Father No Known Problems Brother [4] History reviewed. No pertinent surgical history. documented in this encounter Plan of Treatment Not on file documented as of this encounter Procedures Procedure Name Priority Date/Time Associated Diagnosis Comments POCT URINALYSIS DIPSTICK Routine 12/27/2024 2:17 PM EDT 38 weeks gestation of ([facility]) documented in this encounter Results * (ABNORMAL) POCT urinalysis dipstick manually resulted (12/27/2024 2:17 PM EDT) Color, UA Yellow Clarity, UA Clear Glucose, UA Negative Negative - 1999(110) ++++ mg/dL Bilirubin, UA Negative Negative - 4(70) +++ mg/dL Ketones, UA Negative Negative - 160(16) ++++ mg/dL Spec Grav, UA 1.015 1 - 1.03 Blood, UA Negative Negative - 50 Daniele/mcL pH, UA 6.0 5 - 9 Protein, UA Negative Negative - 2000(20) ++++ mg/dL Urobilinogen, UA 2.0 0.2 - 12 mg/dL Leukocytes, UA 3+ Negative - 500+++ Kiara/mcL Nitrite, UA Negative Negative - Positive Urine 12/27/2024 2:17 PM EDT Mera SEYMOUR POINT OF CARE TEST ENTER/EDIT OR DERABLES Final Result documented in this encounter Visit Diagnoses Diagnosis Third trimester ([facility]) state, incidental 38 weeks gestation of ([facility]) documented in this encounter Care Teams Spindle Frame Carver Relationship Specialty Start Date End Date Franklin Yanez MD [address] [place] [id number] PCP - General Family Medicine 08/12/22 documented as of this encounter
--- OUTSIDE RECORDS SUMMARY | 2024-12-27 19:52 | XMS_ITS | CCD ---
Author Organization [facility] Care Team Providers Care Coat Operator Insulator Name Role Phone CLEMENTE ., DR YING [...] Unavailable Stepan Yanez MD Primary Care Provider [phone] Tracie Seo PA-C Attending Provider Tracie Seo Attending Unavailable Tracie Seo Admitting Unavailable Stepan Yanez MD Primary Care Provider [phone] MERA TATUM Attending Unavailable OLGAMARTINAY Referring Unavailable OLGA, FRANSISCO Attending Unavailable DEEPTI, MERA Attending Unavailable DEEPTI, MERA Referring Unavailable OLGA, FRANSISCO Attending Unavailable DEEPTI, MERA Attending Unavailable FRANSISCO ESPINOZA Attending Unavailable FRANSISCO ESPINOZA Referring Unavailable MERA TATUM Attending Unavailable FRANSISCO ESPINOZA Attending Unavailable MAJO SHEA Attending Unavailable MAJO SHEA Attending Unavailable MAJO SHEA Attending Unavailable Medications [...] MG tablet Indications: Nausea and vomiting in ([facility]) Take 1 tablet (12.5 mg) by mouth [...] [34 weeks gestation of ] 11-30-2024 Episodic Residual codes; unclassified (2 sources) Gestation period, 36 weeks; Translations: [36 weeks gestation of ] 12-15-2024 Episodic Residual codes; unclassified (2 sources) Gestation period, 37 weeks; Translations: [37 weeks gestation of ] 12-22-2024 Episodic Urinary tract infections (1 source) Acute [...] Range Facility Urinalysis macro (dipstick) panel (U)on 12-22-2024 Bilirubin, UA Negative Negative - 4(70) +++ mg/dL [facility] Blood, UA Negative Negative - 50 Daniele/mcL [facility] Clarity, UA Clear [facility] Yellow [facility] Glucose, UA Negative Negative - 2000(110) ++++ mg/dL [facility] Interpretation and review of laboratory results Abnormal [facility] Ketones, UA Negative Negative - 160(16) ++++ mg/dL [facility] Healthcare Leukocytes, UA Positive Negative - 500+++ Kiara/mcL [facility] Comment on above: 3+ Nitrite, UA Negative Negative - Positive [facility] pH, UA 6 5 - 9 [facility] Healthcar e Protein, UA Positive Negative - 1999(20) ++++ mg/dL [facility] Comment on above: Trace Spec Grav, UA 1.025 1 - 1.03 [facility] care Urobilinogen, UA 0.2 0.2 - 12 mg/dL [facility] Urinalysis macro (dipstick) panel (U)on 12-15-2024 Bilirubin, UA 1+ Negative - 4(70) +++ mg/dL [facility] Blood, UA Negative Negative - 50 Daniele/mcL [facility] Clarity, UA Clear [facility] Color, UA Yellow [facility] Healthcar e Glucose, UA Negative Negative - 1999(110) ++++ mg/dL [facility] Interpretation and review of laboratory results Abnormal [facility] Ketones, UA Negative Negative - 160(16) ++++ mg/dL [facility] Leukocytes, UA 3+ Negative - 500+++ Kiara/mcL [facility] Nitrite, UA Negative Negative - Positive [facility] pH, UA 6 5 - 9 [facility] Healthcar e Protein, UA Trace Negative - 1999(20) ++++ mg/dL [facility] Spec Grav, UA 1.02 1 - 1.03 [facility] Urobilinogen, UA 2.0 0.2 - 12 mg/dL [facility] Urinalysis macro (dipstick) panel (U)on 11-30-2024 Bilirubin, UA Negative Negative - 4(70) +++ mg/dL [facility] Blood, UA Negative Negative - 50 Daniele/mcL [facility] Clarity, UA Clear [facility] Color, UA Yellow [facility] Glucose, UA Negative Negative - 1999(110) ++++ mg/dL [facility] Interpretation and review of laboratory results Abnormal [facility] Ketones, UA Negative Negative - 160(16) ++++ mg/dL [facility] Leukocytes, UA Positive Negative - 500+++ Kiara/mcL [facility] Comment on above: 2+ Nitrite, UA Negative Negative - Positive [facility] pH, UA 8 5 - 9 [facility] Protein, UA Negative Negative - 1999(20) ++++ mg/dL [facility] Spec Grav, UA 1.01 1 - 1.03 [facility] Urobilinogen, UA 0.2 0.2 - 12 mg/dL [facility] Urinalysis macro (dipstick) panel (U)on 11-16-2024 Bilirubin, UA Negative Negative - 4(70) +++ mg/dL [facility] Blood, UA Negative Negative - 50 Daniele/mcL [facility] Clarity, UA Clear [facility] re Color, UA Yellow [facility] [employer] Glucose, UA Negative Negative - 1999(110) ++++ mg/dL [facility] Interpretation and review of laboratory results Abnormal [facility] Ketones, UA Negative Negative - 160(16) ++++ mg/dL [facility] Leukocytes, UA Positive Negative - 500+++ Kiara/mcL [facility] Comment on above: 3+ Nitrite, UA Negative Negative - Positive [facility] pH, UA 6.5 5 - 9 [facility] [employer] Protein, UA Positive Negative - 1999(20) ++++ mg/dL [facility] Spec Grav, UA 1.015 1 - 1.03 [facility] Urobilinogen, UA 1.0 0.2 - 12 mg/dL [facility] Health[facility] e US OB FOLLOW UP [...] II, MD, PHD at 03-Nov-2024 08:06:49 AM [facility] Normal Not Available Comment on above: Order Comment: US OB SCAN FOR GROWTH Estimated Date of Delivery: 01/07/25 Gestational Age as of 10/19/2024: 28w4d Urinalysis macro (dipstick) panel (U)on 11-02-2024 Bilirubin, UA Negative Negative - 4(70) +++ mg/dL [facility] Blood, UA Negative Negative - 50 Daniele/mcL [facility] Clarity, UA Clear [facility] Color, UA Yellow [facility] Glucose, UA Negative Negative - 1999(110) ++++ mg/dL [facility] Interpretation and review of laboratory results Abnormal [facility] Ketones, UA Negative Negative - 160(16) ++++ mg/dL [facility] Leukocytes, UA Positive Negative - 500+++ Kiara/mcL [facility] Nitrite, UA Negative Negative - Positive [facility] pH, UA 6 5 - 9 [facility] Health[facility] e Protein, UA Negative Negative - 1999(20) ++++ mg/dL [facility] Spec Grav, UA 1.02 1 - 1.03 [facility] care Urobilinogen, UA 1.0 0.2 - 12 mg/dL [facility] Urinalysis macro (dipstick) panel (U)on 10-19-2024 Bilirubin, UA Negative Negative - 4(70) +++ mg/dL [facility] Blood, UA Negative Negative - 50 Daniele/mcL [facility] Clarity, UA Clear [facility] Color, UA Yellow [facility] Glucose, UA Negative Negative - 1999(110) ++++ mg/dL [facility] Interpretation and review of laboratory results Abnormal [facility] Ketones, UA Negative Negative - 160(16) ++++ mg/dL [facility] Leukocytes, UA Positive Negative - 500+++ Kiara/mcL [facility] Nitrite, UA Negative Negative - Positive [facility] pH, UA 6.5 5 - 9 [facility] Protein, UA Negative Negative - 1999(20) ++++ mg/dL [facility] Spec Grav, UA 1.015 1 - 1.03 [facility] Urobilinogen, UA 1.0 0.2 - 12 mg/dL [facility] e ALL CBC WITH AUTO DIFFon BASOPHILS ABSOLUTE AUTO 0.[address] [facility] Basophils/100 WBC (Bld) 0.4 % 0.2 - 2.0 % [facility] Eosinophils/100 WBC (Bld) 1.1 % 0.9 - 7.0 % [facility] Erythrocyte distribution width (RBC) [Ratio] 12.2 % 11.0 - 15.0 % [facility] Hematocrit (Bld) [Volume fraction] 32.5 % Low 36.0 - 48.0 % [facility] Hemoglobin (Bld) [Mass/Vol] 11.1 g/dL Low 12.0 - 16.0 g/dL [facility] IMMATURE GRANULOCYTES ABS AUTO 0.[address] [facility] Immature granulocytes/100 WBC (Bld) 0.6 % High 0.0 - 0.5 % [facility] Interpretation and review of laboratory results Abnormal [facility] LYMPHOCYTES ABSOLUTE AUTO 1.[address] [facility] Lymphocytes/100 WBC (Bld) 15.8 % Low 20.5 - 60.0 % [facility] MCH (RBC) [Entitic mass] 29.6 pg 26.7 - 34.[address] [facility] MCHC (RBC) [Mass/Vol] 34.2 g/dL 29.9 - 35.2 g/dL [facility] MCV (RBC) [Entitic vol] 86.7 fL 81.0 - 99.[address] [facility] MONOCYTES ABSOLUTE AUTO 0.[address] [facility] Monocytes/100 WBC (Bld) 7 % 1.7 - 12.0 % [facility] NEUTROPHILS ABSOLUTE AUTO 8.[address] [facility] Neutrophils/100 WBC (Bld) 75.1 % High 43.0 - 75.0 % [facility] Platelet mean volume (Bld) [Entitic vol] 9.8 fL 9.5 - 13.5 fL [facility] EO # 0.1 [facility] PLT 282 [facility] RBC 3.75 Low [facility] WBC 11.9 High [facility] Urinalysis macro (dipstick) panel (U)on 09-12-2024 Bilirubin, UA Negative Negative - 4(70) +++ mg/dL [facility] Blood, UA Negative Negative - 50 Daniele/mcL [facility] Clarity, UA Clear [facility] re Color, UA Yellow [facility] Health[facility] e Glucose, UA Negative Negative - 1999(110) ++++ mg/dL [facility] Interpretation and review of laboratory results Abnormal [facility] Ketones, UA Negative Negative - 160(16) ++++ mg/dL [facility] Leukocytes, UA Positive Negative - 500+++ Kiara/mcL [facility] Comment on above: small Nitrite, UA Negative Negative - Positive [facility] pH, UA 8.5 5 - 9 [facility] Protein, UA Negative Negative - 1999(20) ++++ mg/dL [facility] Spec Grav, UA 1.015 1 - 1.03 [facility] Urobilinogen, UA 0.2 0.2 - 12 mg/dL [facility] AFP, SERUM, OPEN SPINA BIFID Aon 09-11-2024 AFP MOM 1.00 . [facility] Health[facility] e AFP VALUE 72.5 ng/mL . [facility] COMMENT: Comment . [facility] Comment on above: Jo Granados , Ph.D., [facility] Director References: Available Upon Request. Multiples Of Median Cutoffs For AFP Elevations Hirsch 2.5 Black 2.8 IDD 2.0 Twins 4.5 Abbreviation Definitions IDD - Insulin Dep Diabetes OSBR - Open Spina Bifida Risk For further inquiries contact [employer] at [phone]. This test was developed and its performance characteristics determined by Sara Campbell. It has not been cleared or approved by the Food and Drug Administration. Performed at: [facility] [address], [place], [place] [id number] Size Cutter: Tesfaye Salas [facility], Phone: [phone] GEST. AGE ON COLLECTION DATE 22.9 . weeks [facility] GESTAT. AGE BASED ON Ultrasound . [facility] Comment on above: 18.6 on 08/10/2024 Recalculations are not recommended when gestational dating by LMP and ultrasound are within 10 days. INSULIN DEP DIABETES No . [facility] INTERPRETATION Comment . [facility] Donovan david Comment on above: Interpretation: Scre [...] Customer Services to discuss available options. The [employer] recommends amniocentesis be offered to women age 35 and older. [age] . [age] [facility] MULTIPLE GESTATION No . [facility] [place] [id number] . [facility] Donovan david RACE . [facility] RESULTS Report . [facility] [email or web address] e TEST RESULTS: Negative . [facility] WEIGHT 189 . lbs [email or web address] N ULTRASOUND [id number] 18 N 1 Y 189 N N N N N White/ [facility] [email or web address] e IGP,APTIMA HPV,AGE GDLNon AGE GDLN ACOG TESTING Note . [facility] Comment on above: TESTS RESULT FLAG UN ITS REF RANGE LAB Clinician Provided Cytology Information Source.............[employer] Other.............. No. of containers..01 ThinPrep Vial Age Algo ACOG Belle... FLAG LEGEND: L-Low Normal,H-High Normal,LL-Alert Low,HH-Alert High <-Panic Low,>-Panic High,A-Abnormal,AA-Critical Abnormal Performed at: 01 =G [facility] [place] [address] Laurie Moreno MD, IGP, RFX APTIMA HPV ASCU Note . [facility] Comment on above: TESTS RESULT FLAG UN ITS REF RANGE LAB DIAGNOSIS: 02 NEGATIVE FOR INTRAEPITHELIAL LESION OR MALIGNANCY. FUNGAL ORGANISMS MORPHOLOGICALLY CONSISTENT WITH ROSETTE SPECIES ARE PRESENT. Specimen adequacy: 02 Satisfactory for evaluation. No endocervical component is identified. An endocervical component is not commonly seen in the patient. Performed by: Lizett Mathews Printing Manager ([facility]) . 02 Note: Note 02 The [...] <-Panic Low,>-Panic High,A-Abnormal,AA-Critical Abnormal Performed at: [address] [id number] Laurie Moreno MD, Performed at: = - [facility] [address] [id number] Size Cutter: Laurie Moreno MD, Phone: [phone] Performed at: [facility] [address] [id number] Size Cutter: Laurie Moreno MD, Phone: [phone] SPATULA[facility]ALONE [facility] Healthcar e RECURRENT VAGINITIS (HTRX)on 08-11-2024 ATOPOBIUM VAGINAE 0 [facility] ATOPOBIUM VAGINAE Not detected [facility] BVAB 2,3 (BACTERIAL VAGINOSIS ASSOCIATED BACTERIA 2, 3); MOBILUNCUS SPP [address] [facility] BVAB 2,3 (BACTERIAL VAGINOSIS ASSOCIATED BACTERIA 2, 3); MOBILUNCUS SPP Not detected [facility] ROSETTE ALBICANS, PARAPSILOSIS, TROPICALIS 27.[address] [facility] ROSETTE ALBICANS, PARAPSILOSIS, TROPICALIS Detected Abnormal [facility] ROS[facility]TE GLABRATA [address] [facility] ROSETTE GLABRATA Not detected [facility] ealthcare ROSETTE KRUSEI 0 [facility] ROSETTE KRUSEI Not detected [facility] CHLAMYDIA TRACHOMATIS 0 [facility] Healthcare CHLAMYDIA TRACHOMATIS Not detected [facility] GARDNERELLA VAGINALIS 29.[address] [facility] GARDNERELLA VAGINALIS Detected Abnormal [facility] Interpretation and review of laboratory results Abnormal [facility] MEGASPHAERA (TYPES 1, 2) 0 [facility] MEGASPHAERA (TYPES 1, 2) Not detected [facility] MYCOPLASMA GENITALIUM 0 [facility] MYCOPLASMA GENITALIUM [facility] detected [facility] NEISSERIA GONORRHOEAE 0 [facility] NEISSERIA GONORRHOEAE Not detected [facility] TRICHOMONAS VAGINALIS 0 [facility] TRICHOMONAS VAGINALIS Not detected [facility] US OB 14+ [...] II, MD, PHD at 24-Aug-2024 08:22:54 AM [facility] Normal Not Available Comment on above: Order Comment: US OB ANATOMY SINGLE W US OB CERVICAL LENGTH Estimated Date of Delivery: 01/07/25 Gestational Age as of 08/10/2024: 18w4d Urinalysis macro (dipstick) panel (U)on 08-10-2024 Bilirubin, UA Negative Negative - 4(70) +++ mg/dL [facility] Blood, UA Negative Negative - 50 Daniele/mcL [facility] Clarity, UA Clear [facility] Color, UA Yellow [facility] Glucose, UA Negative Negative - 1999(110) ++++ mg/dL [facility] Interpretation and review of laboratory results Abnormal [facility] Ketones, UA Negative Negative - 160(16) ++++ mg/dL [facility] Leukocytes, UA Positive Negative - 500+++ Kiara/mcL [facility] Comment on above: Moderate Nitrite, UA Negative Negative - Positive [facility] pH, UA 7 5 - 9 [facility] Protein, UA Trace Negative - 1999(20) ++++ mg/dL [facility] Spec Grav, UA 1.02 1 - 1.03 [facility] Urobilinogen, UA 0.2 0.2 - 12 mg/dL [facility] Urinalysis macro (dipstick) panel (U)on 07-11-2024 Bilirubin, UA Negative Negative - 4(70) +++ mg/dL [facility] Blood, UA Negative Negative - 50 Daniele/mcL [facility] Clarity, UA Clear [facility] Color, UA Yellow [facility] Glucose, UA Negative Negative - 1999(110) ++++ mg/dL [facility] Interpretation and review of laboratory results Abnormal [facility] Ketones, UA Negative Negative - 160(16) ++++ mg/dL [facility] Leukocytes, UA Trace Negative - 500+++ Kiara/mcL [facility] Nitrite, UA Negative Negative - Positive [facility] pH, UA 5.5 5 - 9 [facility] Protein, UA Negative Negative - 1999(20) ++++ mg/dL [facility] Spec Grav, UA 1.03 1 - 1.03 [facility] Urobilinogen, UA 0.2 0.2 - 12 mg/dL [facility] OB TRANSVAGINALon 025 US OB TRANSVAGINAL EXAM: [...] II, MD, PHD at 03-Jun-2024 08:37:27 PM [facility] Normal Not Available Comment on above: Order Comment: US OB TRANSVAGINAL No LMP recorded. Urine Cultureon 05-27-2024 Bacteria identified Cx Nom (U) 50,000 colonies/ml mixed bacterial skin contaminants 2 Days PERFORMED BY: [place] [address] PATHOLOGIST [employer]URANCE APPRAISER CASA BLACKMON M.D. Normal [facility] Comment on above: Performed By: #### C UU #### [address] US PREG ANATOMY SINGLEon US PREG [...] ROXY CARRILLO Date: 2022-07-17 16:59 Normal [facility] CBC AUTO DIFFon 05-16-2022 BASO # 0.1 103/ul Normal 0.0-0.1 [facility] Comment on above: Performed By: #### C BC #### [facility] [address] [address] [address] Gabino Motta Basophils/100 WBC (Bld) 0.3 % Normal 0.2-2.0 [facility] Comment on above: Performed By: #### C BC #### [facility] [address] [address] [address] Gabino Motta EO # 0.0 103/ul Normal 0.0-0.7 [facility] Comment on above: Performed By: #### C BC #### [facility] [address] [address] [address] Gabino Motta Eosinophils/100 WBC (Bld) 0.0 % Critically low 0.9-7.0 [facility] Comment on above: Performed By: #### C BC #### [facility] [address] [place] [address] Dr. Gabino Motta Erythrocyte distribution width (RBC) [Ratio] 12.7 % Normal 11.0-15.0 [facility] Comment on above: Performed By: #### C BC #### [facility] [address] [place] [address] Dr. Gabino Motta Hematocrit (Bld) [Volume fraction] 39.1 % Normal 36.0-48.0 [facility] Comment on above: Performed By: #### C BC #### [facility] [address] [place] [address] Dr. Gabino Motta Hemoglobin (Bld) [Mass/Vol] 13.7 g/dL Normal 12.0-16.0 [facility] Comment on above: Performed By: #### C BC #### [facility] [address] [place] [address] Dr. Gabino Motta IG # 0.05 10e3/ul Critically high 0.00-0.03 [facility] Comment on above: Performed By: #### C BC #### [facility] [address] [place] [address] Dr. Gabino Motta IG % 0.3 % Normal 0.0-0.5 [facility] Comment on above: Performed By: #### C BC #### [facility] [address] [place] [address] Dr. Gabino Motta LYMPH # 1.1 103/ul Critically low 1.2-3.8 [facility] Comment on above: Performed By: #### C BC #### [facility] [address] [place] [address] Dr. Gabino Motta Lymphocytes/100 WBC (Bld) 7.0 % Critically low 20.5-60.0 [facility] Comment on above: Performed By: #### C BC #### [facility] [address] [place] [address] Dr. Gabino Motta MANUAL DIFF REQ NO Normal [facility] Comment on above: Performed By: #### C BC #### [facility] [address] [place] [address] Dr. Gabino Motta MCH (RBC) [Entitic mass] 28.5 pg Normal 26.7-34.0 [facility] Comment on above: Performed By: #### C BC #### [facility] [address] [place] [address] Dr. Gabino Motta MCHC (RBC) [Mass/Vol] 35.0 g/dL Normal 29.9-35.2 [facility] Comment on above: Performed By: #### C BC #### [facility] [address] [place] [address] Dr. Gabino Motta MCV (RBC) [Entitic vol] 81.3 fL Normal 81.0-99.0 [facility] Comment on above: Performed By: #### C BC #### [facility] [address] [place] [address] Dr. Gabino Motta MONO # 0.3 103/ul Normal 0.3-0.8 [facility] Comment on above: Performed By: #### C BC #### [facility] [address] [place] [address] Dr. Gabino Motta Monocytes/100 WBC (Bld) 2.1 % Normal 1.7-12.0 [facility] Comment on above: Performed By: #### C BC #### [facility] [address] [place] [address] Dr. Gabino Motta NEUT # 13.5 103/ul Critically high 1.4-6.5 [facility] Comment on above: Performed By: #### C BC #### [facility] [address] [place] [address] Dr. Gabino Motta Neutrophils/100 WBC (Bld) 90.3 % Critically high 43.0-75.0 [facility] Comment on above: Performed By: #### C BC #### [facility] [address] [place] [address] Dr. Gabino Motta Platelet mean volume (Bld) [Entitic vol] 11.1 fL Normal 9.5-13.5 [facility] Comment on above: Performed By: #### C BC #### [facility] [address] [place] [address] Dr. Gabino Motta PLT 282 103/ul Normal 150-450 [facility] Comment on above: Performed By: #### C BC #### [facility] [address] [place] [address] Dr. Gabino Motta RBC 4.81 106/ul Normal 4.20-5.40 [facility] Comment on above: Performed By: #### C BC #### [facility] [address] [place] [address] Dr. Gabino Motta WBC 14.9 103/ul Critically high 4.0-11.0 [facility] Comment on above: Performed By: #### C BC #### [facility] [address] [place] [address] Dr. Gabino Motta PROF 14(COMP METB)on 023 Albumin [Mass/Vol] 4.1 g/dL Normal 3.4-5.0 [facility] Comment on above: Performed By: #### C BC #### [facility] [address] [place] [address] Dr. Gabino Motta Albumin/Globulin [Mass ratio] 1.1 {ratio} Normal [facility] Comment on above: Performed By: #### C BC #### [facility] [address] [place] [address] Dr. Gabino Motta ALP [Catalytic activity/Vol] 72 U/L Normal 46-116 [facility] Comment on above: Performed By: #### C BC #### [facility] [address] [place] [address] Dr. Gabino Motta ALT [Catalytic activity/Vol] 42 U/L Normal 14-59 [facility] Comment on above: Performed By: #### C BC #### [facility] [address] [address] [address] Gabino Motta Anion gap [Moles/Vol] 18.4 mmol/L Normal [facility] Comment on above: Performed By: #### C BC #### [facility] [address] [place] [address] Dr. Gabino Motta AST [Catalytic activity/Vol] 18 U/L Normal 15-37 [facility] Comment on above: Performed By: #### C BC #### [facility] [address] [address] [address] Gabino Motta Bilirubin [Mass/Vol] 0.5 mg/dL Normal 0.2-1.0 [facility] Comment on above: Performed By: #### C BC #### [facility] [address] [place] [address] Dr. Gabino Motta Calcium [Mass/Vol] 9.6 mg/dL Normal 8.5-10.1 [facility] Comment on above: Performed By: #### C BC #### [facility] [address] [place] [address] Dr. Gabino Motta Chloride [Moles/Vol] 103 mmol/L Normal 98-107 [facility] Comment on above: Performed By: #### C BC #### [facility] [address] [place] [address] Dr. Gabino Motta CO2 [Moles/Vol] 20.1 mmol/L Critically low 21.0-32.0 [facility] Comment on above: Performed By: #### C BC #### [facility] [address] [place] [address] Dr. Gabino Motta Creatinine [Mass/Vol] 0.54 mg/dL Critically low 0.55-1.02 [facility] Comment on above: Performed By: #### C BC #### [facility] [address] [place] [address] Dr. Gabino Motta EGFR-AF [place]OU[place] >60 Normal >=60 [facility] Comment on above: Performed By: #### C BC #### [facility] [address] [place] [address] Dr. Gabino Motta EGFR-NON AF [place] >60 Normal >=60 [facility] Comment on above: Performed By: #### C BC #### [facility] [address] [address] [address] Gabino Motta Globulin (S) [Mass/Vol] 3.8 g/dL Normal [facility] Comment on above: Performed By: #### C BC #### [facility] [address] [address] [address] Gabino Motta Glucose [Mass/Vol] 102 mg/dL Normal 74-106 [facility] Comment on above: Performed By: #### C BC #### [facility] [address] [address] [address] Gabino Motta Potassium [Moles/Vol] 3.5 mmol/L Normal 3.5-5.1 [facility] Comment on above: Performed By: #### C BC #### [facility] [address] [place] [address] Dr. Gabino Motta Protein [Mass/Vol] 7.9 g/dL Normal 6.4-8.2 [facility] Comment on above: Performed By: #### C BC #### [facility] [address] [place] [address] Dr. Gabino Motta Sodium [Moles/Vol] 138 mmol/L Normal 136-145 [facility] Comment on above: Performed By: #### C BC #### [facility] [address] [place] [address] Dr. Gabino Motta Urea nitrogen [Mass/Vol] 6.0 mg/dL Critically low 7.0-18.0 [facility] Comment on above: Performed By: #### C BC #### [facility] [address] [address] [address] Gabino Motta Urea nitrogen/Creatinine [Mass ratio] 11.1 mg/mg Normal [facility] Comment on above: Performed By: #### C BC #### [facility] [address] [place] [address] Dr. Gabino Motta CULTURE URINEon 04-29-2022 CULTURE [...] Trimethoprim/Sulfame thoxazole <=20 S F Normal [facility] Comment on above: Performed By: #### U RCX #### [facility] [address] [place] [address] Dr. Gabino Motta CBC AUTO DIFFon 04-26-2022 BASO # 0.0 103/ul Normal 0.0-0.1 [facility] Comment on above: Performed By: #### C BC #### [facility] [address] [place] [address] Dr. Gabino Motta Basophils/100 WBC (Bld) 0.3 % Normal 0.2-2.0 [facility] Comment on above: Performed By: #### C BC #### [facility] [address] [place] [address] Dr. Gabino Motta EO # 0.0 103/ul Normal 0.0-0.7 [facility] Comment on above: Performed By: #### C BC #### [facility] [address] [place] [address] Dr. Gabino Motta Eosinophils/100 WBC (Bld) 0.2 % Critically low 0.9-7.0 [facility] Comment on above: Performed By: #### C BC #### [facility] [address] [place] [address] Dr. Gabino Motta Erythrocyte distribution width (RBC) [Ratio] 12.7 % Normal 11.0-15.0 [facility] Comment on above: Performed By: #### C BC #### [facility] [address] [place] [address] Dr. Gabino Motta Hematocrit (Bld) [Volume fraction] 39.7 % Normal 36.0-48.0 [facility] Comment on above: Performed By: #### C BC #### [facility] [address] [place] [address] Dr. Gabino Motta Hemoglobin (Bld) [Mass/Vol] 13.8 g/dL Normal 12.0-16.0 [facility] Comment on above: Performed By: #### C BC #### [facility] [address] [place] [address] Dr. Gabino Motta IG # 0.03 10e3/ul Normal 0.00-0.03 [facility] Comment on above: Performed By: #### C BC #### [facility] [address] [place] [address] Dr. Gabino Motta IG % 0.2 % Normal 0.0-0.5 [facility] Comment on above: Performed By: #### C BC #### [facility] [address] [place] [address] Dr. Gabino Motta LYMPH # 1.4 103/ul Normal 1.2-3.8 [facility] Comment on above: Performed By: #### C BC #### [facility] [address] [place] [address] Dr. Gabino Motta Lymphocytes/100 WBC (Bld) 11.4 % Critically low 20.5-60.0 [facility] Comment on above: Performed By: #### C BC #### [facility] [address] [place] [address] Dr. Gabino Motta MANUAL DIFF REQ NO Normal [facility] Comment on above: Performed By: #### C BC #### [facility] [address] [place] [address] Dr. Gabino Motta MCH (RBC) [Entitic mass] 28.4 pg Normal 26.7-34.0 [facility] Comment on above: Performed By: #### C BC #### [facility] [address] [place] [address] Dr. Gabino Motta MCHC (RBC) [Mass/Vol] 34.8 g/dL Normal 29.9-35.2 [facility] Comment on above: Performed By: #### C BC #### [facility] [address] [place] [address] Dr. Gabino Motta MCV (RBC) [Entitic vol] 81.7 fL Normal 81.0-99.0 [facility] Comment on above: Performed By: #### C BC #### [facility] [address] [place] [address] Dr. Gabino Motta MONO # 0.7 103/ul Normal 0.3-0.8 [facility] Comment on above: Performed By: #### C BC #### [facility] [address] [place] [address] Dr. Gabino Motta Monocytes/100 WBC (Bld) 5.6 % Normal 1.7-12.0 [facility] Comment on above: Performed By: #### C BC #### [facility] [address] [place] [address] Dr. Gabino Motta NEUT # 10.1 103/ul Critically high 1.4-6.5 [facility] Comment on above: Performed By: #### C BC #### [facility] [address] [place] [address] Dr. Gabino Motta Neutrophils/100 WBC (Bld) 82.3 % Critically high 43.0-75.0 [facility] Comment on above: Performed By: #### C BC #### [facility] [address] [place] [address] Dr. Gabino Motta Platelet mean volume (Bld) [Entitic vol] 10.8 fL Normal 9.5-13.5 [facility] Comment on above: Performed By: #### C BC #### [facility] [address] [place] [address] Dr. Gabino Motta PLT 274 103/ul Normal 150-450 [facility] Comment on above: Performed By: #### C BC #### [facility] [address] [place] [address] Dr. Gabino Motta RBC 4.86 106/ul Normal 4.20-5.40 [facility] Comment on above: Performed By: #### C BC #### [facility] [address] [address] [address] Gabino Motta WBC 12.3 103/ul Critically high 4.0-11.0 [facility] Comment on above: Performed By: #### C BC #### [facility] [address] [address] [address] Gabino Motta ER URINE PROFILEon 3 Bilirubin Ql (U) Negative Normal NEGATIVE [facility] Comment on above: Performed By: #### U MICRO, ERUR #### [facility] [address] [address] [address] Gabino Motta Clarity (U) SL CLOUDY Abnormal CLEAR [facility] Comment on above: Performed By: #### U MICRO, ERUR #### [facility] [address] [place] [address] Dr. Gabino Motta Color (U) YELLOW Normal YELLOW [facility] Comment on above: Performed By: #### U MICRO, ERUR #### [facility] [address] [address] [address] Gabino Motta ERUAHD A micrscopic examination will be performed if indicated. Normal [facility] Comment on above: Performed By: #### U MICRO, ERUR #### [facility] [address] [address] [address] Gabino Motta Glucose Ql (U) Negative Normal NEGATIVE [facility] Comment on above: Performed By: #### U MICRO, ERUR #### [facility] [address] [address] [address] Gabino Motta Hemoglobin Ql (U) Negative Normal NEGATIVE [facility] Comment on above: Performed By: #### U MICRO, ERUR #### [facility] [address] [address] [address] Gabino Motta Ketones Ql (U) >=80 Abnormal NEGATIVE [facility] Comment on above: Performed By: #### U MICRO, ERUR #### [facility] [address] [place] [address] Dr. Gabino Motta LEUKOCYTES Negative Normal NEGATIVE [facility] Comment on above: Performed By: #### U MICRO, ERUR #### [facility] [address] [address] [address] Gabino Motta Nitrite Ql (U) Positive Abnormal NEGATIVE [facility] Comment on above: Performed By: #### U MICRO, ERUR #### [facility] [address] [address] [address] Gabino Motta pH (U) 6.0 [pH] Normal 5-9 [facility] Comment on above: Performed By: #### U MICRO, ERUR #### [facility] [address] [address] [address] Gabino Motta SPEC GRAVITY 1.030 Abnormal 1.005-<=1.025 [facility] Comment on above: Performed By: #### U MICRO, ERUR #### [facility] [address] [place] [address] Dr. Gabino Motta UA PROTEIN Negative Normal NEGATIVE/ TRACE [facility] Comment on above: Performed By: #### U MICRO, ERUR #### [facility] [address] [address] [address] Gabino Motta UR MICRO IND INDICATED Normal [facility] Comment on above: Performed By: #### U MICRO, ERUR #### [facility] [address] [place] [address] Dr. Gabino Motta Urobilinogen Qn (U) 0.2 {Landy'U}/dL Normal 0.2 - 1. 0 [facility] Comment on above: Performed By: #### U MICRO, ERUR #### [facility] [address] [place] [address] Dr. Gabino Motta PROF 14(COMP METB)on 023 Albumin [Mass/Vol] 3.9 g/dL Normal 3.4-5.0 [facility] Comment on above: Performed By: #### C MP #### [facility] [address] [place] [address] Dr. Gabino Motta Albumin/Globulin [Mass ratio] 1.1 {ratio} Normal [facility] Comment on above: Performed By: #### C MP #### [facility] [address] [address] [address] Gabino Motta ALP [Catalytic activity/Vol] 75 U/L Normal 46-116 [facility] Comment on above: Performed By: #### C MP #### [facility] [address] [address] [address] Gabino Motta ALT [Catalytic activity/Vol] 36 U/L Normal 14-59 [facility] Comment on above: Performed By: #### C MP #### [facility] [address] [place] [address] Dr. Gabino Motta Anion gap [Moles/Vol] 18.0 mmol/L Normal [facility] Comment on above: Performed By: #### C MP #### [facility] [address] [place] [address] Dr. Gabino Motta AST [Catalytic activity/Vol] 16 U/L Normal 15-37 [facility] Comment on above: Performed By: #### C MP #### [facility] [address] [place] [address] Dr. Gabino Motta Bilirubin [Mass/Vol] 0.4 mg/dL Normal 0.2-1.0 [facility] Comment on above: Performed By: #### C MP #### [facility] [address] [place] [address] Dr. Gabino Motta Calcium [Mass/Vol] 9.3 mg/dL Normal 8.5-10.1 [facility] Comment on above: Performed By: #### C MP #### [facility] [address] [place] [address] Dr. Gabino Motta Chloride [Moles/Vol] 101 mmol/L Normal 98-107 [facility] Comment on above: Performed By: #### C MP #### [facility] [address] [place] [address] Dr. Gabino Motta CO2 [Moles/Vol] 22.7 mmol/L Normal 21.0-32.0 [facility] Comment on above: Performed By: #### C MP #### [facility] [address] [address] [address] Gabino Motta Creatinine [Mass/Vol] 0.57 mg/dL Normal 0.55-1.02 [facility] Comment on above: Performed By: #### C MP #### [facility] [address] [address] [address] Gabino Motta EGFR-AF [place] >60 Normal >=60 [facility] Comment on above: Performed By: #### C MP #### [facility] [address] [address] [address] Gabino Motta EGFR-NON AF [place] >60 Normal >=60 [facility] Comment on above: Performed By: #### C MP #### [facility] [address] [place] [address] Dr. Gabino Motta Globulin (S) [Mass/Vol] 3.7 g/dL Normal [facility] Comment on above: Performed By: #### C MP #### [facility] [address] [address] [address] Gabino Motta Glucose [Mass/Vol] 94 mg/dL Normal 74-106 [facility] Comment on above: Performed By: #### C MP #### [facility] [address] [place] [address] Dr. Gabino Motta Potassium [Moles/Vol] 3.7 mmol/L Normal 3.5-5.1 [facility] Comment on above: Performed By: #### C MP #### [facility] [address] [address] [address] Gabino Motta Protein [Mass/Vol] 7.6 g/dL Normal 6.4-8.2 [facility] Comment on above: Performed By: #### C MP #### [facility] [address] [place] [address] Dr. Gabino Motta Sodium [Moles/Vol] 138 mmol/L Normal 136-145 [facility] Comment on above: Performed By: #### C MP #### [facility] [address] [place] [address] Dr. Gabino Motta Urea nitrogen [Mass/Vol] 8.0 mg/dL Normal 7.0-18.0 [facility] Comment on above: Performed By: #### C MP #### [facility] [address] [place] [address] Dr. Gabino Motta Urea nitrogen/Creatinine [Mass ratio] 14.0 mg/mg Normal [facility] Comment on above: Performed By: #### C MP #### [facility] [address] [place] [address] Dr. Gabino Motta URINE MICROSCOPIC ONLYon BACTERIA SMALL Abnormal NONE SEEN [facility] Comment on above: Performed By: #### U MICRO, ERUR #### [facility] [address] [place] [address] Dr. Gabino Motta Bacteria identified Cx Nom (U) INDICATED Normal [facility] Comment on above: Performed By: #### U MICRO, ERUR #### [facility] [address] [place] [address] Dr. Gabino Motta CAST NONE SEEN Normal NONE SEEN [facility] Comment on above: Performed By: #### U MICRO, ERUR #### [facility] [address] [place] [address] Dr. Gabino Motta Crystals LM Nom (Urine sed) NONE SEEN Normal NONE SEEN [facility] Comment on above: Performed By: #### U MICRO, ERUR #### [facility] [address] [place] [address] Dr. Gabino Motta Epithelial cells LM Ql (Urine sed) FEW Abnormal NONE SEEN /RARE [facility] Comment on above: Performed By: #### U MICRO, ERUR #### [facility] [address] [place] [address] Dr. Gabino Motta MUCOUS SMALL Abnormal NONE SEEN [facility] Comment on above: Performed By: #### U MICRO, ERUR #### [facility] [address] [place] [address] Dr. Gabino Motta RBC NONE SEEN Abnormal 0-2 [facility] Comment on above: Performed By: #### U MICRO, ERUR #### [facility] [address] [place] [address] Dr. Gabino Motta WBC 2-5 Abnormal NONE SEEN [facility] Comment on above: Performed By: #### U MICRO, ERUR #### [facility] [address] [address] [address] Gabino Motta US PREG TVon 04-25-2022 [...] by: EMA SAMUEL Date: 2022-04-25 10:29 Normal [facility] US PELVISon 11-15-2021 US PELVIS EXAMINATION: US [...] by: ROXY CARRILLO Date: 2021-11-15 17:11 Normal [facility] Vital Signs Date Time Vital Sign Value Performing Clinician Zoya pollard 12-22-2024 11:26-0400 Body mass index (BMI) [Ratio] 32.01 kg/m2 Majo Shea NP Work Phone: [facility] 12-22-2024 11:26-0400 Body weight 104.1 kg Majo Shea NP Work Phone: [facility] 12-22-2024 11:26-0400 Diastolic blood pressure 70 mm[Hg] Majo Monse CERTIFIED LEGAL SECRETARY SPECIALIST Work Phone: [facility] 12-22-2024 11:26-0400 Systolic blood pressure 116 mm[Hg] Majo Monse CERTIFIED LEGAL SECRETARY SPECIALIST Work Phone: [facility] 12-15-2024 11:00-0400 Body mass index (BMI) [Ratio] 31.99 kg/m2 Majo Monse CERTIFIED LEGAL SECRETARY SPECIALIST Work Phone: [facility] 12-15-2024 11:00-0400 Body weight 104.06 kg Majo Monse CERTIFIED LEGAL SECRETARY SPECIALIST Work Phone: [facility] 12-15-2024 11:00-0400 Diastolic blood pressure 68 mm[Hg] Majo Monse CERTIFIED LEGAL SECRETARY SPECIALIST Work Phone: [facility] 12-15-2024 11:00-0400 Systolic blood pressure 118 mm[Hg] Majo Monse CERTIFIED LEGAL SECRETARY SPECIALIST Work Phone: [facility] 11-30-2024 09:50-0400 Body mass index (BMI) [Ratio] 31.07 kg/m2 Majo Monse CERTIFIED LEGAL SECRETARY SPECIALIST Work Phone: [facility] 11-30-2024 09:50-0400 Body weight 101.04 kg Majo Monse CERTIFIED LEGAL SECRETARY SPECIALIST Work Phone: [facility] 11-30-2024 09:50-0400 Diastolic blood pressure 60 mm[Hg] Majo Monse CERTIFIED LEGAL SECRETARY SPECIALIST Work Phone: [facility] 11-30-2024 09:50-0400 Systolic blood pressure 110 mm[Hg] Majo Monse CERTIFIED LEGAL SECRETARY SPECIALIST Work Phone: [facility] 11-16-2024 14:03-0400 Body mass index (BMI) [Ratio] 30.7 kg/m2 Fransisco Olga DO Work Phone: [facility] 11-16-2024 14:03-0400 Body weight 99.85 kg Fransisco Olga DO Work Phone: [facility] 11-16-2024 14:03-0400 Diastolic blood pressure 70 mm[Hg] Frnasisco Olga DO Work Phone: [facility] 11-16-2024 14:03-0400 Systolic blood pressure 120 mm[Hg] Fransisco Olga DO Work Phone: [facility] 11-02-2024 14:10-0400 Body mass index (BMI) [Ratio] 30.4 kg/m2 Mera Deepti PA Work Phone: [facility] 11-02-2024 14:10-0400 Body weight 98.88 kg Mera Deepti PA Work Phone: [facility] 11-02-2024 14:10-0400 Diastolic blood pressure 74 mm[Hg] Mera Viola PA Work Phone: [facility] 11-02-2024 14:10-0400 Systolic blood pressure 114 mm[Hg] Mera Deepti PA Work Phone: [facility] 10-19-2024 11:37-0400 Body mass index (BMI) [Ratio] 29.4 kg/m2 Fransisco Olga DO Work Phone: [facility] 10-19-2024 11:37-0400 Body weight 95.62 kg Fransisco Olga DO Work Phone: [facility] 10-19-2024 11:37-0400 Diastolic blood pressure 68 mm[Hg] Fransisco Olga DO Work Phone: [facility] 10-19-2024 11:37-0400 Systolic blood pressure 116 mm[Hg] Fransisco Olga DO Work Phone: [facility] 10-04-2024 10:14-0400 Body mass index (BMI) [Ratio] 28.31 kg/m2 Mera Deepti PA Work Phone: [facility] 10-04-2024 10:14-0400 Body weight 92.08 kg Mera Deepti PA Work Phone: [facility] 10-04-2024 10:14-0400 Diastolic blood pressure 62 mm[Hg] Mera Viola PA Work Phone: [facility] 10-04-2024 10:14-0400 Systolic blood pressure 114 mm[Hg] Mera Viola PA Work Phone: [facility] 09-12-2024 09:58-0400 Body mass index (BMI) [Ratio] 27.75 kg/m2 Fransisco Olga DO Work Phone: [facility] 09-12-2024 09:58-0400 Body weight 90.27 kg Fransisco Olga DO Work Phone: [facility] 09-12-2024 09:58-0400 Diastolic blood pressure 62 mm[Hg] Fransisco Olga DO Work Phone: [facility] 09-12-2024 09:58-0400 Systolic blood pressure 110 mm[Hg] Fransisco Olga DO Work Phone: [facility] 08-10-2024 10:28-0400 Body mass index (BMI) [Ratio] 26.46 kg/m2 Mera Deepti PA Work Phone: [facility] 08-10-2024 10:28-0400 Body weight 86.07 kg Mera Viola PA Work Phone: [facility] 08-10-2024 10:28-0400 Diastolic blood pressure 42 mm[Hg] Mera Deepti PA Work Phone: [facility] 08-10-2024 10:28-0400 Systolic blood pressure 96 mm[Hg] Mera Deepti PA Work Phone: [facility] 07-11-2024 13:26-0400 Body mass index (BMI) [Ratio] 24.7 kg/m2 Fransisco Olga DO Work Phone: [facility] 07-11-2024 13:26-0400 Body weight 80.34 kg Fransisco Olga DO Work Phone: [facility] 07-11-2024 13:26-0400 Diastolic blood pressure 74 mm[Hg] Fransisco Olga DO Work Phone: [facility] 07-11-2024 13:26-0400 Systolic blood pressure 120 mm[Hg] Fransisco Olga DO Work Phone: [facility] Encounters Encounter Date Encounter Type Care Provider Facility Start: 12-22-2024 End: 12-22-2024 Bamboo flowsheet Majo Monse CERTIFIED LEGAL SECRETARY SPECIALIST Work Phone: [facility] [place] [facility] Start: 12-22-2024 End: 12-22-2024 Bamboo flowsheet Majo Monse CERTIFIED LEGAL SECRETARY SPECIALIST Work Phone: [facility] Start: 12-22-2024 End: 12-22-2024 ambulatory MAJO MONSE Not Available Start: 12-22-2024 End: 12-22-2024 flow sheet Majo Monse CERTIFIED LEGAL SECRETARY SPECIALIST Work Phone: [facility] Comment on above: Third trimester preg jael ([facility] 37 weeks gestation of ([facility]) Start: 12-15-2024 End: 12-15-2024 Bamboo flowsheet Majo Monse CERTIFIED LEGAL SECRETARY SPECIALIST Work Phone: [facility] [place] [facility] Start: 12-15-2024 End: 12-15-2024 Bamboo flowsheet Majo Monse CERTIFIED LEGAL SECRETARY SPECIALIST Work Phone: [facility] [place] [facility] Start: 12-15-2024 End: 12-15-2024 flow sheet Majo Monse CERTIFIED LEGAL SECRETARY SPECIALIST Work Phone: [facility] Comment on above: Third trimester preg jael ([facility]); 36 weeks gestation of ([facility]) Start: 12-15-2024 End: 12-15-2024 ambulatory MAJO MONSE Not Available Start: 11-30-2024 End: 11-30-2024 Bamboo flowsheet Majo Monse CERTIFIED LEGAL SECRETARY SPECIALIST Work Phone: [facility] [place] [facility] Start: 11-30-2024 End: 11-30-2024 Bamboo flowsheet Majo Shea CERTIFIED LEGAL SECRETARY SPECIALIST Work Phone: [facility] Start: 11-30-2024 End: 11-30-2024 ambulatory MAJO SHEA Not Available Start: 11-30-2024 End: 11-30-2024 flow sheet Majo Shea CERTIFIED LEGAL SECRETARY SPECIALIST Work Phone: [facility] [place] [facility] Comment on above: Third trimester preg jael ([facility]); 34 weeks gestation of ([facility]) Start: 11-16-2024 End: 11-16-2024 Bamboo flowsheet Fransisco Olga DO Work Phone: [facility] Start: 11-16-2024 End: 11-16-2024 Bamboo flowsheet Fransisco Olga DO Work Phone: [facility] Start: 11-16-2024 End: 11-16-2024 flow sheet Fransisco Olga DO Work Phone: [facility] [place] [facility] Comment on above: 32 weeks gestation o f ([facility]); Third trimester ([facility]) Start: 11-16-2024 End: 11-16-2024 ambulatory FRANSISCO OLGA Not Available Start: 11-02-2024 End: 11-02-2024 flow sheet Mera SEYMOUR Work Phone: [facility] Comment on above: Third trimester preg jael ([facility]); 30 weeks gestation of ([facility]) Start: 11-02-2024 End: 11-02-2024 ambulatory MERA TATUM Not Available Start: 10-19-2024 End: 10-19-2024 Bamboo flowsheet Fransisco Olga DO Work Phone: [facility] Start: 10-19-2024 End: 10-19-2024 Bamboo flowsheet Fransisco Olga DO Work Phone: [facility] [place] [facility] Start: 10-19-2024 End: 10-19-2024 flow sheet Fransisco Olga DO Work Phone: [facility] Comment on above: Third trimester preg jael ([facility]); 28 weeks gestation of ([facility]); size inconsistent with dates ([facility]) Start: 10-19-2024 End: 10-19-2024 ambulatory FRANSISCO OLGA [...] [facility] Start: 10-04-2024 End: 10-04-2024 flow sheet Mera SEYMOUR Work Phone: [facility] Comment on above: Second trimester pre gnancy ([facility]); 26 weeks gestation of ([facility]); BV (bacterial vaginosis) Start: 10-04-2024 End: 10-04-2024 ambulatory MERA TATUM Not Available Start: 09-12-2024 End: 09-12-2024 Bamboo flowsheet Fransisco Olga DO Work Phone: [facility] Start: 09-12-2024 End: 09-12-2024 Bamboo flowsheet Fransisco Olga DO Work Phone: [facility] Start: 09-12-2024 End: 09-12-2024 flow sheet Fransisco Olga DO Work Phone: [facility] Comment on above: Second trimester pre gnancy ([facility]); 24 weeks gestation of ([facility]); Diabetes mellitus screening Start: 09-12-2024 End: 09-12-2024 ambulatory FRANSISCO OLGA Not Available Start: 09-09-2024 End: 09-11-2024 Clinisync Result Encounter Mera SEYMOUR Work Phone: [facility] Unsolicited Start: 09-09-2024 End: 09-11-2024 Clinisync Result Encounter Mera SEYMOUR Work Phone: [facility] Unsolicited Start: 08-22-2024 End: 08-22-2024 ambulatory MERA TATUM Not Available Start: 08-10-2024 End: 08-10-2024 Bamboo flowsheet Mera SEYMOUR Work Phone: [facility] Start: 08-10-2024 End: 08-12-2024 Bamboo flowsheet Mera SEYMOUR Work Phone: [facility] Start: 08-10-2024 End: 08-12-2024 Clinisync Result Encounter Mera SEYMOUR Work Phone: [facility] Unsolicited Start: 08-10-2024 End: 08-11-2024 External Result Encounter Mera SEYMOUR Work Phone: [facility] Unsolicited Start: 08-10-2024 End: 08-10-2024 Patient encounter procedure Mera SEYMOUR Work Phone: [facility] Start: 08-10-2024 End: 08-10-2024 Periodic preventive med est patient 18-39 yrs Mera ESYMOUR Work Phone: [facility] Comment on [...] flow sheet Fransisco Olga DO Work Phone: [facility] Comment on above: 14 weeks gestation o f ; Second trimester ; Nausea and vomiting in Start: 07-11-2024 End: 07-11-2024 ambulatory FRANSISCO OLGA Not Available Start: 06-03-2024 End: 06-03-2024 ambulatory FRANSISCO OLGA Not Available Start: 05-27-2024 End: 05-27-2024 ambulatory Tracie Seo [facility] Work Phone: Start: 05-27-2024 End: 05-27-2024 Departed Referred Tracie Rayray PA-C Work Phone: [facility] Start: 05-18-2024 End: 05-18-2024 Bamboo flowsheet Mera SEYMOUR Work Phone: [facility] Start: 05-18-2024 End: 05-18-2024 Bamboo flowsheet Mera SEYMOUR Work Phone: [facility] Start: 05-18-2024 End: 05-18-2024 ambulatory MERA TATUM Not Available Start: 05-18-2024 End: 05-18-2024 Office outpatient visit 15 minutes Mera SEYMOUR Work Phone: [facility] Comment on above: Nausea and vomiting during Start: 08-12-2022 End: 08-13-[address] STEPAN YANEZ . Facility:[facility] Start: 07-17-2022 End: 07-18-[address] STEPAN YANEZ . Facility:[facility] Start: 05-16-2022 End: 05-16-[address] STEPAN YANEZ . Facility:[facility] Start: 04-26-2022 End: 04-27-[address] STEPAN YANEZ . Facility:[facility] Start: 04-25-2022 End: 04-26-[address] FRANSISCO ESPINOZA . Facility: Start: 11-14-2021 End: 11-15-[address] FRANSISCO ESPINOZA . Facility: Procedures Date Procedure Procedure Detail Performing Clinician Start: 12-22-2024 Urnls dip stick/tabl et rgnt non-auto w/o micrscp Majo Shea CERTIFIED LEGAL SECRETARY SPECIALIST Work Phone: Start: 12-15-2024 Urnls dip stick/tabl et rgnt non-auto w/o micrscp Majo Monse CERTIFIED LEGAL SECRETARY SPECIALIST Work Phone: Start: 11-30-2024 Urnls dip stick/tabl et rgnt non-auto w/o micrscp Majo Monse CERTIFIED LEGAL SECRETARY SPECIALIST Work Phone: Start: 11-16-2024 Urnls dip stick/tabl [...] Treatment Date Care Activity Detail Author Start: 12-27-2024 End: 12-27-2024 Patient encounter procedure 12/27/2024 2:10 PM EDT Routine [facility] [address] [place] [address] Mera Tatum PA [address] [place], [place] [id number] [facility] Start: 12-22-2024 End: 12-22-2024 Patient encounter procedure 12/22/2024 11:20 AM EDT Routine [facility] [address] [place] [phone] Majo Shea, CERTIFIED LEGAL SECRETARY SPECIALIST [address] [place] [address] [facility] Start: 12-15-2024 End: 12-15-2024 Patient encounter procedure 12/15/2024 10:50 AM EDT Routine [facility] [address] [place] [phone] Majo Shea, CERTIFIED LEGAL SECRETARY SPECIALIST [address] [place] [address] Arrived [facility] Comment on above: Arrived Start: 11-30-2024 End: 11-30-2024 Patient encounter procedure 11/30/2024 9:00 AM EDT Routine [facility] [address] [place] [address] Majo Shea, CERTIFIED LEGAL SECRETARY SPECIALIST [address] [place] [phone] [facility] Start: 11-16-2024 End: 11-16-2024 Patient encounter procedure [facility] [place] [facility] Comment on above: Arrived Start: 11-02-2024 End: 11-02-2024 Patient encounter procedure 11/02/2024 2:30 PM EDT Routine [facility] [address] [place] [phone] Mera Tatum, PA [address] [place], [place] [phone] [facility] [place] [facility] Start: 11-02-2024 End: 11-02-2024 Professional / ancillary services management 11/02/2024 1:30 PM EDT Ancillary Procedure [facility] [address] [place] [place] [phone] [facility] Start: 10-19-2024 End: 02-18-2025 US for US OB follow up transabdominal approach Imaging Routine size inconsistent with dates ([facility]) Expected: 10/19/2024, Expires: 02/18/2025 [facility] Work [...] Expected: 09/12/2024 (Approximate), Expires: 09/12/2025 [facility] Comment on above: Expected: 09/12/2024 (Approximate), Expires: 09/12/2025 Start: 09-12-2024 End: 09-12-2024 Patient encounter procedure [facility] Comment on above: Arrived Start: 08-22-2024 End: 08-22-2024 Professional / ancillary services management 08/22/2024 11:00 AM EDT Ancillary Procedure [facility] [address] [place] [place] [phone] [facility] Start: 08-10-2024 End: 10-10-2024 [...] PM EDT Routine [facility] [address] [place] [place] [phone] Fransisco Espinoza DO [address] [place] [address] Arrived [facility] Comment on above: Arrived Start: 05-27-2024 Urine culture [facility] Start: 05-27-2024 Bacteria identified in Urine by Culture Urine Culture [facility] Start: 05-26-2024 End: 05-26-2024 ambulatory 05/26/2024 1:30 PM EDT Initial [facility] [address] [place] [place] [address] [facility] Start: 05-26-2024 End: 05-26-2024 Professional / ancillary services management 05/26/2024 1:00 PM EDT Ancillary Procedure [facility] [address] [place] [address] [facility] CHLAMYDIA TRACHOMATI S (GENITO/STI) CHLAMYDIA TRACHOMATIS (GENITO/STI) Lab Routine STD exposure Ordered: 08/10/[address] [facility] Comment on above: Ordered: 08/10/2024 Cytology Cervical or vaginal smear or scraping study Pap Smear Pathology and Cytology Routine Well woman exam with routine gynecological exam Ordered: 08/10/[address] [facility] Comment on above: Ordered: 08/10/2024 GBS swab GBS swab Lab Rou isabel 36 weeks gestation of ([facility]) Ordered: 12/15/2024 [facility] [employer] Work Phone: Comment on above: Ordered: 12/15/2024 Hemoglobin A1c/Hemoglobin.total in Blood Hemoglobin A1c Lab Routine 32 weeks gestation of ([facility]) Third trimester ([facility]) Ordered: 11/16/2024 [facility] [employer] Work Phone: Comment on above: Ordered: 11/16/2024 Neisseria gonorrhoea e DNA [Presence] in Unspecified specimen by BRIGIDO with probe detection Neisseria gonorrhea DNA probe, direct Lab Routine STD exposure Ordered: 08/10/[address] [facility] Comment on above: Ordered: 08/10/2024 SURESWAB(R) ADVANCED VAGINITIS PLUS, TMA SURESWAB(R) ADVANCED VAGINITIS PLUS, TMA Pathology and Cytology Routine STD exposure Ordered: 08/10/2024 [facility] [employer] Work Phone: Comment on above: Ordered: 08/10/2024 Payers Date Payer Category Payer Self-pay 2023 [employer] [id number] 2023 Unknown [id number] 2002 Unknown [id number] 2.16.84 0.1.927771.3.579.2.593 2002 Unknown [id number] 2.16.84 0.1.000568.3.579.2.593 2002 Unknown [id number] 2.16.84 0.1.008207.3.579.2.593 2002 Unknown [id number] 2.16.84 0.1.003067.3.579.2.593 2002 Unknown [id number] 2.16.84 0.1.519483.3.579.2.593 2002 Unknown [id number] 2.16.84 0.1.513081.3.579.2.593 2002 Unknown [id number] 2.16.840.1.303851.3.579.2.1259 2002 Unknown [id number] 2.16.840.1.940654.3.579.2.1259 2002 Unknown [id number] 2.16.840.1.253695.3.579.2.1259 2002 Unknown [id number] 2.16.840.1.093181.3.579.2.1259 2002 Unknown [id number] 2.16.840.1.672103.3.579.2.1259 2002 Unknown [id number] 2.16.840.1.803488.3.579.2.1259 2002 Unknown [id number] 2.16.840.1.978191.3.579.2.1259 2002 Unknown [id number] 2.16.840.1.169657.3.579.2.1259 2002 Unknown [id number] 2.16.840.1.765075.3.579.2.1259 2002 Unknown [id number] 2.16.840.1.704959.3.579.2.1259 2002 Unknown [id number] 2.16.84 0.1.838238.3.579.2.1259 2002 Unknown [id number] 2.16.84 0.1.233858.3.579.2.1259 2002 Unknown [id number] 2.16.84 0.1.763336.3.579.2.1259 2002 Unknown [id number] 2.16.84 0.1.384707.3.579.2.1259 2002 Unknown [id number] 2.16.84 0.1.855822.3.579.2.1259 1959 Self-pay [id number] 1959 Unknown [id number] Unknown David BC/ALEXIA [id number] Unknown [id number] 2.16.8 40.1.934367.3.579.2.531 Social History Date Type Detail Facility Start: 03-05-2020 End: 09-08-2022 Tobacco smoking status NHIS Never smoked tobacco [facility] Start: 07-28-2023 End: 12-15-2024 Alcoholic beverage intake Lifetime non-drinker (finding) [facility] Start: 06-02-2023 End: 06-03-2024 History of Social function [facility] Start: 06-02-2023 End: 06-03-2024 Tobacco use panel [facility] Start: 2002 Sex assigned at Female [facility] Start: 09-08-2022 Gender identity Identifies as female gender (finding) [facility] Start: 09-08-2022 Sexual orientation Heterosexual (finding) [facility] Start: 05-29-2024 Sex Female (finding) [facility] Start: 04-16-2024 [facility] Clinical Notes 05-18-2024 to 12-22-2024 Majo Shea NP - 12/22/2024 11:20 AM Marsha Shea NP - 12/15/2024 10:50 AM Marsha Shea NP - 11/30/2024 9:40 AM Karlie Wright LPN - 11/16/2024 2:00 PM EDT Note Date & Type Note Facility 12-22-2024 History of Presen t illness Narrative Reason [...] nursing note reviewed. Exam conducted with a pad making machine operator present. Vitals: Estimated body mass index is 32.01 kg/m as calculated from the following: Height as of 07/28/23: 5' 11 . Weight as of this encounter: 229 lb 8 oz. BP: 116/70 Patient's last menstrual period was 03/20/2024. ASSESSMENT & PLAN ICD-10-CM 1. Third trimester ([facility]) Z34.93 POCT urinalysis dipstick manually resulted CANCELED: POCT , urine manually resulted 2. 37 weeks gestation of ([facility]) Z3A.37 Return OB: Patient presents today for [...] Majo Shea NP documented in this encounter [facility] 12-15-2024 History of Presen t illness Narrative Reason [...] nursing note reviewed. Exam conducted with a pad making machine operator present. Vitals: Estimated body mass index is 31.99 kg/m as calculated from the following: Height as of 24: 5' 11 . Weight as of this encounter: 229 lb 6.4 oz. BP: 118/68 Patient's last menstrual period was 03/20/2024. ASSESSMENT & PLAN ICD-10-CM 1. Third trimester ([facility]) Z34.93 2. 36 weeks gestation of ([facility]) Z3A.36 POCT urinalysis dipstick manually resulted [...] Majo Shea NP documented in this encounter [facility] 11-30-2024 History of Presen t illness Narrative [...] nursing note reviewed. Exam conducted with a pad making machine operator present. Vitals: Estimated body mass index is 31.07 kg/m as calculated from the following: Height as of 24: 5' 11 . Weight as of this encounter: 222 lb 12 oz. BP: 110/60 Patient's last menstrual period was 03/20/2024. ASSESSMENT & PLAN ICD-10-CM 1. Third trimester ([facility]) Z34.93 POCT urinalysis dipstick manually resulted 2. 34 weeks gestation of ([facility]) Z3A.34 Return OB: Patient presents today for [...] Majo Shea NP documented in this encounter [facility] 11-16-2024 History of Presen t illness Narrative [...] nursing note reviewed. Exam conducted with a pad making machine operator present. Vitals: Estimated body mass index is 30.7 kg/m as calculated from the following: Height as of 24: 5' 11 . Weight as of this encounter: 220 lb 1.9 oz. BP: 120/70 Patient's last menstrual period was 03/20/2024. ASSESSMENT & PLAN ICD-10-CM 1. 32 weeks gestation of ([facility]) Z3A.32 POCT urinalysis dipstick manually resulted 2. Third trimester ([facility]) Z34.93 POCT urinalysis dipstick manually resulted Return [...] Fransisco Espinoza DO documented in this encounter [facility] 11-02-2024 History of Presen t illness Narrative [...] ASSESSMENT & PLAN ICD-10-CM 1. Third trimester ([facility]) Z34.93 POCT urinalysis dipstick manually resulted 2. 30 weeks gestation of ([facility]) Z3A.30 POCT urinalysis dipstick manually resulted Return [...] of: DAWN Kirk documented in this encounter [facility] 10-19-2024 History of Presen t illness Narrative [...] nursing note reviewed. Exam conducted with a pad making machine operator present. Vitals: Estimated body mass index is 29.4 kg/m as calculated from the following: Height as of 07/28/23: 5' 11 . Weight as of this encounter: 210 lb 12.8 oz. BP: 116/68 Patient's last menstrual period was 03/20/2024. ASSESSMENT & PLAN ICD-10-CM 1. Third trimester ([facility]) Z34.93 POCT urinalysis dipstick manually resulted 2. 28 weeks gestation of ([facility]) Z3A.28 POCT urinalysis dipstick manually resulted Return [...] Fransisco Espinoza DO documented in this encounter [facility] 10-04-2024 History of Presen t illness Narrative [...] ASSESSMENT & PLAN ICD-10-CM 1. Second trimester ([facility]) Z34.92 2. 26 weeks gestation of ([facility]) Z3A.26 3. BV (bacterial vaginosis) N76.0 metroNIDAZOLE [...] of: DAWN Kirk documented in this encounter [facility] 09-12-2024 History of Presen t illness Narrative [...] nursing note reviewed. Exam conducted with a pad making machine operator present. Vitals: Estimated body mass index is 27.75 kg/m as calculated from the following: Height as of 07/28/23: 5' 11 . Weight as of this encounter: 199 lb. BP: 110/62 Patient's last menstrual period was 03/20/2024. ASSESSMENT & PLAN ICD-10-CM 1. Second trimester ([facility]) Z34.92 POCT urinalysis dipstick manually resulted 2. 24 weeks gestation of ([facility]) Z3A.24 3. Diabetes mellitus screening Z13.1 CBC [...] Fransisco Espinoza DO documented in this encounter [facility] 08-10-2024 History of Presen t illness Narrative [...] obtained without difficulty and patient was given msAFP order to have obtained. Orders Placed This Encounter Procedures US OB 14+ weeks anatomy scan CHLAMYDIA TRACHOMATIS (GENITO/STI) Neisseria gonorrhea DNA probe, direct Alpha fetoprotein, maternal POCT urinalysis dipstick manually resulted Follow Up: Patient is to return to our office in 4 weeks for routine OB appointment Documented by DAWN Kirk on behalf of: DAWN Kirk documented in this encounter [facility] 07-11-2024 History of Presen t illness Narrative [...] nursing note reviewed. Exam conducted with a pad making machine operator present. Vitals: Estimated body mass index [...] or undercooked meat, and stay away from [facility]. Patient has been consulted regarding any further [...] Fransisco Espinoza DO documented in this encounter [facility] 05-18-2024 History of Presen t illness Narrative Reason for Appointment: Patient ID: Mei Puentes is a 24 y.o. female who presents for [facility] Follow Up Patient presents today for [...] nursing note reviewed. Exam conducted with a pad making machine operator present. Vitals: Estimated body mass index [...] of: DAWN Kirk documented in this encounter [facility] Evaluation note Diagnosis Nausea and vomiting during documented in this [facility] Work Phone: Evaluation note* Diagnosis 14 weeks [...] ([facility]) state, incidental 24 weeks gestation of ([facility]) Diabetes mellitus screening Screening for diabetes mellitus documented in this encounter [facility]* Diagnosis Second trimester ([facility]) state, incidental 26 weeks gestation of ([facility]) BV (bacterial vaginosis) Unspecified vaginitis and vulvovaginitis documented in [facility] Diagnosis Third trimester ([facility]) state, incidental 28 weeks gestation of ([facility]) size inconsistent with dates ([facility]) documented [facility] Diagnosis Third trimester ([facility]) state, incidental 30 weeks gestation of ([facility]) documented [facility]* Diagnosis 32 weeks gestation of ([facility]) Third trimester ([facility]) state, incidental documented [facility] Diagnosis Third trimester ([facility]) state, incidental 34 weeks gestation of ([facility]) documented [facility]* Diagnosis Third trimester ([facility]) state, incidental 36 weeks gestation of ([facility]) documented [facility] Diagnosis Third trimester ([facility]) state, incidental 37 [...] and content) DATE CREATED AUTHOR 08/22/2022 [facility] DATE CREATED AUTHOR AUTHOR'S ORGANIZ ATION 05/31/2024 [facility] DATE CREATED AUTHOR AUTHOR'S ORGANIZ ATION 12/24/2024 [facility] Care Teams (unrecognized sec tion and content) Coat Operator Insulator Relationship Specialty Start Date End Date Stepan Yanez MD [address] [place] [address] PCP - General Family Medicine 08/12/22 Coat Operator Insulator Relationship Specialty Start Date End Date Stepan Yanez MD [address] [place] [address] PCP - General Family Medicine 08/12/22 Team Status: Inactive Member Role Status Dates Tracie Seo PA-C Attending Provider Active Start: May 27, 2024 End: May 27, 2024 Coat Operator Insulator Relationship Specialty Start Date End Date Stepan Yanez MD [address] [place] [address] PCP - General Family Medicine 08/12/22 Coat Operator Insulator Relationship Specialty Start Date End Date Stepan Yanez MD [address] [facility], [facility] PCP - General Family Medicine 08/12/22 Coat Operator Insulator Relationship Specialty Start Date End Date Stepan Yanez MD [address] [facility], [facility] PCP - General Family Medicine 08/12/22 Coat Operator Insulator Relationship Specialty Start Date End Date Stepan Yanez MD [address] [facility], [facility] PCP - General Family Medicine 08/12/22 Coat Operator Insulator Relationship Specialty Start Date End Date Stepan Yanez MD [address] [facility], [facility] PCP - General Family Medicine 08/12/22 Coat Operator Insulator Relationship Specialty Start Date End Date Stepan Yanez MD [address] [facility], [facility] PCP - General Family Medicine 08/12/22 Coat Operator Insulator Relationship Specialty Start Date End Date Stepan Yanez MD [address] [facility], [facility] PCP - General Family Medicine 08/12/22 Coat Operator Insulator Relationship Specialty Start Date End Date Stepan Yanez MD [address] [facility], [facility] PCP - General Family Medicine 08/12/22 Coat Operator Insulator Relationship Specialty Start Date End Date Stepan Yanez MD [address] [place] [address] PCP - General Family Medicine 08/12/22 Coat Operator Insulator Relationship Specialty Start Date End Date Stepan Yanez MD [address] [place] [address] PCP - General Family Medicine 08/12/22 Reason [...] BE BASED ON THE PRIMARY CLINICAL RECORDS. [facility] [employer] [facility]. provides no warranty or guarantee of the accuracy or completeness of information in this document.
--- NOTE | 2024-12-27 20:29 | PC.NURSE ---
IV attempt made by Malka Moncada RN to right wrist is unsuccessful
[2024-12-27 20:32] VITALS: BP 125/76; PULSE 90; TEMP 36.8
[2024-12-27 20:32] LABS: Hematocrit 31.1 % (36.0-48.0); Hemoglobin 11.0 g/dL (12.0-16.0); Mean Corpuscular HGB Conc 35.4 g/dL (29.9-35.2); Mean Corpuscular Hemoglobin 28.3 pg (26.7-34.0); Mean Corpuscular Volume 79.9 fL (81.0-99.0); Platelet Count 227 10^3/uL (150-450); Red Blood Count 3.89 10^6/uL (4.20-5.40); White Blood Count 13.7 10^3/uL (4.0-11.0)
[2024-12-27 20:36] VITALS: BP 125/76; PULSE 90
[2024-12-27 20:44] LABS: Cannabinoid Screen Urine POSITIVE (NEGATIVE); Methamphetamines Screen Urine NEGATIVE (NEGATIVE); Tricyclic Antidepressant Urine NEGATIVE (NEGATIVE)
[2024-12-27 23:04] VITALS: BP 113/72; PULSE 80
[2024-12-27 23:06] VITALS: BP 113/72; PULSE 80; TEMP 36.6
[2024-12-28] VITALS (21 sets, daily range): BP systolic 112–139; BP diastolic 60–90; PULSE 69–105; TEMP 36.6–36.9
[2024-12-28] MEDS: OXYTOCIN/0.9 % SODIUM CHLORIDE 20 UNITS/1,000 ML PLAST..BAG 999 UNIT IV (10:10)
[2024-12-28] MEDS: LIDOCAINE HCL 1% 200 MG/20 ML MDV INJ (10:20)
--- NOTE | 2024-12-28 10:20 | PM.OBPRCVD ---
Procedure Intrapartal events: None Induction method: none Delivery augmentation: rupture of membranes Delivery monitor: external FHT and external uterine Route of delivery: Episiotomy Description: none L&D Laceration Description: perineal - 1st degree Delivery repair: Vicryl Estimated blood loss (mL): 300 Anesthesia type: None Disposition: floor Infant Delivery date: 12/28/24 Gender: male presentation: vertex Placental delivery description: Spontaneous cord description: 3 Vessels
[2024-12-28] MEDS: ONDANSETRON 4 MG RAPDIS TABLET SL (13:24)
[2024-12-28] MEDS: BENZOCAINE/MENTHOL 85 GRAM SPRAY BOTTLE 1 APPLIC TOPICAL (13:26)
[2024-12-28] MEDS: GLYCERIN/WITCH HAZEL PADS 1 PAD TOPICAL (13:26)
--- OUTSIDE RECORDS SUMMARY | 2024-12-28 15:05 | XMS_ITS | Encounter Summary ---
Author Organization [facility] Address [address] [place] [address] Care Team Providers Care Stock Crane Operator Name Role Phone Franklin Yanez MD Primary Care Provider [phone] Encounter Details Date Type Department Care Team (Late st Contact Info) Description 12/15/2024 [facility] [address] [place] [address] Stone Espinoza DO [address] [place] [address] Social History Tobacco Use Types Packs/Day Years [...] as of this encounter Plan of Treatment Not on file documented as of this encounter Visit Diagnoses Not on filedocumented in this encounter Care Teams Stock Crane Operator Relationship Specialty Start Date End Date Franklin Yanez MD [address] [facility] [place] [address] PCP - General Family Medicine 08/12/22 documented as of this encounter
--- OUTSIDE RECORDS SUMMARY | 2024-12-28 15:05 | XMS_ITS | Encounter Summary ---
Author Organization [facility] Address [address] [place] [address] Care Team Providers Care Shallot Packer Name Role Phone Franklin Yanez MD Primary Care Provider [phone] Encounter Details Date Type Department Care Team (Late st Contact Info) Description 12/15/2024 Bamboo flowsheet [facility] [address] [facility] [place] [address] Majo Shea, CARINA [address] [facility] [place] [address] Social History Tobacco Use Types Packs/Day Years [...] on filedocumented in this encounter Care Teams Shallot Packer Relationship Specialty Start Date End Date Franklin Yanez MD [address] [place] [address] PCP - General Family Medicine 08/12/22 documented as of this encounter
--- OUTSIDE RECORDS SUMMARY | 2024-12-28 15:05 | XMS_ITS | Encounter Summary ---
Author Organization [facility] Address [address] [place] [address] Care Team Providers Care Intensive Care Anaesthetist Name Role Phone Franklin Yanez MD Primary Care Provider [phone] Encounter Details Date Type Department Care Team (Late st Contact Info) Description 12/27/2024 Telephone [facility] [address] [place] [address] Stone Espinoza DO [address] [place], [facility] Social History Tobacco Use Types [...] PM EDT documented as of this encounter Miscellaneous Notes * Telephone Encounter - Sydni Lopez LPN - 12/27/2024 11:44 AM EDT I have an appointment today around 210 and I was wondering if there was any chance I could get induced today. Uh, I just wanted to know because my appointment is around the same time. I have to pick my daughter out and I would like to make arrangements for that if there was any chance I was 4 cm mylast appointment and I have been very crampy and pain today, so I was going to see if there is anything I could get induced today, and so I can just make arrangements. Thank you. Patient call was returned and she was advised after talking with that will still need to come infor appointment because no consents are signed and see where she is at. PVU documented in this encounter Plan of Treatment Not on file documented as of this encounter Visit Diagnoses Not on filedocumented in this encounter Care Teams Intensive Care Anaesthetist Relationship Specialty Start Date End Date Franklin Yanez MD [address] [place] [phone] PCP - General Family Medicine 08/12/22 documented as of this encounter
--- OUTSIDE RECORDS SUMMARY | 2024-12-28 15:05 | XMS_ITS | Encounter Summary ---
Author Organization [facility] Address [address] [place] [address] Care Team Providers Care Greenhouse Specialist Name Role Phone Franklin Yanez MD Primary Care Provider [phone] Encounter Details Date Type Department Care Team (Late st Contact Info) Description 11/06/2022 Abstract [facility] [place] [facility] [address] [facility] [place] [phone] Stone Espinoza DO [address] [facility] [place] [address] Social History Tobacco Use Types Packs/Day Years [...] on filedocumented in this encounter Care Teams Greenhouse Specialist Relationship Specialty Start Date End Date Franklin Yanez MD [address] [facility] [place] [address] PCP - General Family Medicine 08/12/22 documented as of this encounter
--- OUTSIDE RECORDS SUMMARY | 2024-12-28 15:05 | XMS_ITS | Encounter Summary ---
Author Organization [facility] Address [address] [place] [address] Care Team Providers Care Aluminum Sheet Cutter Name Role Phone Franklin Yanez MD Primary Care Provider [phone] Encounter Details Date Type Department Care Team (Late st Contact Info) Description 09/24/2022 Abstract [facility] [place] [facility] [address] [facility] [place] [phone] Mera Guzman PA [address] [facility] [address] [place], [place] [id number] Social History Tobacco Use Types Packs/Day Years [...] on filedocumented in this encounter Care Teams Aluminum Sheet Cutter Relationship Specialty Start Date End Date Franklin Yanez MD [address] [place] [facility] [place] [address] PCP - General Family Medicine 08/12/22 documented as of this encounter
--- OUTSIDE RECORDS SUMMARY | 2024-12-28 15:05 | XMS_ITS | Clinical Summary ---
Author Organization [facility] Address [address] [place] [address] Care Team Providers Care Advisory Services Associate Name Role Phone Franklin Yanez MD Primary Care Provider [phone] Allergies No known active allergies Medications promethazine (Phenergan) 12.5 MG tabletIndicatio ns:Nausea and vomiting in ([facility]) Take 1 tablet (12.5 mg) by mouth every 6 (six) hours if needed for nausea or vomiting for up to 30 doses Take 1 tablet by mouth every 6 hours as needed for nausea. 30 tablet 2 07/11/2024 Active Encounters Date Type Department Care Team Description 12/27/2024 2:10 PM EDT Routine [facility] [address] [place] [address] Mera Guzman PA Third trimester ([facility]); 38 weeks gestation of ([facility]) 12/27/2024 [place] [address] Stone Espinoza DO 12/22/2024 11:20 AM EDT [place] [address] Majo Shea NP Third trimester ([facility]); 37 weeks gestation of ([facility]) 12/22/2024 Bamboo flowsheet [facility] [address] [place] [address] Majo Shea NP 12/15/2024 10:50 AM EDT Routine [facility] [address] [facility] [place] [address] Majo Shea NP Third trimester ([facility]); 36 weeks gestation of ([facility]) 12/15/2024 Abstract [facility] [address] [facility] [place] [address] Stone Espinoza DO 12/15/2024 Bamboo flowsheet [facility] [address] [facility] [place] [address] Majo Shea NP 11/30/2024 9:40 AM EDT Routine [facility] [address] [facility] [place] [address] Majo Shea NP Third trimester ([facility]); 34 weeks gestation of ([facility]) 11/30/2024 Bamboo flowsheet [facility] [address] [facility] [place] [address] Majo Shea NP 11/16/2024 2:00 PM EDT Routine [facility] [address] [facility] [place] [address] Stone Espinoza DO 32 weeks gestation of ([facility]); Third trimester ([facility]) 11/16/2024 Telephone [facility] [address] [facility] [place] [address] Alessandra Almaraz LPN 11/16/2024 Bamboo flowsheet [facility] [address] [facility] [place] [address] Stone Espinoza DO 11/02/2024 2:30 PM EDT Routine [facility] [address] [facility] [place] [address] Mera Guzman PA Third trimester ([facility]); 30 weeks gestation of ([facility]) 11/02/2024 1:30 PM EDT Ancillary Procedure [facility] [address] size inconsistent with dates ([facility]) 10/19/2024 11:30 AM EDT Routine [facility] [place] [facility] [address] Stone Espinoza, Third trimester ([facility]); 28 weeks gestation of ([facility]); size inconsistent with dates ([facility]) 10/19/2024 Bamboo flowsheet [facility] [place] [facility] [place] [address] Stone Espinoza, 10/13/2024 Abstract [facility] [address] [place] [address] [place] [address] Stone Espinoza, 10/13/2024 Clinisync Result Encounter [facility] External Department Unsolicited Stone Espinoza, 10/04/2024 10:20 AM EDT Routine [facility] [address] [facility] [place] [address] Mera Guzman PA Second trimester ([facility]); 26 weeks gestation of ([facility]); BV (bacterial vaginosis) 10/04/2024 Bamboo flowsheet [facility] [address] [facility] [place] [address] Mera Guzman PA from Last 3 Months [...] 3.2 oz) 12/27/2024 2:10 PM EDT Height 180.3 cm (5' 11 ) 07/28/2023 9:45 AM EDT Body Mass Index 32.52 07/28/2023 9:45 AM EDT Plan of Treatment Not on file Procedures Procedure Name Priority Date/Time Associated Diagnosis Comments POCT URINALYSIS DIPSTICK Routine 12/27/2024 2:17 PM EDT 38 weeks gestation of ([facility]) POCT URINALYSIS DIPSTICK Routine 12/22/2024 11:33 AM EDT Third trimester ([facility]) POCT URINALYSIS DIPSTICK Routine 12/15/2024 11:10 AM EDT 36 weeks gestation of ([facility]) POCT URINALYSIS DIPSTICK Routine 11/30/2024 9:52 AM EDT Third trimester ([facility]) POCT URINALYSIS DIPSTICK Routine 11/16/2024 2:10 PM EDT 32 weeks gestation of ([facility]) Third trimester ([facility]) POCT URINALYSIS DIPSTICK Routine 11/02/2024 2:22 PM EDT Third trimester ([facility]) 30 weeks gestation of ([facility]) US OB FOLLOW UP TRANSABDOMINAL APPROACH Routine 11/02/2024 1:52 PM EDT size inconsistent with dates ([facility]) POCT URINALYSIS DIPSTICK Routine 10/19/2024 11:44 AM EDT Third trimester ([facility]) 28 weeks gestation of ([facility]) HBSAG SCREEN Routine 10/13/2024 2:00 PM EDT RAPID PLASMA REAGIN, QUANT Routine 10/13/2024 2:00 PM EDT HCV ANTIBODY RFX TO QUANT PCR Routine 10/13/2024 2:00 PM EDT ALL RUBELLA IGG AB Routine 10/13/2024 2: 00 PM EDT HIV AB/P24 AG WITH REFLEX Routine 10/13/2024 2:00 PM EDT MLR HEMOGLOBIN A1C Routine 10/13/2024 2: 00 PM EDT ALL TYPE AND SCREEN Routine 10/13/2024 2 :00 PM EDT ALL CBC WITH AUTO DIFF Routine 2:00 PM EDT CANNABINOID CONF, MS, UR Routine 10/13/2024 1:47 PM EDT [facility] DRUG SCREEN RAPID (URINE) Routine 10/13/2024 1:47 PM EDT from Last 3 Months Results * (ABNORMAL) POCT urinalysis dipstick manually resulted (12/27/2024 2:17 PM EDT) Only the most recent of7 resultswithin the time period is included. Color, [...] - Positive Urine 12/27/2024 2:17 PM EDT us Mera SEYMOUR POINT OF CARE TEST ENTER/EDIT OR DERABLES Final Result * US OB follow up transabdominal approach (11/02/2024 1:52 PM EDT) Anatomical Region Laterality Modality Body Ultrasound 11/03/2024 8:08 AM EDT Narrative 11/03/2024 10:13 AM EDT EXAM: US OB FOLLOW UP TRANSABDOMINAL APPROACH [...] II, MD, PHD at 03-Nov-2024 08:06:49 AM [facility] Procedure Note Joseph Law MD - 11/03/2024 EXAM: US OB FOLLOW UP TRANSABDOMINAL APPROACH HISTORY: Inconsistent size. COMPARISON: Ob ultrasound 08/22/2024. TECHNIQUE: Two-dimensional transabdominal grayscale ultrasound imaging ofthe [...] is 31 weeks 3 days (+/- 15 daysgestation). Estimated Weight: 1675 grams, +/- 251 grams ( 3 lb 11 oz). Weight Percentile for gestational age: 51 % IMPRESSION: 1. Single, live intrauterine gestation 30 weeks, 4 days by LMP. Today'sultrasound measurements correlate with a gestational age of 31 weeks 3days. Estimated weight is 1675 grams, +/- 251 grams ( 3 lb 11 oz)which correlates to 51 %. YANICK by today's ultrasound is 01/01/2025. Interpreted by: Electronically signed by JOSEPH LAW II, MD, PHD [id number] 08:06:49 AM [facility] us Stone Espinoza DO [facility] OB US PROCEDURES Final Resul t * HBSAG SCREEN (10/13/2024 2:00 PM EDT) HBSAG SCREEN Negative Negative [facility] Comment: Performed at: [address] [id number] Rn Neonatal Icu: Leonard Mercado PhD, Phone: [phone] 10/13/2024 2:00 PM EDT 10/13/2024 2:05 PM EDT Narrative CLINISYNC - 10/14/2024 12:08 PM EDT Stone Olga DO LAB BLOOD ORDERABLES Final Resul t Performing Organization Address [facility]/ZIP Co de Phone Number [facility] * RAPID PLASMA REAGIN, QUANT (10/13/2024 2:00 PM EDT) Pathologist [facility] RAPID PLASMA REAGIN, QUANT Non Reactive NonRea<1: 1 titer [facility] Comment: Please Note: This test does not meet current guidelines for screening and diagnosis of syphilis. This test is intended for following treatment response in patients being treated for syphilis infection. To screen for syphilis infection, a reflex cascade that includes both RPR and a treponema-specific assay should be utilized, such as Treponema pallidum (Syphilis) Screening [place] (788046) or Rapid Plasma Reagin (RPR) Test With Reflex to Quantitative RPR and Confirmatory Treponema pallidum Antibodies ([id number]). Performed at: [facility] [id number] Rn Neonatal Icu: Leonard Mercado PhD, Phone: [phone] 10/13/2024 2:00 PM EDT 10/13/2024 2:05 PM EDT Narrative CLINISYAR - 10/14/2024 12:08 PM EDT Stone Olga LAB BLOOD ORDERABLES Final Resul t Performing Organization Address [facility] Co de Phone Number [facility] * HIV AB/P24 AG WITH REFLEX (10/13/2024 2:00 PM EDT) [facility] HIV AB/P24 AG SCREEN Non Reactive Non Reactive [facility] Comment: HIV-1/HIV-2 antibodies and HIV-1 p24 antigen were NOT detected. There is no laboratory evidence of HIV infection. HIV Negative Performed at: [facility] [id number] Rn Neonatal Icu: Leonard Mercado PhD, Phone: [phone] 10/13/2024 2:00 PM EDT 10/13/2024 2:05 PM EDT Narrative CLINISYNC - 10/14/2024 5:07 AM EDT Stone Olga DO LAB BLOOD ORDERABLES Final Resul t Performing Organization Address [facility] Co de Phone Number [facility] * HCV ANTIBODY RFX TO QUANT PCR (10/13/2024 2:00 PM EDT) Pathologist [facility] HCV AB Non Reactive Non Reactive [facility] INTERPRETATION: Comment . [facility] Comment: Not infected with HCV unless early or acute infection is suspected (which may be delayed in an immunocompromised individual), or other evidence exists to indicate HCV infection. 10/13/2024 2:00 PM EDT 10/13/2024 2:05 PM EDT Narrative CLINISYNC - 10/14/2024 6:08 AM EDT AUM [employer]ovascular[employer] DO LAB BLOOD ORDERABLES Final Resul t Performing Organization Address [facility] de Phone Number [facility] * MLR HEMOGLOBIN A1C (10/13/2024 2:00 PM EDT) [facility] GLYCOHEMOGLOBIN A1C 4.8 4.5 - 6.2 % [facility] Comment: ADA RECOMMENDED LIMIT 4.0 - 6.0 ADA THERAPEUTIC TARGET < 7.0 ACTION SUGGESTED > 7.0 ESTIMATED AVERAGE GLUCOSE 91 mg/dL [facility] 10/13/2024 2:00 PM EDT 10/13/2024 2:05 PM EDT Narrative CLINISYNC - 10/13/2024 3:21 PM EDT Clonezio DO CLINISYNC Final Result Performing Organization Address [facility] Co de Phone Number [facility] * ALL TYPE AND SCREEN (10/13/2024 2:00 PM EDT) [facility] BLOOD TYPE B Negative [facility] ANTIBODY SCREEN NEGATIVE [facility] 10/13/2024 2:00 PM EDT 10/13/2024 2:05 PM EDT Narrative CLINISYNC - 10/13/2024 3:[address] [facility] , us Stone Olga DO CLINISYNC Final Result [facility] * ALL RUBELLA IGG AB (10/13/2024 2:00 PM EDT) [facility] RUBELLA ANTIBODIES, IGG 1.60 Immune >0.99 index [facility] Comment: Non-immune <0.90 Equivocal 0.90 - 0.99 Immune >0.99 Performed at: [facility] [id number] Rn Neonatal Icu: Leonard Mercado PhD, Phone: [phone] 10/13/2024 2:00 PM EDT 10/13/2024 2:05 PM EDT Narrative CLINISYNC - 10/14/2024 6:08 AM EDT us Stone Olga DO CLINISYNC Final Result [facility] * (ABNORMAL) ALL CBC WITH AUTO DIFF (10/13/2024 2:00 PM EDT) [facility] TB WBC 11.9(H) 4.0 - 11.0 10 3/uL [facility] RBC 3.75(L) 4.20 - 5.40 10 6/uL [facility] HGB 11.1(L) 12.0 - 16.0 g/dL [facility] TB HCT 32.5(L) 36.0 - 48.0 % [facility] MCV 86.7 81.0 - 99.0 fL [facility] MCH 29.6 26.7 - 34.0 pg [facility] MCHC 34.2 29.9 - 35.2 g/dL [facility] RDW 12.2 11.0 - 15.0 % [facility] PLT 282 150 - 450 10 3/uL [facility] MPV 9.8 9.5 - 13.5 fL [facility] NEUTROPHILS PERCENT AUTO 75.1(H) 43.0 - 75.0 % [facility] LYMPHOCYTES PERCENT AUTO 15.8(L) 20.5 - 60.0 % [facility] MONOCYTES PERCENT AUTO 7.0 1.7 - 12.0 % [facility] EO % 1.1 0.9 - 7.0 % [facility] BASOPHILS PERCENT AUTO 0.4 0.2 - 2.0 % [facility] IMMATURE GRANULOCYTES PCT AUTO 0.6(H) 0.0 - 0.5 % [facility] NEUTROPHILS ABSOLUTE AUTO 8.9(H) 1.4 - 6.5 10 3/uL [facility] LYMPHOCYTES ABSOLUTE AUTO 1.9 1.2 - 3.8 10 3/uL [facility] MONOCYTES ABSOLUTE AUTO 0.8 0.3 - 0.8 10 3/uL [facility] EO # 0.1 0.0 - 0.7 10 3/uL [facility] BASOPHILS ABSOLUTE AUTO 0.1 0.0 - 0.1 10 3/uL [facility] IMMATURE GRANULOCYTES ABS AUTO 0.07(H) 0.00 - 0.03 10 3/uL [facility] 10/13/2024 2:00 PM EDT 10/13/2024 2:05 PM EDT Narrative CLINISYNC - 10/13/2024 2:15 PM EDT Stone Olga DO CLINISYNC Final Result [facility] * (ABNORMAL) [facility] DRUG SCREEN RAPID (URINE) (10/13/2024 1:47 PM EDT) Pathologist [facility] CANNABINOID SCREEN URINE POSITIVE(A) NEGATIVE [facility] PHENCYCLIDINE SCREEN URINE NEGATIVE NEGATIVE [facility] COCAINE SCREEN URINE NEGATIVE NEGATIVE [facility] METHAMPHETAMINES SCREEN URINE NEGATIVE NEGATIVE [facility] OPIATE SCREEN URINE NEGATIVE NEGATIVE [facility] AMPHETAMINE SCREEN URINE NEGATIVE NEGATIVE TB[facility] BENZODIAZEPINES SCREEN URINE NEGATIVE NEGATIVE [facility] TRICYCLIC ANTIDEPRESSANT URINE NEGATIVE NEGATIVE [facility] METHADONE SCREEN URINE NEGATIVE NEGATIVE [facility] BARBITURATES SCREEN URINE NEGATIVE NEGATIVE [facility] OXYCODONE SCREEN URINE NEGATIVE NEGATIVE [facility] BUPRENORPHINE SCREEN URINE NEGATIVE NEGATIVE [facility] Comment: DRUG CLASS TEST SYSTEM CUT-OFF CONCENTRATIONS ARE FOLLOWS: AMP (Amphetamine): 500 ng/mL BAR (Barbiturates): 200 ng/mL BZO (Benzodiazepines): 150 ng/mL BUP (Buprenorphine): 10 ng/mL MILENA (Cocaine): 150 ng/mL mAMP (Methamphetamine): 500 ng/mL MTD (Methadone): 200 ng/mL OPI (Opiates): 100 ng/mL OXY (Oxycodone): 100 ng/mL PCP (Phencyclidine): 25 ng/mL THC (Cannabinoids): 50 ng/mL TCA (Trycyclic Antidepressants): 300 ng/mL 10/13/2024 1:47 PM EDT 10/13/2024 2:05 PM EDT Narrative CLINISYNC - 10/13/2024 2:56 PM EDT us Stone Olga DO CLINISYNC Final Result [facility] * (ABNORMAL) CANNABINOID CONF, MS, UR (10/13/2024 1:47 PM EDT) CANNABINOID Positive(A ) . [facility] CARBOXY THC CONF, MS, UR 175 Cutoff=10 ng/mL [facility] Comment: Performed at: [facility] [address] [place], [place] [id number] Rn Neonatal Icu: Liam Taveras PhD, Phone: [phone] 10/13/2024 1:47 PM EDT 10/13/2024 2:57 PM EDT Narrative CLINISYNC - 10/17/2024 10:08 PM EDT Stone Olga DO LAB BLOOD ORDERABLES Final Resul t Performing Organization Address City/[facility]/ZIP Co de Phone Number [facility] from Last 3 Months Insurance BCBS Care Teams Advisory Services Associate Relationship Specialty Start Date End Date Franklin Yanez MD [address] [place] [address] PCP - General Family Medicine 08/12/22
--- OUTSIDE RECORDS SUMMARY | 2024-12-28 15:05 | XMS_ITS | Encounter Summary ---
Author Organization [facility] Address [address] [place] [address] Care Team Providers Care Residential Service Technician Name Role Phone Franklin Yanez MD Primary Care Provider [phone] Encounter Details Date Type Department Care Team (Late st Contact Info) Description 10/13/2024 Abstract [facility] [place] [facility] [address] [facility] [facility] [place] [address] Stone Espinoza DO [address] [place] [address] Social History Tobacco Use Types Packs/Day Years [...] on filedocumented in this encounter Care Teams Residential Service Technician Relationship Specialty Start Date End Date Franklin Yanez MD [address] [facility] [place] [address] PCP - General Family Medicine 08/12/22 documented as of this encounter
--- OUTSIDE RECORDS SUMMARY | 2024-12-28 15:05 | XMS_ITS | Encounter Summary ---
Author Organization [facility] Address [address] [place] [address] Care Team Providers Care Meteorological Engineer Name Role Phone Franklin Yanez MD Primary Care Provider [phone] Encounter Details Date Type Department Care Team (Late st Contact Info) Description 09/05/2022 Abstract [facility] [place] [facility] [address] [place] [phone] Stone Espinoza DO [address] [facility] [place] [address] Social History Tobacco Use Types Packs/Day Years [...] on filedocumented in this encounter Care Teams Meteorological Engineer Relationship Specialty Start Date End Date Franklin Yanez MD [address] [facility] [place] [address] PCP - General Family Medicine 08/12/22 documented as of this encounter
--- OUTSIDE RECORDS SUMMARY | 2024-12-28 15:05 | XMS_ITS | Encounter Summary ---
Author Organization [facility] Address [address] [place] [address] Care Team Providers Care Machine Operator Picker Name Role Phone Franklin Yanez MD Primary Care Provider [phone] Encounter Details Date Type Department Care Team (Late st Contact Info) Description 12/22/2024 Bamboo flowsheet [facility] [address] [facility] [place] [address] Majo Shea, CARINA [address] [place] [address] Social History Tobacco Use Types Packs/Day [...] on filedocumented in this encounter Care Teams Machine Operator Picker Relationship Specialty Start Date End Date Franklin Yanez MD [address] [facility] [place] [address] PCP - General Family Medicine 08/12/22 documented as of this encounter
--- OUTSIDE RECORDS SUMMARY | 2024-12-28 15:05 | XMS_ITS | Encounter Summary ---
Author Organization [facility] Address [address] [place] [address] Care Team Providers Care Mobility Architect Manager Name Role Phone Franklin Yanez MD Primary Care Provider [phone] Encounter Details Date Type Department Care Team (Late st Contact Info) Description 11/11/2022 Abstract [facility] [place] [facility] [address] [place] [phone] Sydni Lopez LPN [address] [place] [address] Social History Tobacco Use Types Packs/Day Years [...] on filedocumented in this encounter Care Teams Mobility Architect Manager Relationship Specialty Start Date End Date Franklin Yanez MD [address] [place] [facility] [place] [place] [address] PCP - General Family Medicine 08/12/22 documented as of this encounter
--- OUTSIDE RECORDS SUMMARY | 2024-12-28 15:06 | XMS_ITS | Encounter Summary ---
Author Organization [facility] Address [address] [place] [address] Care Team Providers Care Hand Shaker Name Role Phone Franklin Yanez MD Primary Care Provider [phone] Encounter Details Date Type Department Care Team (Late st Contact Info) Description 05/14/2024 Abstract [facility] [place] [facility] [address] [facility] [address] [place] [phone] Stone Espinoza DO [address] [place] [address] Social History Tobacco Use Types Packs/Day Years [...] on filedocumented in this encounter Care Teams Hand Shaker Relationship Specialty Start Date End Date Franklin Yanez MD [address] [facility] [place] [address] PCP - General Family Medicine 08/12/22 documented as of this encounter
--- OUTSIDE RECORDS SUMMARY | 2024-12-28 15:06 | XMS_ITS | Encounter Summary ---
Author Organization [facility] Address [address] [place] [address] Care Team Providers Care Commercial Or Institutional Cleaner Name Role Phone Franklin Yanez MD Primary Care Provider [phone] Encounter Details Date Type Department Care Team (Late st Contact Info) Description 12/29/2022 Abstract [facility] [address] [place] [phone] Mera Guzman PA [address] [place], [place] [id number] Social History Tobacco Use Types Packs/Day Years [...] filedocumented in this encounter Care Teams Commercial Or Institutional Cleaner Relationship Specialty Start Date End Date Franklin Yanez MD [address] [facility] [place] [address] PCP - General Family Medicine 08/12/22 documented as of this encounter
--- OUTSIDE RECORDS SUMMARY | 2024-12-28 15:06 | XMS_ITS | Encounter Summary ---
Author Organization [facility] Address [address] [place] [address] Care Team Providers Care Grape Grower Name Role Phone Franklin Yanez MD Primary Care Provider [phone] Encounter Details Date Type Department Care Team (Late st Contact Info) Description 08/29/2024 Orders Only [facility] [address] [place] [address] Juju Reynaga MA Social History Tobacco [...] on filedocumented in this encounter Care Teams Grape Grower Relationship Specialty Start Date End Date Franklin Yanez MD [address] [place] [phone] PCP - General Family Medicine 08/12/22 documented as of this encounter
--- OUTSIDE RECORDS SUMMARY | 2024-12-28 15:08 | XMS_ITS | CCD ---
Author Organization [facility] Care Team Providers Care Hammersmith Helper Name Role Phone CLEMENTE ., DR YING Primary Care Unavailable DIAB ., GREGORIO Admitting Unavailable NATHALIE ., SHENG Consulting Unavailable DIAB ., GREGORIO Attending Unavailable DIAB ., GREGORIO Consulting Unavailable HOY ., DR YING Primary Care Unavailable DEEPTI ., MERA Attending Unavailable DEEPTI ., MERA Consulting Unavailable DEEPTI ., MERA Admitting Unavailable OLGA ., DR MOODY Admitting Unavailable HOY ., DR IYNG Consulting Unavailable HOY ., DR YING Primary [...] Unavailable Stepan Yanez MD Primary Care Provider [phone] Tracie Seo PA-C Attending Provider Tracie Seo Attending Unavailable Tracie Seo Admitting Unavailable Stepan Yanez MD Primary Care Provider [phone] MERA TATUM Attending Unavailable OLGAMARTINAY Referring Unavailable OLGA, FRANSISCO Attending Unavailable DEEPTI, MERA Attending Unavailable DEEPTI, MERA Referring Unavailable OLGA, FRANSISCO Attending Unavailable DEEPTI, MERA Attending Unavailable FRANSISCO ESPINOZA Attending Unavailable FRANSISCO ESPINOZA Referring Unavailable MERA TATUM Attending Unavailable FRANSISCO ESPINOZA Attending Unavailable MAJO SHEA Attending Unavailable MAJO SHEA Attending Unavailable MAJO SHEA Attending Unavailable Stepan Yanez MD Primary Care Provider Medications Current Medications Medication Drug Class(es) Dates [...] MG tablet Indications: Nausea and vomiting in ([facility]) Take 1 tablet (12.5 mg) by mouth [...] [37 weeks gestation of ] 12-22-2024 Episodic Residual codes; unclassified (1 source) Gestation period, 38 weeks; Translations: [38 weeks gestation of ] 12-27-2024 Episodic Urinary tract infections (1 source) Acute [...] Range Facility Urinalysis macro (dipstick) panel (U)on 12-27-2024 Bilirubin, UA Negative Negative - 4(70) +++ mg/dL [facility] Blood, UA Negative Negative - 50 Daniele/mcL [facility] Clarity, UA Clear [facility] re Color, UA Yellow [facility] Glucose, UA Negative Negative - 1999(110) ++++ mg/dL [facility] Interpretation and review of laboratory results Abnormal [facility] Ketones, UA Negative Negative - 160(16) ++++ mg/dL [facility] Leukocytes, UA 3+ Negative - 500+++ Kiara/mcL [facility] Nitrite, UA Negative Negative - Positive [facility] pH, UA 6.0 5 - 9 [facility] Protein, UA Negative Negative - 1999(20) ++++ mg/dL [facility] Spec Grav, UA 1.015 1 - 1.03 [facility] care Urobilinogen, UA 2.0 0.2 - 12 mg/dL [facility] Urinalysis macro (dipstick) panel (U)on 12-22-2024 Bilirubin, UA Negative Negative - 4(70) +++ mg/dL [facility] Blood, UA Negative Negative - 50 Daniele/mcL [facility] Healthcare Clarity, UA Clear [facility] Healthca re Color, UA Yellow [facility] Glucose, UA Negative Negative - 1999(110) ++++ mg/dL [facility] Interpretation and review of laboratory results Abnormal [facility] Ketones, UA Negative Negative - 160(16) ++++ mg/dL [facility] Leukocytes, UA Positive Negative - 500+++ Kiara/mcL [facility] Comment on above: 3+ Nitrite, UA Negative Negative - Positive [facility] pH, UA 6 5 - 9 [facility] Protein, UA Positive Negative - 1999(20) ++++ mg/dL [facility] Comment on above: Trace Spec Grav, UA 1.025 1 - 1.03 [facility] care Urobilinogen, UA 0.2 0.2 - 12 mg/dL [facility] Urinalysis macro (dipstick) panel (U)on 12-15-2024 Bilirubin, UA 1+ Negative - 4(70) +++ mg/dL [facility] Blood, UA Negative Negative - 50 Daniele/mcL [facility] Healthcare Clarity, UA Clear [facility] Color, UA Yellow [facility] Glucose, UA Negative Negative - 1999(110) ++++ mg/dL [facility] Interpretation and review of laboratory results Abnormal [facility] Ketones, UA Negative Negative - 160(16) ++++ mg/dL [facility] Leukocytes, UA 3+ Negative - 500+++ Kiara/mcL [facility] Healthcare Nitrite, UA Negative Negative - Positive [facility] Healthcare pH, UA 6 5 - 9 [facility] Protein, UA Trace Negative - 1999(20) ++++ mg/dL [facility] Healthcare Spec Grav, UA 1.02 1 - 1.03 [facility] care Urobilinogen, UA 2.0 0.2 - 12 mg/dL [facility] Urinalysis macro (dipstick) panel (U)on 11-30-2024 Bilirubin, UA Negative Negative - 4(70) +++ mg/dL [facility] Blood, UA Negative Negative - 50 Daniele/mcL [facility] Healthcare Clarity, UA Clear [facility] Color, UA Yellow [facility] Glucose, UA Negative Negative - 1999(110) ++++ mg/dL [facility] Interpretation and review of laboratory results Abnormal [facility] Ketones, UA Negative Negative - 160(16) ++++ mg/dL [facility] Leukocytes, UA Positive Negative - 500+++ Kiara/mcL [facility] Healthcare Comment on above: 2+ Nitrite, UA Negative Negative - Positive [facility] pH, UA 8 5 - 9 [facility] Protein, UA Negative Negative - 1999(20) ++++ mg/dL [facility] Spec Grav, UA 1.01 1 - 1.03 [facility] Urobilinogen, UA 0.2 0.2 - 12 mg/dL [facility] Urinalysis macro (dipstick) panel (U)on 11-16-2024 Bilirubin, UA Negative Negative - 4(70) +++ mg/dL [facility] Blood, UA Negative Negative - 50 Daniele/mcL [facility] Healthcare Clarity, UA Clear [facility] Color, UA Yellow [facility] Glucose, UA Negative Negative - 1999(110) ++++ mg/dL [facility] Interpretation and review of laboratory results Abnormal [facility] Ketones, UA Negative Negative - 160(16) ++++ mg/dL [facility] Healthcare Leukocytes, UA Positive Negative - 500+++ Kiara/mcL [facility] Healthcare Comment on above: 3+ Nitrite, UA Negative Negative - Positive [facility] pH, UA 6.5 5 - 9 [facility] Protein, UA Positive Negative - 1999(20) ++++ mg/dL [facility] [employer] Spec Grav, UA 1.015 1 - 1.03 [facility] [employer] [facility] Urobilinogen, UA 1.0 0.2 - 12 mg/dL [facility] US OB FOLLOW UP TRANSABDOMIN [...] II, MD, PHD at 03-Nov-2024 08:06:49 AM [facility] Normal Not Available Comment on above: Order Comment: US OB SCAN FOR GROWTH Estimated Date of Delivery: 01/07/25 Gestational Age as of 10/19/2024: 28w4d Urinalysis macro (dipstick) panel (U)on 11-02-2024 Bilirubin, UA Negative Negative - 4(70) +++ mg/dL [facility] Blood, UA Negative Negative - 50 Daniele/mcL [facility], UA Clear [facility] re Color, UA Yellow [facility] Glucose, UA Negative Negative - 1999(110) ++++ mg/dL [facility] Interpretation and review of laboratory results Abnormal [facility] Ketones, UA Negative Negative - 160(16) ++++ mg/dL [facility] Leukocytes, UA Positive Negative - 500+++ Kiara/mcL [facility] Nitrite, UA Negative Negative - Positive [facility] pH, UA 6 5 - 9 [facility] Healthcar e Protein, UA Negative Negative - 1999(20) ++++ mg/dL [facility] Spec Grav, UA 1.02 1 - 1.03 [facility] Urobilinogen, UA 1.0 0.2 - 12 mg/dL [facility] Urinalysis macro (dipstick) panel (U)on 10-19-2024 Bilirubin, UA Negative Negative - 4(70) +++ mg/dL [facility] Blood, UA Negative Negative - 50 Daniele/mcL [facility] Clarity, UA Clear [facility] re Color, UA Yellow [facility] e Glucose, UA Negative Negative - 1999(110) ++++ mg/dL [facility] Interpretation and review of laboratory results Abnormal [facility] Ketones, UA Negative Negative - 160(16) ++++ mg/dL [facility] Leukocytes, UA Positive Negative - 500+++ Kiara/mcL [facility] Nitrite, UA Negative Negative - Positive [facility] pH, UA 6.5 5 - 9 [facility] Healthcar e Protein, UA Negative Negative - 1999(20) ++++ mg/dL [facility] Spec Grav, UA 1.015 1 - 1.03 [facility] Urobilinogen, UA 1.0 0.2 - 12 mg/dL [facility] ALL CBC WITH AUTO DIFFon BASOPHILS ABSOLUTE AUTO 0.1 [facility] Basophils/100 WBC (Bld) 0.4 % 0.2 - 2.0 % [facility] Eosinophils/100 WBC (Bld) 1.1 % 0.9 - 7.0 % [facility] Erythrocyte distribution width (RBC) [Ratio] 12.2 % 11.0 - 15.0 % [facility] Hematocrit (Bld) [Volume fraction] 32.5 % Low 36.0 - 48.0 % [facility] Healthcar e Hemoglobin (Bld) [Mass/Vol] 11.1 g/dL Low 12.0 - 16.0 g/dL [facility] IMMATURE GRANULOCYTES ABS AUTO 0.07 High [facility] Immature granulocytes/100 WBC (Bld) 0.6 % High 0.0 - 0.5 % [facility] Interpretation and review of laboratory results Abnormal [facility] LYMPHOCYTES ABSOLUTE AUTO 1.9 [facility] Lymphocytes/100 WBC (Bld) 15.8 % Low 20.5 - 60.0 % [facility] MCH (RBC) [Entitic mass] 29.6 pg 26.7 - 34.0 pg [facility] MCHC (RBC) [Mass/Vol] 34.2 g/dL 29.9 - 35.2 g/dL [facility] MCV (RBC) [Entitic vol] 86.7 fL 81.0 - 99.0 fL [facility] MONOCYTES ABSOLUTE AUTO 0.8 [facility] Monocytes/100 WBC (Bld) 7 % 1.7 - 12.0 % [facility] NEUTROPHILS ABSOLUTE AUTO 8.9 High [facility] Neutrophils/100 WBC (Bld) 75.1 % High 43.0 - 75.0 % [facility] Platelet mean volume (Bld) [Entitic vol] 9.8 fL 9.5 - 13.5 fL [facility] EO # 0.1 [facility] Healthcar e TB PLT 282 [facility] Health[facility] e TB RBC 3.75 Low [facility] Health[facility] TB WBC 11.9 High [facility]car e [facility] e Urinalysis macro (dipstick) panel (U)on 09-12-2024 Bilirubin, UA Negative Negative - 4(70) +++ mg/dL [facility] Blood, UA Negative Negative - 50 Daniele/mcL [facility] Clarity, UA Clear [facility] Color, UA Yellow [facility] e Glucose, UA Negative Negative - 1999(110) ++++ mg/dL [facility] Interpretation and review of laboratory results Abnormal [facility] Ketones, UA Negative Negative - 160(16) ++++ mg/dL [facility] Leukocytes, UA Positive Negative - 500+++ Kiara/mcL [facility] Comment on above: small Nitrite, UA Negative Negative - Positive [facility] pH, UA 8.5 5 - 9 [facility] Healthcar e Protein, UA Negative Negative - 1999(20) ++++ mg/dL [facility] Spec Grav, UA 1.015 1 - 1.03 [facility] Urobilinogen, UA 0.2 0.2 - 12 mg/dL [facility] AFP, SERUM, OPEN SPINA BIFID Aon 09-11-2024 AFP MOM 1.00 . [facility] [employer] AFP VALUE 72.5 ng/mL . [facility] Healthcar e COMMENT: Comment . [facility] [employer] Comment on above: Jo Granados , Ph.D., [facility] Director References: Available Upon Request. Multiples Of Median Cutoffs For AFP Elevations Hirsch 2.5 Black 2.8 IDD 2.0 Twins 4.5 Abbreviation Definitions IDD - Insulin Dep Diabetes OSBR - Open Spina Bifida Risk For further inquiries contact [employer] at [phone]. This test was developed and its performance characteristics determined by [employer]. It has not been cleared or approved by the Food and Drug Administration. Performed at: [facility] [employer] [address] [place] [address], [place] [id number] Quality Technician: Tesfaye Salas [facility], Phone: [phone] GEST. AGE ON COLLECTION DATE 22.9 . weeks [facility] GESTAT. AGE BASED ON Ultrasound . [facility] Comment on above: 18.6 on 08/10/2024 Recalculations are not recommended when gestational dating by LMP and ultrasound are within 10 days. INSULIN DEP DIABETES No . [facility] INTERPRETATION Comment . [facility] Comment on above: Interpretation: Scre en [...] Customer Services to discuss available options. The [employer] recommends amniocentesis be offered to women age 35 and older. [age] [facility] MULTIPLE GESTATION No . [facility] [place] [address] [place] [id number] . [facility] Donovan david RACE . [facility] [employer] RESULTS Report . [facility] [employer] TEST RESULTS: Negative . [facility] Health care WEIGHT 189 . lbs [facility] [employer] N ULTRASOUND [id number] 4 18 N 1 Y 189 N N N N N White/ [facility] [employer] IGP,APTIMA HPV,AGE GDLNon AGE GDLN ACOG TESTING Note . [facility] Comment on above: TESTS RESULT FLAG UN ITS REF RANGE LAB Clinician Provided Cytology Information Source.............[employer] Other.............. No. of containers..01 ThinPrep Vial Age Algo ACOG Belle... FLAG LEGEND: L-Low Normal,H-High Normal,LL-Alert Low,HH-Alert High <-Panic Low,>-Panic High,A-Abnormal,AA-Critical Abnormal Performed at: 01 =[facility] [address] [place] [address] Laurie Moreno MD, IGP, RFX APTIMA HPV ASCU Note . [facility] Comment on above: TESTS RESULT FLAG UN ITS REF RANGE LAB DIAGNOSIS: 02 NEGATIVE FOR INTRAEPITHELIAL LESION OR MALIGNANCY. FUNGAL ORGANISMS MORPHOLOGICALLY CONSISTENT WITH ROSETTE SPECIES ARE PRESENT. Specimen adequacy: 02 Satisfactory for evaluation. No endocervical component is identified. An endocervical component is not commonly seen in the patient. Performed by: Lizett Mathews Encephalographer ([facility]) . 02 Note: Note 02 The [...] <-Panic Low,>-Panic High,A-Abnormal,AA-Critical Abnormal Performed at: [address] [place] [address] Laurie Moreno MD, Performed at: = - [facility] [id number] Quality Technician: Laurie Moreno MD, Phone: [phone] Performed at: [address] [id number] Quality Technician: Laurie Moreno MD, Phone: [phone] [facility] RECURRENT [...] [facility] ROSETTE GLABRATA Not detected [facility] ROSETTE KRUSEI 0 [facility] ROSETTE KRUSEI Not detected [facility] CHLAMYDIA TRACHOMATIS 0 [facility] CHLAMYDIA TRACHOMATIS Not detected [facility] GARDNERELLA VAGINALIS 29.925 Abnormal [facility] GARDNERELLA VAGINALIS Detected Abnormal [facility] Healthcare Interpretation and review of [...] II, MD, PHD at 24-Aug-2024 08:22:54 AM [facility] Normal Not Available Comment on above: Order Comment: US OB ANATOMY SINGLE W US OB CERVICAL LENGTH Estimated Date of Delivery: 01/07/25 Gestational Age as of 08/10/2024: 18w4d Urinalysis macro (dipstick) panel (U)on 08-10-2024 Bilirubin, UA Negative Negative - 4(70) +++ mg/dL [facility] Blood, UA Negative Negative - 50 Daniele/mcL [facility] Clarity, UA Clear [facility] re Color, UA Yellow [facility] e Glucose, UA Negative Negative - 1999(110) ++++ mg/dL [facility] Interpretation and review of laboratory results Abnormal [facility] Ketones, UA Negative Negative - 160(16) ++++ mg/dL [facility] Leukocytes, UA Positive Negative - 500+++ Kiara/mcL [facility] Comment on above: Moderate Nitrite, UA Negative Negative - Positive [facility] pH, UA 7 5 - 9 [facility] e Protein, UA Trace Negative - 1999(20) ++++ mg/dL [facility] Spec Grav, UA 1.02 1 - 1.03 [facility] Urobilinogen, UA 0.2 0.2 - 12 mg/dL [facility] Urinalysis macro (dipstick) panel (U)on 07-11-2024 Bilirubin, UA Negative Negative - 4(70) +++ mg/dL [facility] Blood, UA Negative Negative - 50 Daniele/mcL [facility] Clarity, UA Clear [facility] Healthca re Color, UA Yellow [facility] [employer] Glucose, UA Negative Negative - 1999(110) ++++ mg/dL [facility] Interpretation and review of laboratory results Abnormal [facility] Ketones, UA Negative Negative - 160(16) ++++ mg/dL [facility] Leukocytes, UA Trace Negative - 500+++ Kiara/mcL [facility] Nitrite, UA Negative Negative - Positive [facility] pH, UA 5.5 5 - 9 [facility] [employer] Protein, UA Negative Negative - 1999(20) ++++ mg/dL [facility] Spec Grav, UA 1.03 1 - 1.03 [facility] Urobilinogen, UA 0.2 0.2 - 12 mg/dL [facility] US OB TRANSVAGINALon 025 US [...] Doppler evaluation of the bilateral ovaries. Electronically Signed:Shaquilleall y signed by JOSEPH LAW II, MD, PHD at 03-Jun-2024 08:37:27 PM [facility] Normal Not Available Comment on above: Order Comment: US OB TRANSVAGINAL No LMP recorded. Urine Cultureon 05-27-2024 Bacteria identified Cx Nom (U) 50,000 colonies/ml mixed bacterial skin contaminants 2 Days PERFORMED BY: [place] [address] PATHOLOGIST HOOKER MACHINE TENDER CASA BLACKMON M.D. Normal [facility] Comment on above: Performed By: #### C UU #### [address] US PREG ANATOMY SINGLEon US PREG [...] ROXY CARRILLO Date: 2022-07-17 16:59 Normal [facility] CBC AUTO DIFFon 05-16-2022 BASO # 0.1 103/ul Normal 0.0-0.1 [facility] Comment on above: Performed By: #### C BC #### [facility] [address] [place] [address] Dr. Gabino Motta Basophils/100 WBC (Bld) 0.3 % Normal 0.2-2.0 [facility] Comment on above: Performed By: #### C BC #### [facility] [address] [place] [address] Dr. Gabino Motta EO # 0.0 103/ul Normal 0.0-0.7 [facility] Comment on above: Performed By: #### C BC #### [facility] [address] [place] [address] Dr. Gabino Motta Eosinophils/100 WBC (Bld) 0.0 % Critically low 0.9-7.0 [facility] Comment on above: Performed By: #### C BC #### [facility] [address] [place] [address] Dr. Gabino Motta Erythrocyte distribution width (RBC) [Ratio] 12.7 % Normal 11.0-15.0 [facility] Comment on above: Performed By: #### C BC #### [facility] [address] [place] [address] Dr. Gabino Motta Hematocrit (Bld) [Volume fraction] 39.1 % Normal 36.0-48.0 [facility] Comment on above: Performed By: #### C BC #### [facility] [address] [place] [address] Dr. Gabino Motta Hemoglobin (Bld) [Mass/Vol] 13.7 g/dL Normal 12.0-16.0 [facility] Comment on above: Performed By: #### C BC #### [facility] [address] [place] [address] Dr. Gabino Motta IG # 0.05 10e3/ul Critically high 0.00-0.03 [facility] Comment on above: Performed By: #### C BC #### [facility] [address] [address] [address] Gabino Motta IG % 0.3 % Normal 0.0-0.5 [facility] Comment on above: Performed By: #### C BC #### [facility] [address] [place] [address] Dr. Gabino Motta LYMPH # 1.1 103/ul Critically low 1.2-3.8 [facility] Comment on above: Performed By: #### C BC #### [facility] [address] [place] [address] Dr. Gabino Motta Lymphocytes/100 WBC (Bld) 7.0 % Critically low 20.5-60.0 [facility] Comment on above: Performed By: #### C BC #### [facility] [address] [place] [address] Dr. Gabino Motta MANUAL DIFF REQ NO Normal [facility] Comment on above: Performed By: #### C BC #### [facility] [address] [place] [address] Dr. Gabino Motta MCH (RBC) [Entitic mass] 28.5 pg Normal 26.7-34.0 [facility] Comment on above: Performed By: #### C BC #### [facility] [address] [place] [address] Dr. Gabino Motta MCHC (RBC) [Mass/Vol] 35.0 g/dL Normal 29.9-35.2 [facility] Comment on above: Performed By: #### C BC #### [facility] [address] [place] [address] Dr. Gabino Motta MCV (RBC) [Entitic vol] 81.3 fL Normal 81.0-99.0 [facility] Comment on above: Performed By: #### C BC #### [facility] [address] [place] [address] Dr. Gabino Motta MONO # 0.3 103/ul Normal 0.3-0.8 [facility] Comment on above: Performed By: #### C BC #### [facility] [address] [place] [address] Dr. Gabino Motta Monocytes/100 WBC (Bld) 2.1 % Normal 1.7-12.0 [facility] Comment on above: Performed By: #### C BC #### [facility] [address] [place] [address] Dr. Gabino Motta NEUT # 13.5 103/ul Critically high 1.4-6.5 [facility] Comment on above: Performed By: #### C BC #### [facility] [address] [place] [address] Dr. Gabino Motta Neutrophils/100 WBC (Bld) 90.3 % Critically high 43.0-75.0 [facility] Comment on above: Performed By: #### C BC #### [facility] [address] [place] [address] Dr. Gabino Motta Platelet mean volume (Bld) [Entitic vol] 11.1 fL Normal 9.5-13.5 [facility] Comment on above: Performed By: #### C BC #### [facility] [address] [place] [address] Dr. Gabino Motta PLT 282 103/ul Normal 150-450 [facility] Comment on above: Performed By: #### C BC #### [facility] [address] [place] [address] Dr. Gabino Motta RBC 4.81 106/ul Normal 4.20-5.40 [facility] Comment on above: Performed By: #### C BC #### [facility] [address] [place] [address] Dr. Gabino Motta WBC 14.9 103/ul Critically high 4.0-11.0 [facility] Comment on above: Performed By: #### C BC #### [facility] [address] [place] [address] Dr. Gabino Motta PROF 14(COMP METB)on 023 Albumin [Mass/Vol] 4.1 g/dL Normal 3.4-5.0 [facility] Comment on above: Performed By: #### C BC #### [facility] [address] [place] [address] Dr. Gabino Motta Albumin/Globulin [Mass ratio] 1.1 {ratio} Normal [facility] Comment on above: Performed By: #### C BC #### [facility] [address] [place] [address] Dr. Gabino Motta ALP [Catalytic activity/Vol] 72 U/L Normal 46-116 [facility] Comment on above: Performed By: #### C BC #### [facility] [address] [place] [address] Dr. Gabino Motta ALT [Catalytic activity/Vol] 42 U/L Normal 14-59 [facility] Comment on above: Performed By: #### C BC #### [facility] [address] [place] [address] Dr. Gabino Motta Anion gap [Moles/Vol] 18.4 mmol/L Normal [facility] Comment on above: Performed By: #### C BC #### [facility] [address] [place] [address] Dr. Gabino Motta AST [Catalytic activity/Vol] 18 U/L Normal 15-37 [facility] Comment on above: Performed By: #### C BC #### [facility] [address] [place] [address] Dr. Gabino Motta Bilirubin [Mass/Vol] 0.5 mg/dL Normal 0.2-1.0 [facility] Comment on above: Performed By: #### C BC #### [facility] [address] [place] [address] Dr. Gabino Motta Calcium [Mass/Vol] 9.6 mg/dL Normal 8.5-10.1 [facility] Comment on above: Performed By: #### C BC #### [facility] [address] [address] [address] Gabino Motta Chloride [Moles/Vol] 103 mmol/L Normal 98-107 [facility] Comment on above: Performed By: #### C BC #### [facility] [address] [address] [address] Gabino Motta CO2 [Moles/Vol] 20.1 mmol/L Critically low 21.0-32.0 [facility] Comment on above: Performed By: #### C BC #### [facility] [address] [address] [address] Gabino Motta Creatinine [Mass/Vol] 0.54 mg/dL Critically low 0.55-1.02 [facility] Comment on above: Performed By: #### C BC #### [facility] [address] [place] [address] Dr. Gabino Motta EGFR-AF BARBADIAN >60 Normal >=60 [facility] Comment on above: Performed By: #### C BC #### [facility] [address] [place] [address] Dr. Gabino Motta EGFR-NON AF BARBADIAN >60 Normal >=60 [facility] Comment on above: Performed By: #### C BC #### [facility] [address] [place] [address] Dr. Gabino Motta Globulin (S) [Mass/Vol] 3.8 g/dL Normal [facility] Comment on above: Performed By: #### C BC #### [facility] [address] [place] [address] Dr. Gabino Motta Glucose [Mass/Vol] 102 mg/dL Normal 74-106 [facility] Comment on above: Performed By: #### C BC #### [facility] [address] [place] [address] Dr. Gabino Motta Potassium [Moles/Vol] 3.5 mmol/L Normal 3.5-5.1 [facility] Comment on above: Performed By: #### C BC #### [facility] [address] [place] [address] Dr. Gabino Motta Protein [Mass/Vol] 7.9 g/dL Normal 6.4-8.2 [facility] Comment on above: Performed By: #### C BC #### [facility] [address] [place] [address] Dr. Gabino Motta Sodium [Moles/Vol] 138 mmol/L Normal 136-145 [facility] Comment on above: Performed By: #### C BC #### [facility] [address] [place] [address] Dr. Gabino Motta Urea nitrogen [Mass/Vol] 6.0 mg/dL Critically low 7.0-18.0 [facility] Comment on above: Performed By: #### C BC #### [facility] [address] [place] [address] Dr. Gabino Motta Urea nitrogen/Creatinine [Mass ratio] 11.1 mg/mg Normal [facility] Comment on above: Performed By: #### C BC #### [facility] [address] [place] [address] Dr. Gabino Motta CULTURE URINEon 04-29-2022 CULTURE [...] F Trimethoprim/Sulfame thoxazole <=20 S F Normal [facility] Comment on above: Performed By: #### U RCX #### [facility] [address] [place] [address] Dr. Gabino Motta CBC AUTO DIFFon 04-26-2022 BASO # 0.0 103/ul Normal 0.0-0.1 [facility] Comment on above: Performed By: #### C BC #### [facility] [address] [place] [address] Dr. Gabino Motta Basophils/100 WBC (Bld) 0.3 % Normal 0.2-2.0 [facility] Comment on above: Performed By: #### C BC #### [facility] [address] [place] [address] Dr. Gabino Motta EO # 0.0 103/ul Normal 0.0-0.7 [facility] Comment on above: Performed By: #### C BC #### [facility] [address] [place] [address] Dr. Gabino Motta Eosinophils/100 WBC (Bld) 0.2 % Critically low 0.9-7.0 [facility] Comment on above: Performed By: #### C BC #### [facility] [address] [place] [address] Dr. Gabino Motta Erythrocyte distribution width (RBC) [Ratio] 12.7 % Normal 11.0-15.0 [facility] Comment on above: Performed By: #### C BC #### [facility] [address] [place] [address] Dr. Gabino Motta Hematocrit (Bld) [Volume fraction] 39.7 % Normal 36.0-48.0 [facility] Comment on above: Performed By: #### C BC #### [facility] [address] [place] [address] Dr. Gabino Motta Hemoglobin (Bld) [Mass/Vol] 13.8 g/dL Normal 12.0-16.0 [facility] Comment on above: Performed By: #### C BC #### [facility] [address] [place] [address] Dr. Gabino Motta IG # 0.03 10e3/ul Normal 0.00-0.03 [facility] Comment on above: Performed By: #### C BC #### [facility] [address] [place] [address] Dr. Gabino Motta IG % 0.2 % Normal 0.0-0.5 [facility] Comment on above: Performed By: #### C BC #### [facility] [address] [address] [address] Gabino Motta LYMPH # 1.4 103/ul Normal 1.2-3.8 [facility] Comment on above: Performed By: #### C BC #### [facility] [address] [place] [address] Dr. Gabino Motta Lymphocytes/100 WBC (Bld) 11.4 % Critically low 20.5-60.0 [facility] Comment on above: Performed By: #### C BC #### [facility] [address] [place] [address] Dr. Gabino Motta MANUAL DIFF REQ NO Normal [facility] Comment on above: Performed By: #### C BC #### [facility] [address] [place] [address] Dr. Gabino Motta MCH (RBC) [Entitic mass] 28.4 pg Normal 26.7-34.0 [facility] Comment on above: Performed By: #### C BC #### [facility] [address] [place] [address] Dr. Gabino Motta MCHC (RBC) [Mass/Vol] 34.8 g/dL Normal 29.9-35.2 [facility] Comment on above: Performed By: #### C BC #### [facility] [address] [place] [address] Dr. Gabino Motta MCV (RBC) [Entitic vol] 81.7 fL Normal 81.0-99.0 [facility] Comment on above: Performed By: #### C BC #### [facility] [address] [place] [address] Dr. Gabino Motta MONO # 0.7 103/ul Normal 0.3-0.8 [facility] Comment on above: Performed By: #### C BC #### [facility] [address] [place] [address] Dr. Gabino Motta Monocytes/100 WBC (Bld) 5.6 % Normal 1.7-12.0 [facility] Comment on above: Performed By: #### C BC #### [facility] [address] [place] [address] Dr. Gabino Motta NEUT # 10.1 103/ul Critically high 1.4-6.5 [facility] Comment on above: Performed By: #### C BC #### [facility] [address] [place] [address] Dr. Gabino Motta Neutrophils/100 WBC (Bld) 82.3 % Critically high 43.0-75.0 [facility] Comment on above: Performed By: #### C BC #### [facility] [address] [place] [address] Dr. Gabino Motta Platelet mean volume (Bld) [Entitic vol] 10.8 fL Normal 9.5-13.5 [facility] Comment on above: Performed By: #### C BC #### [facility] [address] [place] [address] Dr. Gabino Motta PLT 274 103/ul Normal 150-450 [facility] Comment on above: Performed By: #### C BC #### [facility] [address] [place] [address] Dr. Gabino Motta RBC 4.86 106/ul Normal 4.20-5.40 [facility] Comment on above: Performed By: #### C BC #### [facility] [address] [place] [address] Dr. Gabino Motta WBC 12.3 103/ul Critically high 4.0-11.0 [facility] Comment on above: Performed By: #### C BC #### [facility] [address] [place] [address] Dr. Gabino Motta ER URINE PROFILEon 3 Bilirubin Ql (U) Negative Normal NEGATIVE [facility] Comment on above: Performed By: #### U MICRO, ERUR #### [facility] [address] [place] [address] Dr. Gabino Motta Clarity (U) SL CLOUDY Abnormal CLEAR [facility] Comment on above: Performed By: #### U MICRO, ERUR #### [facility] [address] [place] [address] Dr. Gabino Motta Color (U) YELLOW Normal YELLOW [facility] Comment on above: Performed By: #### U MICRO, ERUR #### [facility] [address] [address] [address] Gabino WILLIS A micrscopic examination will be performed if indicated. Normal [facility] Comment on above: Performed By: #### U MICRO, ERUR #### [facility] [address] [address] [address] Gabino Motta Glucose Ql (U) Negative Normal NEGATIVE [facility] Comment on above: Performed By: #### U MICRO, ERUR #### [facility] [address] [address] [address] Gabino Motta Hemoglobin Ql (U) Negative Normal NEGATIVE [facility] Comment on above: Performed By: #### U MICRO, ERUR #### [facility] [address] [place] [address] Dr. Gabino Motta Ketones Ql (U) >=80 Abnormal NEGATIVE [facility] Comment on above: Performed By: #### U MICRO, ERUR #### [facility] [address] [place] [address] Dr. Gabino Motta LEUKOCYTES Negative Normal NEGATIVE [facility] Comment on above: Performed By: #### U MICRO, ERUR #### [facility] [address] [place] [address] Dr. Gabino Motta Nitrite Ql (U) Positive Abnormal NEGATIVE [facility] Comment on above: Performed By: #### U MICRO, ERUR #### [facility] [address] [address] [address] Gabino Motta pH (U) 6.0 [pH] Normal 5-9 [facility] Comment on above: Performed By: #### U MICRO, ERUR #### [facility] [address] [address] [address] Gabino Motta SPEC GRAVITY 1.030 Abnormal 1.005-<=1.025 [facility] Comment on above: Performed By: #### U MICRO, ERUR #### [facility] [address] [place] [address] Dr. Gabino Motta UA PROTEIN Negative Normal NEGATIVE/ TRACE [facility] Comment on above: Performed By: #### U MICRO, ERUR #### [facility] [address] [place] [address] Dr. Gabino Motta UR MICRO IND INDICATED Normal [facility] Comment on above: Performed By: #### U MICRO, ERUR #### [facility] [address] [place] [address] Dr. Gabino Motta Urobilinogen Qn (U) 0.2 {Landy'U}/dL Normal 0.2 - 1. 0 [facility] Comment on above: Performed By: #### U MICRO, ERUR #### [facility] [address] [place] [address] Dr. Gabino Motta PROF 14(COMP METB)on 023 Albumin [Mass/Vol] 3.9 g/dL Normal 3.4-5.0 [facility] Comment on above: Performed By: #### C MP #### [facility] [address] [place] [address] Dr. Gabino Motta Albumin/Globulin [Mass ratio] 1.1 {ratio} Normal [facility] Comment on above: Performed By: #### C MP #### [facility] [address] [place] [address] Dr. Gabino Motta ALP [Catalytic activity/Vol] 75 U/L Normal 46-116 [facility] Comment on above: Performed By: #### C MP #### [facility] [address] [place] [address] Dr. Gabino Motta ALT [Catalytic activity/Vol] 36 U/L Normal 14-59 [facility] Comment on above: Performed By: #### C MP #### [facility] [address] [place] [address] Dr. Gabino Motta Anion gap [Moles/Vol] 18.0 mmol/L Normal [facility] Comment on above: Performed By: #### C MP #### [facility] [address] [place] [address] Dr. Gabino Motta AST [Catalytic activity/Vol] 16 U/L Normal 15-37 [facility] Comment on above: Performed By: #### C MP #### [facility] [address] [address] [address] Gabino Motta Bilirubin [Mass/Vol] 0.4 mg/dL Normal 0.2-1.0 [facility] Comment on above: Performed By: #### C MP #### [facility] [address] [address] [address] Gabino Motta Calcium [Mass/Vol] 9.3 mg/dL Normal 8.5-10.1 [facility] Comment on above: Performed By: #### C MP #### [facility] [address] [address] [address] Gabino Motta Chloride [Moles/Vol] 101 mmol/L Normal 98-107 [facility] Comment on above: Performed By: #### C MP #### [facility] [address] [place] [address] Dr. Gabino Motta CO2 [Moles/Vol] 22.7 mmol/L Normal 21.0-32.0 [facility] Comment on above: Performed By: #### C MP #### [facility] [address] [place] [address] Dr. Gabino Motta Creatinine [Mass/Vol] 0.57 mg/dL Normal 0.55-1.02 [facility] Comment on above: Performed By: #### C MP #### [facility] [address] [place] [address] Dr. Gabino Motta EGFR-AF BARBADIAN >60 Normal >=60 [facility] Comment on above: Performed By: #### C MP #### [facility] [address] [place] [address] Dr. Gabino Motta EGFR-NON AF BARBADIAN >60 Normal >=60 [facility] Comment on above: Performed By: #### C MP #### [facility] [address] [place] [address] Dr. Gabino Motta Globulin (S) [Mass/Vol] 3.7 g/dL Normal [facility] Comment on above: Performed By: #### C MP #### [facility] [address] [address] [address] Gabino Motta Glucose [Mass/Vol] 94 mg/dL Normal 74-106 [facility] Comment on above: Performed By: #### C MP #### [facility] [address] [address] [address] Gabino Motta Potassium [Moles/Vol] 3.7 mmol/L Normal 3.5-5.1 [facility] Comment on above: Performed By: #### C MP #### [facility] [address] [address] [address] Gabino Motta Protein [Mass/Vol] 7.6 g/dL Normal 6.4-8.2 [facility] Comment on above: Performed By: #### C MP #### [facility] [address] [place] [address] Dr. Gabino Motta Sodium [Moles/Vol] 138 mmol/L Normal 136-145 [facility] Comment on above: Performed By: #### C MP #### [facility] [address] [place] [address] Dr. Gabino Motta Urea nitrogen [Mass/Vol] 8.0 mg/dL Normal 7.0-18.0 [facility] Comment on above: Performed By: #### C MP #### [facility] [address] [place] [address] Dr. Gabino Motta Urea nitrogen/Creatinine [Mass ratio] 14.0 mg/mg Normal [facility] Comment on above: Performed By: #### C MP #### [facility] [address] [place] [address] Dr. Gabino Motta URINE MICROSCOPIC ONLYon BACTERIA SMALL Abnormal NONE SEEN [facility] Comment on above: Performed By: #### U MICRO, ERUR #### [facility] [address] [place] [address] Dr. Gabino Motta Bacteria identified Cx Nom (U) INDICATED Normal [facility] Comment on above: Performed By: #### U MICRO, ERUR #### [facility] [address] [place] [address] Dr. Gabino Motta CAST NONE SEEN Normal NONE SEEN [facility] Comment on above: Performed By: #### U MICRO, ERUR #### [facility] [address] [place] [address] Dr. Gabino Motta Crystals LM Nom (Urine sed) NONE SEEN Normal NONE SEEN [facility] Comment on above: Performed By: #### U MICRO, ERUR #### [facility] [address] [place] [address] Dr. Gabino Motta Epithelial cells LM Ql (Urine sed) FEW Abnormal NONE SEEN /RARE [facility] Comment on above: Performed By: #### U MICRO, ERUR #### [facility] [address] [place] [address] Dr. Gabino Motta MUCOUS SMALL Abnormal NONE SEEN [facility] Comment on above: Performed By: #### U MICRO, ERUR #### [facility] [address] [place] [address] Dr. Gabino Motta RBC NONE SEEN Abnormal 0-2 [facility] Comment on above: Performed By: #### U MICRO, ERUR #### [facility] [address] [place] [address] Dr. Gabino Motta WBC 2-5 Abnormal NONE SEEN [facility] Comment on above: Performed By: #### U MICRO, ERUR #### [facility] [address] [place] [address] Dr. Gabino Motta US PREG TVon 04-25-2022 [...] by: EMA SAMUEL Date: 2022-04-25 10:29 Normal [facility] US PELVISon 11-15-2021 US PELVIS EXAMINATION: US [...] by: ROXY CARRILLO Date: 2021-11-15 17:11 Normal [facility] Vital Signs Date Time Vital Sign Value Performing Clinician Faci lity 12-27-2024 14:10-0400 Body mass index (BMI) [Ratio] 32.52 kg/m2 Mera Tatum PA Work Phone: [facility] 12-27-2024 14:10-0400 Body weight 105.78 kg Mera Tatum PA Work Phone: [facility] 12-27-2024 14:10-0400 Diastolic blood pressure 68 mm[Hg] Mera Tatum PA Work Phone: [facility] 12-27-2024 14:10-0400 Systolic blood pressure 116 mm[Hg] Mera Tatum PA Work Phone: [facility] 12-22-2024 11:26-0400 Body mass index (BMI) [Ratio] 32.01 kg/m2 Majo Shea [employer] Work Phone: [facility] 12-22-2024 11:26-0400 Body weight 104.1 kg Majo Shea [employer] ASS[employer] MANA[employer] Work Phone: [facility] 12-22-2024 11:26-0400 Diastolic blood pressure 70 mm[Hg] Majo Monse [employer] ASSISTANT MANAGER Work Phone: [facility] 12-22-2024 11:26-0400 Systolic blood pressure 116 mm[Hg] Majo Monse [employer] ASSISTANT MANAGER Work Phone: [facility] 12-15-2024 11:00-0400 Body mass index (BMI) [Ratio] 31.99 kg/m2 Majo Monse [employer] ASSISTANT MANAGER Work Phone: [facility] 12-15-2024 11:00-0400 Body weight 104.06 kg Majo Monse [employer] ASSIST[employer] MANAGER Work Phone: [facility] 12-15-2024 11:00-0400 Diastolic blood pressure 68 mm[Hg] Majo Monse [employer] ASSISTANT MANAGER Work Phone: [facility] 12-15-2024 11:00-0400 Systolic blood pressure 118 mm[Hg] Majo Monse [employer] ASSISTANT MANAGER Work Phone: [facility] 11-30-2024 09:50-0400 Body mass index (BMI) [Ratio] 31.07 kg/m2 Majo Monse FIRST ASSISTANT MANAGER Work Phone: [facility] 11-30-2024 09:50-0400 Body weight 101.04 kg Majo Monse [employer] ASSISTANT MANAGER Work Phone: [facility] 11-30-2024 09:50-0400 Diastolic blood pressure 60 mm[Hg] Majo Monse FIRST ASSISTANT MANAGER Work Phone: [facility] 11-30-2024 09:50-0400 Systolic blood pressure 110 mm[Hg] Majo Monse FIRST ASSISTANT MANAGER Work Phone: [facility] 11-16-2024 14:03-0400 Body mass index (BMI) [Ratio] 30.7 kg/m2 Fransisco Olga DO Work Phone: [facility] 11-16-2024 14:03-0400 Body weight 99.85 kg Fransisco Olga DO Work Phone: [facility] 11-16-2024 14:03-0400 Diastolic blood pressure 70 mm[Hg] Fransisco Olga DO Work Phone: [facility] 11-16-2024 14:03-0400 Systolic blood pressure 120 mm[Hg] Fransisco Olga DO Work Phone: [facility] 11-02-2024 14:10-0400 Body mass index (BMI) [Ratio] 30.4 kg/m2 Mera Deepti PA Work Phone: [facility] 11-02-2024 14:10-0400 Body weight 98.88 kg Mera [place] O[place] PA Work Phone: [facility] 11-02-2024 14:10-0400 Diastolic blood pressure 74 mm[Hg] Mera [place] PA Work Phone: [facility] 11-02-2024 14:10-0400 Systolic blood pressure 114 mm[Hg] Mera [place] PA Work Phone: [facility] 10-19-2024 11:37-0400 Body mass index (BMI) [Ratio] 29.4 kg/m2 Fransisco Olga DO Work Phone: [facility] 10-19-2024 11:37-0400 Body weight 95.62 kg Fransisco Olga DO Work Phone: [facility] 10-19-2024 11:37-0400 Diastolic blood pressure 68 mm[Hg] Fransisco Olga DO Work Phone: [facility] 10-19-2024 11:37-0400 Systolic blood pressure 116 mm[Hg] Fransisco Olga DO Work Phone: [facility] 10-04-2024 10:14-0400 Body mass index (BMI) [Ratio] 28.31 kg/m2 Mera Deepti PA Work Phone: [facility] 10-04-2024 10:14-0400 Body weight 92.08 kg Mera Deepti PA Work Phone: [facility] 10-04-2024 10:14-0400 Diastolic blood pressure 62 mm[Hg] Mera [place] PA Work Phone: [facility] 10-04-2024 10:14-0400 Systolic blood pressure 114 mm[Hg] Mera Deepti PA Work Phone: [facility] 09-12-2024 09:58-0400 Body mass index (BMI) [Ratio] 27.75 kg/m2 Fransisco Olga DO Work Phone: [facility] 09-12-2024 09:58-0400 Body weight 90.27 kg Fransisco Olga DO Work Phone: [facility] 09-12-2024 09:58-0400 Diastolic blood pressure 62 mm[Hg] Fransisco Olga DO Work Phone: [facility] 09-12-2024 09:58-0400 Systolic blood pressure 110 mm[Hg] Fransisco Olga DO Work Phone: [facility] 08-10-2024 10:28-0400 Body mass index (BMI) [Ratio] 26.46 kg/m2 Mera SEYMOUR Work Phone: [facility] 08-10-2024 10:28-0400 Body weight 86.07 kg Mera SEYMOUR Work Phone: [facility] 08-10-2024 10:28-0400 Diastolic blood pressure 42 mm[Hg] Mera SEYMOUR Work Phone: [facility] 08-10-2024 10:28-0400 Systolic blood pressure 96 mm[Hg] Mera SEYMOUR Work Phone: [facility] 07-11-2024 13:26-0400 Body mass index (BMI) [Ratio] 24.7 kg/m2 Fransisco Olga DO Work Phone: [facility] 07-11-2024 13:26-0400 Body weight 80.34 kg Fransisco Olga DO Work Phone: [facility] 07-11-2024 13:26-0400 Diastolic blood pressure 74 mm[Hg] Fransisco Olga DO Work Phone: [facility] 07-11-2024 13:26-0400 Systolic blood pressure 120 mm[Hg] Fransisco Olga DO Work Phone: [facility] Healthcare Encounters Encounter Date Encounter Type Care Provider Facility Start: 12-27-2024 End: 12-27-2024 flow sheet Mera SEYMOUR Work Phone: [facility] Comment on above: Third trimester preg jael ([facility] 38 weeks gestation of ([facility]) Start: 12-22-2024 End: 12-22-2024 Bamboo flowsheet Majo Monse FIRST ASSISTANT MANAGER Work Phone: [facility] Start: 12-22-2024 End: 12-22-2024 Bamboo flowsheet Majo Monse FIRST ASSISTANT MANAGER Work Phone: [facility] Start: 12-22-2024 End: 12-22-2024 ambulatory MAJO SIDHULY Not Available Start: 12-22-2024 End: 12-22-2024 flow sheet Majo Monse FIRST ASSISTANT MANAGER Work Phone: [facility] Comment on above: Third trimester preg jael ([facility]); 37 weeks gestation of ([facility]) Start: 12-15-2024 End: 12-15-2024 Bamboo flowsheet Majo Monse FIRST ASSISTANT MANAGER Work Phone: [facility] Start: 12-15-2024 End: 12-15-2024 Bamboo flowsheet Majo Monse FIRST ASSISTANT MANAGER Work Phone: [facility] Start: 12-15-2024 End: 12-15-2024 flow sheet Majo Monse FIRST ASSISTANT MANAGER Work Phone: [facility] Comment on above: Third trimester preg jael ([facility]); 36 weeks gestation of ([facility]) Start: 12-15-2024 End: 12-15-2024 ambulatory MAJO MONSE Not Available Start: 11-30-2024 End: 11-30-2024 Bamboo flowsheet Majo Monse FIRST ASSISTANT MANAGER Work Phone: [facility] Start: 11-30-2024 End: 11-30-2024 Bamboo flowsheet Majo Shea FIRST ASSISTANT MANAGER Work Phone: [facility] Start: 11-30-2024 End: 11-30-2024 ambulatory MAJO MONSE Not Available Start: 11-30-2024 End: 11-30-2024 flow sheet Majo Shea FIRST ASSISTANT MANAGER Work Phone: [facility] Comment on above: Third trimester preg jael ([facility]); 34 weeks gestation of ([facility]) Start: 11-16-2024 End: 11-16-2024 Bamboo flowsheet Fransisco Olga DO Work Phone: [facility] Start: 11-16-2024 End: 11-16-2024 Bamboo flowsheet Fransisco Olga DO Work Phone: [facility] Start: 11-16-2024 End: 11-16-2024 flow sheet Fransisco Olga DO Work Phone: [facility] Comment on above: 32 weeks gestation o f ([facility]); Third trimester ([facility]) Start: 11-16-2024 End: 11-16-2024 ambulatory FRANSISCO OLGA Not Available Start: 11-02-2024 End: 11-02-2024 flow sheet Mera SEYMOUR Work Phone: [facility] Comment on above: Third trimester preg jael ([facility]); 30 weeks gestation of ([facility]) Start: 11-02-2024 End: 11-02-2024 ambulatory MERA TATUM Not Available Start: 10-19-2024 End: 10-19-2024 Bamboo flowsheet Fransisco Olga DO Work Phone: [facility] Start: 10-19-2024 End: 10-19-2024 Bamboo flowsheet Fransisco Olga DO Work Phone: [facility] Start: 10-19-2024 End: 10-19-2024 flow sheet Fransisco Olga DO Work Phone: [facility] Comment on above: Third trimester preg jael ([facility]); 28 weeks gestation of ([facility]); size inconsistent with dates ([facility]) Start: 10-19-2024 End: 10-19-2024 ambulatory FRANSISCO [...] Comment on above: Second trimester pre gnancy ([facility]); 26 weeks gestation of ([facility]); BV (bacterial vaginosis) Start: 10-04-2024 End: 10-04-2024 ambulatory MERA TATUM Not Available Start: 09-12-2024 End: 09-12-2024 Bamboo flowsheet Fransisco Olga DO Work Phone: [facility] Start: 09-12-2024 End: 09-12-2024 Bamboo flowsheet Fransisco Olga DO Work Phone: [facility] Start: 09-12-2024 End: 09-12-2024 flow sheet Fransisco Olga DO Work Phone: [facility] Comment on above: Second trimester pre gnancy ([facility]); 24 weeks gestation of ([facility]); Diabetes mellitus screening Start: 09-12-2024 End: [...] Patient encounter procedure Mera SEYMOUR Work Phone: [facility] Start: 08-10-2024 End: 08-10-2024 Periodic preventive [...] flow sheet Fransisco Olga DO Work Phone: [facility] Comment on above: 14 weeks gestation o f ; Second trimester ; Nausea and vomiting in Start: 07-11-2024 End: 07-11-2024 ambulatory FRANSISCO OLGA Not Available Start: 06-03-2024 End: 06-03-2024 ambulatory FRANSISCO OLGA Not Available Start: 05-27-2024 End: 05-27-2024 ambulatory Tracie Rayray [facility] Work Phone: Start: 05-27-2024 End: 05-27-2024 Departed Referred Tracie Grejericho PA-C Work Phone: [facility] Start: 05-18-2024 End: 05-18-2024 Bamboo flowsheet Mera SEYMOUR Work Phone: [facility] Start: 05-18-2024 End: 05-18-2024 Bamboo flowsheet Mera SEYMOUR Work Phone: [facility] Start: 05-18-2024 End: 05-18-2024 ambulatory MERA TATUM Not Available Start: 05-18-2024 End: 05-18-2024 Office outpatient visit 15 minutes Mera SEYMOUR Work Phone: [facility] Comment on above: Nausea [...] Date Procedure Procedure Detail Performing Clinician Start: 12-27-2024 Urnls dip stick/tabl et rgnt non-auto w/o micrscp Mera SEYMOUR Work Phone: Start: 12-22-2024 Urnls dip stick/tabl et rgnt non-auto w/o micrscp Majo Monse FIRST ASSISTANT MANAGER Work Phone: Start: 12-15-2024 Urnls dip stick/tabl et rgnt non-auto w/o micrscp Majo Monse FIRST ASSISTANT MANAGER Work Phone: Start: 11-30-2024 Urnls dip stick/tabl et rgnt non-auto w/o micrscp Majo Monse FIRST ASSISTANT MANAGER Work Phone: Start: 11-16-2024 Urnls dip stick/tabl [...] procedure 12/27/2024 2:10 PM EDT Routine [facility] [address] [place] [phone] Mera Tatum PA [address] [place] [address] [facility] Start: 12-22-2024 End: 12-22-2024 Patient encounter procedure 12/22/2024 11:20 AM EDT Routine [facility] [address] [place] [phone] aMjo Shea, FIRST ASSISTANT MANAGER [address] [place] [phone] [facility] Start: 12-15-2024 End: 12-15-2024 Patient encounter procedure 12/15/2024 10:50 AM EDT Routine [facility] [address] [place] [phone] Majo Shea, FIRST ASSISTANT MANAGER [address] [place] [phone] Arrived [facility] Comment on above: Arrived Start: 11-30-2024 End: 11-30-2024 Patient encounter procedure 11/30/2024 9:00 AM EDT Routine [facility] [address] [facility] [phone] Majo Shea, CARINA [address] [facility] [place] [phone] [facility] Start: 11-16-2024 End: 11-16-2024 Patient encounter procedure [facility] Comment on above: Arrived Start: 11-02-2024 End: 11-02-2024 Patient encounter procedure 11/02/2024 2:30 PM EDT Routine [facility] [address] [place] [phone] Mera Tatum PA [address] [facility] [place] [address] [facility] Start: 11-02-2024 End: 11-02-2024 Professional / ancillary services management 11/02/2024 1:30 PM EDT Ancillary Procedure [facility] [address] [facility] [phone] [facility] Start: 10-19-2024 End: 02-18-2025 US for US OB follow up transabdominal approach Imaging Routine size inconsistent with dates ([facility]) Expected: 10/19/2024, Expires: 02/18/2025 [facility] Work [...] Procedure [facility] [address] [place] [address] [facility] Start: 08-10-2024 End: 10-10-2024 Alpha fetoprotein, maternal Alpha fetoprotein, maternal Lab Routine Second trimester 18 weeks gestation of Expected: 08/10/2024 (Approximate), Expires: 10/10/2024 [facility] Comment on above: Expected: 08/10/2024 (Approximate), Expires: 10/10/2024 Start: 08-10-2024 End: 11-10-2024 US for US OB 14+ weeks anatomy scan Imaging Routine Screening, , for anatomic survey Expected: 08/10/2024, Expires: 11/10/2024 [facility] Comment on above: Expected: 08/10/2024 , Expires: 11/10/2024 Start: 08-10-2024 End: 08-10-2024 Patient encounter procedure [facility] Comment on above: Arrived Start: 07-11-2024 End: 07-11-2024 Patient encounter procedure 07/11/2024 1:20 PM EDT Routine [facility] [address] [place] [address] Fransisco Espinoza, [address] [place] [address] Arrived [facility] Comment on above: Arrived Start: 05-27-2024 Urine culture [facility] Start: 05-27-2024 Bacteria identified in Urine by Culture Urine Culture [facility] Start: 05-26-2024 End: 05-26-2024 ambulatory 05/26/2024 1:30 PM EDT Initial [facility] [address] [facility] [place] [phone] [facility] Start: 05-26-2024 End: 05-26-2024 Professional / ancillary services management 05/26/2024 1:00 PM EDT Ancillary Procedure [facility] [address] [facility] [place] [phone] [facility] CHLAMYDIA TRACHOMATI S (GENITO/STI) CHLAMYDIA TRACHOMATIS (GENITO/STI) Lab Routine STD exposure Ordered: 08/10/2024 [facility] Comment on above: Ordered: 08/10/2024 Cytology Cervical or vaginal smear or scraping study Pap Smear Pathology and Cytology Routine Well woman exam with routine gynecological exam Ordered: 08/10/2024 [facility] Comment on above: Ordered: 08/10/2024 GBS swab GBS swab Lab Rou isabel 36 weeks gestation of ([facility]) Ordered: 12/15/2024 [facility] Work Phone: Comment on above: Ordered: 12/15/2024 Hemoglobin A1c/Hemoglobin.total in Blood Hemoglobin A1c Lab Routine 32 weeks gestation of ([facility]) Third trimester ([facility]) Ordered: 11/16/2024 [facility] Work Phone: Comment on above: Ordered: 11/16/2024 Neisseria gonorrhoea e DNA [Presence] in Unspecified specimen by BRIGIDO with probe detection Neisseria gonorrhea DNA probe, direct Lab Routine STD exposure Ordered: 08/10/2024 [facility] Comment on above: Ordered: 08/10/2024 SURESWAB(R) ADVANCED VAGINITIS PLUS, TMA SURESWAB(R) ADVANCED VAGINITIS PLUS, TMA Pathology and Cytology Routine STD exposure Ordered: 08/10/2024 [facility] Work Phone: Comment on above: Ordered: 08/10/2024 Payers Date Payer Category Payer Self-pay 2023 [facility] [id number] [id number] 2023 Unknown [id number] 2002 Unknown [id number] 2.16.84 0.1.951297.3.579.2.593 2002 Unknown [id number] 2.16.84 0.1.913615.3.579.2.593 2002 Unknown [id number] 2.16.84 0.1.275063.3.579.2.593 2002 Unknown [id number] 2.16.84 0.1.398065.3.579.2.593 2002 Unknown [id number] 2.16.84 0.1.236377.3.579.2.593 2002 Unknown [id number] 2.16.84 0.1.097679.3.579.2.593 2002 Unknown [id number] 2.16.840.1.939944.3.579.2.1259 2002 Unknown [id number] 2.16.840.1.066902.3.579.2.1259 2002 Unknown [id number] 2.16.840.1.250837.3.579.2.1259 2002 Unknown [id number] 2.16.840.1.256862.3.579.2.1259 2002 Unknown [id number] 2.16.840.1.059158.3.579.2.1259 2002 Unknown [id number] 2.16.840.1.300734.3.579.2.1259 2002 Unknown [id number] 2.16.840.1.657574.3.579.2.1259 2002 Unknown [id number] 2.16.840.1.762831.3.579.2.1259 2002 Unknown [id number] 2.16.840.1.892083.3.579.2.1259 2002 Unknown [id number] 2.16.840.1.061403.3.579.2.1259 2002 Unknown [id number] 2.16.84 0.1.983366.3.579.2.1259 2002 Unknown [id number] 2.16.84 0.1.832882.3.579.2.1259 2002 Unknown [id number] 2.16.84 0.1.634364.3.579.2.1259 2002 Unknown [id number] 2.16.84 0.1.347466.3.579.2.1259 2002 Unknown [id number] 2.16.84 0.1.298152.3.579.2.1259 1959 Self-pay [id number] 1959 Unknown [id number] Unknown David ALMAZAN/ALEXIA [id number] Unknown [id number] 2.16.8 40.1.430906.3.579.2.531 Social History Date Type Detail Facility Start: 03-05-2020 End: 09-08-2022 Tobacco smoking status WVIS Never smoked tobacco [facility] Start: 07-28-2023 End: 12-27-2024 Alcoholic beverage intake Lifetime non-drinker (finding) [facility] Start: 06-02-2023 End: 06-03-2024 History of Social function [facility] Start: 06-02-2023 End: 06-03-2024 Tobacco use panel [facility] Start: 2002 Sex assigned at Female [facility] Start: 09-08-2022 Gender identity Identifies as female gender (finding) [facility] Start: 09-08-2022 Sexual orientation Heterosexual (finding) [facility] Start: 05-29-2024 Sex Female (finding) [facility] Start: 04-16-2024 [facility] Start: 05-28-2022 Sex Female [facility] Clinical Notes 05-18-2024 to 12-27-2024 DAWN Kirk - 12/27/2024 2:10 PM Marsha Shea NP - 12/22/2024 11:20 AM Marsha Shea NP - 12/15/2024 10:50 AM Marsha Shea NP - 11/30/2024 9:40 AM EDT Note Date & Type Note Facility 12-27-2024 History of Presen t illness Narrative Reason [...] Vitals: Estimated body mass index is 32.52 kg/m as calculated from the following: Height as of 24: 5' 11 . Weight as of this encounter: 233 lb 3.2 oz. BP: 116/68 Patient's last menstrual period was 03/20/2024. ASSESSMENT & PLAN ICD-10-CM 1. Third trimester ([facility]) Z34.93 2. 38 weeks gestation of ([facility]) Z3A.38 POCT urinalysis dipstick manually resulted Return [...] pertinent surgical history. documented in this encounter [facility] 12-22-2024 History of Presen t illness Narrative [...] nursing note reviewed. Exam conducted with a park police present. Vitals: Estimated body mass index is 32.01 kg/m as calculated from the following: Height as of 07/28/23: 5' 11 . Weight as of this encounter: 229 lb 8 oz. BP: 116/70 Patient's last menstrual period was 03/20/2024. ASSESSMENT & PLAN ICD-10-CM 1. Third trimester ([facility]) Z34.93 POCT urinalysis dipstick manually resulted CANCELED: POCT , urine manually resulted 2. 37 weeks gestation of ([facility]) Z3A.37 Return OB: Patient presents today [...] Majo Shea NP documented in this encounter [facility] 12-15-2024 History of Presen t illness Narrative [...] nursing note reviewed. Exam conducted with a park police present. Vitals: Estimated body mass index is 31.99 kg/m as calculated from the following: Height as of 24: 5' 11 . Weight as of this encounter: 229 lb 6.4 oz. BP: 118/68 Patient's last menstrual period was 03/20/2024. ASSESSMENT & PLAN ICD-10-CM 1. Third trimester ([facility]) Z34.93 2. 36 weeks gestation of ([facility]) Z3A.36 POCT urinalysis dipstick manually resulted [...] Majo Shea NP documented in this encounter [facility] 11-30-2024 History of Presen t illness Narrative [...] nursing note reviewed. Exam conducted with a park police present. Vitals: Estimated body mass index is 31.07 kg/m as calculated from the following: Height as of 07/28/23: 5' 11 . Weight as of this encounter: 222 lb 12 oz. BP: 110/60 Patient's last menstrual period was 03/20/2024. ASSESSMENT & PLAN ICD-10-CM 1. Third trimester ([facility]) Z34.93 POCT urinalysis dipstick manually resulted 2. 34 weeks gestation of ([facility]) Z3A.34 Return OB: Patient presents today for [...] Majo Shea NP documented in this encounter [facility] 11-16-2024 History of Presen t illness Narrative [...] nursing note reviewed. Exam conducted with a park police present. Vitals: Estimated body mass index is 30.7 kg/m as calculated from the following: Height as of 24: 5' 11 . Weight as of this encounter: 220 lb 1.9 oz. BP: 120/70 Patient's last menstrual period was 03/20/2024. ASSESSMENT & PLAN ICD-10-CM 1. 32 weeks gestation of ([facility]) Z3A.32 POCT urinalysis dipstick manually resulted 2. Third trimester ([facility]) Z34.93 POCT urinalysis dipstick manually resulted Return [...] Fransisco Espinoza DO documented in this encounter [facility] 11-02-2024 History of Presen t illness Narrative [...] ASSESSMENT & PLAN ICD-10-CM 1. Third trimester ([facility]) Z34.93 POCT urinalysis dipstick manually resulted 2. 30 weeks gestation of ([facility]) Z3A.30 POCT urinalysis dipstick manually resulted [...] of: DAWN Kirk documented in this encounter [facility] 10-19-2024 History of Presen t illness Narrative [...] nursing note reviewed. Exam conducted with a park police present. Vitals: Estimated body mass index is 29.4 kg/m as calculated from the following: Height as of 07/28/23: 5' 11 . Weight as of this encounter: 210 lb 12.8 oz. BP: 116/68 Patient's last menstrual period was 03/20/2024. ASSESSMENT & PLAN ICD-10-CM 1. Third trimester ([facility]) Z34.93 POCT urinalysis dipstick manually resulted 2. 28 weeks gestation of ([facility]) Z3A.28 POCT urinalysis dipstick manually resulted [...] Fransisco Espinoza DO documented in this encounter [facility] 10-04-2024 History of Presen t illness Narrative [...] ASSESSMENT & PLAN ICD-10-CM 1. Second trimester ([facility]) Z34.92 2. 26 weeks gestation of ([facility]) Z3A.26 3. BV (bacterial vaginosis) N76.0 [...] of: DAWN Kirk documented in this encounter [facility] 09-12-2024 History of Presen t illness Narrative [...] nursing note reviewed. Exam conducted with a park police present. Vitals: Estimated body mass index is 27.75 kg/m as calculated from the following: Height as of 07/28/23: 5' 11 . Weight as of this encounter: 199 lb. BP: 110/62 Patient's last menstrual period was 03/20/2024. ASSESSMENT & PLAN ICD-10-CM 1. Second trimester ([facility]) Z34.92 POCT urinalysis dipstick manually resulted 2. 24 weeks gestation of ([facility]) Z3A.24 3. Diabetes mellitus screening Z13.1 [...] Fransisco Espinoza DO documented in this encounter [facility] 08-10-2024 History of Presen t illness Narrative [...] without difficulty and patient was given [facility] order to have obtained. Orders Placed This Encounter Procedures US OB 14+ weeks anatomy scan CHLAMYDIA TRACHOMATIS (GENITO/STI) Neisseria gonorrhea DNA probe, direct Alpha fetoprotein, maternal POCT urinalysis dipstick manually resulted Follow Up: Patient is to return to our office in 4 weeks for routine OB appointment Documented by DAWN Kirk on behalf of: DAWN Kirk documented in this encounter [facility] 07-11-2024 History of Presen t illness Narrative [...] nursing note reviewed. Exam conducted with a park police present. Vitals: Estimated body mass index is [...] or undercooked meat, and stay away from [facility]. Patient has been consulted regarding [...] Fransisco Espinoza DO documented in this encounter [facility] 05-18-2024 History of Presen t illness Narrative [...] nursing note reviewed. Exam conducted with a park police present. Vitals: Estimated body mass index is [...] this [facility]* Diagnosis 14 [...] note* Diagnosis Third trimester ([facility]) state, incidental 38 weeks gestation of ([facility]) documented in this encounter [facility] Summary Purpose Family History No Family History Records FoundNo Family History Records FoundNo Family History Records Found Advance Directives Advance Directive Response Recorded Date/ Time Advance Directives No February 11:17am Additional Source Comments INFORMATION SOURCE (unrecogn ized section and content) DATE CREATED AUTHOR 08/22/2022 [facility] DATE CREATED AUTHOR AUTHOR'S ORGANIZ ATION 05/31/2024 [facility] DATE CREATED AUTHOR AUTHOR'S ORGANCARYL ATION 12/24/2024 [facility] EPIC Care Teams (unrecognized sec tion and content) Hammersmith Helper Relationship Specialty Start Date End Date Stepan Yanez MD [address] [place] [address] PCP - General Family Medicine 08/12/22 Hammersmith Helper Relationship Specialty Start Date End Date Stepan Yanez MD [address] [place] [address] PCP - General Family Medicine 08/12/22 Team Status: Inactive Member Role Status Dates Tracie Seo PA-C Attending Provider Active Start: May 27, 2024 End: May 27, 2024 Hammersmith Helper Relationship Specialty Start Date End Date Stepan Yanez MD [address] [place] [address] PCP - General Family Medicine 08/12/22 Hammersmith Helper Relationship Specialty Start Date End Date Stepan Yanez MD [address] [place] [address] PCP - General Family Medicine 08/12/22 Hammersmith Helper Relationship Specialty Start Date End Date Stepan Yanez MD [address] [place] [address] PCP - General Family Medicine 08/12/22 Hammersmith Helper Relationship Specialty Start Date End Date Stepan Yanez MD [address] [place] [address] PCP - General Family Medicine 08/12/22 Hammersmith Helper Relationship Specialty Start Date End Date Stepan Yanez MD [address] [place] [facility] [address] PCP - General Family Medicine 08/12/22 Hammersmith Helper Relationship Specialty Start Date End Date Stepan Yanez MD [address] [place] [facility] [address] PCP - General Family Medicine 08/12/22 Hammersmith Helper Relationship Specialty Start Date End Date Stepan Yanez MD [address] [place] [facility] [address] PCP - General Family Medicine 08/12/22 Hammersmith Helper Relationship Specialty Start Date End Date Stepan Yanez MD [address] [place] [facility] [address] PCP - General Family Medicine 08/12/22 Hammersmith Helper Relationship Specialty Start Date End Date Stepan Yanez MD [address] [place] [facility] [address] PCP - General Family Medicine 08/12/22 Hammersmith Helper Relationship Specialty Start Date End Date Stepan Yanez MD [address] [place] [facility] [address] PCP - General Family Medicine 08/12/22 Reason [...] BE BASED ON THE PRIMARY CLINICAL RECORDS. [facility] [employer] [facility]. provides no warranty or guarantee of the accuracy or completeness of information in this document.
[2024-12-28] MEDS: IBUPROFEN 600 MG TABLET PO (17:04)
[2024-12-29 01:00] VITALS: BP 121/67; PULSE 87; TEMP 36.7
[2024-12-29] MEDS: IBUPROFEN 600 MG TABLET PO ×2 (01:01→08:43)
[2024-12-29 06:19] LABS: Hematocrit 26.3 % (36.0-48.0); Hemoglobin 9.0 g/dL (12.0-16.0); Immature Granulocytes Abs Auto 0.08 10^3/uL (0.00-0.03); Immature Granulocytes Pct Auto 0.5 % (0.0-0.5); Lymphocytes Absolute Auto 3.4 10^3/uL (1.2-3.8); Mean Corpuscular HGB Conc 34.2 g/dL (29.9-35.2); Mean Corpuscular Hemoglobin 28.3 pg (26.7-34.0); Mean Corpuscular Volume 82.7 fL (81.0-99.0); Platelet Count 209 10^3/uL (150-450); Red Blood Count 3.18 10^6/uL (4.20-5.40); White Blood Count 14.9 10^3/uL (4.0-11.0)
[2024-12-29] MEDS: KETOROLAC TROMETHAMINE 30 MG/ML VIAL IVP (07:17)
--- NOTE | 2024-12-29 07:37 | PM.OBPN ---
OB - PN: Subj Subjective Patient comments: no complaints and pain well controlled status: doing well Exam Constitutional Vital Signs, click to edit/add: Last Vital Signs Temp 98.0 F 12/29/24 01:00 Pulse 87 12/29/24 01:00 Resp 16 12/29/24 01:00 BP 121/67 12/29/24 01:00 O2 Del Method Room Air 12/29/24 01:00 Documenting provider has reviewed patient's vital signs: yes Common normals: no apparent distress Respiratory Common normals: normal respiratory effort and clear to auscultation bilaterally Cardio Common normals: regular rate and regular rhythm GI Common normals: Normal to inspection, nondistended, normoactive bowel sounds present Extremity Common normals: no clubbing, cyanosis or edema and no calf tenderness Results Labs Labs: Short CBC 12/29/24 Range/Units 06:12 WBC 14.9 H (4.0-11.0) 10^3/uL Hgb 9.0 L (12.0-16.0) g/dL Hct 26.3 L (36.0-48.0) % Plt Count 209 (150-450) 10^3/uL OB - PN: A/P Plan - Vaginal Delivery day: 1 Plan: routine care, discharge home and follow up 6 weeks Time Spent with Patient Time: Total time spent is greater than 50% in coordination of care (as documented) at patient's floor/unit and/or counseling patient: Total time spent with greater than 50% in coordination of care (as documented) at patient's floor/unit and/or counseling patient: less than 15 minutes
[2024-12-29] MEDS: DOCUSATE SODIUM 100 MG CAPSULE PO (08:43)
[2024-12-29 08:49] VITALS: BP 123/70; PULSE 82; TEMP 36.6
--- NOTE | 2024-12-29 10:25 | SWNOTE1 ---
SW consulted for positive THC drug screen on admission. SW spoke with nurse and no further concerns at this time. Pt and father of baby appropriate with baby. SW met with pt and father of baby. They voiced they are doing great and get to go home today. They do have everything they need at home for baby. They also have a 2 year old son in the home as well. They do have good support at home as well. SW did discuss positive THC drug screen on admission. Pt did admit to smoking Marijuana. She did it for pain and nausea. She does not have a medical Marijuana card and she will smoke it at home if needed. She does not smoke around the children, Marijuana is safely stored away from children. They did let SW know that SW saw them when she was here with other child and CPS was called and no case was opened. At this time they have no further questions. Pt and father of baby are appropriate with baby and caring for baby. 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 Report called to [facility] CPS, HIPAA form filled out and sent to [facility].
[2024-12-29] MEDS: RHO(D) IMMUNE GLOBULIN 1,500 UNIT SYRINGE 1500 UNIT IV (13:19)
[2024-12-31 19:08] LABS: Carboxy THC Conf, MS, UR 18 ng/mL (Cutoff=10)
== END 2024-12-29 15:36 | disposition home or self-care (01) | DRG 807 ==
PROVIDERS: Admitting Provider Obstetrics & Gynecology; PCP Family Medicine; Visit Provider Obstetrics & Gynecology
DX: O26.893 Other specified pregnancy related conditions, third trimester (principal); Z37.0 Single live birth; Z67.21 Type B blood, Rh negative; O70.0 First degree perineal laceration during delivery; O99.324 Drug use complicating childbirth; F12.90 Cannabis use, unspecified, uncomplicated; Z3A.38 38 weeks gestation of pregnancy
CPT/HCPCS: 36415; 59050; 59410; 80307; 80349; 85025; 85027; 85461; 86850; 86900; 86901; J1885; J2791; Q0162